=== PATIENT | female | born 1980 | race Caucasian/White ===

== ENCOUNTER 2018-12-18 13:59 | Emergency (ER) | payer OTHER ==
[2018-12-18 15:56] LABS: Absolute Lymphocytes (CBC) 1.6 K/uL (0.7-4.9); Basophils % 0.6 % (0-1.3); Hematocrit 24.8 % (36.0-45.0); Lymphocytes % 20.6 % (15.3-44.8); MPV 8.7 fL (7.6-11.3); Monocytes % 7.1 % (3.3-12.3); RBC Red Blood Cell Count 3.03 M/uL (3.86-4.86)
[2018-12-18 15:57] LABS: Urine Blood NEGATIVE (NEG); Urine Glucose NEGATIVE (NEG); Urine Protein NEGATIVE (NEG)
[2018-12-18] MEDS ORDERED: NA CHLORIDE 0.9% 1,000 ML ONE (16:24)
[2018-12-18 18:05] LABS: ALT/SGPT 17 U/L (12-78); AST/SGOT 18 U/L (15-37); Albumin 2.6 g/dL (3.4-5.0); Alkaline Phosphatase 92 U/L (45-117); BUN Blood Urea Nitrogen 7 mg/dL (7-18); Bicarbonate 22 mmol/L (21-32); Bilirubin Direct < 0.1 mg/dL (0-0.2); Bilirubin Total 0.1 mg/dL (0.2-1.0); Glucose Level 72 mg/dL (74-106); Lipase 222 U/L (73-393); Potassium 3.9 mmol/L (3.5-5.1); Protein, Total 6.7 g/dL (6.4-8.2); Sodium Level 140 mmol/L (136-145)
[2018-12-18 18:26] LABS: HCG, Quantitative 10461 mIU/mL (1-3)
[2018-12-18] MEDS ORDERED: cloNIDine HCl 0.1 MG TAB ONE (18:43)
--- NOTE | 2018-12-18 19:32 | EDPHYS ---
Physician Documentation [facility] Name: Mayra Peterson Age: 38 yrs Sex: Female : 1980 Arrival Date: 12/18/2018 Time: 14:05 Bed 5 Private MD: ED Physician Doanl Blackwell HPI: 12/18 15:20 This 38 yrs old Female presents to ER via Ambulatory with complaints of so Swelling, Pain under ribs-22 wks preg. 15:20 The patient presents with abdominal pain abdominal distention in the upper abdomen, in so the lower abdomen. Onset: The symptoms/episode began/occurred 3 day(s) ago. Onset: The symptoms/episode began/occurred 3 day(s) ago. Modifying factors: The symptoms are alleviated by nothing, the symptoms are aggravated by nothing. Associated signs and symptoms: The patient has no apparent associated signs or symptoms. Severity of symptoms: At their worst the symptoms were moderate, in the emergency department the symptoms are unchanged. The estimated gestational age is 22 weeks. 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 - Social history:: Smoking status: Patient uses tobacco products, smokes one-half pack cigarettes per day. - Ebola Screening: : No symptoms or risks identified at this time. ROS: 15:20 Constitutional: Negative for fever, chills, and weight loss, Eyes: Negative for injury, so pain, redness, and discharge, ENT: Negative for injury, pain, and discharge, Neck: Negative for injury, pain, and swelling, Cardiovascular: Negative for chest pain, palpitations, and edema, Respiratory: Negative for shortness of breath, cough, wheezing, and pleuritic chest pain, Back: Negative for injury and pain, : Negative for injury, bleeding, discharge, and swelling, MS/Extremity: Negative for injury and deformity, Skin: Negative for injury, rash, and discoloration, Neuro: Negative for headache, weakness, numbness, tingling, and seizure, Psych: Negative for depression, anxiety, suicide ideation, homicidal ideation, and hallucinations, Allergy/Immunology: Negative for hives, rash, and allergies, Endocrine: Negative for neck swelling, polydipsia, polyuria, polyphagia, and marked weight changes, Hematologic/Lymphatic: Negative for swollen nodes, abnormal bleeding, and unusual bruising. 15:20 Abdomen/GI: Positive for abdominal pain, of the right upper quadrant, left upper quadrant, right lower quadrant and left lower quadrant. 15:20 MS/extremity: Positive for swelling, of the right leg and left leg. Exam: 15:20 Constitutional: This is a well developed, well nourished patient who is awake, alert, so and in no acute distress. Head/Face: Normocephalic, atraumatic. Eyes: Pupils equal round and reactive to light, extra-ocular motions intact. Lids and lashes normal. Conjunctiva and sclera are non-icteric and not injected. Cornea within normal limits. Periorbital areas with no swelling, redness, or edema. ENT: Nares patent. No nasal discharge, no septal abnormalities noted. Tympanic membranes are normal and external auditory canals are clear. Oropharynx with no redness, swelling, or masses, exudates, or evidence of obstruction, uvula midline. Mucous membranes moist. Neck: Trachea midline, no thyromegaly or masses palpated, and no cervical lymphadenopathy. Supple, full range of motion without nuchal rigidity, or vertebral point tenderness. No Meningismus. Chest/axilla: Normal chest wall appearance and motion. Nontender with no deformity. No lesions are appreciated. Cardiovascular: Regular rate and rhythm with a normal S1 and S2. No gallops, murmurs, or rubs. Normal PMI, no JVD. No pulse deficits. Respiratory: Lungs have equal breath sounds bilaterally, clear to auscultation and percussion. No rales, rhonchi or wheezes noted. No increased work of breathing, no retractions or nasal flaring. Back: No spinal tenderness. No costovertebral tenderness. Full range of motion. Female : Normal external genitalia. Skin: Warm, dry with normal turgor. Normal color with no rashes, no lesions, and no evidence of cellulitis. Neuro: Awake and alert, GCS 15, oriented to person, place, time, and situation. Cranial nerves II-XII grossly intact. Motor strength 5/5 in all extremities. Sensory grossly intact. Cerebellar exam normal. Normal gait. Psych: Awake, alert, with orientation to person, place and time. Behavior, mood, and affect are within normal limits. 15:20 Abdomen/GI: Inspection: distension, that is moderate, gravid appearance, is noted, Bowel sounds: normal, Palpation: abdomen is soft and non-tender, Liver: no appreciated palpable abnormalities, Hernia: not appreciated. Vital Signs: 14:16 BP 132 / 67; Pulse 90; Resp 18 S; Temp 97.7(TE); Pulse Ox 100% on R/A; Weight 79.38 kg aa5 (R); Height 5 ft. 0 in. (152.40 cm) (R); Pain 6/10; 16:00 BP 128 / 68; Pulse 88; Resp 16; Pulse Ox 100% on R/A; Pain 5/10; hb 17:30 BP 130 / 70; Pulse 86; Resp 15; Pulse Ox 100% on R/A; Pain 4/10; hb 19:15 BP 118 / 88; Pulse 72; Resp 17; Pulse Ox 97% on R/A; rv 14:16 Body Mass Index 34.18 (79.38 kg, 152.40 cm) aa5 MDM: 14:31 Patient medically screened. [facility] 15:24 Data reviewed: vital signs, nurses notes, lab test result(s), radiologic studies. [facility] 12/18 15:19 Order name: Basic Metabolic Panel; Complete Time: 18:52 [facility] 12/18 15:19 Order name: CBC with Diff; Complete Time: 16:05 [facility] 12/18 15:19 Order name: Creatinine for Radiology; Complete Time: 16:05 [facility] 12/18 15:19 Order name: Hepatic Function; Complete Time: 18:52 [facility] 12/18 15:19 Order name: Lipase; Complete Time: 18:52 [facility] 12/18 15:19 Order name: Quantitative Hcg; Complete Time: 18:52 [facility] 12/18 15:19 Order name: IV Saline Lock; Complete Time: 16:12 [facility] 12/18 15:19 Order name: Abo/rh Typing; Complete Time: 16:05 so 12/18 15:19 Order name: TSH; Complete Time: 18:52 so 12/18 15:19 Order name: AMMONIA; Complete Time: 16:05 so 12/18 15:50 Order name: Urine Dipstick--Ancillary (enter results); Complete Time: 16:05 ag 12/18 18:28 Order name: T4 Free; Complete Time: 18:52 EDMD 12/18 15:19 Order name: Labs collected and sent; Complete Time: 16:12 so 12/18 15:19 Order name: NPO; Complete Time: 15:26 so 12/18 15:19 Order name: Urine Dipstick-Ancillary (obtain specimen); Complete Time: 16:12 [facility] Administered Medications: 15:44 Drug: NS 0.9% 1000 ml Route: IV; Rate: 125 ml/hr; Site: right wrist; hb 19:10 Follow up: Response: No adverse reaction; IV Intake: 375ml hb Disposition: 12/18/18 19:32 Patient left the facility after being seen by provider. Preliminary diagnosis are related conditions, unspecified, second trimester, Anemia, unspecified. - Patient left due to wait time. - Condition is Undetermined. - Problem is new. - Symptoms are unchanged. Signatures: Dispatcher [employer] Donal Ortez MD MD cha Calderon, Audri, RN RN aa5 Erica Juarez RN RN Ricardo Lassiter RN RN rv Corrections: (The following items were deleted from the chart) 16:11 15:19 Urine Test ordered. [facility] hb 19:32 19:32 12/18/2018 19:32 Patient left the facility after being seen by provider. so Preliminary diagnosis is related conditions, unspecified, second trimester. Reason stated they are leaving due to wait time. Condition is Undetermined. Problem is new. Symptoms are unchanged. [facility] 19:37 19:32 12/18/2018 19:32 Patient left the facility after being seen by provider. rv Preliminary diagnosis is related conditions, unspecified, second trimester; Anemia, unspecified. Reason stated they are leaving due to wait time. Condition is Undetermined. Problem is new. Symptoms are unchanged. [facility]
--- NOTE | 2018-12-18 19:32 | ER ---
Nurse's Notes [facility] Name: Mayra Peterson Age: 38 yrs Sex: Female : 1980 Arrival Date: 12/18/2018 Time: 14:05 Bed 5 Private MD: Diagnosis: related conditions, unspecified, second trimester;Anemia, unspecified Presentation: 12/18 14:11 Presenting complaint: Patient states: "I have this pain under my ribs and I can't aa5 breathe and my legs are swollen". Pt reports being 22 weeks . Transition of care: patient was not received from another setting of care. Onset of symptoms was December 15, 2018. Risk Assessment: Do you want to hurt yourself or someone else? Patient reports no desire to harm self or others. Initial Sepsis Screen: Does the patient meet any 2 criteria? No. Patient's initial sepsis screen is negative. Does the patient have a suspected source of infection? No. Patient's initial sepsis screen is negative. Care prior to arrival: None. 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 - Social history:: Smoking status: Patient uses tobacco products, smokes one-half pack cigarettes per day. - Ebola Screening: : No symptoms or risks identified at this time. Screenin:30 Abuse screen: Denies threats or abuse. Denies injuries from another. Nutritional hb screening: No deficits noted. Tuberculosis screening: No symptoms or risk factors identified. Fall Risk None identified. Assessment: 15:35 General: Appears in no apparent distress. Behavior is calm, cooperative. Pain: Pain hb currently is 6 out of 10 on a pain scale. Neuro: Level of Consciousness is awake, alert, obeys commands, Oriented to person, place, time, situation. Cardiovascular: Capillary refill < 3 seconds Patient's skin is warm and dry. Respiratory: Airway is patent Respiratory effort is even, unlabored, Respiratory pattern is regular, symmetrical, Breath sounds are clear bilaterally. GI: Reports RUQ pain. : No signs and/or symptoms were reported regarding the genitourinary system. EENT: No signs and/or symptoms were reported regarding the EENT system. Derm: Skin is intact, is healthy with good turgor. Musculoskeletal: No signs and/or symptoms reported regarding the musculoskeletal system. 16:30 Reassessment: Patient appears in no apparent distress at this time. Patient and/or family updated on plan of care and expected duration. Pain level reassessed. Patient is alert, oriented x 3, equal unlabored respirations, skin warm/dry/pink. 17:30 Reassessment: Patient appears in no apparent distress at this time. No changes from hb previously documented assessment. Patient and/or family updated on plan of care and expected duration. Pain level reassessed. Patient is alert, oriented x 3, equal unlabored respirations, skin warm/dry/pink. 18:14 Reassessment: Patient appears in no apparent distress at this time. No changes from hb previously documented assessment. Patient and/or family updated on plan of care and expected duration. Pain level reassessed. Patient is alert, oriented x 3, equal unlabored respirations, skin warm/dry/pink. 19:19 General: Appears uncomfortable, Behavior is calm, cooperative, appropriate for age. ea Pain: Complains of pain in right upper quadrant and left upper quadrant Pain currently is 10 out of 10 on a pain scale. Neuro: Level of Consciousness is awake, alert, obeys commands, Oriented to person, place, time, situation. Cardiovascular: Patient's skin is warm and dry. Respiratory: Airway is patent Respiratory effort is even, unlabored, Respiratory pattern is regular, symmetrical. GI: Reports nausea. Derm: Skin is intact, Skin is pink, warm \\T\\ dry. Musculoskeletal: Circulation, motion, and sensation intact. 19:35 Reassessment: patient took the IV out by herself. rv Vital Signs: 14:16 BP 132 / 67; Pulse 90; Resp 18 S; Temp 97.7(TE); Pulse Ox 100% on R/A; Weight 79.38 kg aa5 (R); Height 5 ft. 0 in. (152.40 cm) (R); Pain 6/10; 16:00 BP 128 / 68; Pulse 88; Resp 16; Pulse Ox 100% on R/A; Pain 5/10; hb 17:30 BP 130 / 70; Pulse 86; Resp 15; Pulse Ox 100% on R/A; Pain 4/10; hb 19:15 BP 118 / 88; Pulse 72; Resp 17; Pulse Ox 97% on R/A; rv 14:16 Body Mass Index 34.18 (79.38 kg, 152.40 cm) aa5 ED Course: 14:05 Patient arrived in ED. as 14:11 Arm band placed on. aa5 14:12 Triage completed. aa5 14:31 Donal Blackwell MD is Attending Physician. so 15:26 Erica Juarez, RN is Primary Nurse. hb 15:30 Inserted saline lock: 22 gauge in right wrist, using aseptic technique. Blood collected.hb 16:15 Patient has correct armband on for positive identification. Placed in gown. Bed in low hb position. Call light in reach. Side rails up X 1. 19:36 No provider procedures requiring assistance completed. patient took her IV out. rv Administered Medications: 15:44 Drug: NS 0.9% 1000 ml Route: IV; Rate: 125 ml/hr; Site: right wrist; hb 19:10 Follow up: Response: No adverse reaction; IV Intake: 375ml hb Intake: 19:10 IV: 375ml; Total: 375ml. hb Outcome: 19:37 Eloped from patient exam room, after seeing physician Time discovered patient gone: rv December 18, 2018 at 19:30 19:37 Condition: stable 19:37 Patient left the ED. rv Signatures: Donal Blackwell MD MD cha Martinez, Amelia as Calderon, Audri, RN RN aa5 Erica Juarez, RN RN Marcela Chavez, Ricardo Jules RN, ea, RN RN rv Corrections: (The following items were deleted from the chart) 14:16 14:11 Presenting complaint: Patient states: "I have this pain under my ribs and I can't aa5 breathe and my legs are swollen" aa5
== END 2018-12-18 19:37 | disposition left against medical advice (07) ==
LOC: ER 13:59
DX: O99.012 Anemia complicating pregnancy, second trimester (principal); D64.9 Anemia, unspecified; O99.282 Endocrine, nutritional and metabolic diseases complicating pregnancy, second trimester; E07.9 Disorder of thyroid, unspecified; O99.332 Smoking (tobacco) complicating pregnancy, second trimester; F17.210 Nicotine dependence, cigarettes, uncomplicated; Z3A.22 22 weeks gestation of pregnancy
CPT/HCPCS: 36415; 80048; 80076; 81003; 82140; 83690; 84439; 84443; 84702; 85025; 86900; 86901; 99283; J7030

== ENCOUNTER 2019-08-29 09:07 | Emergency (ER) | payer OTHER, SELFPAY ==
[2019-08-29 12:40] LABS: Absolute Lymphocytes (CBC) 1.7 K/uL (0.7-4.9); Basophils % 0.6 % (0-1.3); MPV 8.9 fL (7.6-11.3); RBC Red Blood Cell Count 4.18 M/uL (3.86-4.86)
--- NOTE | 2019-08-29 12:47 | RAD REPORT ---
EXAM DESCRIPTION: RAD - Shoulder Left 2 View - 08/29/2019 12:22 pm CLINICAL HISTORY: PAINfall COMPARISON: No comparisons TECHNIQUE: Internal and external rotation views of the left shoulder were obtained. FINDINGS: There is no fracture or dislocation. AC joint is normal in appearance. No acute or suspici ous findings. IMPRESSION: Negative two-view left shoulder examination for acute findings.
--- NOTE | 2019-08-29 12:48 | RAD REPORT ---
EXAM DESCRIPTION: RAD - Chest Single View - 08/29/2019 12:22 pm CLINICAL HISTORY: COUGH, edema TECHNIQUE: AP portable chest image was obtained 08/29/2019 12:22 pm . FINDINGS: Lungs are clear. Heart and vasculature are normal. No measurable pleural effusion and no p neumothorax. No acute bony abnormality seen. No acute aortic findings suspected. IMPRESSION: No acute cardiopulmonary process.
[2019-08-29] MEDS ORDERED: MORPHINE 2 MG/ML SYR ONE (12:55)
[2019-08-29] MEDS ORDERED: NA CHLORIDE 0.9% 1,000 ML ONE (12:55)
[2019-08-29] MEDS ORDERED: ONDANSETRON 4 MG/2 ML VIAL ONE (12:55)
[2019-08-29 13:09] LABS: ALT/SGPT 36 U/L (12-78); AST/SGOT 36 U/L (15-37); Albumin 3.5 g/dL (3.4-5.0); Alkaline Phosphatase 80 U/L (45-117); BUN Blood Urea Nitrogen 15 mg/dL (7-18); Bicarbonate 25 mmol/L (21-32); Bilirubin Direct 0.1 mg/dL (0-0.2); Bilirubin Total 0.4 mg/dL (0.2-1.0); Glucose Level 79 mg/dL (74-106); Lipase 131 U/L (73-393); Magnesium 2.2 mg/dL (1.8-2.4); NT PRO-BNP 204 pg/mL (<125); Potassium 3.6 mmol/L (3.5-5.1); Protein, Total 7.4 g/dL (6.4-8.2); Sodium Level 142 mmol/L (136-145); Troponin (Emerg Dept Use Only) < 0.02 ng/mL (0.0-0.045)
--- NOTE | 2019-08-29 13:22 | RAD REPORT ---
EXAM DESCRIPTION: US - Extrem Venous W Compress Jose - 08/29/2019 12:46 pm CLINICAL HISTORY: PAINbilateral leg pain and swelling COMPARISON: None. TECHNIQUE: Real-time sonographic evaluation of the bilateral lower extremity common femoral, superfi cial femoral, popliteal and posterior tibial veins was performed. FINDINGS: Normal compressibility, flow augmentation, phasic flow and spontaneous flow are identified in the left and right lower extremity common femoral, superficial femoral, popliteal and posterior t ibial veins. No intraluminal filling defects seen. IMPRESSION: No DVT in either lower extremity.
--- NOTE | 2019-08-29 13:25 | RAD REPORT ---
EXAM DESCRIPTION: CT - Stone Protocol - 08/29/2019 1:15 pm CLINICAL HISTORY: Abd pain;Flank pain, fall history COMPARISON: No comparisons TECHNIQUE: Axial 3 mm thick images were obtained without oral or IV contrast. The [id number] span s the entirety of the system including uppermost abdomen and lung bases. All CT scans are performed using dose optimization technique as appropriate and may include automated exposure control or mA/KV adjustment according to patient size. FINDINGS: No hydronephrosis is present and no obstructing ureteral calculi. No suspicious renal mass es. Isodense masses and pyelonephritis are not excluded on a stone protocol CT scan. No urinary bladd er suspicious finding. No significant adrenal finding. Liver shows a pronounced fatty infiltration pattern. There is minimal spared parenchyma near the gall bladder fossa. Spleen and pancreas show no acute findings. Accessory splenic nodules are present. No gallbladder or biliary tree abnormality identified. No suspicious bowel findings. Uterus and ovaries show no suspicious findings. No mass or bulky lymphadenopathy. Minimal periumbilical fat only hernia present. No free air, free fl uid or inflammatory stranding. No acute bone finding. Disc and bony degenerative change at L5-S1 present, advanced for patient age. There is bilateral bony foraminal encroachment. IMPRESSION: No acute abdominal finding. No posttraumatic injury identifiable. Isodense masses and pyelonephritis are not excluded on stone protocol technique. Diffuse fatty infiltration of the liver. Advanced for age degenerative disease at the L5-S1 disc level.
--- NOTE | 2019-08-29 13:59 | ER ---
Nurse's Notes [facility] Name: Mayra Peterson Age: 38 yrs Sex: Female : 1980 Arrival Date: 08/29/2019 Time: 09:11 Bed 23 Private MD: Diagnosis: Fall due to bumping against object;Pain in left shoulder;Hypothyroidism, unspecified;Dysuria Presentation: 08/28 09:20 Chief complaint: Patient states: bilateral pedal edema that began 4 days ago. ss Coronavirus screen: The patient has NOT traveled to a country currently being monitored by the [facility] within the last 14 days. Proceed with normal triage procedures. Ebola Screen: Patient denies exposure to infectious person. Patient denies travel to an Ebola-affected area in the 21 days before illness onset. Initial Sepsis Screen: Does the patient meet any 2 criteria? No. Patient's initial sepsis screen is negative. Does the patient have a suspected source of infection? No. Patient's initial sepsis screen is negative. Risk Assessment: Do you want to hurt yourself or someone else? Patient reports no desire to harm self or others. 09:20 Method Of Arrival: Ambulatory ss 09:20 Acuity: AR 3 ss Historical: - Allergies: 09:25 No Known Allergies; ss - Immunization history:: Adult Immunizations up to date. - Social history:: Smoking status: Patient reports the use of cigarette tobacco products, smokes one-half pack cigarettes per day. - Family history:: not pertinent. Screenin:30 Abuse screen: Denies threats or abuse. Denies injuries from another. Nutritional ss screening: No deficits noted. Tuberculosis screening: Never had TB. Fall Risk None identified. Assessment: 11:20 General: Appears in no apparent distress. unkempt, Behavior is Reports feeling ill for ss > 3 days, Denies fever. Pain: Complains of pain in left leg and right leg and posterior aspect of left shoulder and anterior aspect of left shoulder Pain currently is 9 out of 10 on a pain scale. Quality of pain is described as aching, tender. Neuro: Level of Consciousness is awake, alert, obeys commands, Oriented to person, place, time, situation. Cardiovascular: Capillary refill < 3 seconds is brisk in bilateral fingers. Respiratory: Breath sounds are clear bilaterally. Denies cough. GI: Patient currently denies diarrhea, vomiting. : Reports unable to urinate "for a while". pt reports that she does not drink enough water regularly. EENT: Nares are clear Oral mucosa is moist. Derm: Skin is pink, warm \\T\\ dry. 12:30 Reassessment: Patient appears in no apparent distress at this time. Patient and/or ss family updated on plan of care and expected duration. Pain level reassessed. Patient is alert, oriented x 3, equal unlabored respirations, skin warm/dry/pink. 13:30 Reassessment: No changes from previously documented assessment. pain has decreased ss after Morphine administration Patient states symptoms have improved. Vital Signs: 09:20 BP 127 / 97; Pulse 92; Resp 16; Temp 98.3(TE); Pulse Ox 97% on R/A; Weight 81.19 kg; ss Height 5 ft. 0 in. (152.40 cm); Pain 9/10; 09:20 Body Mass Index 34.96 (81.19 kg, 152.40 cm) ss ED Course: 09:11 Patient arrived in ED. mr 09:25 Triage completed. ss 09:25 Arm band placed on right wrist. ss 11:07 Donal Blackwell MD is Attending Physician. [facility] 12:12 Radha Glass, SARITA is Primary Nurse. ss 12:22 XRAY Chest (1 view) In Process Unspecified. EDMS 12:23 Shoulder Left (2 View) XRAY In Process Unspecified. EDMS 12:30 Inserted saline lock: 22 gauge in right hand, using aseptic technique. Blood collected. sv Flushed right hand with 5 ml normal saline. 12:44 Ultrasound completed. Patient tolerated well. Notified ED Physician . sg3 12:46 US Extremity Venous W Compression Jose In Process Unspecified. EDMS 13:19 CT Stone Protocol In Process Unspecified. EDMS 13:30 Patient has correct armband on for positive identification. Bed in low position. Call ss light in reach. 14:30 No provider procedures requiring assistance completed. IV discontinued, intact, ss bleeding controlled, No redness/swelling at site. Pressure dressing applied. Administered Medications: 13:20 Drug: NS 0.9% 1000 ml Route: IV; Rate: 1 bolus; Site: right hand; ss 13:26 Drug: Zofran (Ondansetron) 4 mg Route: IVP; Site: right hand; ss 14:00 Follow up: Response: No adverse reaction; Nausea is decreased ss 13:29 Drug: morphine 2 mg Route: IVP; Site: right hand; ss 14:01 Follow up: Response: No adverse reaction; Pain is decreased ss 14:07 Drug: Synthroid 150 mcg Route: PO; 14:30 Follow up: Response: No adverse reaction Outcome: 13:58 Discharge ordered by MD. rizzo 14:30 Discharged to home ambulatory. 14:30 Condition: good 14:30 Discharge instructions given to patient, Instructed on discharge instructions, follow up and referral plans. medication usage, Demonstrated understanding of instructions, follow-up care, medications. 14:39 Patient left the ED. ls4 Signatures: Dispatcher [employer] EDCharlee Xiong, Donal Ny RN, MD MD cha Rivera, Radha Tang RN RN ss Baxter, Heather, RN RN N[facility] Susan Sinclair RN RN ls4
--- NOTE | 2019-08-29 13:59 | EDPHYS ---
Physician Documentation [facility] Name: Mayra Peterson Age: 38 yrs Sex: Female : 1980 Arrival Date: 08/29/2019 Time: 09:11 Bed 23 Private MD: ED Physician Donal Blackwell HPI: 08/28 11:46 This 38 yrs old Female presents to ER via Ambulatory with complaints of Feet so Swelling, Fall Injury. 11:46 Details of fall: The patient fell from an upright position, while walking. Onset: The so symptoms/episode began/occurred 3 day(s) ago. Associated injuries: The patient sustained injury to the low back, anterior aspect of left shoulder and posterior aspect of left shoulder, decreased range of motion. Severity of symptoms: At their worst the symptoms were mild, in the emergency department the symptoms are unchanged. The patient has not experienced similar symptoms in the past. Historical: - Allergies: 09:25 No Known Allergies; ss - Immunization history:: Adult Immunizations up to date. - Social history:: Smoking status: Patient reports the use of cigarette tobacco products, smokes one-half pack cigarettes per day. - Family history:: not pertinent. ROS: 11:46 Constitutional: Negative for fever, chills, and weight loss, Eyes: Negative for injury, so pain, redness, and discharge, ENT: Negative for injury, pain, and discharge, Neck: Negative for injury, pain, and swelling, Cardiovascular: Negative for chest pain, palpitations, and edema, Respiratory: Negative for shortness of breath, cough, wheezing, and pleuritic chest pain, : Negative for injury, bleeding, discharge, and swelling, Skin: Negative for injury, rash, and discoloration, Neuro: Negative for headache, weakness, numbness, tingling, and seizure, Psych: Negative for depression, anxiety, suicide ideation, homicidal ideation, and hallucinations, Allergy/Immunology: Negative for hives, rash, and allergies, Endocrine: Negative for neck swelling, polydipsia, polyuria, polyphagia, and marked weight changes, Hematologic/Lymphatic: Negative for swollen nodes, abnormal bleeding, and unusual bruising. 11:46 Abdomen/GI: Positive for abdominal pain, nausea, of the suprapubic area. 11:46 Back: Positive for pain at rest, pain with movement. 11:46 : Positive for 11:46 MS/extremity: Positive for decreased range of motion, pain, of the anterior aspect of left shoulder and posterior aspect of left shoulder. Exam: 11:46 Constitutional: This is a well developed, well nourished patient who is awake, alert, so and in no acute distress. Head/Face: Normocephalic, atraumatic. Eyes: Pupils equal round and reactive to light, extra-ocular motions intact. Lids and lashes normal. Conjunctiva and sclera are non-icteric and not injected. Cornea within normal limits. Periorbital areas with no swelling, redness, or edema. ENT: Nares patent. No nasal discharge, no septal abnormalities noted. Tympanic membranes are normal and external auditory canals are clear. Oropharynx with no redness, swelling, or masses, exudates, or evidence of obstruction, uvula midline. Mucous membranes moist. Neck: Trachea midline, no thyromegaly or masses palpated, and no cervical lymphadenopathy. Supple, full range of motion without nuchal rigidity, or vertebral point tenderness. No Meningismus. Chest/axilla: Normal chest wall appearance and motion. Nontender with no deformity. No lesions are appreciated. Cardiovascular: Regular rate and rhythm with a normal S1 and S2. No gallops, murmurs, or rubs. Normal PMI, no JVD. No pulse deficits. Respiratory: Lungs have equal breath sounds bilaterally, clear to auscultation and percussion. No rales, rhonchi or wheezes noted. No increased work of breathing, no retractions or nasal flaring. Skin: Warm, dry with normal turgor. Normal color with no rashes, no lesions, and no evidence of cellulitis. Neuro: Awake and alert, GCS 15, oriented to person, place, time, and situation. Cranial nerves II-XII grossly intact. Motor strength 5/5 in all extremities. Sensory grossly intact. Cerebellar exam normal. Normal gait. 11:46 Abdomen/GI: Inspection: abdomen appears normal, Bowel sounds: normal, Palpation: mild abdominal tenderness, in the suprapubic area, Liver: no appreciated palpable abnormalities, Hernia: not appreciated. Vital Signs: 09:20 BP 127 / 97; Pulse 92; Resp 16; Temp 98.3(TE); Pulse Ox 97% on R/A; Weight 81.19 kg; ss Height 5 ft. 0 in. (152.40 cm); Pain 9/10; 09:20 Body Mass Index 34.96 (81.19 kg, 152.40 cm) MDM: 11:07 Patient medically screened. [facility] 11:48 Data reviewed: vital signs, nurses notes, lab test result(s), EKG, radiologic studies, [facility] CT scan, MRI, plain films. 08/28 11:45 Order name: Basic Metabolic Panel; Complete Time: 13:26 [facility] 08/28 11:45 Order name: CBC with Diff [facility] 08/28 11:45 Order name: LFT's; Complete Time: 13:26 [facility] 08/28 11:45 Order name: Magnesium; Complete Time: 13: [facility] 08/28 11:45 Order name: NT PRO-BNP; Complete Time: 13: [facility] 08/28 11:45 Order name: PT-INR; Complete Time: 13: [facility] 08/28 11:45 Order name: Troponin (emerg Dept Use Only); Complete Time: 13: [facility] 08/28 11:45 Order name: TSH; Complete Time: 13:26 [facility] 08/28 11:45 Order name: Lipase; Complete Time: 13: [facility] 08/28 13:15 Order name: T4 Free; Complete Time: 13:26 EDMS 08/28 14:26 Order name: Urine Microscopic Only 08/28 14:28 Order name: Urine Dipstick--Ancillary (enter results) eb 08/28 14:28 Order name: Urine --Ancillary (enter results) 08/28 11:45 Order name: XRAY Chest (1 view); Complete Time: 13:26 [facility] 08/28 11:45 Order name: EKG; Complete Time: 11:45 [facility] 08/28 11:45 Order name: Cardiac monitoring; Complete Time: 13:30 [facility] 08/28 11:45 Order name: EKG - Nurse/Tech; Complete Time: 13:30 [facility] 08/28 11:45 Order name: IV Saline Lock; Complete Time: 13:30 [facility] 08/28 11:45 Order name: Labs collected and sent; Complete Time: 13:31 [facility] 08/28 11:45 Order name: O2 Per Protocol; Complete Time: 13: [facility] 08/28 11:45 Order name: O2 Sat Monitoring; Complete Time: 13: [facility] 08/28 11:45 Order name: US Extremity Venous W Compression Jose; Complete Time: 13:26 [facility] 08/28 11:45 Order name: CT Stone Protocol; Complete Time: 13:30 [facility] 08/28 11:45 Order name: Shoulder Left (2 View) XRAY; Complete Time: 13:26 [facility] 08/28 12:45 Order name: Urine Dipstick-Ancillary (obtain specimen); Complete Time: 14:27 [facility] 08/28 12:45 Order name: Urine Test (obtain specimen); Complete Time: 14:27 [facility] Administered Medications: 13:20 Drug: NS 0.9% 1000 ml Route: IV; Rate: 1 bolus; Site: right hand; ss 13:26 Drug: Zofran (Ondansetron) 4 mg Route: IVP; Site: right hand; ss 14:00 Follow up: Response: No adverse reaction; Nausea is decreased ss 13:29 Drug: morphine 2 mg Route: IVP; Site: right hand; ss 14:01 Follow up: Response: No adverse reaction; Pain is decreased ss 14:07 Drug: Synthroid 150 mcg Route: PO; hb 14:30 Follow up: Response: No adverse reaction ss Disposition: 08/29/19 13:58 Discharged to Home. Impression: Fall due to bumping against object, Pain in left shoulder, Hypothyroidism, unspecified, Dysuria. - Condition is Stable. - Discharge Instructions: Dysuria, Hypothyroidism, Musculoskeletal Pain, Shoulder Pain, Shoulder Range of Motion Exercises, Shoulder Pain, [id number], Fall Prevention in the Home, [id number]. - Prescriptions for Synthroid 175 mcg Oral tablet - take 1 tablet by ORAL route once daily; 30 tablet. - Medication Reconciliation Form, Thank You Letter, Antibiotic Education, Prescription Opioid Use form. - Follow up: Private Physician; When: 2 - 3 days; Reason: Recheck today's complaints, Continuance of care, Re-evaluation by your physician. - Problem is new. - Symptoms have improved. Signatures: Dispatcher [employer] EDDonal Kruse MD MD cha Smirch, Shelby, RN RN ss Erica Juarez RN RN Susan Sinclair RN RN ls4 Corrections: (The following items were deleted from the chart) 13:58 13:58 08/29/2019 13:58 Discharged to Home. Impression: Fall due to bumping against so object; Pain in left shoulder; Hypothyroidism, unspecified. Condition is Stable. Discharge Instructions: Hypothyroidism, Musculoskeletal Pain, Shoulder Pain, Shoulder Range of Motion Exercises, Shoulder Pain, [id number], Fall Prevention in the Home, [id number]. Prescriptions for Synthroid 175 mcg Oral tablet - take 1 tablet by ORAL route once daily; 30 tablet. and Forms are Medication Reconciliation Form, Thank You Letter, Antibiotic Education, Prescription Opioid Use. Follow up: Private Physician; When: 2 - 3 days; Reason: Recheck today's complaints, Continuance of care, Re-evaluation by your physician. Problem is new. Symptoms have improved. [facility] 14:39 13:58 08/29/2019 13:58 Discharged to Home. Impression: Fall due to bumping against ls4 object; Pain in left shoulder; Hypothyroidism, unspecified; Dysuria. Condition is Stable. Discharge Instructions: Hypothyroidism, Musculoskeletal Pain, Shoulder Pain, Shoulder Range of Motion Exercises, Shoulder Pain, [id number], Fall Prevention in the Home, [id number]. Prescriptions for Synthroid 175 mcg Oral tablet - take 1 tablet by ORAL route once daily; 30 tablet. and Forms are Medication Reconciliation Form, Thank You Letter, Antibiotic Education, Prescription Opioid Use. Follow up: Private Physician; When: 2 - 3 days; Reason: Recheck today's complaints, Continuance of care, Re-evaluation by your physician. Problem is new. Symptoms have improved. so
[2019-08-29] MEDS ORDERED: LEVOTHYROXINE SOD 0.075 MG TAB PO ONE (14:00)
[2019-08-29 14:52] VITALS: BP 127/97; TEMP 98.3; O2SAT 97
[2019-08-29 15:11] LABS: Urine Blood NEGATIVE (NEG); Urine Glucose NEGATIVE (NEG); Urine Protein TRACE (NEG); Urine pH 5.5 (5.0-7.0)
[2019-08-29 15:33] LABS: Urine Bacteria 20-50 /HPF (<20)
[2019-08-29 15:34] LABS: Urine Culture Reflex Order NOT NEEDED; Urine Mucus 2+ /HPF (NONE SEEN)
--- NOTE | 2019-08-31 06:58 | EKG ---
Test Date: 2019-08-29 Test Time: 12:46:31 Nursing Secretary: MONY MEASUREMENT RESULTS: Intervals: Rate: 70 SD: 162 QRSD: 92 QT: 474 QTc: 511 [place]: P: 58 SD: 162 QRS: 58 T: 29 INTERPRETIVE STATEMENTS: Normal sinus rhythm Nonspecific T wave abnormality Prolonged QT Abnormal ECG No previous ECG available for comparison Electronically Signed On 08-31-19 06:55:12 CDT by Boyd Mendoza
== END 2019-08-29 14:39 | disposition home or self-care (01) ==
LOC: ER 09:07
DX: E03.9 Hypothyroidism, unspecified (principal); R30.0 Dysuria; W18.00XA Striking against unspecified object with subsequent fall, initial encounter; Y93.01 Activity, walking, marching and hiking; Y92.9 Unspecified place or not applicable; F17.210 Nicotine dependence, cigarettes, uncomplicated
CPT/HCPCS: 36415; 71045; 74176; 76377; 80048; 80076; 81003; 81015; 81025; 83690; 83735; 83880; 84439; 84443; 84484; 85025; 85610; 93005; 93970; 96374; 96375; 99284; J2270; J2405; J7030

== ENCOUNTER 2021-11-27 09:48 | Emergency (ER) | payer OTHER, SELFPAY ==
--- OUTSIDE RECORDS SUMMARY | 2021-11-27 09:58 | XMS REPORT | Continuity of Care Document ---
:1980 Author Organization [facility] t Address [address] [place] [address] Care Team Providers Name Role Phone [place], E Primary Care Physician KOFRANCHESCAEV_T Attending Clinician Unavailable Ainsley Chavez Attending Clinician [phone] Nurse, [facility] Attending Clinician Unavailable Greg RN Attending Clinician Unavailable Only, Db Test Attending Clinician Unavailable Shay VIDAL Attending Clinician Doctor Unassigned, Name Attending Clinician Unavailable Marisa Tabares Attending Clinician Laura VIDAL S Attending Clinician AKINSIPE, C Attending Clinician Unavailable Marguerite PARHAM Attending Clinician Unavailable Hawa Montelongo DO Attending Clinician Hawa MONTELONGO Attending Clinician Unavailable Marguerite Collazo Attending Clinician Yaakov VIDAL Attending Clinician Reginald SILVA, N Attending Clinician 2, [facility] Room Attending Clinician Unavailable Zion Hayden MD Attending Clinician Faculty, [facility] Attending Clinician Unavailable Eugene VIDAL Attending Clinician KATHY_[place]ina Admitting Clinician Unavailable Hawa MONTELONGO Admitting Clinician Unavailable Yaakov VIDAL Admitting Clinician Eugene VIDAL Admitting Clinician Payers Payer Name Policy Type Policy Number Effective Date Expiration Date Jong [place] - [id number] 2020 [place] (MEDICAID 00:00:00 HMO) Problems Condition Condition Condition Status Onset Resolution Last Treating Co mments Source Name Details Category Date Date Treatment Clinician Date Other Other Disease Active 2018-06 Univers general general 0-24 it[place] of counseling [place] and advice and advice 00 Me dical for Branch contracept contracept hollie hollie management management History of History of Disease Active 2019 U nivers tubal tubal 0-24 ity of ligation ligation 00:00: [address] 31 weeks 31 weeks Disease Active 2019- Unive rs gestation gestation 9-12 ity of of of 00:00: [place] 00 [facility] Disease Active 2019- Univers labor labor 9-05 ity of 00:00: [address] Vaginal Vaginal Disease Active 2019- Univers bleeding bleeding 9-05 ity of 00:00: [address] Obesity Obesity Disease Active 2019- Univers (BMI (BMI 9-04 ity of 30-39.9) 30-39.9) 00:00: [place] 00 [facility] Disease Active 2019-0 Univers labor in labor in 9-04 ity of third third 00:00: [place] trimester trimester 00 [facility] Obesity Obesity Disease Active 2019- Univers affecting affecting 8-13 it[place] of 00:[place] in third in third 00 Medica l trimester trimester Bran ch Nausea and Nausea and Disease Active 2019-0 U nivers vomiting vomiting 8-13 ity of of of 00:00: [place] , , 00 Me dical antepartum antepartum Br anch Depression Depression Disease Active 2019-0 U nivers affecting affecting 6-27 it[place] of [place] second in second 00 [facility] trimester, trimester, Br anch antepartum antepartum History of History of Disease Active 2019-0 U nivers depression depression 6-27 it y of 00:00: [address] Multiple Multiple Disease Active 2019- Overview: Un mandy marker marker 5-15 Quad ity of screen screen 00:00: screen [place] positive positive 00 10/28/18 + Med ical for Down for Down DS 1:10, Bran ch syndrome syndrome patient not definite on LMP. Need US to confirm dates and possibly repeat screening Anemia of Anemia of Disease Active Uni vers mother in mother in 5-15 ity of , , [place] antepartum antepartum 00 Me dical Branch Hypothyroi Hypothyroi Disease Active Overview : Univers d in d in 5-15 TSH 27 ity of , , 00:00: 10/28/[place] antepartum antepartum 00 Me dical Branch Acute Acute Disease Active Univers urinary urinary 5-15 it[place] of retention retention 00:[place] Hypothyroi Hypothyroi Disease Active Overview : Univers dism dism 5-15 Formattin ity of 00:00: g of this [place] 00 note Medical might be Branch different from the original. TSH 27 10/28/18 AMA AMA Disease Active Univers (advanced (advanced 5-14 ity of maternal maternal 00:00: [place] age) age) 00 Medical multigravi multigravi Br anch da 35+, da 35+, second second trimester trimester BMI BMI Disease Active Univers 33.0-33.9, 33.0-33.9, 5-14 it y of adult adult 00:00: 00 Medical Branch High-risk High-risk Disease Active Uni vers , , 5-14 it y of second second 00:00: [place] trimester trimester 00 [facility] Branch History of History of Disease Active Overview : Univers herpes herpes 5-14 Formattin ity of genitalis genitalis 00:00: [place] of this [place] 00 note Medical might be Branch different from the original. HSV I&II serologie s positive [place] Disease Active Univers multiparit multiparit 5-14 it y of y y 00:00: [place] 00 Medical Branch Tobacco Tobacco Disease Active Univers smoking smoking 5-14 ity of affecting affecting 00:00[place] Med[place] raquel in second in second Bran ch trimester trimester Methadone Methadone Disease Active Uni vers dependence dependence 5-14 it y of 00:00: [place] 00 Medical Branch Tobacco Tobacco Disease Active Univers use use 5-14 ity of 00:00: [place] 00 Medical Branch No known No known Disease Unive rs active active ity of problems problems [facility] Allergies, Adverse Reactions, Alerts Allergy Allergy Status Severity Reaction(s) Onset Inactive Treating Comm ents Source Name Type Date Date Clinician NO KNOWN Drug Active Univers ALLERGIE Class ity of S [facility] Social History Social Habit Start Date Stop Date Quantity Comments Source ASSERTION 2018-07-27 University of 00:00:00 [facility] History of tobacco 1994-10-28 Cigarette Smoker University of use 00:00:00 [facility] Exposure to Not sure [facility] SARS-CoV-2 (event) [facility] Alcohol intake 2020-06-21 2020-06-21 Current University of 00:00:00 00:00:00 non-drinker of [facility] alcohol [place] (finding) Cigarettes smoked 2018-10-28 2018-10-28 Univers ity of current (pack per 00:00:00 00:00:00 [place] ) - Reported Branch Tobacco use and 2018-10-28 2018-10-28 Never used Universit y of exposure 00:00:00 00:00:00 [facility] Sex [birth year] At [birth year] Universit y of 00:00:00 00:00:00 [facility] Smoking Status Start Date Stop Date Source [facility] Current every day smoker 2018-10-28 00:00:00 Uni versity of [facility] Medications Ordered Filled Start Stop Current Ordering Indication Dosage Frequency Signature Comments Components Source Medication Medication Date Date Medication? Clinician (SIG) Name Name ondansetron 2020- No 4mg 4 mg, Slow Univers (ZOFRAN 08-20-06 IV Push, ity of (PF)) 03:15: 02:19 ONCE, 1 [place] injection 4 00 :00 dose, Fri Med ical mg 08/19/20 at [place] 2114, SIL dicyclomine No 20mg 20 mg, Uni vers (BENTYL) 08-20 03-06 Oral, ity of capsule 20 03:15: 02:18 ONCE, 1 Jorge L as mg 00 :00 dose, Fri Medical 08/19/20 at [place] 2114, Routine ondansetron 2020- No 4mg 4 mg, Slow Univers (ZOFRAN 3-06 03-05 IV Push, ity of (PF)) 01:00: 23:56 ONCE, 1 [place] injection 4 00 :00 dose, Fri Med ical mg 08/19/20 at Branch 1900, SIL morpHINE 2020- No 4mg 4 mg, Slow Un mandy injection 4 08-20 03-05 IV Push, ity of mg 01:00: 23:56 ONCE, 1 [place] 00 :00 dose, Fri Medical 08/19/20 at Branch 1900, STAT NaCl 0.9% 2020- No 1000mL at 999 Uni vers (NS) bolus 08-20 03-06 mL/hr, ity of infusion 00:00: 01:10 1,000 mL, Jorge L as 1,000 mL 00 :00 IV Medical Infusion, Branch ONCE, 1 dose, 08/19/20 at 1800, STAT iohexol No 120mL 120 mL, Unive rs (OMNIPAQUE 05 03-05 Intravenou it y of 350 23:45: 23:30 s, ONCE, 1 [place] BULK-150 00 :00 dose, Fri Medica l mL) 08/19/20 at Branch injection 1745, 120 mL Routine dicyclomine 2020-0 Yes [id number] 20mg Take 1 Univers 20 mg 3-05 tablet by ity of tablet 00:00: mouth 4 00 (four) Medical times Branch daily. ondansetron 2020-0 Yes [id number] 4mg Take 1 Univers (ZOFRAN 3-05 tablet by ity of ODT) 4 mg 00:00: mouth [place] disintegrat 00 every 8 Medic al ing tablet (eight) Branch hours as needed for Nausea and Vomiting (N/V). dicyclomine 2020-0 Yes [id number] 20mg Take 1 Univers 20 mg 3-05 tablet by ity of tablet 00:00: mouth 4 00 (four) Medical times Branch daily. ondansetron 2020-0 Yes [id number] 4mg Take 1 Univers (ZOFRAN 3-05 tablet by ity of ODT) 4 mg 00:00: mouth [place] disintegrat 00 every 8 Medic al ing tablet (eight) Branch hours as needed for Nausea and Vomiting (N/V). dicyclomine 2020-0 Yes [id number] 20mg Take 1 Univers 20 mg 3-05 tablet by ity of tablet 00:00: mouth 4 [place] 00 (four) Medical times Branch daily. ondansetron 2021-0 Yes [id number] 4mg Take 1 Univers (ZOFRAN 3-05 tablet by ity of ODT) 4 mg 00:00: mouth [place] disintegrat 00 every 8 Medic al ing tablet (eight) Branch hours as needed for Nausea and Vomiting (N/V). dicyclomine 2021-0 Yes [id number] 20mg Take 1 Univers 20 mg 3-05 tablet by ity of tablet 00:00: mouth 4 [place] 00 (four) Medical times Branch daily. ondansetron 2021-0 Yes [id number] 4mg Take 1 Univers (ZOFRAN 3-05 tablet by ity of ODT) 4 mg 00:00: mouth [place] disintegrat 00 every 8 Medic al ing tablet (eight) Branch hours as needed for Nausea and Vomiting (N/V). dicyclomine 2021-0 Yes [id number] 20mg Take 1 Univers 20 mg 3-05 tablet by ity of tablet 00:00: mouth 4 [place] 00 (four) Medical times Branch daily. ondansetron 2021-0 Yes [id number] 4mg Take 1 Univers (ZOFRAN 3-05 tablet by ity of ODT) 4 mg 00:00: mouth [place] disintegrat 00 every 8 Medic al ing tablet (eight) Branch hours as needed for Nausea and Vomiting (N/V). dicyclomine 2021-0 Yes [id number] 20mg Take 1 Univers 20 mg 3-05 tablet by ity of tablet 00:00: mouth 4 [place] (four) Medical times Branch daily. ondansetron 2021-0 Yes [id number] 4mg Take 1 Univers (ZOFRAN 3-05 tablet by ity of ODT) 4 mg 00:00: mouth [place] disintegrat 00 every 8 Medic al ing tablet (eight) Branch hours as needed for Nausea and Vomiting (N/V). iohexol 2019- 2020- No 100mL 100 mL, Unive rs (OMNIPAQUE -05-25 Intravenou it y of 350 15:30: 15:09 s, ONCE, 1 [place] BULK-100 00 :00 dose, Wed Medica l mL) 05/25/20 at Branch injection 0930, 100 mL Routine ondansetron 2019- Yes [id number] 4mg Take 1 Univers (ZOFRAN 2-09 tablet by ity of ODT) 4 mg 00:00: mouth [place] disintegrat 00 every 8 Medic al ing tablet (eight) Branch hours as needed for Nausea and Vomiting (N/V). ondansetron 2019- Yes [id number] 4mg Take 1 Univers (ZOFRAN 2-09 tablet by ity of ODT) 4 mg 00:00: mouth [place] disintegrat 00 every 8 Medic al ing tablet (eight) Branch hours as needed for Nausea and Vomiting (N/V). ondansetron 2019- Yes [id number] 4mg Take 1 Univers (ZOFRAN 2-09 tablet by ity of ODT) 4 mg 00:00: mouth [place] disintegrat 00 every 8 Medic al ing tablet (eight) Branch hours as needed for Nausea and Vomiting (N/V). ondansetron 2019- Yes [id number] 4mg Take 1 Univers (ZOFRAN 2-09 tablet by ity of ODT) 4 mg 00:00: mouth [place] disintegrat 00 every 8 Medic al ing tablet (eight) Branch hours as needed for Nausea and Vomiting (N/V). ondansetron 2019- Yes [id number] 4mg Take 1 Univers (ZOFRAN 2-09 tablet by ity of ODT) 4 mg 00:00: mouth [place] disintegrat 00 every 8 Medic al ing tablet (eight) Branch hours as needed for Nausea and Vomiting (N/V). ondansetron 2019- Yes [id number] 4mg Take 1 Univers (ZOFRAN 2-09 tablet by ity of ODT) 4 mg 00:00: mouth [place] disintegrat 00 every 8 Medic al ing tablet (eight) Branch hours as needed for Nausea and Vomiting (N/V). ondansetron 2019- Yes [id number] 4mg Take 1 Univers (ZOFRAN 2-09 tablet by ity of ODT) 4 mg 00:00: mouth [place] disintegrat 00 every 8 Medic al ing tablet (eight) Branch hours as needed for Nausea and Vomiting (N/V). FENTanyl PF 2019- 2020- No 50ug 50 mcg, Un mandy (SUBLIMAZE 0-24 10-24 Slow IV ity o f (PF)) 20:15: 20:15 Push, [place] injection 00 :00 ONCE, 1 Medical 50 mcg dose, Sat Branch 04/09/20 at 1515, Routine iohexol 2019-06 2020- No 120mL 120 mL, Unive rs (OMNIPAQUE 0-24 -24 Intravenou it y of 350 20:00: 19:44 s, ONCE, 1 [place] BULK-100 00 :00 dose, Sat Medica l mL) 04/09/20 Branch injection at 1500, 120 mL Routine acetaminoph 2019-06 Yes [id number] 1{tbl} Take 1 Un mandy en-codeine 0-24 tablet by ity of (TYLENOL-CO 00:00: mouth [place] DEINE #3) 00 every 4 Medical 300-30 mg (four) Branch tablet hours as needed for Pain (scale 1-3). Indication s: acute pain acetaminoph 2019- Yes [id number] 1{tbl} Take 1 Un mandy en-codeine 0-24 tablet by ity of (TYLENOL-CO 00:00: mouth [place] DEINE #3) 00 every 4 Medical 300-30 mg (four) Branch tablet hours as needed for Pain (scale 1-3). Indication s: acute pain acetaminoph 2019- Yes [id number] 1{tbl} Take 1 Un mandy en-codeine 0-24 tablet by ity of (TYLENOL-CO 00:00: mouth [place] DEINE #3) 00 every 4 Medical 300-30 mg (four) Branch tablet hours as needed for Pain (scale 1-3). Indication s: acute pain acetaminoph 2019- Yes [id number] 1{tbl} Take 1 Un mandy en-codeine 0-24 tablet by ity of (TYLENOL-CO 00:00: mouth [place] DEINE #3) 00 every 4 Medical 300-30 mg (four) Branch tablet hours as needed for Pain (scale 1-3). Indication s: acute pain acetaminoph 2019- Yes [id number] 1{tbl} Take 1 Un mandy en-codeine 0-24 tablet by ity of (TYLENOL-CO 00:00: mouth [place] DEINE #3) 00 every 4 Medical 300-30 mg (four) Branch tablet hours as needed for Pain (scale 1-3). Indication s: acute pain acetaminoph 2019-06 Yes [id number] 1{tbl} Take 1 Un mandy en-codeine 0-24 tablet by ity of (TYLENOL-CO 00:00: mouth [place] DEINE #3) 00 every 4 Medical 300-30 mg (four) Branch tablet hours as needed for Pain (scale 1-3). Indication s: acute pain acetaminoph 2019-06 Yes [id number] 1{tbl} Take 1 Un mandy en-codeine 0-24 tablet by ity of (TYLENOL-CO 00:00: mouth [place] DEINE #3) 00 every 4 Medical 300-30 mg (four) Branch tablet hours as needed for Pain (scale 1-3). Indication s: acute pain metroNIDAZO 2019-06 2020- No [id number] 500mg Take 1 Univers LE 500 mg 0-16 10-24 tablet by ity of tablet 00:00: 04:59 mouth 2 [place] 00 :00 (two) Medical times Branch daily for 7 days. Levothyroxi 2018-06 Yes Take by Un mandy ne 150 mcg 0-24 mouth. ity of capsule 19:43: [address] Levothyroxi 2018-06 Yes Take by Un mandy ne 150 mcg 0-24 mouth. ity of capsule 19:43: [address] Levothyroxi 2018-06 Yes Take by Un mandy ne 150 mcg 0-24 mouth. ity of capsule 19:43: [address] Levothyroxi 2018-06 Yes Take by Un mandy ne 150 mcg 0-24 mouth. ity of capsule 19:43: [address] Levothyroxi 2018-06 Yes Take by Un mandy ne 150 mcg 0-24 mouth. ity of capsule 19:43: [address] Levothyroxi 2018-06 Yes Take by Un mandy ne 150 mcg 0-24 mouth. ity of capsule 19:43: [address] Levothyroxi 2018-06 Yes Take by Un mandy ne 150 mcg 0-24 mouth. ity of capsule 19:43: [address] Levothyroxi 2018-06 Yes Take by Un mandy ne 150 mcg 0-24 mouth. ity of capsule 19:43: [address] Levothyroxi 2018-06 Yes Take by Un mandy ne 150 mcg 0-24 mouth. ity of capsule 19:43: [address] furosemide 2018-06 Yes 20mg Take 20 mg U nivers 20 mg 0-24 by mouth ity of tablet 19:41: daily. [address] furosemide 2018-06 Yes 20mg Take 20 mg U nivers 20 mg 0-24 by mouth ity of tablet 19:41: daily. [address] furosemide 2018-06 Yes 20mg Take 20 mg U nivers 20 mg 0-24 by mouth ity of tablet 19:41: daily. [address] furosemide 2018-06 Yes 20mg Take 20 mg U nivers 20 mg 0-24 by mouth ity of tablet 19:41: daily. [address] furosemide 2018-06 Yes 20mg Take 20 mg U nivers 20 mg 0-24 by mouth ity of tablet 19:41: daily. [address] furosemide 2018-06 Yes 20mg Take 20 mg U nivers 20 mg 0-24 by mouth ity of tablet 19:41: daily. [address] furosemide 2018-06 Yes 20mg Take 20 mg U nivers 20 mg 0-24 by mouth ity of tablet 19:41: daily. [address] furosemide 2018-06 Yes 20mg Take 20 mg U nivers 20 mg 0-24 by mouth ity of tablet 19:41: daily. [address] furosemide 2018-06 Yes 20mg Take 20 mg U nivers 20 mg 0-24 by mouth ity of tablet 19:41: daily. [address] Levothyroxi 2018-06 Yes Take by Un mandy ne 150 mcg 0-24 mouth. ity of capsule 14:43: [address] Levothyroxi 2018-06 Yes Take by Un mandy ne 150 mcg 0-24 mouth. ity of capsule 14:43: [address] Levothyroxi 2018-06 Yes Take by Un mandy ne 150 mcg 0-24 mouth. ity of capsule 14:43: [address] Levothyroxi 2018-06 Yes Take by Un mandy ne 150 mcg 0-24 mouth. ity of capsule 14:43: [address] Levothyroxi 2018-06 Yes Take by Un mandy ne 150 mcg 0-24 mouth. ity of capsule 14:43: [address] furosemide 2018-06 Yes 20mg Take 20 mg U nivers 20 mg 0-24 by mouth ity of tablet 14:41: daily. [address] furosemide 2018-06 Yes 20mg Take 20 mg U nivers 20 mg 0-24 by mouth ity of tablet 14:41: daily. [address] furosemide 2018-06 Yes 20mg Take 20 mg U nivers 20 mg 0-24 by mouth ity of tablet 14:41: daily. [address] furosemide 2018-06 Yes 20mg Take 20 mg U nivers 20 mg 0-24 by mouth ity of tablet 14:41: daily. [address] furosemide 2018-06 Yes 20mg Take 20 mg U nivers 20 mg 0-24 by mouth ity of tablet 14:41: daily. [address] proMETHazin 2018-06 Yes [id number] 25mg Take 1 Univers e 25 mg 0-24 tablet by ity of tablet 00:00: mouth [place] 00 every 6 Medical (six) Branch hours as needed for Nausea and Vomiting (N/V). proMETHazin 2018-06 Yes [id number] 25mg Take 1 Univers e 25 mg 0-24 tablet by ity of tablet 00:00: mouth [place] 00 every 6 Medical (six) Branch hours as needed for Nausea and Vomiting (N/V). proMETHazin 2018-06 Yes [id number] 25mg Take 1 Univers e 25 mg 0-24 tablet by ity of tablet 00:00: mouth [place] 00 every 6 Medical (six) Branch hours as needed for Nausea and Vomiting (N/V). proMETHazin 2018-06 Yes [id number] 25mg Take 1 Univers e 25 mg 0-24 tablet by ity of tablet 00:00: mouth [place] 00 every 6 Medical (six) Branch hours as needed for Nausea and Vomiting (N/V). proMETHazin 2018-06 Yes [id number] 25mg Take 1 Univers e 25 mg 0-24 tablet by ity of tablet 00:00: mouth [place] 00 every 6 Medical (six) Branch hours as needed for Nausea and Vomiting (N/V). proMETHazin 2018-06 Yes [id number] 25mg Take 1 Univers e 25 mg 0-24 tablet by ity of tablet 00:00: mouth [place] 00 every 6 Medical (six) Branch hours as needed for Nausea and Vomiting (N/V). proMETHazin 2018-06 Yes [id number] 25mg Take 1 Univers e 25 mg 0-24 tablet by ity of tablet 00:00: mouth [place] 00 every 6 Medical (six) Branch hours as needed for Nausea and Vomiting (N/V). proMETHazin 2018-06 Yes [id number] 25mg Take 1 Univers e 25 mg 0-24 tablet by ity of tablet 00:00: mouth [place] 00 every 6 Medical (six) Branch hours as needed for Nausea and Vomiting (N/V). proMETHazin 2018-06 Yes [id number] 25mg Take 1 Univers e 25 mg 0-24 tablet by ity of tablet 00:00: mouth [place] 00 every 6 Medical (six) Branch hours as needed for Nausea and Vomiting (N/V). proMETHazin 2018-06 Yes [id number] 25mg Take 1 Univers e 25 mg 0-24 tablet by ity of tablet 00:00: mouth [place] 00 every 6 Medical (six) Branch hours as needed for Nausea and Vomiting (N/V). proMETHazin 2018-06 Yes [id number] 25mg Take 1 Univers e 25 mg 0-24 tablet by ity of tablet 00:00: mouth [place] 00 every 6 Medical (six) Branch hours as needed for Nausea and Vomiting (N/V). proMETHazin 2018-06 Yes [id number] 25mg Take 1 Univers e 25 mg 0-24 tablet by ity of tablet 00:00: mouth [place] 00 every 6 Medical (six) Branch hours as needed for Nausea and Vomiting (N/V). proMETHazin 2018-06 Yes [id number] 25mg Take 1 Univers e 25 mg 0-24 tablet by ity of tablet 00:00: mouth [place] 00 every 6 Medical (six) Branch hours as needed for Nausea and Vomiting (N/V). proMETHazin 2018-06 Yes [id number] 25mg Take 1 Univers e 25 mg 0-24 tablet by ity of tablet 00:00: mouth [place] 00 every 6 Medical (six) Branch hours as needed for Nausea and Vomiting (N/V). methadone Yes 120mg 120 mg, Univ ers 10 mg/5 mL 9-11 Oral, ity of solution 12:00: Q24H, [place] 120 mg 00 First dose Medical on Sat Branch 02/25/19 at 0700, Until Discontinu ed, Routine 2018- Yes [id number] 1{tbl} Take 1 U nivers vitamin 9-11 tablet by ity of w/FA tablet 00:00: mouth [place] 00 daily. Medical Branch docusate Yes [id number] 240mg Take 1 Un mandy calcium 240 9-11 capsule by it y of mg capsule 00:00: mouth [place] 00 daily as Medical needed for Branch Constipati on. ferrous Yes [id number] 325mg Take 1 Uni vers sulfate 325 9-11 tablet by ity of mg (65 mg 00:00: mouth 2 [place] iron) 00 (two) Medical tablet times Branch daily. ibuprofen Yes [id number] 600mg Take 1 U nivers 600 mg 9-11 tablet by ity of tablet 00:00: mouth [place] 00 every 6 Medical (six) Branch hours as needed for Pain (scale 1-3) or Pain (scale 4-6) (Pain). Take with food or milk. Yes [id number] 1{tbl} Take 1 U nivers vitamin 9-11 tablet by ity of w/FA tablet 00:00: mouth [place] 00 daily. Medical Branch docusate Yes [id number] 240mg Take 1 Un mandy calcium 240 9-11 capsule by it y of mg capsule 00:00: mouth once [place] 00 daily as Medical needed for Branch Constipati on. ferrous Yes [id number] 325mg Take 1 Uni vers sulfate 325 9-11 tablet by ity of mg (65 mg 00:00: mouth 2 [place] iron) 00 (two) Medical tablet times Branch daily. ibuprofen Yes [id number] 600mg Take 1 U nivers 600 mg 9-11 tablet by ity of tablet 00:00: mouth [place] 00 every 6 Medical (six) Branch hours as needed for Pain (scale 1-3) or Pain (scale 4-6) (Pain). Take with food or milk. Yes [id number] 1{tbl} Take 1 Univers vitamin 9-11 tablet by ity of w/FA tablet 00:00: mouth [place] 00 daily. Medical Branch docusate Yes [id number] 240mg Take 1 U nivers calcium 240 9-11 capsule by it y of mg capsule 00:00: mouth once [place] 00 daily as Medical needed for Branch Constipati on. ferrous Yes [id number] 325mg Take 1 Un mandy sulfate 325 9-11 tablet by ity of mg (65 mg 00:00: mouth 2 [place] iron) 00 (two) Medical tablet times Branch daily. ibuprofen Yes [id number] 600mg Take 1 Univers 600 mg 9-11 tablet by ity of tablet 00:00: mouth [place] 00 every 6 Medical (six) Branch hours as needed for Pain (scale 1-3) or Pain (scale 4-6) (Pain). Take with food or milk. Yes [id number] 1{tbl} Take 1 Univers vitamin 9-11 tablet by ity of w/FA tablet 00:00: mouth [place] 00 daily. Medical Branch docusate Yes [id number] 240mg Take 1 U nivers calcium 240 9-11 capsule by it y of mg capsule 00:00: mouth once [place] 00 daily as Medical needed for Branch Constipati on. ferrous Yes [id number] 325mg Take 1 Un mandy sulfate 325 9-11 tablet by ity of mg (65 mg 00:00: mouth 2 [place] iron) 00 (two) Medical tablet times Branch daily. ibuprofen Yes [id number] 600mg Take 1 Univers 600 mg 9-11 tablet by ity of tablet 00:00: mouth [place] 00 every 6 Medical (six) Branch hours as needed for Pain (scale 1-3) or Pain (scale 4-6) (Pain). Take with food or milk. Yes [id number] 1{tbl} Take 1 Univers vitamin 9-11 tablet by ity of w/FA tablet 00:00: mouth [place] 00 daily. Medical Branch docusate Yes [id number] 240mg Take 1 U nivers calcium 240 9-11 capsule by it y of mg capsule 00:00: mouth once [place] 00 daily as Medical needed for Branch Constipati on. ferrous Yes [id number] 325mg Take 1 Un mandy sulfate 325 9-11 tablet by ity of mg (65 mg 00:00: mouth 2 [place] iron) 00 (two) Medical tablet times Branch daily. ibuprofen Yes [id number] 600mg Take 1 Univers 600 mg 9-11 tablet by ity of tablet 00:00: mouth [place] 00 every 6 Medical (six) Branch hours as needed for Pain (scale 1-3) or Pain (scale 4-6) (Pain). Take with food or milk. 2019-0 Yes [id number] 1{tbl} Take 1 Univers vitamin 9-11 tablet by ity of w/FA tablet 00:00: mouth [place] 00 daily. Medical Branch docusate 0 Yes [id number] 240mg Take 1 U nivers calcium 240 9-11 capsule by it y of mg capsule 00:00: mouth once [place] 00 daily as Medical needed for Branch Constipati on. ferrous 2019-0 Yes [id number] 325mg Take 1 Un mandy sulfate 325 9-11 tablet by ity of mg (65 mg 00:00: mouth 2 [place] iron) 00 (two) Medical tablet times Branch daily. ibuprofen 2019-0 Yes [id number] 600mg Take 1 Univers 600 mg 9-11 tablet by ity of tablet 00:00: mouth [place] 00 every 6 Medical (six) Branch hours as needed for Pain (scale 1-3) or Pain (scale 4-6) (Pain). Take with food or milk. Yes [id number] 1{tbl} Take 1 [facility] vitamin 9-11 tablet by ity of w/FA tablet 00:00: mouth [place] 00 daily. Medical Branch docusate Yes [id number] 240mg Take 1 U nivers calcium 240 9-11 capsule by it y of mg capsule 00:00: mouth once [place] 00 daily as Medical needed for Branch Constipati on. ferrous 0 Yes [id number] 325mg Take 1 [facility] mand[facility] sulfate 325 9-11 tablet by ity of mg (65 mg 00:00: mouth 2 [place] iron) 00 (two) Medical tablet times Branch daily. ibuprofen 20190 Yes [id number] 600mg Take 1 [facility] 600 mg 9-11 tablet by ity of tablet 00:00: mouth [place] 00 every 6 Medical (six) Branch hours as needed for Pain (scale 1-3) or Pain (scale 4-6) (Pain). Take with food or milk. 2018-0 Yes [id number] 1{tbl} Take 1 [facility] vitamin 9-11 tablet by ity of w/FA tablet 00:00: mouth [place] 00 daily. Medical Branch docusate 0 Yes [id number] 240mg Take 1 U nivers calcium 240 9-11 capsule by it y of mg capsule 00:00: mouth once [place] 00 daily as Medical needed for Branch Constipati on. ferrous 2019-0 Yes [id number] 325mg Take 1 [facility] sulfate 325 9-11 tablet by ity of mg (65 mg 00:00: mouth 2 [place] iron) 00 (two) Medical tablet times Branch daily. ibuprofen 2019-0 Yes [id number] 600mg Take 1 [facility] 600 mg 9-11 tablet by ity of tablet 00:00: mouth [place] 00 every 6 Medical (six) Branch hours as needed for Pain (scale 1-3) or Pain (scale 4-6) (Pain). Take with food or milk. 2019-0 Yes [id number] 1{tbl} Take 1 [facility] vitamin 9-11 tablet by ity of w/FA tablet 00:00: mouth [place] 00 daily. Medical Branch docusate 0 Yes [id number] 240mg Take 1 U nivers calcium 240 9-11 capsule by it y of mg capsule 00:00: mouth once [place] 00 daily as Medical needed for Branch Constipati on. ferrous Yes [id number] 325mg Take 1 [facility] sulfate 325 9-11 tablet by ity of mg (65 mg 00:00: mouth 2 [place] iron) 00 (two) Medical tablet times Branch daily. ibuprofen Yes [id number] 600mg Take 1 [facility] 600 mg 9-11 tablet by ity of tablet 00:00: mouth [place] 00 every 6 Medical (six) Branch hours as needed for Pain (scale 1-3) or Pain (scale 4-6) (Pain). Take with food or milk. 0 Yes [id number] 1{tbl} Take 1 [facility] vitamin 9-11 tablet by ity of w/FA tablet 00:00: mouth [place] 00 daily. Medical Branch docusate 0 Yes [id number] 240mg Take 1 [facility] n[facility] calcium 240 9-11 capsule by it y of mg capsule 00:00: mouth once [place] 00 daily as Medical needed for Branch Constipati on. ferrous 2019-0 Yes [id number] 325mg Take 1 [facility] sulfate 325 9-11 tablet by ity of mg (65 mg 00:00: mouth 2 [place] iron) 00 (two) Medical tablet times Branch daily. ibuprofen 2019-0 Yes [id number] 600mg Take 1 [facility] 600 mg 9-11 tablet by ity of tablet 00:00: mouth [place] 00 every 6 Medical (six) Branch hours as needed for Pain (scale 1-3) or Pain (scale 4-6) (Pain). Take with food or milk. 20190 Yes [id number] 1{tbl} Take 1 [facility] vitamin 9-11 tablet by ity of w/FA tablet 00:00: mouth [place] 00 daily. Medical Branch docusate Yes [id number] 240mg Take 1 [facility] nivers calcium 240 9-11 capsule by it y of mg capsule 00:00: mouth once [place] 00 daily as Medical needed for Branch Constipati on. ferrous Yes [id number] 325mg Take 1 [facility] sulfate 325 9-11 tablet by ity of mg (65 mg 00:00: mouth 2 [place] iron) 00 (two) Medical tablet times Branch daily. ibuprofen Yes [id number] 600mg Take 1 [facility] 600 mg 9-11 tablet by ity of tablet 00:00: mouth [place] 00 every 6 Medical (six) Branch hours as needed for Pain (scale 1-3) or Pain (scale 4-6) (Pain). Take with food or milk. Yes [id number] 1{tbl} Take 1 [facility] vitamin 9-11 tablet by ity of w/FA tablet 00:00: mouth [place] 00 daily. Medical Branch docusate Yes [id number] 240mg Take 1 U nivers calcium 240 9-11 capsule by it y of mg capsule 00:00: mouth once [place] 00 daily as Medical needed for Branch Constipati on. ferrous 2018-0 Yes [id number] 325mg Take 1 [facility] sulfate 325 9-11 tablet by ity of mg (65 mg 00:00: mouth 2 [place] iron) 00 (two) Medical tablet times Branch daily. ibuprofen Yes [id number] 600mg Take 1 [facility] 600 mg 9-11 tablet by ity of tablet 00:00: mouth [place] 00 every 6 Medical (six) Branch hours as needed for Pain (scale 1-3) or Pain (scale 4-6) (Pain). Take with food or milk. Yes [id number] 1{tbl} Take 1 [facility] vitamin 9-11 tablet by ity of w/FA tablet 00:00: mouth [place] 00 daily. Medical Branch docusate Yes [id number] 240mg Take 1 [facility] n[facility] calcium 240 9-11 capsule by it y of mg capsule 00:00: mouth once [place] 00 daily as Medical needed for Branch Constipati on. ferrous 2019-0 Yes [id number] 325mg Take 1 [facility] sulfate 325 9-11 tablet by ity of mg (65 mg 00:00: mouth 2 [place] iron) 00 (two) Medical tablet times Branch daily. ibuprofen 2019-0 Yes [id number] 600mg Take 1 [facility] 600 mg 9-11 tablet by ity of tablet 00:00: mouth [place] 00 every 6 Medical (six) Branch hours as needed for Pain (scale 1-3) or Pain (scale 4-6) (Pain). Take with food or milk. 2018-0 Yes [id number] 1{tbl} Take 1 [facility] vitamin 9-11 tablet by ity of w/FA tablet 00:00: mouth [place] 00 daily. Medical Branch docusate 0 Yes [id number] 240mg Take 1 U nivers calcium 240 9-11 capsule by it y of mg capsule 00:00: mouth once [place] 00 daily as Medical needed for Branch Constipati on. ferrous 2019-0 Yes [id number] 325mg Take 1 [facility] sulfate 325 9-11 tablet by ity of mg (65 mg 00:00: mouth 2 [place] iron) 00 (two) Medical tablet times Branch daily. ibuprofen 0 Yes [id number] 600mg Take 1 [facility] 600 mg 9-11 tablet by ity of tablet 00:00: mouth [place] 00 every 6 Medical (six) Branch hours as needed for Pain (scale 1-3) or Pain (scale 4-6) (Pain). Take with food or milk. 2018-0 Yes [id number] 1{tbl} Take 1 [facility] vitamin 9-11 tablet by ity of w/FA tablet 00:00: mouth [place] 00 daily. Medical Branch docusate 0 Yes [id number] 240mg Take 1 [facility] nivers calcium 240 9-11 capsule by it y of mg capsule 00:00: mouth once [place] 00 daily as Medical needed for Branch Constipati on. ferrous 2019-0 Yes [id number] 325mg Take 1 [facility] sulfate 325 9-11 tablet by ity of mg (65 mg 00:00: mouth 2 [place] iron) 00 (two) Medical tablet times Branch daily. ibuprofen 2019-0 Yes [id number] 600mg Take 1 [facility] 600 mg 9-11 tablet by ity of tablet 00:00: mouth [place] 00 every 6 Medical (six) Branch hours as needed for Pain (scale 1-3) or Pain (scale 4-6) (Pain). Take with food or milk. Yes [id number] 1{tbl} Take 1 [facility] vitamin 9-11 tablet by ity of w/FA tablet 00:00: mouth [place] 00 daily. Medical Branch docusate Yes [id number] 240mg Take 1 [facility] n[facility] calcium 240 9-11 capsule by it y of mg capsule 00:00: mouth once [place] 00 daily as Medical needed for Branch Constipati on. ferrous Yes [id number] 325mg Take 1 [facility] sulfate 325 9-11 tablet by ity of mg (65 mg 00:00: mouth 2 [place] iron) 00 (two) Medical tablet times Branch daily. ibuprofen Yes [id number] 600mg Take 1 [facility] 600 mg 9-11 tablet by ity of tablet 00:00: mouth [place] 00 every 6 Medical (six) Branch hours as needed for Pain (scale 1-3) or Pain (scale 4-6) (Pain). Take with food or milk. levothyroxi 2019- No [id number] 150ug Take 1 [facility] ne 150 mcg 9-11 10-12 tablet by ity of tablet 00:00: 04:59 mouth [place] 00 :00 every Medical morning Branch for 30 days. SERTraline 2019- No [id number] 50mg Take 1 [facility] 50 mg 9-11 10-12 tablet by ity of tablet 00:00: 04:59 mouth [place] 00 :00 daily for Medical 30 days. Branch levothyroxi 2019- No [id number] 150ug Take 1 [facility] ne 150 mcg 9-11 10-12 tablet by ity of tablet 00:00: 04:59 mouth [place] 00 :00 every Medical morning Branch for 30 days. SERTraline 2019- No [id number] 50mg Take 1 [facility] 50 mg 9-11 10-12 tablet by ity of tablet 00:00: 04:59 mouth [place] 00 :00 daily for Medical 30 days. Branch ibuprofen Yes 600mg 600 mg, Univ ers (IBU) 9-10 Oral, Q8H, ity of tablet 600 19:00: First dose [place] mg 00 on [facility] 02/24/19 at Branch 1400, Until Discontinu ed, Routine acetaminoph 2019-0 Yes 650mg 650 mg, Un mandy en 9-10 Oral, Q6H, ity of (TYLENOL) 17:00: First dose [place] tablet 650 00 on [facility] mg 02/24/19 at Branch 1200, Until Discontinu ed, Routine magnesium 2019-0 Yes 30mL 30 mL, Univer s hydroxide 9-10 Oral, ity of (MILK OF 14:00: DAILY, [place] MAGNESIA) 00 First dose Medi raquel 400 mg/5 mL on [facility] suspension 02/24/19 at 30 mL 0900, Until Discontinu ed, Routine simethicone 2019-0 Yes 160mg 160 mg, Un mandy (GAS 9-10 Oral, ity of RELIEF) 14:00: PC+HS, [place] chewable 00 First dose Medic al tablet 160 on [facility] mg 02/24/19 at 0900, Until Discontinu ed, Routine docusate 2019-0 Yes 240mg 240 mg, Unive rs calcium 9-10 Oral, ity of (SURFAK) 14:00: DAILY, [place] capsule 240 00 First dose Me dical mg on [facility] 02/24/19 at 0900, Until Discontinu ed, Routine ketorolac 2019- No 30mg 30 mg, Unive rs (TORADOL) 02-24 Slow IV ity of injection 02:58: 03:39 Push, PRN, [place] 30 mg 18 :00 1 dose, Medical Starting Branch Sat02/23/19 at 2158, Until Sat02/23/19 at 2239, Routine, Pain (scale 7-10)
F aculty member approving Restricted medication : ЮЛИЯ EDWARDS nalbuphine 2019-0 Yes 5mg 5 mg, Univer s (NUBAIN) 02-24 Intravenou ity o f injection 5 02:57: s, PRN, 1 [place] mg 39 dose, Medical Starting Branch Sat02/23/19 at 2157, Until Discontinu ed, Routine, Itching naloxone 2018- 2019- No .4mg 0.4 mg, Unive rs (NARCAN) 02-24 Slow IV ity of injection 02:57: 23:14 Push, PRN [place] 0.4 mg 39 :19 - SEE Medical INSTRUCTIO Branch NS, Starting Sat02/23/19 at 2157, Until Sat02/25/19 at 1814, Routine, Analgesia Recovery HYDROcodone 2019-0 Yes 1{tbl} 1 tablet, Univers -acetaminop 9-10 Oral, ity of hen (NORCO 02:10: Q6HPRN, [place] 5) 5-325 mg 37 Starting Medi raquel tablet 1 Sat02/23/19 Branc h tablet at 2110, Until Discontinu ed, Routine, Pain (scale 7-10) rho(D) 2019-0 Yes 300ug 300 mcg, Univer s immune 02-24 Intramuscu ity of globulin 00:00: lar, ONCE, Jorge L as (RHOGAM) 24 For 1 Medical syringe 300 dose, Branch mcg Conditiona l, Routine diphenhydrA 2019-0 Yes 25mg 25 mg, Univ ers MINE 02-24 Oral, ity of (BENADRYL) 00:00: Q6HPRN, [place] tablet 25 20 Starting Medica l mg [facility] 02/23/19 Branch at 1900, Until Discontinu ed, Routine, Sleep, Itching ondansetron 2019-0 Yes 4mg 4 mg, Slow Univers (ZOFRAN 910 IV Push, ity of (PF)) 00:00: Q8HPRN, [place] injection 4 20 Starting Medi raquel mg Sat02/23/19 Branch at 1900, Until Discontinu ed, Routine, Nausea and Vomiting (N/V) benzocaine- 2019-0 Yes Topical, Un mandy menthol 02-24 PRN, ity of (DERMOPLAST 00:00: Starting [place] ) 20-0.5 % 20 Sat02/23/19 Med ical topical at 1900, Branch spray Until Discontinu ed, Routine, Perineum discomfort ibuprofen 2019-0 2019- No 600mg 600 mg, Uni vers (IBU) 02-2410 Oral, ity of tablet 600 00:00: 16:10 Q6HPRN, [place] L [place] mg 20 :16 Starting Medical [facility] 02/23/19 Branch at 1900, Until Sat02/24/19 at 1110, Routine, Pain (scale 4-6) LR 1000 mL 2019-0 2019- No at 999 Univ ers + oxytocin 02-23 mL/hr, IV ity of 20 units IV 22:00: 22:30 Infusion, [place] Solution 00 :00 ONCE, 1 Medical dose, Mon Branch 02/23/19 at 1700, Routine LR 1000 mL 2019- No 2mU/min 2 Uni vers + oxytocin 02-23 marcelo-unit it y of 20 units IV 18:29: 00:00 s/min (6 [place] Solution 47 :25 mL/hr), at Medic al 6 mL/hr, Branch IV Infusion, TITRATE, Starting 02/23/19 at 1329, Until Sat02/23/19 at 1900, SIL, Oxytocin Induction / Augmentati on of Labor. lactated 2018- No 500mL at 999 Unive rs ringers IV 02-23 mL/hr, 500 it y of infusion 17:45: 17:44 mL, IV [place] 500 mL 00 :00 Infusion, Medical ONCE, 1 Branch dose, 02/23/19 at 1245, Routine sodium 2019- No 30mL 30 mL, [facility] citrate-cit 02-23 Oral, ity of jaime acid 16:31: 17:21 PRE-PROCED [place] (BICITRA) 32 :00 URE ONCE, Medic al 500-334 1 dose, Branch mg/5 mL Starting solution 30 Sat02/23/19 mL at 1131, Until Sat02/23/19 at 1221, Routine, Surgery/Pr ocedure acetaminoph 2018- No 650mg 650 mg, U nivers en 02-23 Oral, ity of (TYLENOL) 13:49: 00:00 Q6HPRN, [place] tablet 650 53 :25 Starting Medic al mg 02/23/19 Branch at 0849, Until Sat02/23/19 at 1900, Routine, Pain (scale 1-3), Pain (scale 4-6) terbutaline 2019- No .25mg 0.25 mg, Univers (BRETHINE) 02-23 Subcutaneo it y of injection 06:15: 05:08 us, ONCE, [place] 0.25 mg 00 :00 1 dose, Medical 02/23/19 Branch at 0115, Routine acetaminoph 2018- No 650mg 650 mg, U nivers en 02-23 Oral, ity of (TYLENOL) 05:15: 04:09 ONCE, 1 [place] tablet 650 00 :00 dose, Mon Medi raquel mg 02/23/19 at Branch 0015, Routine terbutaline 2019- No .25mg 0.25 mg, Univers (BRETHINE) 02-22 Subcutaneo it y of injection 23:15: 22:26 us, ONCE, [place] 0.25 mg 00 :00 1 dose, Medical 02/22/19 Branch at 1815, Routine acetaminoph 2018- No 650mg 650 mg, U nivers en 02-22 Oral, ity of (TYLENOL) 22:15: 21:19 ONCE, 1 [place] tablet 650 00 :00 dose, Sun Medi raquel mg 02/22/19 at Branch 1715, Routine SERTraline Yes 50mg 50 mg, Unive rs (ZOLOFT) 02-22 Oral, ity of tablet 50 14:00: DAILY, [place] mg 00 First dose Medical on [place] Branch 02/22/19 at 0900, Until Discontinu ed, Routine azithromyci 2018- No 1000mg 1,000 mg, Univers n 02-22 Oral, ity of (ZITHROMAX) 00:45: 03:44 ONCE, 1 [place] tablet 00 :00 dose, Sat Medical 1,000 mg 02/21/19 at Branch 1945, Routine
Reason for Anti-Infec tive: Empiric Non-Surgic al Prophylaxi s
Durat ion of therapy: 72 hours acetaminoph 2019- No 650mg 650 mg, U nivers en 02-21 Oral, ity of (TYLENOL) 20:56: 23:26 ONCE, 1 [place] tablet 650 00 :00 dose, Sat Medi raquel mg 02/21/19 at Branch 1600, Routine famotidine Yes 20mg 20 mg, Unive rs (PEPCID AC) 02-21 Oral, BID, it y of tablet 20 17:45: First dose [place] mg 00 on Sat Medical 02/21/19 at Branch 1245, Until Discontinu ed, Routine ferrous 2018- Yes 325mg 325 mg, Univer s sulfate 02-21 Oral, TID ity of tablet 325 13:00: MEALS, [place] mg 00 First dose Medical on Sat Branch 02/21/19 at 0800, Until Discontinu ed, Routine diphenhydrA 2019- No 25mg 25 mg, Uni vers MINE 02-21 Oral, ONCE ity of (BENADRYL) 10:15: 10:17 NOW, 1 [place] tablet 25 00 :00 dose, Sat Medic al mg 02/21/19 at Branch 0515, Routine proMETHazin Yes 25mg 25 mg, Univ ers e 02-20 Oral, ity of (PHENERGAN) 14:22: Q6HPRN, [place] L as tablet 25 00 Starting Medica l mg 02/20/19 Branch at 0922, Until Discontinu ed, Routine, Nausea and Vomiting (N/V) foLIC acid Yes 1mg 1 mg, Univer s (FOLATE) 02-20 Oral, ity of tablet 1 mg 14:00: DAILY, [place] 00 First dose Medical on Sat Branch 02/20/19 at 0900, Until Discontinu ed, Routine docusate 2018- No 240mg 240 mg, Univ ers calcium 02-20 Oral, ity of (SURFAK) 14:00: 00:00 DAILY, [place] capsule 240 00 :25 First dose Me dical mg on Sat Branch 02/20/19 at 0900, Until Discontinu ed, Routine iron 2018- No 25mg 25 mg, IV [facility] dextran 02-20 Piggyback, ity o f (INFED) 25 13:30: 14:36 ONCE, 1 Jorge L as mg in NaCl 00 :00 dose, Fri Medi raquel 0.9% (NS) 02/20/19 at Branc h 100 mL IV 0830, 100 piggyback mL iron 2018- No 1000mg 1,000 mg, Unive rs dextran 02-20 IV ity of (INFED) 13:30: 17:03 Infusion, [place] 1,000 mg in 00 :00 ONCE, 1 Medic al NaCl 0.9% dose, Fri Branc h (NS) 500 mL 02/20/19 at IV infusion 0830, 500 mL nicotine Yes 1{patch 1 Patch, Un mandy (NICODERM) 02-20 } Topical, ity o f 7 mg/24 hr 12:00: Administer [place] patch 1 00 over 24 Medical Patch Hours, Branch Q24H, First dose on Sat02/20/19 at 0700, Until Discontinu ed, Routine proMETHazin 2019- No 25mg 25 mg, Uni vers e 02-20 Oral, ity of (PHENERGAN) 01:30: 01:35 ONCE, 1 [place] tablet 25 00 :00 dose, [place] Medic al mg 02/19/19 at Branch 2030, Routine bisacodyl 2019- No 10mg 10 mg, Unive rs (DULCOLAX) 02-19 Rectal, ity o f suppository 21:02: 00:00 QHSPRN, [place] 10 mg 01 :[address] [facility] 02/19/19 Branch at 1602, Until Sat02/23/19 at 1900, Routine, Constipati on albuterol Yes 2.5mg 2.5 mg, Univ ers (PROVENTIL) 02-19 Inhalation it y of 2.5 mg /3 21:00: , Q6HPRN, [place] L [place] mL (0.083 02 Starting Medica l %) [facility] 02/19/19 Branch nebulizer at 1600, solution Until 2.5 mg Discontinu ed, Routine, Shortness of Breath, Wheezing nicotine 2019- No 1{patch 1 Patch, U nivers (NICODERM) 02-19 } Topical, ity of 14 mg/24 hr 19:15: 01:04 Administer [place] patch 1 00 :42 over 24 Medical Patch Hours, Branch Q24H, First dose on Sat02/19/19 at 1415, Until Discontinu ed, Routine albuterol 2019- No 2{puff} 2 Puff, U nivers (VENTOLIN) 02-19 Inhalation it y of inhaler 2 18:07: 21:00 , Q6HPRN, [place] Puff 22 :[address] [facility] 02/19/19 Branch at 1307, Until [place] 02/19/19 at 1600, Routine, Wheezing, Shortness of Breath nicotine 2019- No 1{patch 1 Patch, U nivers (NICODERM) 02-19 } Topical, ity of 14 mg/24 hr 15:15: 14:57 Administer [place] patch 1 00 :35 over 24 Medical Patch Hours, Branch Q24H, First dose on [place] 02/19/19 at 1015, Until Discontinu ed, Routine glucose 2019- No 50g 50 g, Univers tolerance 02-19 Oral, ity of test 100 14:00: 16:35 ONCE, 1 [place] g/300 mL 00 :00 dose, [place] Medica l (LIMEONDEX 02/19/19 at Bran ch 100) liquid 0900, 50 g Routine albuterol 2018- No 2.5mg 2.5 mg, Uni vers (PROVENTIL) 02-19 Inhalation i ty of 2.5 mg /3 12:18: 18:07 , Q6HPRN, [place] mL (0.083 50 :53 Starting Medica l %) [facility] 02/19/19 Branch nebulizer at 0718, solution Until [facility] 2.5 mg 02/19/19 at 1307, Routine, Shortness of Breath, Wheezing levothyroxi Yes 150ug 150 mcg, U nivers ne 02-19 Oral, ity of (SYNTHROID) 11:00: QAM-0600, [place] tablet 150 00 First dose Med ical mcg on [place] Branch 02/19/19 at 0600, Until Discontinu ed, Routine alum-mag 2019- No 30mL 30 [facility] 02-19 Oral, ity of imeth 07:08: [facility] [place] (MAALOX 43 :25 Starting Medical PLUS / [facility] 02/19/19 Branch MAG-AL at 0208, PLUS) Until Mon 200-200-20 02/23/19 at mg/5 mL 1900, suspension Routine, 30 mL Indigestio n docusate 2019- No 240mg 240 mg, Univ ers calcium 02-19 Oral, ity of (SURFAK) 07:08: 12:27 QHSPRN, [place] capsule 240 42 :43 Starting Medi raquel mg [place] 02/19/19 Branch at 0208, Until 02/20/19 at 0727, Routine, Constipati on SERTraline 2019- No 25mg 25 mg, Univ ers (ZOLOFT) 02-18 Oral, ity of tablet 25 20:30: 14:13 DAILY, [place] mg 00 :22 First dose Medical on Sat Branch 02/18/19 at 1530, Until Discontinu ed, Routine clonazePAM Yes 2mg 2 mg, Univer s (KLONOPIN) 02-18 Oral, ity of tablet 2 mg 20:15: BIDPRN, Jorge L as 20 Starting Medical Sat02/18/19 Branch at 1515, Until Discontinu ed, Routine, PTSD nicotine 2019- No 1{patch 1 Patch, U nivers (NICODERM) 02-18 } Topical, ity of 7 mg/24 hr 19:15: 14:14 Administer [place] patch 1 00 :14 over 24 Medical Patch Hours, Branch Q24H, First dose on Sat02/18/19 at 1415, Until Discontinu ed, Routine acyclovir 2018- No 400mg 400 mg, Uni vers (ZOVIRAX) 02-18 Oral, TID, ity of tablet 400 19:00: 00:00 First dose [place] mg 00 :25 on Sat Medical 02/18/19 at Branch 1400, Until Discontinu ed, SIL methadone 2019- No 120mg 120 mg, Uni vers 10 mg/5 mL 02-18 Oral, ity of solution 18:15: 11:33 Q24H, [place] 120 mg 00 :20 First dose Medical on Sat [place] 02/18/19 at 1315, Until Discontinu ed, Routine guaiFENesin Yes 100mg 100 mg, Un mandy 100 mg/5 mL 02-18 Oral, ity of solution 17:20: Q4HPRN, [place] 100 mg 56 Starting Medical [facility] 02/18/19 Branch at 1220, Until Discontinu ed, Routine, Cough magnesium 2019- No 2g/h 2 g/hr (25 U nivers sulfate in 02-18 mL/hr), at it y of LR 40 17:15: 05:14 25 mL/hr, [place] gram/500 mL 00 :00 IV Medical IV Solution Infusion, Bra nch CONTINUOUS , Starting Sat02/18/19 at 1215, Until [place] 02/19/19 at 0014, Routine betamethaso 2019- No 12mg 12 mg, Uni vers ne acet,sod 02-1805 Intramuscu i ty of phos 17:15: 17:24 lar, Q24H, [place] (CELESTONE 00 :00 2 doses, Medic al SOLUSPAN) 6 First dose Br anch mg/mL on Sat injection 02/18/19 at 12 mg 1215, Last dose on [place] 02/19/19 at 1215, Routine D5W-LR IV 2018- No 1000mL at 125 Uni vers infusion 02-18 mL/hr, IV ity o f 1,000 mL 17:15: 07:09 Infusion, Jorge L as 00 :51 CONTINUOUS Medical , Starting Branch Sat02/18/19 at 1215, Until [place] 02/19/19 at 0209, Routine lactated 2019- No 500mL at 999 Unive rs ringers IV 02-18 mL/hr, 500 it y of infusion 16:54: 07:09 mL, IV [place] 500 mL 45 :51 Infusion, Medical PRN - SEE Branch INSTRUCTIO NS, Starting Sat02/18/19 at 1154, Until [place] 02/19/19 at 0209, Routine proMETHazin Yes [id number] 25mg Take 1 Univers e 25 mg 8-13 tablet by ity of tablet 00:00: mouth [place] 00 every 4 Medical (four) Branch hours as needed for Nausea and Vomiting (N/V). proMETHazin 2018- Yes [id number] 25mg Take 1 Univers e 25 mg 8-13 tablet by ity of tablet 00:00: mouth [place] 00 every 4 Medical (four) Branch hours as needed for Nausea and Vomiting (N/V). proMETHazin 2019-0 Yes [id number] 25mg Take 1 Univers e 25 mg 8-13 tablet by ity of tablet 00:00: mouth [place] 00 every 4 Medical (four) Branch hours as needed for Nausea and Vomiting (N/V). proMETHazin 2019- Yes [id number] 25mg Take 1 Univers e 25 mg 8-13 tablet by ity of tablet 00:00: mouth [place] 00 every 4 Medical (four) Branch hours as needed for Nausea and Vomiting (N/V). proMETHazin Yes [id number] 25mg Take 1 Univers e 25 mg 8-13 tablet by ity of tablet 00:00: mouth [place] 00 every 4 Medical (four) Branch hours as needed for Nausea and Vomiting (N/V). proMETHazin Yes [id number] 25mg Take 1 Univers e 25 mg 8-13 tablet by ity of tablet 00:00: mouth [place] 00 every 4 Medical (four) Branch hours as needed for Nausea and Vomiting (N/V). proMETHazin Yes [id number] 25mg Take 1 Univers e 25 mg 8-13 tablet by ity of tablet 00:00: mouth [place] 00 every 4 Medical (four) Branch hours as needed for Nausea and Vomiting (N/V). proMETHazin Yes [id number] 25mg Take 1 Univers e 25 mg 8-13 tablet by ity of tablet 00:00: mouth [place] 00 every 4 Medical (four) Branch hours as needed for Nausea and Vomiting (N/V). proMETHazin Yes [id number] 25mg Take 1 Univers e 25 mg 8-13 tablet by ity of tablet 00:00: mouth [place] 00 every 4 Medical (four) Branch hours as needed for Nausea and Vomiting (N/V). proMETHazin Yes [id number] 25mg Take 1 Univers e 25 mg 8-13 tablet by ity of tablet 00:00: mouth [place] 00 every 4 Medical (four) Branch hours as needed for Nausea and Vomiting (N/V). tramadol 2018- No Take by Univ ers HCl (ULTRAM 01-25 mouth. ity o f ORAL) 04:15: 00:00 [place] 52 :00 Medical Branch methadone 2019- No Take by Uni vers HCl 01-25 mouth. ity of (METHADONE 04:15: 00:00 [place] ORAL) 52 :00 Medical Branch levothyroxi 2018- Yes 150ug 150 mcg, U nivers ne 8- Oral, ity of (SYNTHROID) 16:15: QAM-0600, [place] tablet 150 00 First dose Med ical mcg on Sat Branch 01/24/19 at 1115, Until Discontinu ed, Routine 2019-0 Yes 1{tbl} 1 tablet, Un mandy vitamin 8-10 Oral, ity of w/FA 14:00: DAILY, [place] (PRENATABS 00 First dose Med ical RX) tablet on [place] Branch 1 tablet 01/24/19 at 0900, Until Discontinu ed, Routine methadone 2018- Yes 110mg 110 mg, Univ ers (DOLOPHINE 8-10 Oral, QAM, ity of HCL) tablet 14:00: First dose [place] 110 mg 00 on [place] [facility] 01/24/19 at Branch 0900, Until Discontinu ed, Routine clonazePAM 2018- Yes 2mg 2 mg, Univer s (KLONOPIN) 8-10 Oral, BID, ity of tablet 2 mg 13:00: First dose [place] 00 on [facility] 01/24/19 at Branch 0800, Until Discontinu ed, Routine SERTraline 2018- Yes 25mg 25 mg, Unive rs (ZOLOFT) 8-10 Oral, ity of tablet 25 11:45: DAILY, [place] mg 00 First dose Medical on [place] Branch 01/24/19 at 0645, Until Discontinu ed, Routine lactated 2019- No 1000mL at 999 Univ ers ringers IV 01-24 08-10 mL/hr, ity of infusion 11:45: 14:14 1,000 mL, Jorge L as 1,000 mL 00 :00 Intravenou Medic al s, ONCE, 1 Branch dose, [place] 01/24/19 at 0645, Routine acetaminoph 2018- 2019- No 650mg 650 mg, U nivers en 8- 08-10 Oral, ity of (TYLENOL) 09:47: 10:34 ONCE, 1 [place] tablet 650 00 :00 dose, [place] raquel mg 01/24/19 at Branch 0500, Routine clonazePAM 2018-0 Yes Univers 2 mg tablet 7-24 ity of 00:00: [address] clonazePAM 2018- Yes Univers 2 mg tablet 7-24 ity of 00:00: [address] clonazePAM 2019-0 Yes Univers 2 mg tablet 7-24 ity of 00:00: [address] clonazePAM 2019-0 Yes Univers 2 mg tablet 7-24 ity of 00:00: [address] clonazePAM 2019-0 Yes Univers 2 mg tablet 7-24 ity of 00:00: [address] Branch clonazePAM 2019-0 Yes Univers 2 mg tablet 7-24 ity of 00:00: [address] clonazePAM 2019-0 Yes Univers 2 mg tablet 7-24 ity of 00:00: [address] clonazePAM 2019-0 Yes Univers 2 mg tablet 7-24 ity of 00:00: [address] clonazePAM 2019-0 Yes Univers 2 mg tablet 7-24 ity of 00:00: [address] clonazePAM 2019-0 Yes Univers 2 mg tablet 7-24 ity of 00:00: [address] SERTraline 2019-0 Yes Univers 25 mg 7-17 ity of tablet 00:00: [address] SERTraline 2019-0 Yes Univers 25 mg 7-17 ity of tablet 00:00: [address] SERTraline 2019-0 Yes Univers 25 mg 7-17 ity of tablet 00:00: [address] SERTraline 2019-0 Yes Univers 25 mg 7-17 ity of tablet 00:00: [address] SERTraline 2019-0 Yes Univers 25 mg 7-17 ity of tablet 00:00: [address] SERTraline 2019-0 Yes Univers 25 mg 7-17 ity of tablet 00:00: [address] SERTraline 2019-0 Yes Univers 25 mg 7-17 ity of tablet 00:00: [address] SERTraline 2019-0 Yes Univers 25 mg 7-17 ity of tablet 00:00: [address] SERTraline 2019-0 Yes Univers 25 mg 7-17 ity of tablet 00:00: [address] SERTraline 2019-0 Yes Univers 25 mg 7-17 ity of tablet 00:00: [address] levothyroxi 2019-0 Yes Univer s ne 150 mcg 6-28 ity of tablet 00:00: [address] levothyroxi 2019-0 Yes Univer s ne 150 mcg 6-28 ity of tablet 00:00: [address] levothyroxi 2019-0 Yes Univer s ne 150 mcg 6-28 ity of tablet 00:00: [address] levothyroxi 2019-0 Yes Univer s ne 150 mcg 6-28 ity of tablet 00:00: [place] 00 [facility] levothyroxi 2019-0 Yes Univer s ne 150 mcg 6-28 ity of tablet 00:00: [place] 00 [facility] levothyroxi 2019-0 Yes Univer s ne 150 mcg 6-28 ity of tablet 00:00: [place] 00 [facility] levothyroxi 2019-0 Yes Univer s ne 150 mcg 6-28 ity of tablet 00:00: [place] 00 [facility] levothyroxi 2019-0 Yes Univer s ne 150 mcg 6-28 ity of tablet 00:00: [place] 00 [facility] levothyroxi 2019-0 Yes Univer s ne 150 mcg 6-28 ity of tablet 00:00: [place] 00 [facility] levothyroxi 2019-0 Yes Univer s ne 150 mcg 6-28 ity of tablet 00:00: [place] 00 [facility] levothyroxi 2019-0 Yes [id number] 150ug Take 1 Univers ne 150 mcg 6-28 tablet by ity of tablet 00:00: mouth [place] 00 every Medical morning. Branch levothyroxi 2019-0 Yes [id number] 150ug Take 1 Univers ne 150 mcg 6-28 tablet by ity of tablet 00:00: mouth [place] 00 every Medical morning. Branch levothyroxi 2019-0 Yes [id number] 150ug Take 1 Univers ne 150 mcg 6-28 tablet by ity of tablet 00:00: mouth [place] 00 every Medical morning. Branch levothyroxi 2019-0 Yes [id number] 150ug Take 1 Univers ne 150 mcg 6-28 tablet by ity of tablet 00:00: mouth [place] 00 every Medical morning. Branch levothyroxi 2019-0 2019- No [id number] 150ug Take 1 Univers ne 150 mcg 6-28 08-10 tablet by ity of tablet 00:00: 00:00 mouth [place] 00 :00 every Medical morning. Branch methadone 2019-0 Yes Take by Univ ers HCl 6-03 mouth. ity of (METHADONE 13:45: [place] ORAL) [facility] Branch methadone 2019-0 Yes Take by Univ ers HCl 6-03 mouth. ity of (METHADONE 13:45: [place] ORAL) 07 [facility] methadone 2018-0 Yes Take by Univ ers HCl 6-03 mouth. ity of (METHADONE 13:45: [place] ORAL) [facility] methadone 2018- Yes Take by Univ ers HCl 6-03 mouth. ity of (METHADONE 13:45: [place] ORAL) 07 Medical Branch traMADOL 50 2019-0 Yes Univer s mg tablet 5-25 ity of 00:00: [place] 00 [facility] traMADOL 50 2019-0 Yes Univer s mg tablet 5-25 ity of 00:00: [place] 00 [facility] traMADOL 50 2019-0 Yes Univer s mg tablet 5-25 ity of 00:00: [place] 00 [facility] traMADOL 50 2019-0 Yes Univer s mg tablet 5-25 ity of 00:00: [place] 00 [facility] traMADOL 50 2019-0 2019- No Unive rs mg tablet 5-25 08-10 ity of 00:00: 00:00 [place] 00 :00 Medical Branch tramadol 2019-0 Yes Take by Unive rs HCl (ULTRAM 5-14 mouth. ity of ORAL) 19:34: [address] tramadol 2018-0 Yes Take by Unive rs HCl (ULTRAM 5-14 mouth. ity of ORAL) 19:34: [address] tramadol 2018-0 Yes Take by Unive rs HCl (ULTRAM 5-14 mouth. ity of ORAL) 19:34: [address] tramadol 2018-0 Yes Take by Unive rs HCl (ULTRAM 5-14 mouth. ity of ORAL) 19:34: [address] PNV 67-iron 2018- Yes [id number] 1{capsu Take 1 Univers ps-folate 5-14 le} capsule by ity of no.1-dha 00:00: mouth [place] (VITAFOL 00 daily. Medical ULTRA) 29 Branch mg iron- 1 mg-200 mg Cap PNV 67-iron 2018- Yes [id number] 1{capsu Take 1 Univers ps-folate 5-14 le} capsule by ity of no.1-dha 00:00: mouth [place] (VITAFOL 00 daily. Medical ULTRA) 29 Branch mg iron- 1 mg-200 mg Cap PNV 67-iron 2018- Yes [id number] 1{capsu Take 1 Univers ps-folate 5-14 le} capsule by ity of no.1-dha 00:00: mouth [place] (VITAFOL 00 daily. Medical ULTRA) 29 Branch mg iron- 1 mg-200 mg Cap PNV 67-iron 2018- Yes [id number] 1{capsu Take 1 Univers ps-folate 5-14 le} capsule by ity of no.1-dha 00:00: mouth [place] (VITAFOL 00 daily. Medical ULTRA) 29 Branch mg iron- 1 mg-200 mg Cap PNV 67-iron 2019- No [id number] 1{capsu Take 1 Univers ps-folate 514 08-10 le} capsule by ity of no.1-dha 00:00: 00:00 mouth [place] (VITAFOL 00 :00 daily. Medical ULTRA) 29 Branch mg iron- 1 mg-200 mg Cap clonazePAM Yes Univers 2 mg tablet 10-23 ity of 00:00: [place] 00 [facility] clonazePAM Yes Univers 2 mg tablet 10-23 ity of 00:00: [place] 00 [facility] clonazePAM Yes Univers 2 mg tablet 10-23 ity of 00:00: [place] 00 [facility] clonazePAM Yes Univers 2 mg tablet 10-23 ity of 00:00: [place] 00 [facility] clonazePAM 2019- No Univer s 2 mg tablet 10-23 ity of 00:00: 00:00 [place] 00 :00 [facility] Immunizations Ordered Filled Immunization Date Status Comments [facility] e Immunization Name Name TDAP (ADACEL) 2019-01-27 Completed University of VACCINE 00:00:00 [facility] TDAP (ADACEL) 2019-01-27 Completed University of VACCINE 00:00:00 [facility] TDAP (ADACEL) 2019-01-27 Completed University of VACCINE 00:00:00 [facility] TDAP (ADACEL) 2019-01-27 Completed University of VACCINE 00:00:00 [facility] TDAP (ADACEL) 2019-01-27 Completed University of VACCINE 00:00:00 [facility] TDAP (ADACEL) 2019-01-27 Completed University of VACCINE 00:00:00 [facility] TDAP (ADACEL) 2019-01-27 Completed University of VACCINE 00:00:00 [facility] TDAP (ADACEL) 2019-01-27 Completed University of VACCINE 00:00:00 [facility] TDAP (ADACEL) 2019-01-27 Completed University of VACCINE 00:00:00 [facility] TDAP (ADACEL) 2019-01-27 Completed University of VACCINE 00:00:00 [facility] TDAP (ADACEL) 2019-01-27 Completed University of VACCINE 00:00:00 [facility] TDAP (ADACEL) 2019-01-27 Completed University of VACCINE 00:00:00 [facility] TDAP (ADACEL) 2019-01-27 Completed University of VACCINE 00:00:00 [facility] TDAP (ADACEL) 2019-01-27 Completed University of VACCINE 00:00:00 [facility] TDAP (ADACEL) 2019-01-27 Completed University of VACCINE 00:00:00 [facility] TDAP (ADACEL) 2019-01-27 Completed University of VACCINE 00:00:00 [facility] TDAP (ADACEL) 2019-01-27 Completed University of VACCINE 00:00:00 [facility] TDAP (ADACEL) 2019-01-27 Completed University of VACCINE 00:00:00 [facility] TDAP (ADACEL) 2019-01-27 Completed University of VACCINE 00:00:00 [facility] TDAP (ADACEL) 2019-01-27 Completed University of VACCINE 00:00:00 [facility] TDAP (ADACEL) 2019-01-27 Completed University of VACCINE 00:00:00 [facility] TDAP (ADACEL) 2019-01-27 Completed University of VACCINE 00:00:00 [facility] TDAP (ADACEL) 2019-01-27 Completed University of VACCINE 00:00:00 [facility] TDAP (ADACEL) 2019-01-27 Completed University of VACCINE 00:00:00 [facility] TDAP (ADACEL) 2019-01-27 Completed University of VACCINE 00:00:00 [facility] TDAP (ADACEL) 2019-01-27 Completed University of VACCINE 00:00:00 [facility] Vital Signs Vital Name Observation Time Observation Value Comments Source Systolic blood 2020-08-20 02:00:00 133 mm[Hg] Univer sity of pressure [facility] Diastolic blood 2020-08-20 02:00:00 98 mm[Hg] Unive rsity of pressure [facility] Heart rate 2020-08-20 02:00:00 80 /min Universi ty of [facility] Respiratory rate 2020-08-20 02:00:00 17 /min Univ ersity of [facility] Oxygen saturation in 2020-08-20 02:00:00 96 /min [facility] Arterial blood by [facility] Pulse oximetry Branch Body weight 2020-08-19 22:02:00 90.719 kg Universi ty of [place] [facility] BMI 2020-08-19 22:02:00 39.06 kg/m2 Universi ty of [place] [facility] Body temperature 2020-08-19 21:57:00 37 Oksana Univ ersity of [place] [facility] Systolic blood 2020-05-25 13:45:00 146 mm[Hg] Univer sity of pressure [place] [facility] Diastolic blood 2020-05-25 13:45:00 96 mm[Hg] Unive rsity of pressure [place] [facility] Heart rate 2020-05-25 13:45:00 89 /min Universi ty of [place] [facility] Body temperature 2020-05-25 13:45:00 36.39 Oksana Univ ersity of [place] [facility] Respiratory rate 2020-05-25 13:45:00 18 /min Univ ersity of [place] [facility] Body weight 2020-05-25 13:45:00 81.647 kg Universi ty of [place] [facility] BMI 2020-05-25 13:45:00 35.15 kg/m2 Universi ty of [place] [facility] Oxygen saturation in 2020-05-25 13:45:00 97 /min University of Arterial blood by [facility] Pulse oximetry Branch Systolic blood 2020-04-09 21:48:00 119 mm[Hg] Univer sity of pressure [place] [facility] Diastolic blood 2020-04-09 21:48:00 94 mm[Hg] Unive rsity of pressure [place] [facility] Heart rate 2020-04-09 21:48:00 77 /min Universi ty of [place] [facility] Respiratory rate 2020-04-09 21:48:00 16 /min Univ ersity of [place] [facility] Oxygen saturation in 2020-04-09 21:48:00 96 /min University of Arterial blood by [facility] Pulse oximetry Branch Body temperature 2020-04-09 19:02:10 36.28 Oksana Univ ersity of [place] [facility] Body weight 2020-04-09 19:02:10 81.647 kg Universi ty of [place] [facility] Systolic blood 2020-03-30 14:27:00 127 mm[Hg] Univer sity of pressure [place] [facility] Diastolic blood 2020-03-30 14:27:00 83 mm[Hg] Unive rsity of pressure [place] [facility] Heart rate 2020-03-30 14:27:00 77 /min Universi ty of [place] [facility] Body temperature 2020-03-30 14:27:00 37.28 Oksana Univ ersity of [facility] Respiratory rate 2020-03-30 14:27:00 16 /min Univ ersity of [facility] Body height 2020-03-30 14:27:00 152.4 cm Universi ty of [place] [facility] [place] Body weight 2020-03-30 14:27:00 85.186 kg Universi ty of [facility] BMI 2020-03-30 14:27:00 36.68 kg/m2 Universi ty of [facility] Systolic blood 2019-02-25 13:00:00 138 mm[Hg] Univer sity of pressure [facility] Diastolic blood 2019-02-25 13:00:00 73 mm[Hg] Unive rsity of pressure [facility] Heart rate 2019-02-25 13:00:00 70 /min Universi ty of [facility] Body temperature 2019-02-25 13:00:00 36.72 Oksana Univ ersity of [facility] Respiratory rate 2019-02-25 13:00:00 20 /min [facility] Oxygen saturation in 2019-02-25 13:00:00 98 /min [facility] Arterial blood by [facility] Pulse oximetry Branch Body height 2019-02-18 15:51:00 152.4 cm Universi ty of [facility] Body weight 2019-02-18 15:51:00 92.534 kg Universi ty of [place] [facility] [place] BMI 2019-02-18 15:51:00 39.84 kg/m2 Universi ty of [facility] Systolic blood 2019-01-27 20:21:00 122 mm[Hg] Univer sity of pressure [facility] Branch Diastolic blood 2019-01-27 20:21:00 68 mm[Hg] Unive rsity of pressure [facility] Heart rate 2019-01-27 20:21:00 62 /min Universi ty of [facility] Body temperature 2019-01-27 20:21:00 36.94 Oksana Univ ersity of [facility] Respiratory rate 2019-01-27 20:21:00 16 /min Univ ersity of [facility] Body height 2019-01-27 20:21:00 152.4 cm Universi ty of [facility] Body weight 2019-01-27 20:21:00 89.812 kg Universi ty of [place] [facility] BMI 2019-01-27 20:21:00 38.67 kg/m2 [facility] Oxygen saturation in 2019-01-25 02:00:00 100 /min [facility] Arterial blood by [facility] Pulse oximetry Branch Systolic blood 2019-01-25 02:00:00 122 mm[Hg] [facility] Diastolic blood 2019-01-25 02:00:00 81 mm[Hg] [facility] Heart rate 2019-01-25 02:00:00 92 /min [facility] Body temperature 2019-01-25 02:00:00 36.56 Oksana [facility] 2019-01-25 02:00:00 18 /min [facility] Body height 2019-01-24 09:34:00 152.4 cm [facility] Body weight 2019-01-24 09:34:00 81.647 kg [facility] BMI 2019-01-24 09:34:00 35.15 kg/m2 [facility] Procedures Procedure Date / Time Performing Clinician Source Performed CT ABDOMEN PELVIS W 2020-08-19 23:43:26 Diana Husain [facility] LIPASE 2020-08-19 22:59:00 Diana Husain [facility] TROPONIN I 2020-08-19 22:59:00 Diana Husain [facility] COMP. METABOLIC PANEL 2020-08-19 22:59:00 Diana Husain [facility] ([id number]) [facility] CBC WITH DIFF 2020-08-19 22:59:00 Diana Husain [facility] URINALYSIS 2020-08-19 22:59:00 Diana Husain [facility] POCT TEST 2020-08-19 22:59:00 Diana Husain [facility] CT ABDOMEN PELVIS W 2020-05-25 15:16:42 Veronica Sanchez [facility] LIPASE 2020-05-25 14:21:00 Veronica Sanchez [facility] TEST, SERUM 2020-05-25 14:21:00 Veronica Sanchez [facility] HEPATIC FUNCTION PANEL 2020-05-25 14:21:00 Veronica Sanchez [facility] ([id number]) (ALB,T.PRO,BILI Medical Branch T,BU/BC,ALT,AST,ALK PHOS) BASIC METABOLIC PANEL 2020-05-25 14:21:00 Veronica Sanchez [facility] (NA, K, CL, CO2, GLUCOSE, Medica l Branch BUN, CREATININE, CA) CBC WITH DIFF 2020-05-25 14:21:00 Veronica Sanchez [facility] URINALYSIS 2020-05-25 14:21:00 Veronica Sanchez [facility] CT ABDOMEN PELVIS W 2020-04-09 19:47:06 Lay Montelongo [facility] XR CHEST 1 VW 2020-04-09 19:40:35 Lay Montelongo [facility] CT CERVICAL SPINE WO 2020-04-09 19:40:15 Lay Montelongo [facility] CT HEAD WO CONTRAST 2020-04-09 19:40:15 Lay Montelongo [facility] BASIC METABOLIC PANEL 2020-04-09 19:11:00 Lay Montelongo [facility] (NA, K, CL, CO2, GLUCOSE, Medica l Branch BUN, CREATININE, CA) CBC WITH DIFF 2020-04-09 19:11:00 Lay Montelongo [facility] CONSENT/REFUSAL FOR 2020-03-30 14:07:13 [facility]AT[facility] Name [facility] STERILIZATION CONSENT 2019-03-04 05:01:00 Doctor Unassigned, No [facility] FORM Name [facility] CBC WITH DIFFERENTIAL 2019-02-25 10:58:00 Carrol [facility] PREPARE PACKED RBC 2019-02-24 17:02:09 Charlee Reeves [facility] CBC WITH DIFFERENTIAL 2019-02-24 10:42:00 Isael Mcfarland [facility] TUBAL LIGATION 2019-02-24 02:07:00 Cameron Alatorre, [facility] VENOUS CORD GAS 2019-02-23 20:44:00 Isael Mcfarland [facility] CBC WITH DIFFERENTIAL 2019-02-23 16:47:00 Chiquis Nuno [facility] PROTHROMBIN TIME / INR 2019-02-23 16:47:00 Ludy De La Cruz [facility] D-DIMER 2019-02-23 16:47:00 Dorothy [facility] ACTIVATED PARTIAL 2019-02-23 16:47:[address] La Cruz [facility] FIBRINOGEN 2019-02-23 16:47:00 Dorothy [facility] URINALYSIS 2019-02-23 07:09:00 Shyann [facility] PROTEIN CREAT RATIO URINE 2019-02-23 07:09:00 Shyann Aguilar [facility] PROFILE / HEMOGRAM 2019-02-23 06:37:00 [facility] PROT[facility] / INR 2019-02-23 06:37:00 Shyann Aguilar Apri l [facility] ACTIVATED PARTIAL 2019-02-23 06:37:00 Shyann Aguilar [facility] FIBRINOGEN 2019-02-23 06:37:00 Shyann Aguilar [facility] SGOT (ASPARTATE AMINO 2019-02-23 05:06:00 Shyann Aguialr Ale [facility] TRANSFER) Medical Branch CREATININE 2019-02-23 05:06:00 Shyann Aguilar [facility] ALANINE AMINO 2019-02-23 05:06:00 Shyann Aguilar Ale Unive [facility] TRANSFERASE(SGPT Medical Branch LACTATE DEHYDROGENASE 2019-02-23 05:06:00 Shyann Aguilar [facility] URIC ACID 2019-02-23 05:06:00 Shyann Aguilar [facility] CBC WITH DIFFERENTIAL 2019-02-23 05:06:00 Shyann Aguilar [facility] TYPE AND SCREEN 2019-02-22 02:09:00 Charlee Reeves [facility] RHO (D) IMMUNE GLOBULIN 2019-02-22 02:09:00 Isael Mcfarland [facility] NON-STRESS TEST 2019-02-21 22:58:23 Nikunj Payan [facility] SECOND AND THIRD 2019-02-20 21:03:[address] [facility] TRIMESTER ULTRASOUND Medical [facility] NON-STRESS TEST 2019-02-20 13:07:39 Shyann Aguilar [facility] RADIOLOGY DOCUMENTATION 2019-02-20 05:01:00 Doctor Unassigned, N o [facility] GLUCOSE 1 HOUR POST 2019-02-19 17:47:00 [facility] FERRITIN SERUM 2019-02-19 17:46:00 Shyann [facility]ilar [facility] IRON 2019-02-19 17:46:00 Shyann Aguilar [facility] TRANSFERRIN 2019-02-19 17:46:00 Shyann Aguilar [facility] TOTAL IRON BINDING 2019-02-19 17:46:00 [facility] 2019-02-19 16:40:11 Shyann Aguilar [facility] HEPATITIS B SURFACE 2019-02-18 17:35:00 [facility] ANTIGEN [facility] HIV 1/2 AG-AB WITH REFLEX 2019-02-18 17:35:00 Lori Armstrong [facility] GALV ONLY - SYPHILIS 2019-02-18 17:35:00 Lori Armstrong [facility] IGG/IGM Medical [place] TYPE AND SCREEN 2019-02-18 17:33:00 [facility]CLC ONLY - URINE 2019-02-18 17:25:00 Lori Armstrong [facility] DRUG (IMMUNOASSAY) - Medical [facility] [address] COMPREHENSIVE DRUG SCREEN CBC WITH DIFFERENTIAL 2019-02-18 17:25:00 Lori Armstrong [facility] URINALYSIS 2019-02-18 17:25:00 Lori Armstrong [facility] URINE CULTURE 2019-02-18 17:25:00 Lori Armstrong [facility] GC & CHLAMYDIA AMPLIFIED 2019-02-18 17:25:00 Lori Armstrong [facility] ASSAY [facility] GROUP B STREPTOCOCCUS BY 2019-02-18 17:25:00 Lori Armstrong [facility] PCR [facility] URINE DRUG (LCMSMS) - 2019-02-18 17:25:00 [facility]TIC OPIATES PANEL [facility] URINE DRUG (LCMSMS) - 2019-02-18 17:25:00 Lori Armstrong [facility] BENZODIAZEPINES PANEL Medical Br anch EXTERNAL PROVIDER RECORDS 2019-01-29 05:01:00 Doctor Unassigned, No [facility] TDAP (ADACEL) 2019-01-27 20:30:38 Maggie Montelongo [facility] IMMUNIZATION [facility] POCT URINALYSIS W/O 2019-01-27 20:21:00 Maggie Montelongo [facility] SPECIFIC GRAVITY [facility] STERILIZATION CONSENT 2019-01-27 05:01:00 Doctor Unassigned, No [facility] THYROID STIMULATING 2019-01-25 02:42:00 Hema Ivey [facility] HORMONE [facility] PROFILE / HEMOGRAM 2019-01-25 02:42:00 Hema Ivey [facility] CBC WITH DIFFERENTIAL 2019-01-24 11:38:00 [facility] AND [facility]EN 2019-01-24 11:34:00 Sergio Rey [facility] Encounters Start End Encounter Admission Attending Care Care Encounter Source Date/Time Date/Time Type Type Clinicians Facility Department ID 2021-04-16 Emergency [facility] [id number] Univers 03:41:23 ity [facility] 2021-04-15 Emergency [facility] [id number] Univers 10:05:45 ity [facility] 2021-09-07 2021-09-07 Outpatient KOVACEV_T [facility] [id number] [place] 02:14:00 02:14:00 [id number] [facility] 2021-06-12 2021-06-12 Outpatient KOVACEV_T [facility] [id number] [place] 09:40:00 09:40:00 [id number] [facility] 2021-06-01 2021-06-01 Outpatient KOVACEV_T [facility] [id number] [place] 02:56:00 02:56:00 [id number] [facility] 2021-05-30 2021-05-30 Outpatient Farhanfranchescaev, [facility] [id number] 00:00:00 00:00:00 Alexandra [id number] Schmitz [id number] 2021-05-18 2021-05-18 Outpatient KOVACEV_T [facility] [id number] [place] 09:12:00 09:12:00 [id number] [facility] 2021-05-18 2021-05-18 Outpatient Kathy, [facility] [id number] 00:00:00 00:00:00 Alexandra [id number] Schmitz [id number] 2021-05-15 2021-05-15 Outpatient KOVACEV_T [facility] [id number] [place] 10:23:00 10:23:00 [id number] [facility] 2021-03-24 2021-03-24 Outpatient KOVACEV_T [facility] [id number] [place] 05:34:00 05:34:00 [id number] [facility] 2021-03-24 2021-03-24 Outpatient KOVACEV_T [facility] [id number] [place] 05:34:00 05:34:00 [id number] [facility] 2021-03-23 2021-03-23 Letter Nurse, Obi [facility] [id number] Univers 00:00:00 00:00:00 (Out) Db [facility] [id number] ity of Care [place] [id number] Jorge L as John?Blea [id number] [address] Medical Office [facility] 2021-03-22 2021-03-22 Telephone ABDIRAHMAN Garza [id number] Univers 00:00:00 00:00:00 Aneatrice BART [id number] ity of HOSPITAL [id number] Jorge L as [id number] [facility] 019 [place] 2021-03-21 2021-03-21 Outpatient [facility] [id number] Univers 15:00:00 15:00:00 [id number] ity of [facility] 2021-03-21 2021-03-21 Outpatient R [facility] [id number] Univers 15:00:00 15:00:00 ity of [facility] 2021-03-21 2021-03-21 Laboratory Only, Obi Db Test [facility] [id number] [id number] Univers 14:37:09 14:52:09 Only Song, [facility] 350.1.13.10 ity of [place] 4.2.7.2.686 Jorge L as John?Blea [phone] [address] Medical Office [facility] 2021-03-21 2021-03-21 Letter Doctor ABDIRAHMAN 1.2.840.114 [id number] Univers 00:00:00 00:00:00 (Out) Unassigned, BART 350.1.13.10 ity of [place] [facility] 4.2.7.2.686 Jorge L as [phone] [address] 2021-03-21 2021-03-21 Letter Doctor ABDIRAHMAN 1.2.840.114 [id number] Univers 00:00:00 00:00:00 (Out) Unassigned, BART 350.1.13.10 ity of [place] [facility] 4.2.7.2.686 Jorge L as [phone] [place] [address] [address] 2021-03-09 2021-03-09 Outpatient KOVACEV_T [facility] [id number] [place] 12:42:00 12:42:00 0923 [facility] 2021-03-09 2021-03-09 Outpatient Kovacev, [facility] [id number] 12- 00:00:00 00:00:00 Alexandra [id number] Schmitz [id number] 2021-03-09 2021-03-09 Outpatient Kovacev, [facility] [id number] [id number] 00:00:00 00:00:00 Alexandra [id number] [place]mitz [id number] 2021-03-06 2021-03-06 Outpatient KOVACEV_T [facility] [place] 03:31:00 03:31:00 0920 [facility] 2021-02-21 2021-02-21 Outpatient KOVACEV_T [facility] [id number] [place] 05:58:00 05:58:00 0907 [facility] 2021-02-16 2021-02-16 Outpatient KOVACEV_T [facility] [place] 09:19:00 09:19:00 0902 [facility] 2021-02-16 2021-02-16 Outpatient Kathy, [facility] [id number] 00:00:00 00:00:00 Alexandra [id number] [place] [id number] 2021-01-14 2021-01-14 Outpatient KOVACEV_T [facility] [id number] [place] 06:56:00 06:56:00 0803 [facility] 2021-01-03 2021-01-03 Outpatient [place], [facility] [id number] [id number] 00:00:00 00:00:00 Alexandra [id number] [place] [id number] 2020-12-28 2020-12-28 Outpatient KOVACEV_T [facility] [id number] [place] 06:12:00 06:12:00 0714 [facility] 2020-12-20 2020-12-20 Outpatient KOVACEV_T [facility] [id number] [place] 10:47:00 10:47:00 0706 [facility] 2020-12-20 2020-12-20 Outpatient Kathy [facility] [id number]-[id number] 00:00:00 00:00:00 Alexandra [id number] [place] [id number] 2020-12-08 2020-12-08 Outpatient KOVACEV_T [facility] [id number] [place] 11:03:00 11:03:00 0624 [facility] 2020-12-08 2020-12-08 Outpatient Kathy [facility] [id number] 00:00:00 00:00:00 Alexandra [id number] [place] [id number] 2020-11-18 2020-11-18 Outpatient FRANCIEEV_T [facility] [id number] [place] 05:05:00 05:05:00 0604 [facility] 2020-08-19 2020-08-19 Emergency Lisha, K [facility] 1.2.840.114 [id number] Univers 15:52:00 20:28:00 Marisa Lees 350.1.13.10 i ty of [place] 4.2.7.2.686 [facility] [id number] [facility] [address] 2020-05-25 2020-05-25 Emergency Laura, TRAUMA 1.2.840.114 [id number] Univers 07:46:00 10:56:00 Veronica S [place] 350.1.13.10 it y 4.2.7.2.686 [facility] [phone] [facility] [address] 2020-04-19 2020-04-19 Outpatient R BE, [facility] [id number] 2P-20 Univers 10:00:00 10:00:00 KELSEY ity o zion [facility] 2020-04-19 2020-04-19 Outpatient R AKINLE, [facility] [id number] Univers 10:00:00 10:00:00 KELSEY alcalay o zion [facility] 2020-04-15 2020-04-15 Outpatient R BE, [facility] [id number] 2P-20 Univers 13:45:00 13:45:00 KELSEY fredricky o zion [facility] 2020-04-14 2020-04-14 Outpatient R DIONE [facility] [id number] -[id number] Univers 07:45:00 07:45:00 DEIDRAANGELICAEMPriscilla [id number] ity o zion [facility] 2020-04-14 2020-04-14 Outpatient R DIONE [facility] [id number] Univers 07:45:00 07:45:00 HERMILO scott o [facility] 2020-04-09 2020-04-09 Emergency [facility] 1.2.840.114 [id number] Univers 13:58:00 16:50:00 Lay Lees 350.1.13.10 ity [facility] [address] [facility] [place] [phone] [address] 2020-04-09 2020-04-09 Emergency X [facility] ERT [id number] Univers 13:58:00 16:50:00 LAY [facility] 2020-04-09 2020-04-09 Emergency [facility] E[facility] [id number] Univers 13:58:00 13:58:00 LAY [facility] 2020-04-01 2020-04-01 Telephone [facility] 1.2.019.168 [id number] Univers 00:00:00 00:00:00 Hermilo Everett SYSTEMS OPERATOR 350.1.13.10 ity [place] [address].2.7.2.686 Jorge L as MATERNAL [id number] Med ical & CHILD [address] [place] [address] 2020-03-30 2020-03-30 [facility] 1.2.840.114 [id number] Univers 09:09:43 09:44:16 Visit Hermilo Everett SYSTEMS OPERATOR 350.1.13.10 ity [facility] 4.2.7.2.686 Jorge L as MATERNAL [phone] Med ical & CHILD [facility] 2020-03-30 2020-03-30 Outpatient R DIONE [facility] [id number] -[id number] Univers 09:15:00 09:15:00 HERMILO [id number] ity o f [facility] 2020-03-30 2020-03-30 Outpatient [facility] [id number] Univers 09:15:00 09:15:00 HERMILO ity o f [facility] 2020-03-30 2020-03-30 Orders Doctor ABDIRAHMAN 1.2.840.114 [id number] Univers 00:00:00 00:00:00 Only Unassigned, BART 350.1.13.10 ity of [place] [facility] 4.2.7.2.686 Jorge L as [id number] [facility] [address] [place] 2019-03-04 2019-03-04 Orders Doctor ABDIRAHMAN 1.2.840.114 [id number] Univers 00:00:00 00:00:00 Only Unassigned, BART 350.1.13.10 ity of [place] [facility] 4.2.7.2.686 Jorge L as [id number] [facility] [address] [place] 2019-02-18 2019-02-25 Hospital ABDIRAHMAN Nuno 1.2.840.114 [id number] Univers 10:17:00 13:11:00 Encounter Chiquis ARRIAGA 350.1.13.10 ity of HOSPITAL 4.2.7.2.686 Jorge L as [id number] [facility] [address] [place] 2019-02-24 2019-02-24 Telephone [facility] 1.2.840.114 [id number] Univers 00:00:00 00:00:00 Maggie Saeed SYSTEMS OPERATOR 350.1.13.10 it y of [facility] 4.2.7.2.686 Jorge L as MATERNAL [id number] [facility] ical & CHILD 107 [facility] 2019-02-20 2019-02-20 Scientific Informatics Analyst 2, [facility] U[facility] Room UNIVERSIT 1 .2.840.114 [id number] Univers 13:54:50 16:16:25 Visit Catracho, Bradley [facility] 350.1.13.10 ity of [facility] 4.2.7.2.[place] [id number] [facility] [address] [place] 2019-02-17 2019-02-17 Telephone Faculty, [facility] 1.2.840.114 [id number] Univers 00:00:00 00:00:00 [facility] SYSTEMS OPERATOR 350.1.13.10 ity of [facility] 4.2.7.2.686 Jorge L as MATERNAL [id number] [facility] ical & CHILD [address] [place] [address] 2019-02-15 2019-02-15 [facility] 1.2.636.425 [id number] Univers 00:00:00 00:00:00 Maggie Saeed SYSTEMS OPERATOR 350.1.13.10 it y of [facility] 4.2.7.2.686 Jorge L as MATERNAL [phone] [facility] & [address] 2019-02-05 2019-02-05 Telephone Faculty, [facility] 1.2.840.114 [id number] Univers 00:00:00 00:00:00 [facility] SYSTEMS OPERATOR 350.1.13.10 ity of [facility] 4.2.7.2.686 Jorge L as MATERNAL [id number] [facility] & CHILD [address] [place] [address] 2019-01-29 2019-01-29 Orders Doctor ABDIRAHMAN 1.2.840.114 [id number] Univers 00:00:00 00:00:00 Only Unassigned, BART 350.1.13.10 ity of [place] [facility] 4.2.7.2.686 Jorge L as [id number] [facility] [address] [place] 2019-01-27 2019-01-27 Gio [facility] 1.2.376.495 [id number] Univers 14:59:47 16:01:58 Maggie Saeed SYSTEMS OPERATOR 350.1.13.10 i ty of Visit [facility] 4.2.7.2.686 Jorge L as MATERNAL [id number] [facility] & CHILD [address] [place] [address] 2019-01-27 2019-01-27 Orders Doctor ABDIRAHMAN 1.2.840.114 [id number] Univers 00:00:00 00:00:00 Only Unassigned, BART 350.1.13.10 ity of [place] [facility] 4.2.7.2.686 Jorge L as [id number] [facility] [address] 2019-01-23 2019-01-24 Hospital ABDIRAHMAN nKight 1.2.638.209 [id number] Univers 23:55:59 23:15:00 Encounter Aracely ARRIAGA 350.1.13.10 ity of [facility] 4.2.7.2.686 Jorge L as [phone] [facility] [address] 2019-01-16 2019-01-16 Telephone [facility] 1.2.840.114 [id number] Univers 00:00:00 00:00:00 Ang Rmchp SYSTEMS OPERATOR 350.1.13.10 ity of [facility] 4.2.7.2.686 Jorge L as MATERNAL [phone] [facility] ical & CHILD [address] [place] [address] 2019-01-12 2019-01-12 Telephone [facility] 1.2.360.915 [id number] Univers 00:00:00 00:00:00 Deidrahunda R SYSTEMS OPERATOR 350.1.13.10 ity of [facility] 4.2.7.2.686 Jorge L as MATERNAL [phone] [facility] & CHILD [address] [place] [address] Results Test Test Test Results Result Source Description Time Comments Comments CT ABDOMEN 2020-08 1. No acute intra-abdominal University PELVIS W -06 or intrapelvic abnormality of [place] CONTRAST 02:18:2 per2. Hepatosplenomegaly and Medical 5 diffuse hepatic steatosis.3. Branch Suspected punctate gallstone versus adenomyomatosis at the gallbladderneck. 4. 1 cm fat-containing umbilical hernia. Preliminary Report Dictated by Resident: Corby Pulliam MD., have reviewed this study and agree with theabove report.EXAM: CT ABDOMEN AND PELVIS WITH CONTRAST HISTORY: 39-year-old female with hernia and abdominal pain COMPARISON: CT abdomen 05/25/2020. DOSE: Total exam DLP 850 mGy-cm TECHNIQUE AND FINDINGS: Contiguous axial imaging was performed from thelung bases to the proximal femurs after the administration of intravenousOmnipaque contrast in the portal venous phase. Coronal and sagittalreconstructions were obtained. FINDINGS: LOWER THORAX: The lung bases clear. LIVER: Diffusely hypoattenuating liver parenchyma. Normal contour.Enlarged liver measures 22.7 cm in craniocaudal dimension. Fatty sparingsurroundingthe gallbladder. GALLBLADDER AND BILIARY TREE: No biliary ductal dilatation. Physiologicallydistended gallbladder containing questionable punctate calculus at thegallbladder neck (2:52) versus punctate adenomyomatosis. No pericholecysticfree fluid or inflammatory change. SPLEEN: Enlarged spleen measuring 13.8 cm in AP diameter. Few smallperihilar splenules. PANCREAS: No ductal dilation or masses. ADRENAL GLANDS: No adrenal nodules. KIDNEYS: No hydronephrosis, stones, or masses. PERITONEUM AND RETROPERITONEUM: No free air or fluid. Small fat-containingumbilical hernia. LYMPH NODES: No lymphadenopathy. GI TRACT: No dilation or abnormal wall thickening. Appendix is normal. PELVIS/BLADDER: Urinary bladder is partially distended. No wallthickening..Partially retroflexed uterus. A hypodense structure with a surroundinghyperattenuating rim in the right adnexal region measures up to 1.6 cmconsistent with a corpus luteum. VESSELS: Patent abdominal vasculature. BONES AND SOFT TISSUES: No suspicious lytic or sclerotic bony lesions.Unchanged minimal superior endplate depression of L1.Multileveldegenerative changes in the spine, mostnotably at the L5-S1 level. [facility], Radiant Results Inft User - 08/19/2020 8:19 PM CSTEXAM: CT ABDOMEN AND PELVIS WITH CONTRASTHISTORY: 39-year-old female with hernia and abdominal painCOMPARISON: CT abdomen 05/25/2020.DOSE: Total exam DLP 850 mGy-cmTECHNIQUE AND FINDINGS: Contiguous axial imaging was performed from thelung bases to the proximal femurs after the administration of intravenousOmnipaque contrast in the portal venous phase. Coronal and sagittalreconstructions were obtained.FINDINGS:LOWER THORAX: The lung bases clear.LIVER: Diffusely hypoattenuating liver parenchyma. Normal contour.Enlarged liver measures 22.7 cm in craniocaudal dimension. Fatty sparingsurroundingthe gallbladder.GALLBLADDER AND BILIARY TREE: No biliary ductal dilatation. Physiologicallydistended gallbladder containing questionable punctate calculus at thegallbladder neck (2:52) versus punctate adenomyomatosis. No pericholecysticfree fluid or inflammatory change.SPLEEN: Enlarged spleen measuring 13.8 cm in AP diameter. Few smallperihilar splenules.PANCREAS: No ductal dilation or masses.ADRENAL GLANDS: No adrenal nodules.KIDNEYS: No hydronephrosis, stones, or masses.PERITONEUM AND RETROPERITONEUM: No free air or fluid. Small fat-containingumbilical hernia. LYMPH NODES: No lymphadenopathy.GI TRACT: No dilation or abnormal wall thickening. Appendix is normal.PELVIS/BLADDER: Urinary bladder is partially distended. No wallthickening..Partially retroflexed uterus. A hypodense structure with a surroundinghyperattenuating rim in the right adnexal region measures up to 1.6 cmconsistent with a corpus luteum.VESSELS: Patent abdominal vasculature.BONES AND SOFT TISSUES: No suspicious lytic or sclerotic bony lesions.Unchanged minimal superior endplate depression of L1.Multileveldegenerative changes in the spine, mostnotably at the L5-S1 level.IMPRESSION1. No acute intra-abdominal or intrapelvic abnormality per2. Hepatosplenomegaly and diffuse hepatic steatosis.3. Suspected punctate gallstone versus adenomyomatosis at the gallbladderneck. 4. 1 cm fat-containing umbilical hernia.Preliminary Report Dictated by Resident: Ke Elder, Corby Dela Cruz MD., have reviewed this study and agree with theabove report. TROPONIN I 2020-08-19 23:29:00 Test Item Value Reference Range Interpretation Comme nts TROPONIN I (test code = 0.002 ng/mL See_Comment [Au tomated message] The [id number]) system which nerated this result tra nsmitted reference range : <=0.034. The reference r duglas was not used to int erpret this result as normal/abnormal . BRODY (test code = BRODY) Equal or Less than 0.034 ng/ml---Normal ?Note: Cardiac troponin begins to rise 3-4 hours after the onset of ischemia. Repeat in 4-6 hours if the sample was drawn within 3-4 hours of the onset of the symptom and found normal. Between 0.035 and 0.120 ng/mL--- Borderline. Questionable myocardial injury or necrosis ? ?Note: Serial measurement may be necessary to confirm or exclude the diagnosis of myocardial injury or necrosis; Clinical correlation (symptoms, EKGs, imaging studies, and others) required; Repeat in 4-6 hours if clinically indicated. ? Equal or Higher than 0.121 ng/mL---Abnormal. Myocardial Injury or Necrosis Likely ? Biotin has been reported to cause a negative bias, interpret results relative to patient's use of biotin. ? Lab Interpretation (test Normal code = 44289-3) [facility]. METABOLIC PANEL (19307)2020-08-19 23:16:00 Test Item Value Reference Range Interpretation Comments NA (test code = 139 mmol/L 135-145 5258884063) K (test code = 3.9 mmol/L 3.5-5 3461506021) CL (test code = 100 mmol/L 98-108 9143800582) CO2 TOTAL (test code = 30 mmol/L 23-31 6100520384) AGAP (test code = 2-16 5257613006) BUN (test code = 13 mg/dL 7-23 3800172279) GLUCOSE (test code = 118 mg/dL 70-110 H 7068273376) CREATININE (test code = 0.72 mg/dL 0.5-1.04 3480340360) TOTAL BILI (test code = 0.5 mg/dL 0.1-1.2 0107934094) CALCIUM (test code = 9.2 mg/dL 8.6-10.6 6720033709) T PROTEIN (test code = 8.0 g/dL 6.3-8.2 6861845069) ALBUMIN (test code = 4.8 g/dL 3.5-5 6820772463) ALK PHOS (test code = 84 U/L 34-122 2205662060) ALTv (test code = 152 U/L 5-35 H 1742-6) AST(SGOT) (test code = 122 U/L 13-40 H 3646934754) eGFR Calculation mL/min/1.73m2 (Non-) (test code = 2241926862) eGFR Calculation mL/min/1.73m2 () (test code = 9784847461) BRODY (test code = BRODY) Association of Glomerular Filtration Rate (GFR) and Staging of Kidney Disease* + --+ --+ ------+| GFR (mL/min/1.73 m2) ?| With Kidney Damage ?| ?Without Kidney Damage+ --------+ --------+ +| ?>90 ?| ?Stage one ?| ? Normal ?+ ---+ ---+ -------+| ?60-89 ?| ?Stage two ?| ? Decreased GFR ? + --+ --+ ------+| ?30-59 ?| ?Stage three ?| ? Stage three ? + --+ --+ ------+| ?15-29 ?| ?Stage four ? | ? Stage four ?+ ---+ ---+ -------+| ?<15 (or dialysis) ? ?| ?Stage five ? | ? Stage five ?+ ---+ ---+ -------+ *Each stage assumes the associated GFR level has been in effect for at least three months. ?Stages 1 to 5, with or without kidney disease, indicate chronic kidney disease. Notes: Determination of stages one and two (with eGFR >59mL/min/1.73 m2) requires estimation of kidney damage for at least three months as defined by structural or functional abnormalities of the kidney, manifested by either:Pathological abnormalities or Markers of kidney damage (including abnormalities in the composition of the blood or urine or abnormalities in imaging tests). Lab Interpretation Abnormal (test code = 49954-0) [facility]:16[facility]00 Test Item Value Reference Range Interpretation Comments LIPASE (test code = 5128438600) 145 U/L 0-220 Lab Interpretation (test code = Normal 40331-5) [facility] 23:15:00 Test Item Value Reference Range Interpretation Comments APPEARANCE (test code = Cloudy Clear A 7628652256) COLOR (test code = Yellow Yellow 2674300198) PH (test code = 4.8-8.0 9605386875) SP GRAVITY (test code = 1.003-1.030 8847940268) GLU U QUAL (test code = Normal Normal 3905992196) BLOOD (test code = Negative Negative 5014463171) KETONES (test code = Negative Negative 4001841598) PROTEIN (test code = Negative Negative 2887-8) UROBILIN (test code = Normal Normal 3739066633) BILIRUBIN (test code = Negative Negative 6443831927) NITRITE (test code = Negative Negative 2810214451) LEUK MO (test code = 25/uL Negative A 0977670810) RBC/HPF (test code = See_Comment [Autom ated message] 2475123008) The system [employer] generated this result transmitted ref erence range: 0 - 3 HP F. The reference range was not used to int erpret this result as normal/abnormal . WBC/HPF (test code = See_Comment [Autom ated message] 8998818021) The system [employer] generated this result transmitted ref erence range: 0 - 5 HP F. The reference range was not used to int erpret this result as normal/abnormal . BACTERIA (test code = Few Negative A 4813103733) SQ EPITH (test code = HPF 7737662800) Lab Interpretation (test Abnormal code = 19307-3) [facility] WITH [id number] 23:08:00 Test Item Value Reference Range Interpretation Comments WBC (test code = See_Comment [Automated 6690-2) message] The sy stem which generated this result transmitted reference range : 4.30 - 11.10 10*3/?L. The reference range was not used to interpret this result as normal/abnormal . RBC (test code = See_Comment L [Automated 789-8) message] The sy stem which generated this result transmitted reference range : 3.93 - 5.25 10*6/?L. The reference range was not used to interpret this result as normal/abnormal . HGB (test code = 11.3 g/dL 11.6-15 L 718-7) HCT (test code = 33.2 % 35.7-45.2 L 4544-3) MCV (test code = 91.0 fL 80.6-95.5 787-2) MCH (test code = 31.0 pg 25.9-32.8 785-6) MCHC (test code = 34.0 g/dL 31.6-35.1 786-4) RDW-SD (test code = 46.6 fL 39-49.9 62076-1) RDW-CV (test code = 13.8 % 12-15.5 788-0) PLT (test code = See_Comment [Automated 777-3) message] The sy stem which generated this result transmitted reference range : 166 - 358 10*3/ ?L. The reference r duglas was not used to interpret this result as normal/abnormal . MPV (test code = 11.6 fL 9.5-12.9 24561-8) NRBC/100 WBC (test See_Comment [Automat ed code = 1730187950) message] The system which generated this result transmitted reference range : 0.0 - 10.0 /100 WBCs. The refer ence range was not u sed to interpret th is result as normal/abnormal . NRBC x10^3 (test code <0.01 See_Comment [Auto mated = 3881424175) message] The s ystem which generated this result transmitted reference range : 10*3/?L. The reference range was not used to interpret this result as normal/abnormal . GRAN MAT (NEUT) % 56.3 % (test code = 770-8) IMM GRAN % (test code 0.80 % = 4552751598) LYMPH % (test code = 34.4 % 736-9) MONO % (test code = 5.8 % 5905-5) EOS % (test code = 2.2 % 713-8) BASO % (test code = 0.5 % 706-2) GRAN MAT x10^3(ANC) 3.61 10*3/uL 1.88-7.09 (test code = 2841057771) IMM GRAN x10^3 (test 0.05 10*3/uL 0-0.06 code = 5797286728) LYMPH x10^3 (test code 2.20 10*3/uL 1.32-3.29 = 731-0) MONO x10^3 (test code 0.37 10*3/uL 0.33-0.92 = 742-7) EOS x10^3 (test code = 0.14 10*3/uL 0.03-0.39 711-2) BASO x10^3 (test code 0.03 10*3/uL 0.01-0.07 = 704-7) Lab Interpretation Abnormal (test code = 73589-6) [facility] [id number] 22:59:00 Test Item Value Reference Range Interpretation Comments POCT PREG (test code = 1605) negative On board controls acceptable with present C Line (test code = 3574) POCT PREG LOT # (test code = 3575) [id number] POCT PREG TEST DATE (test code = 3576) Lab Interpretation (test code = Normal 15552-1) [facility] P[facility] W [id number] 16:52:05 1. ?No acute intra-abdominal or intrapelvic process.2. 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 Recommend correlation withpoint tenderness.3. ?Hepatosplenomegaly and severe diffuse hepatic steatosis.4. ?Suspected punctate gallstone at the gallbladder neck. Nopericholecystic free fluid or inflammatory change.5. ?Small fat-containing umbilical hernia. Preliminary Report Dictated by Resident: Lucas Gonzales ?MD Hayley., have reviewed this study and agree with theabove report.EXAM: CT ABDOMEN/PELVIS WITH CONTRAST HISTORY: ?Abd pain, acute, generalized ? COMPARISON: None TECHNIQUE AND FINDINGS: Contiguous axial imaging from the level of the lungbases through the proximal thighs was performed after the administra tion of100 cc of intravenous Omnipaque contrast. Coronal and sagittalreconstructions were obtained. Auto mA and/or iterative reconstruction wereused to reduce radiation dose. FINDINGS: LOWER THORAX: Mild dependent bibasilar atelectasis. LIVER: Diffusely hypoattenuating liver parenchyma. ?Normal contour.Enlarged liver measures 23 cm in craniocaudal dimension. Fatty sparing ofthe gallbladder. GALLBLADDER AND BILIARY TREE: No biliary ductal dilatation. Physiologicallydistended gallbladder containing questionable punctate calculus at thegallbladder neck (3:40). No pericholecystic free fluid or inflammatorychange. SPLEEN: Enlarged spleen measuring 14.2 cm in AP diameter. Few smallperihilar splenules. PANCREAS: No ductal dilation or masses. ADRENAL GLANDS: No adrenal nodules. KIDNEYS: No hydronephrosis, stones, or masses. PERITONEUM AND RETROPERITONEUM: No free air or fluid. Small fat-containingumbilical hernia is noted. LYMPH NODES: No lymphadenopathy. GI TRACT: No dilation or abnormal wall thickening. Appendix is not clearlyvisualized. However, there is no right lower quadrant inflammatory changeor stranding. PELVIS/BLADDER: Urinary bladder is normal for the degree of distention.Partially retroflexed uterus (in neutral position). Heterogeneousendometrial region is not well-defined on CT. VESSELS: Patent abdominal vasculature. BONES AND SOFT TISSUES: No suspicious lytic or sclerotic bony lesions. Ageindeterminate compressive deformity of L1 with approximately 10-20%anterior height loss. Multilevel degenerative changes in the spine, mostnotably at the L5-S1 level. [facility], Radiant Results Inft User - 05/25/2020 10:53 AM CSTEXAM: CT ABDOMEN/PELVIS WITH CONTRASTHISTORY: Abd pain, acute, generalized COMPARISON: NoneTECHNIQUE AND FINDINGS: Contiguous axial imaging from the level of the lungbases through the proximal thighs was performed after the administration of100 cc of intravenous Omnipaque contrast. Coronal and sagittalreconstructions were obtained. Auto mA and/or iterative reconstruction w ereused to reduce radiation dose.FINDINGS:LOWER THORAX: Mild dependent bibasilar atelectasis.LIVER: Diffusely hypoattenuating liver parenchyma. Normal contour.Enlarged liver measures 23 cm in craniocaudal dimension. Fatty sparing ofthe gallbladder.GALLBLADDER AND BILIARY TREE: No biliary ductal dilatation. Physiologicallydistended gallbladder containing questionable punctate calculus at thegallbladder neck (3:40). No pericholecystic free fluid or inflammatorychange.SPLEEN: Enlarged spleen szmouhdfs68.2 cm in AP diameter. Few smallperihilar splenules.PANCREAS: No ductal dilation or masses.ADRENAL GLANDS: No adrenal nodules.KIDNEYS: No hydronephrosis, stones, or masses.PERITONEUM AND RETROPERITONEUM: No free air or fluid. Small fat-containingumbilical hernia is noted. LYMPH NODES: No lymphadenopathy.GI TRACT: No dilation or abnormal wall thickening. Appendix is not clearlyvisualized. However, there is no right lower quadrant inflammatory changeor stranding.PELVIS/BLADDER: Urinary bladder is norm al for the degree of distention.Partially retroflexed uterus (in neutral position). Heterogeneousendometrial region is not well-defined on CT.VESSELS: Patent abdominal vasculature.BONES AND SOFT TISSUES: No suspicious lytic or sclerotic bony lesions. Ageindeterminate compressive deformity of L1 with ap proximately 10-20%anterior height loss. Multilevel degenerative changes in the spine, mostnotably atthe L5-S1 level.IMPRESSION1. No acute intra-abdominal or intrapelvic process.2. Age indeterminate compressive deformity of L1 with approximately 10-20%anterior height loss, probably degenerative. Recommend correlation withpoint tenderness.3. Hepatosplenomegaly and severe diffuse hepatic steatosis.4. Suspected punctate gallstone at the gallbladder neck. Nopericholecystic free fluid or inflammatorychange.5. Small fat-containing umbilical hernia.Preliminary Report Dictated by Resident: Lucas Maldonado MD., have reviewed this study and agree with theabove report.[facility]ennial[facility]inalysis2020-12-09 15:12:00 Test Item Value Reference Range Interpretation Comments APPEARANCE (test code = Clear Clear 9374832866) COLOR (test code = Yellow Yellow 2214512360) PH (test code = 4.8-8.0 0688840941) SP GRAVITY (test code = 1.003-1.030 5397657861) GLU U QUAL (test code = Normal Normal 2438467239) BLOOD (test code = Negative Negative 2441614164) KETONES (test code = Negative Negative 7463814884) PROTEIN (test code = Negative Negative 2887-8) UROBILIN (test code = Normal Normal 8916090896) BILIRUBIN (test code = Negative Negative 4547247211) NITRITE (test code = Negative Negative 8518735113) LEUK MO (test code = 25/uL Negative A 4727414693) RBC/HPF (test code = See_Comment [Autom ated message] 0292911797) The system [employer] generated this result transmitted ref erence range: 0 - 3 HP F. The reference range was not used to int erpret this result as normal/abnormal . WBC/HPF (test code = See_Comment [Autom ated message] 5279335114) The system [employer] generated this result transmitted ref erence range: 0 - 5 HP F. The reference range was not used to int erpret this result as normal/abnormal . BACTERIA (test code = Negative Negative 0285786247) SQ EPITH (test code = See_Comment [Auto mated message] 9918777720) The system [employer] generated this result transmitted ref erence range: <=2 HPF. The reference range was not used to int erpret this result as normal/abnormal . Lab Interpretation (test Abnormal code = 29055-3) [facility]ennialPregnancy Test, [id number] 14:53:00 Test Item Value Reference Range Interpretation Comments PREG SERUM (test code Negative = 6304191182) BRODY (test code = BRODY) Less than 10 IU/L. ?If low titer or ectopic is suspected, resubmit specimen in 48-72 hours. [facility] Metabolic Panel (NA, K, CL, CO2, GLUCOSE, BUN, CREATININE, CA)2020-05-25 14:45:00 Test Item Value Reference Range Interpretation Comments NA (test code = 138 mmol/L 135-145 3485611585) K (test code = 4.6 mmol/L 3.5-5 1240778029) CL (test code = 100 mmol/L 98-108 0812740449) CO2 TOTAL (test code = 28 mmol/L 23-31 5400559700) AGAP (test code = 2-16 4720763025) BUN (test code = 18 mg/dL 7-23 3488781786) GLUCOSE (test code = 100 mg/dL 70-110 4685842287) CREATININE (test code 0.92 mg/dL 0.5-1.04 = 9899953736) CALCIUM (test code = 10.0 mg/dL 8.6-10.6 1044037515) eGFR Calculation mL/min/1.73m2 (Non-) (test code = 1401524308) eGFR Calculation mL/min/1.73m2 () (test code = 6920297831) BRODY (test code = BRODY) Association of Glomerular Filtration Rate (GFR) and Staging of Kidney Disease* + -+ + ---+| GFR (mL/min/1.73 m2) ?| With Kidney Damage ?| ?Without Kidney Damage+ -------+ ------+ ---------+| ?>90 ?| ?Stage one ?| ? Normal ?+ --+ -+ ----+| ?60-89 ?| ?Stage two ?| ? Decreased GFR ? + -+ + ---+| ?30-59 ?| ?Stage three ?| ? Stage three ? + -+ + ---+| ?15-29 ?| ?Stage four ? | ? Stage four ?+ --+ -+ ----+| ?<15 (or dialysis) ? ?| ?Stage five ? | ? Stage five ?+ --+ -+ ----+ *Each stage assumes the associated GFR level has been in effect for at least three months. ?Stages 1 to 5, with or without kidney disease, indicate chronic kidney disease. Notes: Determination of stages one and two (with eGFR >59mL/min/1.73 m2) requires estimation of kidney damage for at least three months as defined by structural or functional abnormalities of the kidney, manifested by either:Pathological abnormalities or Markers of kidney damage (including abnormalities in the composition of the blood or urine or abnormalities in imaging tests). [facility]ennial[facility] Function Panel (ALB, T.PRO, BILI T, BU/BC, ALT, AST, ALK PHOS)2020-05-25 14:45:00 Test Item Value Reference Range Interpretation Comments TOTAL BILI (test code = 1525727211) 0.4 mg/dL 0.1-1.1 BILI UNCON (test code = 8448286977) 0.2 mg/dL 0.1-1.1 BILI CONJ (test code = 4986273178) 0.0 mg/dL 0-0.3 T PROTEIN (test code = 3484038513) 8.1 g/dL 6.3-8.2 ALBUMIN (test code = 2082747769) 4.8 g/dL 3.5-5 ALK PHOS (test code = 7959954800) 86 U/L 34-122 ALTv (test code = 1742-6) 248 U/L 5-35 H AST(SGOT) (test code = 6343494858) 219 U/L 13-40 H Lab Interpretation (test code = Abnormal 07545-7) [facility] CentennialLipase [id number] 14:45:00 Test Item Value Reference Range Interpretation Comments LIPASE (test code = 5797450666) 204 U/L 0-220 Lab Interpretation (test code = Normal 76353-1) [facility]ennialCBC with [id number] 14:38:00 Test Item Value Reference Range Interpretation Comments WBC (test code = See_Comment [Automated 6690-2) message] The sy stem which generated this result transmitted reference range : 4.30 - 11.10 10*3/?L. The reference range was not used to interpret this result as normal/abnormal . RBC (test code = See_Comment [Automated 789-8) message] The sy stem which generated this result transmitted reference range : 3.93 - 5.25 10*6/?L. The reference range was not used to interpret this result as normal/abnormal . HGB (test code = 13.1 g/dL 11.6-15 718-7) HCT (test code = 40.1 % 35.7-45.2 4544-3) MCV (test code = 92.0 fL 80.6-95.5 787-2) MCH (test code = 30.0 pg 25.9-32.8 785-6) MCHC (test code = 32.7 g/dL 31.6-35.1 786-4) RDW-SD (test code = 46.5 fL 39-49.9 21517-9) RDW-CV (test code = 13.8 % 12-15.5 788-0) PLT (test code = See_Comment [Automated 777-3) message] The sy stem which generated this result transmitted reference range : 166 - 358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 (DVT) when there is low or moderate pretest probability of PE or DVT. D-Dimer values are expressed in initial fibrinogen equivalent units (FEU). Lab Interpretation Abnormal (test code = 04419-8) [facility] CentennialUrinalysis2019-09-09 07:38:00 Test Item Value Reference Range Interpretation Comments APPEARANCE (test code = Clear Clear 1792773118) COLOR (test code = Straw Yellow A 3893015784) PH (test code = 4.8-8.0 5893310098) SP GRAVITY (test code = 1.003-1.030 1568685729) GLU U QUAL (test code = Normal Normal 0138265236) BLOOD (test code = 1+ Negative A 1253604275) KETONES (test code = Negative Negative 7482927732) PROTEIN (test code = Negative Negative 2887-8) UROBILIN (test code = Normal Normal 1275338382) BILIRUBIN (test code = Negative Negative 4598351883) NITRITE (test code = Negative Negative 9343155886) LEUK MO (test code = Negative Negative 1835005089) RBC/HPF (test code = <1 See_Comment [Autom ated message] 0279713114) The system [employer] generated this result transmitted ref erence range: 0 - 3 HP F. The reference range was not used to int erpret this result as normal/abnormal . WBC/HPF (test code = <1 See_Comment [Autom ated message] 2920352057) The system [employer] generated this result transmitted ref erence range: 0 - 5 HP F. The reference range was not used to int erpret this result as normal/abnormal . BACTERIA (test code = Negative Negative 7319680795) MUCOUS (test code = Slight Negative LPF A 1778057038) SQ EPITH (test code = <1 See_Comment [Auto mated message] 3950716946) The system [employer] generated this result transmitted ref erence range: <=2 HPF. The reference range was not used to int erpret this result as normal/abnormal . Lab Interpretation (test Abnormal code = 68285-3) [facility] CentennialProtein CREAT Ratio Urine [id number] 07:35:00 Test Item Value Reference Range Interpretation Comments T. PROT U (test code = 2888-6) 17 mg/dL CREAT U (test code = 7446716753) 16.6 mg/dL Protein/Creatinine Ratio Urine 0.0-2.0 (test code = 1533938998) [facility] CentennialPROTHROMBIN TIME / [id number] 07:04:00 Test Item Value Reference Range Interpretation Comments PROTIME PATIENT (test See_Comment [Auto mated message] code = 5964-2) The system [employer] generated this result transmitted ref erence range: 10.1 - 1 2.6 Seconds. The re ference range was not u sed to interpret this result as normal/abnor mal. INR (test code = 6301-6) Nor mal INR <1.1; Warfarin Therap eutic range 2.0 to 3. 0 or 2.5 to 3.5, dep ending upon the indica tions. Lab Interpretation (test Normal code = 04888-2) [facility] CentennialaPTT2019-09-09 07:04:00 Test Item Value Reference Range Interpretation Comments APTT Patient (test code See_Comment L [Au tomated message] = 3173-2) The system [employer] generated this result transmitted ref erence range: 26 - 36 Seconds. The reference range was not used to int erpret this result as normal/abnormal . Lab Interpretation (test Abnormal code = 80356-8) [facility] CentennialFIBRINOGEN2019-09-09 07:04:00 Test Item Value Reference Range Interpretation Comments Fibrinogen (test code = 0024681818) 740 mg/dL 167-453 H Lab Interpretation (test code = Abnormal 31698-6) [facility] CentennialPROFILE / [id number] 06:56:00 Test Item Value Reference Range Interpretation Comments WBC (test code = 6690-2) See_Comment H [A utomated message] The system [employer] generated this result transmit alexandra reference range : 4.30 - 11.10 10*3/?L. The reference range was not used to interpret this result as normal/abnormal . RBC (test code = 789-8) See_Comment L [Au tomated message] The system [employer] generated this result transmit alexandra reference range : 3.93 - 5.25 10* 6/?L. The reference r duglas was not used to interpret this result as normal/abnormal . HGB (test code = 718-7) 6.0 g/dL 11.6-15 L HCT (test code = 4544-3) 20.8 % 35.7-45.2 L MCH (test code = 785-6) 23.3 pg 25.9-32.8 L MCV (test code = 787-2) 80.6 fL 80.6-95.5 MCHC (test code = 786-4) 28.8 g/dL 31.6-35.1 L PLT (test code = 777-3) See_Comment [Au tomated message] The system [facility] generated this result transmit alexandra reference range : 166 - 358 10*3/?L. The reference range was not used to interpret this result as normal/abnormal . MPV (test code = 9.7 fL 9.5-12.9 94434-2) RDW-CV (test code = 17.4 % 12-15.5 H 788-0) RDW-SD (test code = 49.7 fL 39-49.9 16168-9) NRBC x10^3 (test code = See_Comment [Au tomated message] 3301226366) The system [facility] generated this result transmit alexandra reference range : 10*3/?L. The reference range was not used to interpret this result as normal/abnormal . NRBC/100 WBC (test code See_Comment [Au tomated message] = 0788160526) The system [facility] generated this result transmit alexandra reference range : 0.0 - 10.0 /100 WBC s. The reference r duglas was not used to interpret this result as normal/abnormal . IPF % (test code = 1.3-7.7 7766246099) Lab Interpretation (test Abnormal code = 38615-2) [facility] WITH [id number] 06:11:00 Test Item Value Reference Range Interpretation Comments WBC (test code = See_Comment H [Automated 7790-2) message] The system which generated this result transmit alexandra reference range : 4.30 - 11.10 10*3/?L. The reference range was not used to interpret this result as normal/abnormal . RBC (test code = See_Comment L [Automated 409-8) message] The system which generated this result transmit alexandra reference range : 3.93 - 5.25 10*6/?L. The reference range was not used to interpret this result as normal/abnormal . HGB (test code = 5.8 g/dL 11.6-15 L 718-7) HCT (test code = 20.3 % 35.7-45.2 L 4544-3) MCV (test code = 79.9 fL 80.6-95.5 L 787-2) MCH (test code = 22.8 pg 25.9-32.8 L 785-6) MCHC (test code = 28.6 g/dL 31.6-35.1 L 786-4) RDW-SD (test code = 49.1 fL 39-49.9 21816-5) RDW-CV (test code = 17.4 % 12-15.5 H 788-0) PLT (test code = See_Comment [Automated 777-3) message] The system which generated this result transmit alexandra reference range : 166 - 358 10*3/ ?L. The reference range was not u sed to interpret th is result as normal/abnormal . MPV (test code = 9.7 fL 9.5-12.9 00222-0) NRBC/100 WBC (test See_Comment [Automat ed code = 8821709654) message] The system which generated this result transmit alexandra reference range : 0.0 - 10.0 /100 WBCs. The reference range was not used to interpret this result as normal/abnormal . NRBC x10^3 (test code See_Comment [Auto mated = 0350627540) message] The system which generated this result transmit alexandra reference range : 10*3/?L. The reference range was not used to interpret this result as normal/abnormal . GRAN MAT (NEUT) % 79.9 % (test code = 770-8) IMM GRAN % (test code 4.60 % = 7643835108) LYMPH % (test code = 8.6 % 736-9) MONO % (test code = 6.3 % 5905-5) EOS % (test code = 0.4 % 713-8) BASO % (test code = 0.2 % 706-2) GRAN MAT x10^3(ANC) 10.95 10*3/uL 1.88-7.09 H (test code = 1102329334) IMM GRAN x10^3 (test 0.63 10*3/uL 0-0.06 H code = 0884095953) LYMPH x10^3 (test code 1.18 10*3/uL 1.32-3.29 L = 731-0) MONO x10^3 (test code 0.86 10*3/uL 0.33-0.92 = 742-7) EOS x10^3 (test code = 0.06 10*3/uL 0.03-0.39 711-2) BASO x10^3 (test code 0.03 10*3/uL 0.01-0.07 = 704-7) BANDS (test code = Increased A 1493539923) GIANT PLATELETS (test Present See_Comment A [Auto mated code = 5908-9) message] The system which generated this result transmit alexandra reference range : (none). The reference range was not used to interpret this result as normal/abnormal . Lab Interpretation Abnormal (test code = 74089-1) [facility] CentennialUric Acid [id number] 05:54:00 Test Item Value Reference Range Interpretation Comments URIC ACID (test code = 9791085729) 5.5 mg/dL 2.9-6 Lab Interpretation (test code = Normal 91782-9) [facility] CentennialSer [id number] 05:54:00 Test Item Value Reference Range Interpretation Comments CREATININE (test code = 0.45 mg/dL 0.5-1.04 L 6753388664) eGFR Calculation mL/min/1.73m2 (Non-) (test code = 9672094196) eGFR Calculation mL/min/1.73m2 () (test code = 9578201556) BRODY (test code = BRODY) Association of Glomerular Filtration Rate (GFR) and Staging of Kidney Disease*+ + + +| GFR (mL/min/1.73 m2)?| With Kidney Damage?|?Without Kidney Damage+ --------+ --------+ +|?>90?|?S carloze one?|? Normal?+ ---------+ ---------+ +|?60-89? |?Stage two?|? Decreased GFR? + --+ --+ ------+|?30-59?|?Stage three?|? Stage three? + --+ --+ ------+|?15-29?|?Stage four? |? Stage four?+ -------+ -------+ +|?<15 (or dialysis)?|?Stage five? |? Stage five?+ -------+ -------+ +*Each stage assumes the associated GFR level has been in effect for at least three months.?Stages 1 to 5, with or without kidney disease, indicate chronic kidney disease.Notes: Determination of stages one and two (with eGFR >59mL/min/1.73 m2) requires estimation of kidney damage for at least three months as defined by structural or functional abnormalities of the kidney, manifested by either:Pathological abnormalities or Markers of kidney damage (including abnormalities in the composition of the blood or urine or abnormalities in imaging tests). Lab Interpretation Abnormal (test code = 22343-5) [facility] CentennialSGOT (Asparate Amino Transfer)2019-02-23 05:54:00 Test Item Value Reference Range Interpretation Comments AST(SGOT) (test code = 7983639500) 16 U/L 13-40 Lab Interpretation (test code = Normal 51409-4) [facility] CentennialLactate [id number] 05:54:00 Test Item Value Reference Range Interpretation Comments LDH (test code = 1733734935) 488 U/L 300-600 Lab Interpretation (test code = Normal 44274-1) [facility] CentennialAlanine Amino Transferase (SGPT)2019-02-23 05:53:00 Test Item Value Reference Range Interpretation Comments ALT(SGPT) (test code = 3497678846) 7 U/L 9-51 L Lab Interpretation (test code = Abnormal 62383-8) [facility] CentennialFETAL NON-STRESS [id number] 19:36:31Daily NST: Mayra Curran is a 38 year old female 31w5d admitted for vaginal bleeding most likely from chronic abruption. Moderate variability, baseline 120s, Accels present, no decelsToco: irritabilityPatient denies contractions/pelvic pressure/abdominal pain Interpretation: FLAVIO Aguilar MD02/20/20198:09 [facility] NON-STRESS [id number] 04:18:35GA: 31w6d?Baseline: 130 bpmVariability: ModerateAccels: +Decels: NoneToco: Quiescent Interpretation:Reactive NST Nikunj Payan MD?[facility] BranchType and Screen - ONCE [id number] 03:18:03 Test Item Value Reference Range Interpretation Comments ABO & RH (test code A POSITIVE Performe d at [facility] = 20) Laboratory [facility] [address] [facility] [address]Rmiz Free: [phone] A No. [id number] IAT (test code = Negative Performed a t [facility] 1185) Laboratory [facility] [address]Ytnb Free: [phone] A No. [id number] [facility]ennialURINE DRUG (LCMSMS) - BENZODIAZEPINES PANEL 2019-02-21 13:33:00 Test Item Value Reference Range Interpretation Comments FMAFZ-QJ-VJNII-INTERPR Negative Negative ETATION (test code = 2814932480) 7-HHDPG-UM-LCMS (test 1784 ng/mL <50 H code = 0273218853) 7-IECGV-NN-CREATININE 4188 ng/mg NORMALIZED (test code = 1751936236) 6-DRQJL-LE-INTERPRETAT Positive Negative A ION (test code = 2051387755) LORAZEPAM-INTERPRETATI Negative Negative ON (test code = 0583660980) NORDIAZEP-INTERPRETATI Negative Negative ON (test code = 9790874713) TEMAZEPAM-INTERPRETATI Negative Negative ON (test code = 1367929097) OXAZEPAM-INTERPRETATIO Negative Negative N (test code = 5063516003) CREAT U (test code = 42.6 mg/dL 9542931846) PH (test code = 4.8-8.0 3898941797) BRODY (test code = BRODY) Test developed and characteristics determined by [facility] Laboratory Services. Lab Interpretation Abnormal (test code = 15403-0) [facility] CentennialTRANSFERRIN2019-09-06 15:41:00 Test Item Value Reference Range Interpretation Comments TRANSFERRN (test code = 4751445718) 430 mg/dL 168-336 H Lab Interpretation (test code = Abnormal 75246-3) [facility] CentennialGROUP B STREPTOCOCCUS BY [id number] 15:05:00 Test Item Value Reference Range Interpretation Comments Group B Streptococcus by PCR (test Negative Negative code = 25913-6) Lab Interpretation (test code = Normal 91150-1) [facility] CentennialFETAL NON-STRESS [id number] 14:29:08Daily NST: Mayra Curran is a 38 year old female 31w4d admitted for vaginal bleeding. Moderate variability, baseline: 130s, + accels, no decels [place]: irritability Interpretation: FLVAIO Aguilar MD02/19/201911:41 AM [facility] CentennialURINE [id number] 20:44:00 Test Item Value Reference Range Interpretation Comments URINE CULTURE (test 10,000 - 100,000 CFU/mL code = 630-4) mixed aerobic organisms - suggests endogenous microbial contamination [facility] CentennialFERRITIN [id number] 19:10:00 Test Item Value Reference Range Interpretation Comments FERRITIN (test code = 5.9 ng/mL 6-137 L 4433601940) BRODY (test code = BRODY) Biotin has been reported to cause a negative bias, interpret results relative to patient's use of biotin. Lab Interpretation (test Abnormal code = 75757-8) [facility]ennialTOMETROHEALTH [facility] IRON BIND[facility] [id number] 18:43:00 Test Item Value Reference Range Interpretation Comments TIBC (test code = 4819474369) 516 ug/dL 250-410 H % FE SAT (test code = 8176327565) 8 % 20-50 L Lab Interpretation (test code = Abnormal 00689-1) [facility] CentennialIRON2019-09-05 18:33:00 Test Item Value Reference Range Interpretation Comments IRON (test code = 8477416149) 42 ug/dL 50-160 L Lab Interpretation (test code = Abnormal 16049-3) [facility] CentennialGLUCOSE 1 HOUR POST [id number] 18:09:00 Test Item Value Reference Range Interpretation Comments GLUC 1 HR (test code = 9170636120) 117 mg/dL 120-170 L Lab Interpretation (test code = Abnormal 04464-2) [facility] CentennialGC & CHLAMYDIA AMPLIFIED [id number] 17:08:00 Test Item Value Reference Range Interpretation Comments Lab Interpretation (test code = Normal 33477-5) [facility] CentennialGALV ONLY - SYPHILIS [id number] 14:35:00 Test Item Value Reference Range Interpretation Comments Syphilis IgG/IgM (test Non-reactive Non-reactive code = 35674-5) BRODY (test code = BRODY) Non-reactive - No serologic evidence of T. pallidum infection. Cannot exclude incubating or early syphilis. Submit a second specimen in 2-4 weeks if syphilis is clinically suspected.Equivocal - Further testing to follow.Reactive - Further testing to follow. Lab Interpretation (test Normal code = 07091-2) [facility] CentennialHIV 1/2 AG-AB WITH [id number] 19:23:00 Test Item Value Reference Range Interpretation Comments HIV Negative Negative Semi-quantitative (test code = 65678-6) BRODY (test code = Non-reactive for HIV-1 BRODY) antigen and HIV-1/HIV-2 antibodies.?No laboratory evidence of HIV infection.?Repeat in 2-4 weeks if acute HIV infection is suspected. [facility]00 Test Item Value Reference Range Interpretation Comments APPEARANCE (test code = Clear Clear 2604697242) COLOR (test code = Yellow Yellow 0593119069) PH (test code = 4.8-8.0 1348956354) SP GRAVITY (test code = 1.003-1.030 6572691369) GLU U QUAL (test code = Normal Normal 4113413820) BLOOD (test code = 2+ Negative A 3524557083) KETONES (test code = Negative Negative 4211160521) PROTEIN (test code = Negative Negative 2887-8) UROBILIN (test code = Normal Normal 4787863228) BILIRUBIN (test code = Negative Negative 4013131411) NITRITE (test code = Negative Negative 2329022050) LEUK MO (test code = 500/uL Negative A 0215282893) RBC/HPF (test code = See_Comment [Autom ated message] 2301176088) The system [employer] generated this result transmitted ref erence range: 0 - 3 HP F. The reference range was not used to int erpret this result as normal/abnormal . WBC/HPF (test code = See_Comment H [Autom ated message] 7415516286) The system [employer] generated this result transmitted ref erence range: 0 - 5 HP F. The reference range was not used to int erpret this result as normal/abnormal . BACTERIA (test code = Few Negative A 5176483915) SQ EPITH (test code = See_Comment [Auto mated message] 5852930672) The system [employer] generated this result transmitted ref erence range: <=2 HPF. The reference range was not used to int erpret this result as normal/abnormal . Lab Interpretation (test Abnormal code = 59044-8) [facility] B Surface [id number] 19:13:00 Test Item Value Reference Range Interpretation Comments HBsAg Semi-Quantitative (test code = 5195-3) [facility] 2 [id number] 19:01:00 Test Item Value Reference Range Interpretation Comments AMPHET (test code = Negative Negative 0156789874) NADYA U (test code = Negative Negative 8338118917) BENZO U (test code = Presumptive Positive Negative A 4620863125) Cocaine Metabolite (test Negative Negative code = 8513702563) METHADONE (test code = Presumptive Positive Negative A 7740459318) OPIATES (test code = Negative Negative 4121281726) PCP (test code = Negative Negative 5993723503) THC (test code = Negative Negative 0834112876) BRODY (test code = BRODY) Urine Drug Cutoff RangesCocaine:? 150 ng/mLBenzodiazepines: ? 200 ng/mLMethadone:? 300 ng/mLAmphetamine:? 1,000 ng/mLOpiates:? 300 ng/mLCannabinoids:?50 ng/mLPhencyclidine:?? 25 ng/mLBarbiturates:?20 0 ng/mLThe results are to be used only for medical (i.e., treatment) purposes. Unconfirmed screening results must not be used for non-medical purposes (e.g., employment testing, legal testing). Lab Interpretation (test Abnormal code = 11893-4) [facility]ennialCBC WITH [id number] 18:42:00 Test Item Value Reference Range Interpretation Comments WBC (test code = See_Comment H [Automated 9724-2) message] The system which generated this result transmit alexandra reference range : 4.30 - 11.10 10*3/?L. The reference range was not used to interpret this result as normal/abnormal . RBC (test code = See_Comment L [Automated 789-8) message] The system which generated this result transmit alexandra reference range : 3.93 - 5.25 10*6/?L. The reference range was not used to interpret this result as normal/abnormal . HGB (test code = 7.0 g/dL 11.6-15 L 718-7) HCT (test code = 23.5 % 35.7-45.2 L 4544-3) MCV (test code = 78.1 fL 80.6-95.5 L 787-2) MCH (test code = 23.3 pg 25.9-32.8 L 785-6) MCHC (test code = 29.8 g/dL 31.6-35.1 L 786-4) RDW-SD (test code = 48.0 fL 39-49.9 11440-8) RDW-CV (test code = 16.8 % 12-15.5 H 788-0) PLT (test code = See_Comment [Automated 777-3) message] The system which generated this result transmit alexandra reference range : 166 - 358 10*3/ ?L. The reference range was not u sed to interpret th is result as normal/abnormal . MPV (test code = 10.1 fL 9.5-12.9 45339-6) NRBC/100 WBC (test See_Comment [Automat ed code = 4854172991) message] The system which generated this result transmit alexandra reference range : 0.0 - 10.0 /100 WBCs. The reference range was not used to interpret this result as normal/abnormal . NRBC x10^3 (test code See_Comment [Auto mated = 5368319915) message] The system which generated this result transmit alexandra reference range : 10*3/?L. The reference range was not used to interpret this result as normal/abnormal . GRAN MAT (NEUT) % 76.1 % (test code = 770-8) IMM GRAN % (test code 2.50 % = 6862338702) LYMPH % (test code = 12.9 % 736-9) MONO % (test code = 6.4 % 5905-5) EOS % (test code = 1.8 % 713-8) BASO % (test code = 0.3 % 706-2) GRAN MAT x10^3(ANC) 11.24 10*3/uL 1.88-7.09 H (test code = 9232121450) IMM GRAN x10^3 (test 0.37 10*3/uL 0-0.06 H code = 5101292534) LYMPH x10^3 (test code 1.90 10*3/uL 1.32-3.29 = 731-0) MONO x10^3 (test code 0.95 10*3/uL 0.33-0.92 H = 742-7) EOS x10^3 (test code = 0.26 10*3/uL 0.03-0.39 711-2) BASO x10^3 (test code 0.05 10*3/uL 0.01-0.07 = 704-7) POLYCHROMASIA (test 2+ See_Comment [Automa alexandra code = 48093-1) message] The system which generated this result transmit alexandra reference range : 2+. The referen ce range was not u sed to interpret th is result as normal/abnormal . TEARDROP CELLS (test 2+ See_Comment A [Autom ated code = 7791-7) message] The system which generated this result transmit alexandra reference range : (none). The reference range was not used to interpret this result as normal/abnormal . HYPERSEG NEUTS (test Present See_Comment A [Autom ated code = 765-8) message] The system which generated this result transmit alexandra reference range : (none). The reference range was not used to interpret this result as normal/abnormal . Lab Interpretation Abnormal (test code = 72575-8) [facility]Type and Screen - ONCE [id number] 18:17:53 Test Item Value Reference Range Interpretation Comments ABO & RH (test code A POSITIVE Performe d at [facility] = 20) [facility] [address]Dgjw Free: [phone] A No. [id number] IAT (test code = Negative Performed a t [facility] 1185) [facility] [address]Xkbi Free: [phone] A No. [id number] [facility] URINALYSIS W/O SPECIFIC [id number] 20:22:00 Test Item Value Reference Range Interpretation Comments POCT PH U (test code = 3254) . 5-8 POCT U LEUK EST (test code = 3263) . Negative - Negative POCT U NIT (test code = 3262) . Negative - Negative POCT U PROT (test code = 3259) neg Negative - Negative POCT U GLU (test code = 3256) neg Negative - Negative POCT U KETONE (test code = 3258) . Negative - Negative POCT U BLD (test code = 3257) .. Negative - Negative [facility] URINALYSIS W/O SPECIFIC [id number] 20:22:00 Test Item Value Reference Range Interpretation Comments POCT PH U (test code = 3254) . 5-8 POCT U LEUK EST (test code = 3263) . Negative - Negative POCT U NIT (test code = 3262) . Negative - Negative POCT U PROT (test code = 3259) neg Negative - Negative POCT U GLU (test code = 3256) neg Negative - Negative POCT U KETONE (test code = 3258) . Negative - Negative POCT U BLD (test code = 3257) .. Negative - Negative [facility]ennialTHYROID STIMULATING [id number] 03:42:00 Test Item Value Reference Range Interpretation Comments TSH (test code = See_Comment Biotin has been 7165010375) reported to cau se a negative bias, interpret resul ts relative to pat ient's use of biotin. [Automated mess age] The system [employer] generated this result transmitted ref erence range: 0.45 - 4 .70 mIU/L. The refe rence range was not u sed to interpret this result as normal/abnor mal. Lab Interpretation (test Normal code = 62645-1) [facility]ennialPROFILE / [id number] 03:01:00 Test Item Value Reference Range Interpretation Comments WBC (test code = 6690-2) See_Comment [A utomated message] The system [employer] generated this result transmit alexandra reference range : 4.30 - 11.10 10*3/?L. The reference range was not used to interpret this result as normal/abnormal . RBC (test code = 789-8) See_Comment L [Au tomated message] The system [employer] generated this result transmit alexandra reference range : 3.93 - 5.25 10* 6/?L. The reference r duglas was not used to interpret this result as normal/abnormal . HGB (test code = 718-7) 7.3 g/dL 11.6-15 L HCT (test code = 4544-3) 23.7 % 35.7-45.2 L MCH (test code = 785-6) 25.7 pg 25.9-32.8 L MCV (test code = 787-2) 83.5 fL 80.6-95.5 MCHC (test code = 786-4) 30.8 g/dL 31.6-35.1 L PLT (test code = 777-3) See_Comment [Au tomated message] The system [employer] generated this result transmit alexandra reference range : 166 - 358 10*3/?L. The reference range was not used to interpret this result as normal/abnormal . MPV (test code = 10.0 fL 9.5-12.9 71630-2) RDW-CV (test code = 15.9 % 12-15.5 H 788-0) RDW-SD (test code = 48.1 fL 39-49.9 96459-3) NRBC x10^3 (test code = See_Comment [Au tomated message] 1487960979) The system [employer] generated this result transmit alexandra reference range : 10*3/?L. The reference range was not used to interpret this result as normal/abnormal . NRBC/100 WBC (test code See_Comment [Au tomated message] = 7392662941) The [facility] generated this result transmit alexandra reference range : 0.0 - 10.0 /100 WBC s. The reference r duglas was not used to interpret this result as normal/abnormal . IPF % (test code = 1.3-7.7 5183167690) Lab Interpretation (test Abnormal code = 75378-2) [facility] WITH [id number] 12:52:00 Test Item Value Reference Range Interpretation Comments WBC (test code = See_Comment H [Automated 6690-2) message] The sy stem which generated this result transmitted reference range : 4.30 - 11.10 10*3/?L. The reference range was not used to interpret this result as normal/abnormal . RBC (test code = See_Comment L [Automated 789-8) message] The sy stem which generated this result transmitted reference range : 3.93 - 5.25 10*6/?L. The reference range was not used to interpret this result as normal/abnormal . HGB (test code = 7.7 g/dL 11.6-15 L 718-7) HCT (test code = 25.4 % 35.7-45.2 L 4544-3) MCV (test code = 81.9 fL 80.6-95.5 787-2) MCH (test code = 24.8 pg 25.9-32.8 L 785-6) MCHC (test code = 30.3 g/dL 31.6-35.1 L 786-4) RDW-SD (test code = 46.4 fL 39-49.9 99289-5) RDW-CV (test code = 15.6 % 12-15.5 H 788-0) PLT (test code = See_Comment [Automated 777-3) message] The sy stem which generated this result transmitted reference range : 166 - 358 10*3/ ?L. The reference r duglas was not used to interpret this result as normal/abnormal . MPV (test code = 10.2 fL 9.5-12.9 87931-2) NRBC/100 WBC (test See_Comment [Automat ed code = 0277231815) message] The system which generated this result transmitted reference range : 0.0 - 10.0 /100 WBCs. The refer ence range was not u sed to interpret th is result as normal/abnormal . NRBC x10^3 (test code See_Comment [Auto mated = 2990625132) message] The s ystem which generated this result transmitted reference range : 10*3/?L. The reference range was not used to interpret this result as normal/abnormal . GRAN MAT (NEUT) % 72.5 % (test code = 770-8) IMM GRAN % (test code 4.80 % = 3114124863) LYMPH % (test code = 13.4 % 736-9) MONO % (test code = 7.9 % 5905-5) EOS % (test code = 1.1 % 713-8) BASO % (test code = 0.3 % 706-2) GRAN MAT x10^3(ANC) 9.68 10*3/uL 1.88-7.09 H (test code = 1885188726) IMM GRAN x10^3 (test 0.64 10*3/uL 0-0.06 H code = 7503426230) LYMPH x10^3 (test code 1.78 10*3/uL 1.32-3.29 = 731-0) MONO x10^3 (test code 1.05 10*3/uL 0.33-0.92 H = 742-7) EOS x10^3 (test code = 0.14 10*3/uL 0.03-0.39 711-2) BASO x10^3 (test code 0.04 10*3/uL 0.01-0.07 = 704-7) POLYCHROMASIA (test 2+ See_Comment [Automa alexandra code = 28476-1) message] The system which generated this result transmitted reference range : 2+. The referen ce range was not u sed to interpret th is result as normal/abnormal . HYPERSEG NEUTS (test Present See_Comment A [Autom ated code = 765-8) message] The s ystem which generated this result transmitted reference range : (none). The reference range was not used to interpret this result as normal/abnormal . Lab Interpretation Abnormal (test code = 79694-9) [facility] Screen - ONCE [id number] 12:22:13 Test Item Value Reference Range Interpretation Comments ABO & RH (test code A POSITIVE Performe d at [facility] = 20) [facility] [address] [facility] [place] [address]Ashe Free: [phone] A No. [id number] IAT (test code = Negative Performed a t [facility] 1185) [facility] [address] [facility] [address]Blvt Free: [phone] A No. [id number] [facility]"
[2021-11-27 11:53] LABS: Absolute Lymphocytes (CBC) 2.2 K/uL (0.7-4.9); Hematocrit 33.1 % (36.0-45.0); Lymphocytes % 34.1 % (15.3-44.8); MPV 8.5 fL (7.6-11.3); RBC Red Blood Cell Count 4.08 M/uL (3.86-4.86)
[2021-11-27 11:57] LABS: Protime INR 1.03
[2021-11-27 12:15] LABS: ALT/SGPT 125 U/L (12-78); AST/SGOT 87 U/L (15-37); Albumin 4.2 g/dL (3.4-5.0); Alkaline Phosphatase 140 U/L (45-117); BUN Blood Urea Nitrogen 14 mg/dL (7-18); Bicarbonate 25 mmol/L (21-32); Bilirubin Total 0.2 mg/dL (0.2-1.0); Glomerular Filtration Rate 79 ml/min (=/>90); Glucose Level 96 mg/dL (74-106); Potassium 4.3 mmol/L (3.5-5.1); Protein, Total 8.2 g/dL (6.4-8.2); Sodium Level 137 mmol/L (136-145)
[2021-11-27 12:18] LABS: Bilirubin Direct < 0.1 mg/dL (0-0.2)
[2021-11-27] MEDS ORDERED: NICOTINE 21 MG/PAT TD ONE (13:28)
--- NOTE | 2021-11-27 13:41 | ER ---
Nurse's Notes [facility] Name: Mayra Peterson Age: 41 yrs Sex: Female : 1980 Arrival Date: 11/27/2021 Time: 09:50 Bed 16 Private MD: Diagnosis: Auditory hallucinations;Hallucinations, unspecified;Visual hallucinations;Homicidal ideations Presentation: 11/27 10:57 Ebola Screen: Patient denies travel to an Ebola-affected area in the 21 days before ll1 illness onset. 10:57 Acuity: AR 2 ll1 10:57 Method Of Arrival: Wheelchair ll1 11:09 Chief complaint: Patient states: Not sleeping, hearing voices, wants to hurt S.O. for 3 ll1 days. Lewis CARBALLO Takes Doxepin, Zoloft, and 1 other depression med she cant remember the name of. Friend found her a the gas station this morning out of gas and needing help, so she brought her in. Coronavirus screen: Vaccine status: Patient reports being unvaccinated. Client denies travel out of the [place] in the last 14 days. At this time, the client does not indicate any symptoms associated with coronavirus-19. Initial Sepsis Screen: Does the patient meet any 2 criteria? No. Patient's initial sepsis screen is negative. Does the patient have a suspected source of infection? No. Patient's initial sepsis screen is negative. Risk Assessment: Do you want to hurt yourself or someone else? Patient reports desire/thoughts of hurting themselves or someone else. Provider notified. Onset of symptoms was November 23, 2021. Triage Assessment: 11:00 General: Appears distressed, uncomfortable, Behavior is cooperative, appropriate for ll1 age, anxious, crying. 11:00 Pain: Denies pain. Neuro: Reports Not sleeping well, hearing voices, HI. 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 - Social history:: Smoking status: Patient reports the use of cigarette tobacco products, smokes one-half pack cigarettes per day. - Family history:: not pertinent. - Hospitalizations: : No recent hospitalization is reported. Screenin:05 Abuse screen: Denies threats or abuse. Nutritional screening: No deficits noted. ll1 Tuberculosis screening: No symptoms or risk factors identified. Fall Risk IV access (20 points). Total Bergeron Fall Scale indicates No Risk (0-24 pts). Assessment: 11:10 Reassessment: No changes from previously documented assessment. Patient and/or family ll1 updated on plan of care and expected duration. Pain level reassessed. see suicidal paperwork for further details. . 12:00 Reassessment: No changes from previously documented assessment. Patient and/or family ll1 updated on plan of care and expected duration. Pain level reassessed. Patient is alert, oriented x 3, equal unlabored respirations, skin warm/dry/pink. 13:00 Reassessment: No changes from previously documented assessment. Patient and/or family ll1 updated on plan of care and expected duration. Pain level reassessed. Patient is alert, oriented x 3, equal unlabored respirations, skin warm/dry/pink. 14:00 Reassessment: No changes from previously documented assessment. Patient and/or family ll1 updated on plan of care and expected duration. Pain level reassessed. Patient is alert, oriented x 3, equal unlabored respirations, skin warm/dry/pink. 15:00 Reassessment: No changes from previously documented assessment. Patient and/or family ll1 updated on plan of care and expected duration. Pain level reassessed. Patient is alert, oriented x 3, equal unlabored respirations, skin warm/dry/pink. 15:29 Reassessment: Home meds from [facility] in [place]. Amlodipine 2.5 mg, furosemide 20 MG ll1 daily, Gabapentin 300 mg BID, clonazepam 2 MG BID, spironolactone 12.5 mg daily, fluoxetine 20 mg, Doxepin 50 mg, levothyroxine 125 mcg, citalopram 10 mg, and amitriptyline 50 MG HS. Gets Methadone 110 mg daily from methadone clinic. 16:00 Reassessment: No changes from previously documented assessment. Patient and/or family ll1 updated on plan of care and expected duration. Pain level reassessed. Patient is alert, oriented x 3, equal unlabored respirations, skin warm/dry/pink. 17:00 Reassessment: No changes from previously documented assessment. Patient and/or family ll1 updated on plan of care and expected duration. Pain level reassessed. Patient is alert, oriented x 3, equal unlabored respirations, skin warm/dry/pink. 18:00 Reassessment: No changes from previously documented assessment. Patient and/or family ll1 updated on plan of care and expected duration. Pain level reassessed. Patient is alert, oriented x 3, equal unlabored respirations, skin warm/dry/pink. 19:00 Reassessment: No changes from previously documented assessment. Patient and/or family ll1 updated on plan of care and expected duration. Pain level reassessed. Patient is alert, oriented x 3, equal unlabored respirations, skin warm/dry/pink. 20:00 Reassessment: No changes from previously documented assessment. Patient and/or family vc1 updated on plan of care and expected duration. Pain level reassessed. Patient is alert, oriented x 3, equal unlabored respirations, skin warm/dry/pink. 21:00 Reassessment: Pt on her knees on the floor [facility]. When this nurse approached the patient she said she was hallucinating and to please help her. Pt was helped back in bed and administered medication. 23:00 Reassessment: Patient sleeping at this time. vc1 11/28 00:00 Reassessment: No changes from previously documented assessment. vc1 01:00 Reassessment: No changes from previously documented assessment. vc1 02:00 Reassessment: No changes from previously documented assessment. vc1 03:00 Reassessment: No changes from previously documented assessment. vc1 04:00 Reassessment: No changes from previously documented assessment. vc1 04:12 Reassessment: Nurse to Nurse done with nurse at [facility]. vc1 05:00 Reassessment: No changes from previously documented assessment. vc1 06:29 Reassessment: Pt sitting up in bed. Family is bringing her a Dr. Gaytan and jessicaet. vc1 07:55 General: Appears in no apparent distress. Behavior is cooperative, anxious. General: ww patient requesting her methadone and klonapine. Spoke with Li Mcgregor LVN from methadone clinic and verified her dose of Methadone 110mg and should have enough medication till 12/03/2021. Safety check and sitter at bedside. Neuro: Cook Agitation-Sedation Scale (RASS): +1 Restless Level of Consciousness is awake, alert, obeys commands, Oriented to person, place, time, situation, Moves all extremities. Speech is normal. Cardiovascular: Patient's skin is warm and dry. Respiratory: Airway is patent Respiratory effort is even, unlabored, Respiratory pattern is regular, symmetrical. Derm: Skin is healthy with good turgor. 08:24 Reassessment: Patient appears in no apparent distress at this time. No changes from ww previously documented assessment. Patient and/or family updated on plan of care and expected duration. Pain level reassessed. Patient is alert, oriented x 3, equal unlabored respirations, skin warm/dry/pink. process safety engineering technologist at bedside. 09:28 Reassessment: Patient appears in no apparent distress at this time. No changes from ww previously documented assessment. Patient and/or family updated on plan of care and expected duration. Pain level reassessed. Patient is alert, oriented x 3, equal unlabored respirations, skin warm/dry/pink. process safety engineering technologist at bedside, patient requesting methadone. ER MD notified. 10:30 Reassessment: Patient appears in no apparent distress at this time. No changes from ww previously documented assessment. Patient and/or family updated on plan of care and expected duration. Pain level reassessed. Patient is alert, oriented x 3, equal unlabored respirations, skin warm/dry/pink. process safety engineering technologist at bedside. 11:08 Reassessment: Patient appears in no apparent distress at this time. No changes from ww previously documented assessment. Patient and/or family updated on plan of care and expected duration. Pain level reassessed. Patient is alert, oriented x 3, equal unlabored respirations, skin warm/dry/pink. patient requesting nicotine patch. Dr. Chadn gave verbal order. Removed old patch and placed new. vp director of finance at bedside. 12:30 Reassessment: Patient appears in no apparent distress at this time. No changes from ww previously documented assessment. Patient and/or family updated on plan of care and expected duration. Pain level reassessed. Patient is alert, oriented x 3, equal unlabored respirations, skin warm/dry/pink. eating lunch, process safety engineering technologist at bedside. Patients physician spoke with patient Dr. Chand regarding patients status. 13:40 Reassessment: Patient appears in no apparent distress at this time. No changes from previously documented assessment. Patient and/or family updated on plan of care and expected duration. Pain level reassessed. Patient is alert, oriented x 3, equal unlabored respirations, skin warm/dry/pink. 14:38 Reassessment: Patient appears in no apparent distress at this time. No changes from previously documented assessment. Patient and/or family updated on plan of care and expected duration. Pain level reassessed. Patient is alert, oriented x 3, equal unlabored respirations, skin warm/dry/pink. [facility] ecological risk assessor at bedside with patient. 16:00 Reassessment: Patient appears in no apparent distress at this time. No changes from previously documented assessment. Patient and/or family updated on plan of care and expected duration. Pain level reassessed. Patient is alert, oriented x 3, equal unlabored respirations, skin warm/dry/pink. process safety engineering technologist present. 17:30 Reassessment: Patient appears in no apparent distress at this time. Patient and/or ww family updated on plan of care and expected duration. Pain level reassessed. patient assisted to restroom, room cleaned and a silver nakul bag found with 4 methadone 40mg pills, 3 white oval pills, 2 small white [place] pills under patients pillow and sheets. Dr. Chand and charge nurse notified. Pills placed in security bag and sent with security. 18:23 Reassessment: Patient appears in no apparent distress at this time. Patient and/or ww family updated on plan of care and expected duration. Pain level reassessed. patient sleeping, process safety engineering technologist present. 19:56 Reassessment:. General: Appears in no apparent distress. comfortable, Behavior is calm. lg3 Neuro: No deficits noted. Cook Agitation-Sedation Scale (RASS): -1 Drowsy. Cardiovascular: No deficits noted. Capillary refill < 3 seconds Clubbing of nail beds is absent JVD is absent Patient's skin is warm and dry. Respiratory: No deficits noted. Airway is patent Trachea midline Respiratory effort is even, unlabored, Respiratory pattern is regular, symmetrical. GI: No deficits noted. Abdomen is round non-distended. : No deficits noted. No signs and/or symptoms were reported regarding the genitourinary system. EENT: No deficits noted. No signs and/or symptoms were reported regarding the EENT system. Derm: No deficits noted. No signs and/or symptoms reported regarding the dermatologic system. Skin is intact, is healthy with good turgor, Skin is dry, Skin temperature is warm. Musculoskeletal: No deficits noted. Circulation, motion, and sensation intact. Range of motion: intact in all extremities. 22:15 Reassessment: Patient appears in no apparent distress at this time. No changes from lg3 previously documented assessment. Patient and/or family updated on plan of care and expected duration. Pain level reassessed. Patient is alert, oriented x 3, equal unlabored respirations, skin warm/dry/pink. 22:15 General: pt quietly resting at this time . lg3 11/29 00:09 Reassessment: Patient appears in no apparent distress at this time. No changes from lg3 previously documented assessment. Patient and/or family updated on plan of care and expected duration. Pain level reassessed. Patient is alert, oriented x 3, equal unlabored respirations, skin warm/dry/pink. Neuro: Cook Agitation-Sedation Scale (RASS): +1 Restless. 03:51 Reassessment: Patient appears in no apparent distress at this time. No changes from lg3 previously documented assessment. Patient and/or family updated on plan of care and expected duration. Pain level reassessed. Patient is alert, oriented x 3, equal unlabored respirations, skin warm/dry/pink. 03:52 General: pt leaving via EMS to [facility]. Pt belongings released to EMS staff for transfer. lg3 Psych: 11/27 15:06 [place] Suicide Severity Screening: In the past month, have you wished you were ll1 or wished you could go to sleep and not wake up? Patient responds "No." "In the past month, have you actually had any thoughts of killing yourself?" Patient responds "no." "In your lifetime, have you ever done anything, started to do anything, or prepared to do anything to end your life?" Patient responds "no.". Subjective: Patient's mood is irritable, Delusions are Hallucinations are auditory, Having thoughts of homicide. Homicidal thoughts directed towards S.O. Objective: Speech is normal. Interventions: Patient placed in hospital gown. Urine collected and sent for urine drug test. Safety Checks: Personal items have been removed. Door is open. No visitors are present at this time. Pt denies substance abuse. 19:00 Commitment: Patient will be a voluntary commitment. vc1 Vital Signs: 11:09 BP 183 / 114; Pulse 95; Resp 17; Temp 98.1; Pulse Ox 95% on R/A; Weight 102.06 kg; ll1 Height 5 ft. 0 in. (152.40 cm); Pain 0/10; 14:00 BP 131 / 91; Pulse 86; Resp 17; Pulse Ox 96% ; ll1 22:00 BP 133 / 71; Pulse 72; Resp 17; Temp 98.5; Pulse Ox 100% on R/A; Pain 0/10; vc1 11/28 07:05 BP 149 / 82; Pulse 87; Resp 16; Temp 97.6; Pulse Ox 100% on R/A; ww 22:19 BP 156 / 86; Pulse 88; Resp 18; Temp 97.8(O); Pulse Ox 97% on R/A; lg3 11/29 01:21 BP 123 / 84; Pulse 89; Resp 16; Temp 98.5(O); Pulse Ox 97% on R/A; lg3 11/27 11:09 Body Mass Index 43.94 (102.06 kg, 152.40 cm) ll1 ED Course: 11/27 09:50 Patient arrived in ED. rg4 10:56 Arm band placed on Patient placed in an exam room, on a stretcher. ll1 10:57 Triage completed. ll1 11:00 Patient has correct armband on for positive identification. Placed in gown. Bed in low ll1 position. Call light in reach. Side rails up X2. Cardiac monitoring not applicable on this patient. 11:01 Sergio Chand MD is Attending Physician. rn 11:09 Lyndsay Jc RN is Primary Nurse. ll1 11:43 Initial lab(s) drawn, by me, sent to lab. Inserted saline lock: 22 gauge in right mb4 antecubital area, using aseptic technique. Blood collected. 15:01 faxed chart to [facility] . bd 15:42 pt denied at [facility] due to no beds at this time. bd 15:48 faxed chart to [facility]. bd 18:25 [facility]. bd 18:53 pt denied at [facility] "does not fit their population". bd 19:45 Attending Physician role handed off by Sergio Chand MD so 19:45 Donal Blackwell MD is Attending Physician. so 21:37 Nicolle called for Nurse to Nurse and spoke to Francie. wm 22:07 [facility] stated they couldn't accept due not being able to continue Pt on wm Methadone. 11/28 04:08 Francie had a nurse to nurse consult with someone from [facility] and they wm stated they would get back to us when or if they get a room available. 07:42 Primary Nurse role handed off by Lyndsay Jc, SARITA bd 07:55 Jeannie Griggs, RN is Primary Nurse. ww 07:57 Patient has correct armband on for positive identification. Bed in low position. Call ww light in reach. Side rails up X2. process safety engineering technologist at bedside. Patient is placed in psych hold. 10:42 spoke with Claire at [facility], "chart is still under review". bd 10:50 faxed chart to [facility]. bd 14:01 contacted [facility] to have a screener evaluate pt. bd 14:03 faxed exclusionary to [facility] as requested by hospital. bd 15:04 faxed chart to [facility]. bd 11/29 02:19 Pt accepted for transfer by Dr. Rhea Low. wm 03:51 No provider procedures requiring assistance completed. IV discontinued, intact, lg3 bleeding controlled, No redness/swelling at site. Pressure dressing applied. Administered Medications: 11/27 13:30 Drug: Nicotine Patch 21 mg/24 hr 1 patches Route: Transdermal; Site: affected area; ll1 18:20 Follow up: Response: No adverse reaction ap3 21:04 CANCELLED (Duplicate Order): cloNIDine 0.2 mg PO once so 21:07 Drug: methaDONE 30 mg Route: PO; vc1 22:00 Follow up: Response: No adverse reaction; Marked relief of symptoms vc1 21:07 Drug: KLONopin (clonazePAM) 2 mg Route: PO; vc1 22:00 Follow up: Response: No adverse reaction; Marked relief of symptoms vc1 06/14 08:09 Drug: Valium (diazepam) 5 mg Route: PO; ww 19:56 Follow up: Response: No adverse reaction lg3 11:25 Drug: Nicoderm CQ Patch 21 mg/24 hr 1 patches {Note: right deltoid.} Route: ww Transdermal; Site: affected area; 19:56 Follow up: Response: No adverse reaction lg3 12:44 Drug: Gabapentin 300 mg Route: PO; ww 19:56 Follow up: Response: No adverse reaction lg3 12:44 Drug: KLONopin (clonazePAM) 2 mg Route: PO; ww 19:56 Follow up: Response: No adverse reaction lg3 14:29 Drug: NS 0.9% 1000 ml Route: IV; Rate: 1000 ml; Site: right antecubital; ww 19:55 Follow up: IV Status: Completed infusion; IV Intake: 1000ml lg3 15:08 Drug: methaDONE 100 mg Route: PO; ww 19:55 Follow up: Response: No adverse reaction lg3 11/29 00:08 Drug: Gabapentin 300 mg Route: PO; lg3 00:08 Follow up: Response: No adverse reaction lg3 00:08 Drug: KLONopin (clonazePAM) 2 mg Route: PO; lg3 00:08 Follow up: Response: No adverse reaction lg3 Medication: 11/27 11:00 VIS not applicable for this client. ll1 Intake: 11/28 19:55 IV: 1000ml; Total: 1000ml. lg3 Outcome: 11/27 13:40 ER care complete, transfer ordered by MD. ward 11/29 03:51 Transferred by ground EMS Transfer form completed. lg3 Condition: stable Instructed on the need for transfer, Demonstrated understanding of instructions. 03:53 Patient left the ED. lg3 Signatures: Emani Justice Corey, MD MD cha Nieto, Roman, MD MD rn Garcia, Rubi rg4 Virgen Rios RN RN ap3 Grace Juarez mb4 Shweta Shahid RN RN lg3 Lyndsay Jc RN RN ll1 Joan Thapa Whitney, RN RN ww Francie Lagunas RN RN vc1 Corrections: (The following items were deleted from the chart) 11/27 15:01 11:00 General: Appears ll1 ll1 15:38 15:29 Reassessment: Home meds from [facility] in [place]. Amlodipine 2.5 mg, furosemide ll1 20 MG daily, Gabapentin 300 mg BID, clonazepam 2 MG BID, spironolactone 12.5 mg daily, fluoxetine 20 mg, Doxepin 50 mg, levothyroxine 125 mcg, citalopram 10 mg, and amitriptyline 50 MG HS. ll1 11/28 18:28 17:30 Reassessment: Patient appears in no apparent distress at this time. Patient ww and/or family updated on plan of care and expected duration. Pain level reassessed. patient assisted to restroom, room cleaned and a silver naklu bag found with 4 methadone 40mg pills, 3 white oval pills, 2 small white [place] pills under patients pillow and sheets. Dr. Chand and charge nurse notified. ww
--- NOTE | 2021-11-27 13:41 | EDPHYS ---
Physician Documentation [facility] Name: Mayra Peterson Age: 41 yrs Sex: Female : 1980 Arrival Date: 11/27/2021 Time: 09:50 Bed 16 Private MD: ED Physician Donal Blackwell HPI: 11/27 12:44 This 41 yrs old Female presents to ER via Wheelchair with complaints of Psych Problem. rn 12:44 The patient presents to the emergency department with homicidal ideation, the patient rn has harmed or wants to harm significant other, hallucinations. 12:46 Onset: The symptoms/episode began/occurred 1 week(s) ago. Associated signs and rn symptoms: Pertinent positives; anxiety, hallucinations, homicidal ideation, Pertinent negatives: substance abuse, suicide ideation. Severity of symptoms: At their worst the symptoms were moderate in the emergency department the symptoms are unchanged. The patient has not experienced similar symptoms in the past. The patient has not recently seen a physician. Pt reports visual and auditory hallucinations for this week, no hx of hallucinations, are telling her to kill her significant other. No drug use or ETOH per patient. NO head injury. . 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 - Social history:: Smoking status: Patient reports the use of cigarette tobacco products, smokes one-half pack cigarettes per day. - Family history:: not pertinent. - Hospitalizations: : No recent hospitalization is reported. ROS: 12:46 Constitutional: Negative for fever, chills, and weight loss, Eyes: Negative for injury, rn pain, redness, and discharge, Cardiovascular: Negative for chest pain, palpitations, and edema, Respiratory: Negative for shortness of breath, cough, wheezing, and pleuritic chest pain, Abdomen/GI: Negative for abdominal pain, nausea, vomiting, diarrhea, and constipation, Back: Negative for injury and pain, MS/Extremity: Negative for injury and deformity, Skin: Negative for injury, rash, and discoloration, Neuro: Negative for headache, weakness, numbness, tingling, and seizure, Psych: Negative for suicide ideation Exam: 12:46 Constitutional: This is a well developed, well nourished patient who is awake, alert, rn eating, and tearful at the same time Head/Face: Normocephalic, atraumatic. Eyes: Periorbital areas with no swelling, redness, or edema. Cardiovascular: Regular rate and rhythm. No pulse deficits. Respiratory: No increased work of breathing, no retractions or nasal flaring. Abdomen/GI: Soft, non-tender Skin: Warm, dry MS/ Extremity: Pulses equal, no cyanosis. Neuro: Awake and alert, GCS 15 Vital Signs: 11:09 BP 183 / 114; Pulse 95; Resp 17; Temp 98.1; Pulse Ox 95% on R/A; Weight 102.06 kg; ll1 Height 5 ft. 0 in. (152.40 cm); Pain 0/10; 14:00 BP 131 / 91; Pulse 86; Resp 17; Pulse Ox 96% ; ll1 22:00 BP 133 / 71; Pulse 72; Resp 17; Temp 98.5; Pulse Ox 100% on R/A; Pain 0/10; vc1 11/28 07:05 BP 149 / 82; Pulse 87; Resp 16; Temp 97.6; Pulse Ox 100% on R/A; ww 22:19 BP 156 / 86; Pulse 88; Resp 18; Temp 97.8(O); Pulse Ox 97% on R/A; lg3 11/29 01:21 BP 123 / 84; Pulse 89; Resp 16; Temp 98.5(O); Pulse Ox 97% on R/A; lg3 11/27 11:09 Body Mass Index 43.94 (102.06 kg, 152.40 cm) ll1 MDM: 11/27 11:01 Patient medically screened. rn 13:39 Differential diagnosis: acute psychotic break, hallucinations, homicidal ideations. rn Data reviewed: vital signs, nurses notes, lab test result(s), and as a result, I will admit patient. Counseling: I had a detailed discussion with the patient and/or guardian regarding: the historical points, exam findings, and any diagnostic results supporting the discharge/admit diagnosis, lab results, the need to transfer to another facility, for higher level of care, [facility] does not immediately have the required specialist. 11/28 09:03 ED course: [place] [facility] [place] 11/27 11:18 Order name: Acetaminophen; Complete Time: 18:10 rn 11/27 11:18 Order name: Basic Metabolic Panel; Complete Time: 18:10 rn 11/27 11:18 Order name: CBC with Diff; Complete Time: 18:10 rn 11/27 11:18 Order name: ETOH Level; Complete Time: 18:10 rn 11/27 11:18 Order name: Hepatic Function; Complete Time: 18:10 rn 11/27 11:18 Order name: PT-INR; Complete Time: 18:10 11/27 11:18 Order name: Ptt, Activated; Complete Time: 18:10 11/27 11:18 Order name: Salicylate; Complete Time: 18:10 rn 11/27 11:18 Order name: Urine Drug Screen; Complete Time: 18: rn 11/27 11:19 Order name: SARS-COV-2 RT PCR (Document "Date of Onset" if Symptomatic); Complete Time: rn 18:11/27 13:46 Order name: Urine Dipstick-Ancillary; Complete Time: 18:10 EDDC 11/27 13:47 Order name: Urine --Ancillary (enter results); Complete Time: 18:10 11/28 13:52 Order name: LFT's rn 11/27 11:18 Order name: EKG; Complete Time: 11:19 rn 11/27 12:17 Order name: Diet Finger Food; Complete Time: 12:17 rn 14 07:22 Order name: Diet Finger Food; Complete Time: 07:23 bd 11/28 10:52 Order name: Diet Finger Food; Complete Time: 10:53 bd 11/28 17:26 Order name: Diet Regular; Complete Time: 17:27 ph 11/27 11:18 Order name: EKG - Nurse/Tech; Complete Time: 12:17 rn 11/27 11:18 Order name: IV Saline Lock; Complete Time: 11:35 rn 11/27 11:18 Order name: Labs collected and sent; Complete Time: 11:35 rn 11/27 11:18 Order name: Suicide Precautions; Complete Time: 11:23 rn 11/27 11:18 Order name: Suicide Screening ([place]); Complete Time: 11:23 rn 11/27 11:18 Order name: Urine Dipstick-Ancillary (obtain specimen); Complete Time: 13:46 rn 11/27 11:18 Order name: Urine Test (obtain specimen); Complete Time: 13:46 rn Administered Medications: 11/27 13:30 Drug: Nicotine Patch 21 mg/24 hr 1 patches Route: Transdermal; Site: affected area; ll1 18:20 Follow up: Response: No adverse reaction ap3 21:04 CANCELLED (Duplicate Order): cloNIDine 0.2 mg PO once so 21:07 Drug: methaDONE 30 mg Route: PO; vc1 22:00 Follow up: Response: No adverse reaction; Marked relief of symptoms vc1 21:07 Drug: KLONopin (clonazePAM) 2 mg Route: PO; vc1 22:00 Follow up: Response: No adverse reaction; Marked relief of symptoms vc1 11/28 08:09 Drug: Valium (diazepam) 5 mg Route: PO; ww 19:56 Follow up: Response: No adverse reaction lg3 11:25 Drug: Nicoderm CQ Patch 21 mg/24 hr 1 patches {Note: right deltoid.} Route: ww Transdermal; Site: affected area; 19:56 Follow up: Response: No adverse reaction lg3 12:44 Drug: Gabapentin 300 mg Route: PO; ww 19:56 Follow up: Response: No adverse reaction lg3 12:44 Drug: KLONopin (clonazePAM) 2 mg Route: PO; ww 19:56 Follow up: Response: No adverse reaction lg3 14:29 Drug: NS 0.9% 1000 ml Route: IV; Rate: 1000 ml; Site: right antecubital; ww 19:55 Follow up: IV Status: Completed infusion; IV Intake: 1000ml lg3 15:08 Drug: methaDONE 100 mg Route: PO; ww 19:55 Follow up: Response: No adverse reaction lg3 11/29 00:08 Drug: Gabapentin 300 mg Route: PO; lg3 00:08 Follow up: Response: No adverse reaction lg3 00:08 Drug: KLONopin (clonazePAM) 2 mg Route: PO; lg3 00:08 Follow up: Response: No adverse reaction lg3 Disposition Summary: 11/27/21 13:40 Transfer Ordered Transfer Location: Psych Facility rn Reason: Higher level of care rn Condition: Stable rn Problem: new rn Symptoms: are unchanged rn Accepting Physician: (11/29/21 03:53) lg3 Diagnosis - Auditory hallucinations rn - Hallucinations, unspecified rn - Visual hallucinations rn - Homicidal ideations rn Forms: - Medication Reconciliation Form rn - SBAR form rn Signatures: Dispatcher [employer] EDDonal Kruse MD MD cha Nieto, Roman, MD MD rn Smirch, Shelby RN RN Shweta Carl RN RN lg3 Lyndsay Jc RN RN ll1 Jeannie Griggs, RN RN ww Francie Lagunas RN RN vc1 Virgen Rios RN ap3 Corrections: (The following items were deleted from the chart) 11/27 21:04 21:02 cloNIDine 0.2 mg PO once ordered. so rizzo 11/29 03:53 11/27 13:40 rn lg3
[2021-11-27 13:46] LABS: Urine Blood Negative (Negative); Urine Glucose Negative (Negative); Urine Protein Negative (Negative)
[2021-11-27 14:01] LABS: Barbiturates NEGATIVE (NEGATIVE); Benzodiazepines POSITIVE (NEGATIVE); Cocaine NEGATIVE (NEGATIVE); METHAMPHETAM NEGATIVE (NEGATIVE); Methadone POSITIVE (NEGATIVE); Opiates NEGATIVE (NEGATIVE); Phencyclidine NEGATIVE (NEGATIVE); THC Cannibis NEGATIVE (NEGATIVE)
[2021-11-27] MEDS ORDERED: METHADONE HCL 10 MG TAB PO ONE (21:11)
[2021-11-27] MEDS ORDERED: clonazePAM 1 MG TAB ONE (21:12)
[2021-11-28] MEDS ORDERED: DIAZEPAM 5 MG TABLET ONE (08:13)
--- NOTE | 2021-11-28 11:08 | EKG ---
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
[2021-11-28] MEDS ORDERED: NICOTINE 21 MG/PAT TD ONE (11:12)
[2021-11-28] MEDS ORDERED: clonazePAM 1 MG TAB ONE (12:47)
[2021-11-28] MEDS ORDERED: GABAPENTIN 300 MG CAP ONE (12:47)
[2021-11-28] MEDS ORDERED: NA CHLORIDE 0.9% 1,000 ML ONE (14:19)
[2021-11-28] MEDS ORDERED: METHADONE HCL 10 MG TAB PO ONE (15:10)
[2021-11-28 22:49] LABS: ALT/SGPT 116 U/L (12-78); AST/SGOT 77 U/L (15-37); Albumin 3.7 g/dL (3.4-5.0); Alkaline Phosphatase 127 U/L (45-117); Bilirubin Total 0.2 mg/dL (0.2-1.0); Protein, Total 7.5 g/dL (6.4-8.2)
[2021-11-28 22:52] LABS: Bilirubin Direct < 0.1 mg/dL (0-0.2)
[2021-11-29] MEDS ORDERED: GABAPENTIN 300 MG CAP ONE (00:07)
[2021-11-29] MEDS ORDERED: clonazePAM 1 MG TAB ONE (00:11)
[2021-11-29 04:07] VITALS: O2SAT 97
[2021-11-29 04:08] VITALS: BP 123/84; TEMP 98.5
== END 2021-11-29 03:53 ==
LOC: ER 09:48
DX: R45.850 Homicidal ideations (principal); R44.0 Auditory hallucinations; R44.3 Hallucinations, unspecified; R44.1 Visual hallucinations; F43.10 Post-traumatic stress disorder, unspecified; F32.A Depression, unspecified; F11.20 Opioid dependence, uncomplicated; Z20.822 Contact with and (suspected) exposure to COVID-19
CPT/HCPCS: 93005; 85025; 80048; 36415; 80320; 80329 ×2; 81025; 85610; 80076; 85730; 81003; 80307; U0003; 96360; 96361; 99285

== ENCOUNTER 2021-12-25 11:36 | Emergency (ER) | payer OTHER ==
[2021-12-25 12:33] LABS: Absolute Lymphocytes (CBC) 1.4 K/uL (0.7-4.9); Hematocrit 34.2 % (36.0-45.0); Lymphocytes % 27.4 % (15.3-44.8); MCV 81.5 fL (80-100); MPV 8.7 fL (7.6-11.3); RBC Red Blood Cell Count 4.19 M/uL (3.86-4.86)
[2021-12-25 12:47] LABS: Albumin 3.9 g/dL (3.4-5.0); Bilirubin Total 0.2 mg/dL (0.2-1.0); Potassium 3.8 mmol/L (3.5-5.1); Protein, Total 7.8 g/dL (6.4-8.2)
[2021-12-25] MEDS ORDERED: HYDROCODONE/APAP 10/325 TAB ONE (13:33)
--- NOTE | 2021-12-25 13:37 | RAD REPORT ---
EXAM DESCRIPTION: CT - Chest Abdomen Pelvis W Cont - 12/25/2021 1:17 pm CLINICAL HISTORY: blunt trauma, fall from 6 ft bunk bed, ribs and pack/pelvic pain COMPARISON: No comparisons TECHNIQUE: Following dynamic enhancement using 100 milliliters nonionic IV contrast, axial imaging o f the chest, abdomen and pelvis was performed. Biphasic technique was utilized through the abdomen. No oral contrast administered. All CT scans are performed using dose optimization technique as appropriate and may include automated exposure control or mA/KV adjustment according to patient size. FINDINGS: No pulmonary contusion or acute lung parenchymal process seen. No pleural effusion, pleura l thickening or pneumothorax. No significant aortic or pulmonary arterial tree finding. Mediastinal a nd hilar regions show no mass or abnormal lymphadenopathy. No chest wall mass or axillary lymphadenop athy. No rib fractures identified. The liver, spleen and pancreas show no acute findings. Liver shows diffuse fatty infiltration. Gallbl adder and biliary tree are unremarkable. Gallstones can be occult on CT imaging. Symmetric renal fun ction is seen with no mass or hydronephrosis. No adrenal abnormalities. No bladder abnormality. Uteru s and ovaries within normal limits. No dilated bowel loops or focal bowel wall thickening. No acute GI findings seen. No free air, free f luid or focal stranding. Bony pelvis is intact. No fracture or dislocation of either proximal femur. Minimal facet degenerativ e change present in the lumbar spine. [place] lumbar vertebral bodies show no fracture or acute findi ng. There is slight cortical irregularity of the superior aspect of the sternum near the manubrium -s ternum junction. An acute fracture line is not confirmed. This could be from old trauma. Provided his tory does not indicate sternum pain. No significant vascular findings. IMPRESSION: No fracture of the pelvis, ribs or vertebral bodies noted.No proximal femur fracture see n. There is cortical irregularity of the sternum near the sternum - manubrium junction. An acute fractur e line seen. This is possibly an old injury. Correlation can be made with any focal sternum tendernes s. No pneumothorax or acute traumatic injury in the chest. No acute abdominal or pelvic soft tissue inju ry. The patient has diffuse fatty infiltration of the liver.
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
[2021-12-25 14:24] VITALS: TEMP 97.5
[2021-12-25 14:28] VITALS: O2SAT 100
[2021-12-25 14:29] VITALS: BP 116/89
== END 2021-12-25 14:04 | disposition home or self-care (01) ==
LOC: ER 11:36
DX: S30.0XXA Contusion of lower back and pelvis, initial encounter (principal); F32.A Depression, unspecified; E07.9 Disorder of thyroid, unspecified; F17.210 Nicotine dependence, cigarettes, uncomplicated
CPT/HCPCS: 85025; 36415; 80053; 71260; 74177; 99284; Q9967

== ENCOUNTER 2022-07-05 09:01 | Emergency (ER) | payer OTHER ==
--- OUTSIDE RECORDS SUMMARY | 2022-07-05 09:10 | XMS REPORT | Continuity of Care Document ---
:1980 Author Organization [facility] t Address [address] [place] [address] Care Team Providers Name Role Phone KAREEN MONROY Primary Care Physician Unavailable OLINDA GILMAN Attending Clinician Unavailable TENA MONTEZ Attending Clinician Unavailable Amanda Bay Attending Clinician Tena Montez DO Attending Clinician [phone] [place] Attending Clinician Unavailable Alexandra Chavez Attending Clinician [phone] Nurse, [facility] Attending Clinician Unavailable Yeny Garza RN Attending Clinician Unavailable Only, [facility] Attending Clinician Unavailable Virgen Day MD Attending Clinician Doctor Unassigned, [place] Attending Clinician Unavailable Diana Tabares Attending Clinician Veronica Sanchez MD Attending Clinician KELSEY LR Attending Clinician Unavailable HERMILO PARHAM Attending Clinician Unavailable Lay Montelongo DO Attending Clinician LAY MONTELONGO Attending Clinician Unavailable Hermilo Collazo Attending Clinician Chiquis Nuno MD Attending Clinician Maggie Wu Attending Clinician 2, [facility] Room Attending Clinician Unavailable Catracho VIDAL, Bradley Donovan Attending Clinician Faculty, [facility] Attending Clinician Unavailable Eugene VIDAL, Aracely Attending Clinician AMANDA CAMILO Admitting Clinician Unavailable KATHY_Carolina Admitting Clinician Unavailable LAY MONTELONGO Admitting Clinician Unavailable Yaakov VIDAL, Chiquis Admitting Clinician Eugene VIDAL, Aracely Admitting Clinician Payers Payer Name Policy Type Policy Number Effective Date Expiration Date Jong owens [facility] [id number] 2021 00:00:00 [facility] [id number] 2020 [place] (MEDICAID 00:00:00 HMO) Problems Condition Condition Condition Status Onset Resolution Last Treating Co mments Source Name Details Category Date Date Treatment Clinician Date Attention Attention Problem Active [facility] deficit Deficit 9-07 Communi hyperactiv Hyperactiv 00:00: ty ity ity 00 [facility]osp[facility] disorder Disorder l Clinics Hypothyroi Hypothyroi Problem Active S [facility] dism dism 7-20 Communi 00:00: ty 00 [facility]osp[facility] l Clinics Anxiety Anxiety Problem Active [place] disorder Disorder 7-20 Commun i 00:00: ty 00 [facility]ospita l Clinics Essential Essential Problem Active [facility] hypertensi Hypertensi 7-20 Co mmuni on on 00:00: ty 00 Hospita l Clinics Umbilical Umbilical Problem Active [facility] hernia Hernia 7-20 Communi 00:00: ty 00 Hospita l Clinics Other Other Disease Active 2018-06 Univers general general 0-24 ity of counseling [place] and advice and advice 00 [place] dical for for Branch contracept contracept hollie hollie management management History of History of Disease Active 2018-06 U nivers tubal tubal 0-24 ity of ligation ligation 00:00: [address] Branch 31 weeks 31 weeks Disease Active Unive rs gestation gestation 9-12 ity of of of 00:00: [place] 00 [facility] Disease Active 2019 Univers labor labor 9-05 ity of 00:00: [place] 00 Medical Branch Vaginal Vaginal Disease Active Univers bleeding bleeding 9-05 ity of 00:00: [place] 00 Medical Branch Obesity Obesity Disease Active 2019 Univers (BMI (BMI 9-04 ity of 30-39.9) 30-39.9) 00:00: [place] 00 Medical Branch Disease Active 2019 Univers labor in labor in 9-04 ity of third third 00:00: [place] trimester trimester 00 [facility] Obesity Obesity Disease Active Univers affecting affecting 8-13 it[place] of 00:[place] in third in third 00 Medica l trimester trimester Bran ch Nausea and Nausea and Disease Active U nivers vomiting vomiting 8-13 ity of of of 00:00: [place] , , 00 Me dical antepartum antepartum Br anch Depression Depression Disease Active U nivers affecting affecting 6-27 it[place] of 00:[place] in second in second [facility] trimester, trimester, Br anch antepartum antepartum History of History of Disease Active U nivers depression depression 6-27 it y of 00:00: [place] 00 [facility] Multiple Multiple Disease Active Overview: Un mandy marker marker 5-15 Quad [...] , [place] ante[place] antepartum 00 [facility] Hypothyroi Hypothyroi Disease Active Overview : Univers d in d in 5-15 TSH 27 ity of , , 00:00: 10/28/18 [place] antepartum antepartum 00 [facility] Acute Acute Disease Active Univers urinary urinary 5-15 it[place] of retention retention 00:00[place] [facility] Hypothyroi Hypothyroi Disease Active Overview : Univers dism dism 5-15 Formattin ity of 00:00: g of this [place] 00 note Medical might be Branch different from the original. TSH 27 10/28/18 AMA AMA Disease Active Univers (advanced (advanced 5-14 ity of maternal maternal 00:00: [place] age) age) 00 Medical multigravi multigravi Br anch da 35+, da 35+, second second trimester trimester BMI BMI Disease Active 2018- Univers 33.0-33.9, 33.0-33.9, 5-14 it y of adult adult 00:00: [address] High-risk High-risk Disease Active Uni vers , , 5-14 it y of second second 00:00: [place] trimester trimester 00 Medi raquel Branch History of History of Disease Active Overview : Univers herpes herpes 5-14 Formattin ity of genitalis genitalis 00:00: [place] of this [place] 00 note Medical might be Branch different from the original. HSV I&II serologie s positive [place] Disease Active Univers multiparit multiparit 5-14 it y of y y 00:00: [address] Tobacco Tobacco Disease Active Univers smoking smoking 5-14 ity of affecting affecting 00:[place] raquel [place] second in second Bran ch trimester trimester Methadone Methadone Disease Active Uni vers dependence dependence 5-14 it y of 00:00: [address] Tobacco Tobacco Disease Active Univers use use 5-14 ity of 00:00: [address] No known No known Disease Unive rs active active ity of problems problems [facility] Allergies, Adverse Reactions, Alerts Allergy Allergy Status Severity Reaction(s) Onset Inactive Treating Comm ents Source Name Type Date Date Clinician NO KNOWN Drug Active Univers ALLERGIE Class ity of S [facility] Social History Social Habit Start Date Stop Date Quantity Comments Source ASSERTION 2018-07-27 University of 00:00:00 [facility] History of tobacco 1994-10-28 Cigarette Smoker University of use 00:00:00 [facility] Exposure to 2021-11-21 2021-12-01 Not sure University SARS-CoV-2 (event) 00:00:00 15:43:00 [facility] Alcohol intake 2020-06-21 2020-06-21 Current University of 00:00:00 00:00:00 non-drinker of [facility] alcohol Branch (finding) Cigarettes smoked 2018-10-28 2018-10-28 Univers ity of current (pack per 00:00:00 00:00:00 [place] ) - Reported Branch Tobacco use and 2018-10-28 2018-10-28 Never used Universit y of exposure 00:00:00 00:00:00 [facility] Sex [birth year] At [birth year] Universit y of 00:00:00 00:00:00 [facility] Smoking Status Start Date Stop Date Source Unknown if ever smoked [facility] y [facility] Current every day smoker 2018-10-28 00:00:00 Uni versity of [facility] Medications Ordered Filled Start Stop Current Ordering Indication Dosage Frequency Signature Comments Components Source Medication Medication Date Date Medication? Clinician (SIG) Name Name iopamidol 2021- No [id number] 100mL 100 mL, Univers (ISOVUE 12-03 Intravenou ity o f 370-500 mL) 04:58: 04:50 s, ONCE, 1 [place] injection 00 :00 dose, On Medica l 100 mL Sun Branch 12/03/21 at 0000, Routine NaCl 0.9% No 1000mL at 999 Uni vers (NS) bolus 12-01 mL/hr, ity of infusion 22:45: 04:36 1,000 mL, Jorge L as 1,000 mL 00 :00 IV Medical Infusion, Branch ONCE, 1 dose, On Sat12/01/21 at 1745, SIL famotidine 2021- No 20mg 20 mg, Univ ers (PEPCID 12-01 Slow IV ity of (PF)) 22:45: 01:54 Push, [place] injection 00 :00 ONCE, 1 Medical 20 mg dose, On Branch 12/01/21 at 1745, SIL ondansetron 2020- No 4mg 4 mg, Slow Univers (ZOFRAN 08-20 IV Push, ity of (PF)) 03:15: 02:19 ONCE, 1 [place] injection 4 00 :00 dose, Fri Med ical mg 08/19/20 at Branch 2115, SIL dicyclomine 2020- No 20mg 20 mg, Uni vers (BENTYL) 3 03-06 Oral, ity of capsule 20 03:15: 02:18 ONCE, 1 Jorge L as mg 00 :00 dose, Fri Medical 08/19/20 at Branch 2115, Routine ondansetron 2020- No 4mg 4 mg, Slow Univers (ZOFRAN 08-20 03-05 IV Push, ity of (PF)) 01:00: [...] 1000mL at 999 Uni vers (NS) bolus 08-20-06 mL/hr, ity of infusion 00:00: 01:10 1,000 mL, Jorge L as 1,000 mL 00 :00 IV Medical Infusion, Branch ONCE, 1 dose, 08/19/20 at 1800, STAT iohexol 2020- No 120mL 120 mL, Unive rs (OMNIPAQUE 3-05 03-05 Intravenou it y of 350 23:45: 23:30 s, ONCE, 1 [place] BULK-150 00 :00 dose, Fri Medica l mL) 08/19/20 at Branch injection 1745, 120 mL Routine dicyclomine Yes [id number] 20mg Take 1 Univers 20 mg 3-05 tablet by ity of tablet 00:00: mouth 4 [place] 00 (four) Medical times Branch daily. ondansetron Yes [id number] 4mg Take 1 Univers (ZOFRAN 3-05 tablet by ity of ODT) 4 mg 00:00: mouth [place] disintegrat 00 every 8 Medic al ing tablet (eight) Branch hours as needed for Nausea and Vomiting (N/V). dicyclomine Yes [id number] 20mg Take 1 Univers 20 mg 3-05 tablet by ity of tablet 00:00: mouth 4 [place] 00 (four) Medical times Branch daily. ondansetron 2021-0 Yes [id number] 4mg Take 1 Univers (ZOFRAN 3-05 tablet by ity of ODT) 4 mg 00:00: mouth [place] disintegrat 00 every 8 Medic al ing tablet (eight) Branch hours as needed for Nausea and Vomiting (N/V). dicyclomine 2021-0 Yes [id number] 20mg Take 1 Univers 20 mg 3-05 tablet by ity of tablet 00:00: mouth 4 [place] 00 (four) Medical times Branch daily. ondansetron 2021-0 Yes [id number] 4mg Take 1 Univers (ZOFRAN 3-05 tablet by ity of ODT) 4 mg 00:00: mouth [place] disintegrat 00 every 8 Medic al ing tablet (eight) Branch hours as needed for Nausea and Vomiting (N/V). dicyclomine 2021-0 Yes [id number] 20mg Take 1 Univers 20 mg 3-05 tablet by ity of tablet 00:00: mouth 4 [place] 00 (four) Medical times Branch daily. ondansetron 2021-0 Yes [id number] 4mg Take 1 Univers (ZOFRAN 3-05 tablet by ity of ODT) 4 mg 00:00: mouth [place] disintegrat 00 every 8 Medic al ing tablet (eight) Branch hours as needed for Nausea and Vomiting (N/V). dicyclomine 2021-0 Yes [id number] 20mg Take 1 Univers 20 mg 3-05 tablet by ity of tablet 00:00: mouth 4 [place] 00 (four) Medical times Branch daily. ondansetron 2021-0 Yes [id number] 4mg Take 1 Univers (ZOFRAN 3-05 tablet by ity of ODT) 4 mg 00:00: mouth [place] disintegrat 00 every 8 Medic al ing tablet (eight) Branch hours as needed for Nausea and Vomiting (N/V). dicyclomine 2021-0 Yes [id number] 20mg Take 1 Univers 20 mg 3-05 tablet by ity of tablet 00:00: mouth 4 [place] 00 (four) Medical times Branch daily. ondansetron 2021-0 Yes [id number] 4mg Take 1 Univers (ZOFRAN 3-05 tablet by ity of ODT) 4 mg 00:00: mouth [place] disintegrat 00 every 8 Medic al ing tablet (eight) Branch hours as needed for Nausea and Vomiting (N/V). dicyclomine Yes [id number] 20mg Take 1 Univers 20 mg 3-05 tablet by ity of tablet 00:00: mouth 4 [place] 00 (four) Medical times Branch daily. ondansetron Yes [id number] 4mg Take 1 Univers (ZOFRAN 3-05 tablet by ity of ODT) 4 mg 00:00: mouth [place] disintegrat 00 every 8 Medic al ing tablet (eight) Branch hours as needed for Nausea and Vomiting (N/V). iohexol 2019-06 2020- No 100mL 100 mL, Unive rs (OMNIPAQUE 2-09 12- Intravenou it y of 350 15:30: 15:09 s, ONCE, 1 [place] BULK-100 00 :00 dose, Wed Medica l mL) 05/25/20 at Branch injection 0930, 100 mL Routine ondansetron 2019-06 Yes [id number] 4mg Take 1 Univers (ZOFRAN 2-09 tablet by ity of ODT) 4 mg 00:00: mouth [place] disintegrat 00 every 8 Medic al ing tablet (eight) Branch hours as needed for Nausea and Vomiting (N/V). ondansetron 2019-06 Yes [id number] 4mg Take 1 Univers (ZOFRAN 2-09 tablet by ity of ODT) 4 mg 00:00: mouth [place] disintegrat 00 every 8 Medic al ing tablet (eight) Branch hours as needed for Nausea and Vomiting (N/V). ondansetron 2019-06 Yes [id number] 4mg Take 1 Univers (ZOFRAN 2-09 tablet by ity of ODT) 4 mg 00:00: mouth [place] disintegrat 00 every 8 Medic al ing tablet (eight) Branch hours as needed for Nausea and Vomiting (N/V). ondansetron 2019-06 Yes [id number] 4mg Take 1 Univers (ZOFRAN 2-09 tablet by ity of ODT) 4 mg 00:00: mouth [place] disintegrat 00 every 8 Medic al ing tablet (eight) Branch hours as needed for Nausea and Vomiting (N/V). ondansetron 2019-06 Yes [id number] 4mg Take 1 Univers (ZOFRAN 2-09 tablet by ity of ODT) 4 mg 00:00: mouth [place] disintegrat 00 every 8 Medic al ing tablet (eight) Branch hours as needed for Nausea and Vomiting (N/V). ondansetron 2019- Yes [id number] 4mg Take 1 Univers (ZOFRAN 2-09 tablet by ity of ODT) 4 mg 00:00: mouth [place] disintegrat 00 every 8 Medic al ing tablet (eight) Branch hours as needed for Nausea and Vomiting (N/V). ondansetron 2019-06 Yes [id number] 4mg Take 1 Univers (ZOFRAN 2-09 tablet by ity of ODT) 4 mg 00:00: mouth [place] disintegrat 00 every 8 Medic al ing tablet (eight) Branch hours as needed for Nausea and Vomiting (N/V). ondansetron 2019-06 Yes [id number] 4mg Take 1 Univers (ZOFRAN 2-09 tablet by ity of ODT) 4 mg 00:00: mouth [place] disintegrat 00 every 8 Medic al ing tablet (eight) Branch hours as needed for Nausea and Vomiting (N/V). FENTanyl PF 2019-06- No 50ug 50 mcg, Un mandy (SUBLIMAZE 0-24 10-24 Slow IV ity o f (PF)) 20:15: 20:15 Push, [place] injection 00 :00 ONCE, 1 Medical 50 mcg dose, Sat Branch 04/09/20 at 1515, Routine iohexol 2019-06 2020- No 120mL 120 mL, Unive rs (OMNIPAQUE 0-24 10-24 Intravenou it y of 350 20:00: 19:44 [...] (scale 1-3). Indication s: acute pain acetaminoph 2020- Yes [id number] 1{tbl} Take 1 Un mandy [...] (scale 1-3). Indication s: acute pain metroNIDAZO 2019- 2020- No [id number] 500mg Take 1 Univers LE 500 mg 0-16 10-24 tablet by ity of tablet 00:00: 04:59 mouth 2 [place] 00 :00 (two) [facility] daily for 7 days. Levothyroxi 2018-06 Yes Take by Un mandy ne 150 mcg 0-24 mouth. ity of capsule 19:43: [address] Levothyroxi 2018-06 Yes Take by Uni vers ne 150 mcg 0-24 mouth. ity of capsule 19:43: [address] Levothyroxi 2018-06 Yes Take by Uni vers ne 150 mcg 0-24 mouth. ity of capsule 19:43: [address] Levothyroxi 2018-06 Yes Take by Uni vers ne 150 mcg 0-24 mouth. ity of capsule 19:43: [address] Levothyroxi 2018-06 Yes Take by Uni vers ne 150 mcg 0-24 mouth. ity of capsule 19:43: [address] Levothyroxi 2018-06 Yes Take by Uni vers ne 150 mcg 0-24 mouth. ity of capsule 19:43: [address] Levothyroxi 2018-06 Yes Take by Uni vers ne 150 mcg 0-24 mouth. ity of capsule 19:43: [address] Levothyroxi 2018-06 Yes Take by Uni vers ne 150 mcg 0-24 mouth. ity of capsule 19:43: [address] Levothyroxi 2018-06 Yes Take by Uni vers ne 150 mcg 0-24 mouth. ity of capsule 19:43: [address] furosemide 2018-06 Yes 20mg Take 20 mg U nivers 20 mg 0-24 by mouth ity of tablet 19:41: daily. [address] furosemide 2018-06 Yes 20mg Take 20 mg U nivers 20 mg 0-24 by mouth ity of tablet 19:41: daily. [address] furosemide 2018-06 Yes 20mg Take 20 mg U nivers 20 mg 0-24 by mouth ity of tablet 19:41: daily. [address] furosemide 2018-06 Yes 20mg Take 20 mg U nivers 20 mg 0-24 by mouth ity of tablet 19:41: daily. [address] furosemide 2018-06 Yes 20mg Take 20 mg U nivers 20 mg 0-24 by mouth ity of tablet 19:41: daily. [address] furosemide 2018-06 Yes 20mg Take 20 mg U nivers 20 mg 0-24 by mouth ity of tablet 19:41: daily. [address] furosemide 2018-06 Yes 20mg Take 20 mg U nivers 20 mg 0-24 by mouth ity of tablet 19:41: daily. [address] furosemide 2018-06 Yes 20mg Take 20 mg U nivers 20 mg 0-24 by mouth ity of tablet 19:41: daily. [address] furosemide 2018-06 Yes 20mg Take 20 mg U nivers 20 mg 0-24 by mouth ity of tablet 19:41: daily. [address] Levothyroxi 2018-06 Yes Take by Uni vers ne 150 mcg 0-24 mouth. ity of capsule 14:43: [address] Levothyroxi 2018-06 Yes Take by Uni vers ne 150 mcg 0-24 mouth. ity of capsule 14:43: [address] Levothyroxi 2018-06 Yes Take by Uni vers ne 150 mcg 0-24 mouth. ity of capsule 14:43: [address] Levothyroxi 2018-06 Yes Take by Uni vers ne 150 mcg 0-24 mouth. ity of capsule 14:43: [address] Levothyroxi 2018-06 Yes Take by Uni vers ne 150 mcg 0-24 mouth. ity of capsule 14:43: [address] Levothyroxi 2018-06 Yes Take by Uni vers ne 150 mcg 0-24 mouth. ity of capsule 14:43: [address] furosemide 2018-06 Yes 20mg Take 20 mg U nivers 20 mg 0-24 by mouth ity of tablet 14:41: daily. [address] furosemide 2018-06 Yes 20mg Take 20 mg U nivers 20 mg 0-24 by mouth ity of tablet 14:41: daily. [address] furosemide 2018-06 Yes 20mg Take 20 mg U nivers 20 mg 0-24 by mouth ity of tablet 14:41: daily. [address] furosemide 2018-06 Yes 20mg Take 20 mg U nivers 20 mg 0-24 by mouth ity of tablet 14:41: daily. [address] furosemide 2018-06 Yes 20mg Take 20 mg U nivers 20 mg 0-24 by mouth ity of tablet 14:41: daily. [address] furosemide 2019-1 Yes 20mg Take 20 mg U nivers 20 mg 0-24 by mouth ity of tablet 14:41: daily. [place] 50 Medical Branch proMETHazin 2018-06 Yes [id number] 25mg Take 1 Univers e 25 mg 0-24 tablet by ity of tablet 00:00: mouth [place] 00 every 6 Medical (six) Branch hours as needed for Nausea and Vomiting (N/V). proMETHazin 2018-06 Yes [id number] 25mg Take 1 Univers e 25 mg 0-24 tablet by ity of tablet 00:00: mouth [place] 00 every 6 Medical (six) Branch hours as needed for Nausea and Vomiting (N/V). proMETHazin 2018-06 Yes [id number] 25mg Take 1 Univers e 25 mg 0-24 tablet by ity of tablet 00:00: mouth [place] 00 every 6 Medical (six) Branch hours as needed for Nausea and Vomiting (N/V). proMETHazin 2018-06 Yes [id number] 25mg Take 1 Univers e 25 mg 0-24 tablet by ity of tablet 00:00: mouth [place] 00 every 6 Medical (six) Branch hours as needed for Nausea and Vomiting (N/V). proMETHazin 2018-06 Yes [id number] 25mg Take 1 Univers e 25 mg 0-24 tablet by ity of tablet 00:00: mouth [place] 00 every 6 Medical (six) Branch hours as needed for Nausea and Vomiting (N/V). proMETHazin 2018-06 Yes [id number] 25mg Take 1 Univers e 25 mg 0-24 tablet by ity of tablet 00:00: mouth [place] 00 every 6 Medical (six) Branch hours as needed for Nausea and Vomiting (N/V). proMETHazin 2018-06 Yes [id number] 25mg Take 1 Univers e 25 mg 0-24 tablet by ity of tablet 00:00: mouth [place] 00 every 6 Medical (six) Branch hours as needed for Nausea and Vomiting (N/V). proMETHazin 2018-06 Yes [id number] 25mg Take 1 Univers e 25 mg 0-24 tablet by ity of tablet 00:00: mouth [place] 00 every 6 Medical (six) Branch hours as needed for Nausea and Vomiting (N/V). proMETHazin 2018-06 Yes [id number] 25mg Take 1 Univers e 25 mg 0-24 tablet by ity of tablet 00:00: mouth [place] 00 every 6 Medical (six) Branch hours as needed for Nausea and Vomiting (N/V). proMETHazin 2018-06 Yes [id number] 25mg Take 1 Univers e 25 mg 0-24 tablet by ity of tablet 00:00: mouth [place] 00 every 6 Medical (six) Branch hours as needed for Nausea and Vomiting (N/V). proMETHazin 2018-06 Yes [id number] 25mg Take 1 Univers e 25 mg 0-24 tablet by ity of tablet 00:00: mouth [place] 00 every 6 Medical (six) Branch hours as needed for Nausea and Vomiting (N/V). proMETHazin 2018-06 Yes [id number] 25mg Take 1 Univers e 25 mg 0-24 tablet by ity of tablet 00:00: mouth [place] 00 every 6 Medical (six) Branch hours as needed for Nausea and Vomiting (N/V). proMETHazin 2018-06 Yes [id number] 25mg Take 1 Univers e 25 mg 0-24 tablet by ity of tablet 00:00: mouth [place] 00 every 6 Medical (six) Branch hours as needed for Nausea and Vomiting (N/V). proMETHazin 2018-06 Yes [id number] 25mg Take 1 Univers e 25 mg 0-24 tablet by ity of tablet 00:00: mouth [place] 00 every 6 Medical (six) Branch hours as needed for Nausea and Vomiting (N/V). proMETHazin 2018-06 Yes [id number] 25mg Take 1 Univers e 25 mg 0-24 tablet by ity of tablet 00:00: mouth [place] 00 every 6 Medical (six) Branch hours as needed for Nausea and Vomiting (N/V). methadone 2018- Yes 120mg 120 mg, Univ ers 10 mg/5 mL 9-11 Oral, ity of solution 12:00: Q24H, [place] 120 mg 00 First dose Medical on Sat Branch 02/25/19 at 0700, Until Discontinu ed, Routine 2018- Yes [id number] 1{tbl} Take 1 U nivers vitamin 9-11 tablet by ity of w/FA tablet 00:00: mouth [place] 00 daily. Medical Branch docusate Yes [id number] 240mg Take 1 Un mandy calcium 240 9-11 capsule by it y of mg capsule 00:00: mouth once [place] 00 daily as Medical needed for Branch Constipati on. ferrous 2018-0 Yes [id number] 325mg Take 1 Uni vers sulfate 325 9-11 tablet by ity of mg (65 mg 00:00: mouth 2 [place] iron) 00 (two) Medical tablet times Branch daily. ibuprofen 2018-0 Yes [id number] 600mg Take 1 U nivers 600 mg 9-11 tablet by ity of tablet 00:00: mouth [place] 00 every 6 Medical (six) Branch hours as needed for Pain (scale 1-3) or Pain (scale 4-6) (Pain). Take with food or milk. 2018-0 Yes [id number] 1{tbl} Take 1 U nivers vitamin 9-11 tablet by ity of w/FA tablet 00:00: mouth [place] 00 daily. Medical Branch docusate Yes [id number] 240mg Take 1 Un mandy calcium 240 9-11 capsule by it y of mg capsule 00:00: mouth once [place] 00 daily as Medical needed for Branch Constipati on. ferrous Yes [id number] 325mg Take 1 Uni vers sulfate 325 9-11 tablet by ity of mg (65 mg 00:00: mouth 2 [place] iron) 00 (two) Medical tablet times Branch daily. ibuprofen Yes [id number] 600mg Take 1 U nivers 600 mg 9-11 tablet by ity of tablet 00:00: mouth [place] 00 every 6 Medical (six) Branch hours as needed for Pain (scale 1-3) or Pain (scale 4-6) (Pain). Take with food or milk. 2018-0 Yes [id number] 1{tbl} Take 1 Univers vitamin 9-11 tablet by ity of w/FA tablet 00:00: mouth [place] 00 daily. Medical Branch docusate 0 Yes [id number] 240mg Take 1 U nivers calcium 240 9-11 capsule by it y of mg capsule 00:00: mouth once [place] 00 daily as Medical needed for Branch Constipati on. ferrous 2018-0 Yes [id number] 325mg Take 1 Un mandy sulfate 325 9-11 tablet by ity of mg (65 mg 00:00: mouth 2 [place] iron) 00 (two) Medical tablet times Branch daily. ibuprofen 2019-0 Yes [id number] 600mg Take 1 Univers 600 mg 9-11 tablet by ity of tablet 00:00: mouth [place] 00 every 6 Medical (six) Branch hours as needed for Pain (scale 1-3) or Pain (scale 4-6) (Pain). Take with food or milk. Yes [id number] 1{tbl} Take 1 Univers vitamin 9-11 tablet by ity of w/FA tablet 00:00: mouth [place] 00 daily. Medical Branch docusate Yes [id number] 240mg Take 1 U nivers calcium 240 9-11 capsule by it y of mg capsule 00:00: mouth once [place] 00 daily as Medical needed for Branch Constipati on. ferrous Yes [id number] 325mg Take 1 Un mandy sulfate 325 9-11 tablet by ity of mg (65 mg 00:00: mouth 2 [place] iron) 00 (two) Medical tablet times Branch daily. ibuprofen Yes [id number] 600mg Take 1 Univers 600 mg 9-11 tablet by ity of tablet 00:00: mouth [place] 00 every 6 Medical (six) Branch hours as needed for Pain (scale 1-3) or Pain (scale 4-6) (Pain). Take with food or milk. Yes [id number] 1{tbl} Take 1 Univers vitamin 9-11 tablet by ity of w/FA tablet 00:00: mouth [place] 00 daily. Medical Branch docusate Yes [id number] 240mg Take 1 U nivers calcium 240 9-11 capsule by it y of mg capsule 00:00: mouth once [place] 00 daily as Medical needed for Branch Constipati on. ferrous Yes [id number] 325mg Take 1 Un mandy sulfate 325 9-11 tablet by ity of mg (65 mg 00:00: mouth 2 [place] iron) 00 (two) Medical tablet times Branch daily. ibuprofen Yes [id number] 600mg Take 1 Univers 600 mg 9-11 tablet by ity of tablet 00:00: mouth [place] 00 every 6 Medical (six) Branch hours as needed for Pain (scale 1-3) or Pain (scale 4-6) (Pain). Take with food or milk. Yes [id number] 1{tbl} Take 1 Univers vitamin 9-11 tablet by ity of w/FA tablet 00:00: mouth [place] 00 daily. Medical Branch docusate Yes [id number] 240mg Take 1 U nivers calcium 240 9-11 capsule by it y of mg capsule 00:00: mouth once [place] 00 daily as Medical needed for Branch Constipati on. ferrous 2019-0 Yes [id number] 325mg Take 1 [facility] sulfate 325 9-11 tablet by ity of mg (65 mg 00:00: mouth 2 [place] iron) 00 (two) Medical tablet times Branch daily. ibuprofen 2018- Yes [id number] 600mg Take 1 [facility] 600 mg 9-11 tablet by ity of tablet 00:00: mouth [place] 00 every 6 Medical (six) Branch hours as needed for Pain (scale 1-3) or Pain (scale 4-6) (Pain). Take with food or milk. Yes [id number] 1{tbl} Take 1 [facility] vitamin 9-11 tablet by ity of w/FA tablet 00:00: mouth [place] 00 daily. Medical Branch docusate Yes [id number] 240mg Take 1 [facility] calcium 240 9-11 capsule by it y of mg capsule 00:00: mouth once [place] 00 daily as Medical needed for Branch Constipati on. ferrous Yes [id number] 325mg Take 1 [facility] sulfate 325 9-11 tablet by ity of mg (65 mg 00:00: mouth 2 [place] iron) 00 (two) Medical tablet times Branch daily. ibuprofen 0 Yes [id number] 600mg Take 1 [facility] 600 mg 9-11 tablet by ity of tablet 00:00: mouth [place] 00 every 6 Medical (six) Branch hours as needed for Pain (scale 1-3) or Pain (scale 4-6) (Pain). Take with food or milk. 0 Yes [id number] 1{tbl} Take 1 [facility] vitamin 9-11 tablet by ity of w/FA tablet 00:00: mouth [place] 00 daily. Medical Branch docusate Yes [id number] 240mg Take 1 [facility] n[facility] calcium 240 9-11 capsule by it y of mg capsule 00:00: mouth once [place] 00 daily as Medical needed for Branch Constipati on. ferrous 0 Yes [id number] 325mg Take 1 [facility] sulfate 325 9-11 tablet by ity of mg (65 mg 00:00: mouth 2 [place] iron) 00 (two) Medical tablet times Branch daily. ibuprofen 2018-0 Yes [id number] 600mg Take 1 [facility] 600 mg 9-11 tablet by ity of tablet 00:00: mouth [place] 00 every 6 Medical (six) Branch hours as needed for Pain (scale 1-3) or Pain (scale 4-6) (Pain). Take with food or milk. 2018-0 Yes [id number] 1{tbl} Take 1 [facility] vitamin 9-11 tablet by ity of w/FA tablet 00:00: mouth [place] 00 daily. Medical Branch docusate Yes [id number] 240mg Take 1 [facility] calcium 240 9-11 capsule by it y of mg capsule 00:00: mouth once [place] 00 daily as Medical needed for Branch Constipati on. ferrous Yes [id number] 325mg Take 1 [facility] sulfate 325 9-11 tablet by ity of mg (65 mg 00:00: mouth 2 [place] iron) 00 (two) Medical tablet times Branch daily. ibuprofen Yes [id number] 600mg Take 1 [facility] 600 mg 9-11 tablet by ity of tablet 00:00: mouth [place] 00 every 6 Medical (six) Branch hours as needed for Pain (scale 1-3) or Pain (scale 4-6) (Pain). Take with food or milk. Yes [id number] 1{tbl} Take 1 [facility] vitamin 9-11 tablet by ity of w/FA tablet 00:00: mouth [place] 00 daily. Medical Branch docusate 0 Yes [id number] 240mg Take 1 [facility] calcium 240 9-11 capsule by it y of mg capsule 00:00: mouth once [place] 00 daily as Medical needed for Branch Constipati on. ferrous 0 Yes [id number] 325mg Take 1 [facility] sulfate 325 9-11 tablet by ity of mg (65 mg 00:00: mouth 2 [place] iron) 00 (two) Medical tablet times Branch daily. ibuprofen Yes [id number] 600mg Take 1 [facility] 600 mg 9-11 tablet by ity of tablet 00:00: mouth [place] 00 every 6 Medical (six) Branch hours as needed for Pain (scale 1-3) or Pain (scale 4-6) (Pain). Take with food or milk. Yes [id number] 1{tbl} Take 1 [facility] vitamin 9-11 tablet by ity of w/FA tablet 00:00: mouth [place] 00 daily. Medical Branch docusate 2019 Yes [id number] 240mg Take 1 [facility] calcium 240 9-11 capsule by it y of mg capsule 00:00: mouth once [place] 00 daily as Medical needed for Branch Constipati on. ferrous 2019- Yes [id number] 325mg Take 1 [facility] sulfate 325 9-11 tablet by ity of mg (65 mg 00:00: mouth 2 [place] iron) 00 (two) Medical tablet times Branch daily. ibuprofen Yes [id number] 600mg Take 1 [facility] 600 mg 9-11 tablet by ity of tablet 00:00: mouth [place] 00 every 6 Medical (six) Branch hours as needed for Pain (scale 1-3) or Pain (scale 4-6) (Pain). Take with food or milk. Yes [id number] 1{tbl} Take 1 [facility] vitamin 9-11 tablet by ity of w/FA tablet 00:00: mouth [place] 00 daily. Medical Branch docusate Yes [id number] 240mg Take 1 [facility] calcium 240 9-11 capsule by it y of mg capsule 00:00: mouth once [place] 00 daily as Medical needed for Branch Constipati on. ferrous 2018- Yes [id number] 325mg Take 1 [facility] sulfate 325 9-11 tablet by ity of mg (65 mg 00:00: mouth 2 [place] iron) 00 (two) Medical tablet times Branch daily. ibuprofen Yes [id number] 600mg Take 1 [facility] 600 mg 9-11 tablet by ity of tablet 00:00: mouth [place] 00 every 6 Medical (six) Branch hours as needed for Pain (scale 1-3) or Pain (scale 4-6) (Pain). Take with food or milk. 0 Yes [id number] 1{tbl} Take 1 [facility] vitamin 9-11 tablet by ity of w/FA tablet 00:00: mouth [place] 00 daily. Medical Branch docusate Yes [id number] 240mg Take 1 [facility] nivers calcium 240 9-11 capsule by it y of mg capsule 00:00: mouth once [place] 00 daily as Medical needed for Branch Constipati on. ferrous 2018-0 Yes [id number] 325mg Take 1 [facility] sulfate 325 9-11 tablet by ity of mg (65 mg 00:00: mouth 2 [place] iron) 00 (two) Medical tablet times Branch daily. ibuprofen 2019-0 Yes [id number] 600mg Take 1 [facility] 600 mg 9-11 tablet by ity of tablet 00:00: mouth [place] 00 every 6 Medical (six) Branch hours as needed for Pain (scale 1-3) or Pain (scale 4-6) (Pain). Take with food or milk. 2019-0 Yes [id number] 1{tbl} Take 1 [facility] vitamin 9-11 tablet by ity of w/FA tablet 00:00: mouth [place] 00 daily. Medical Branch docusate 0 Yes [id number] 240mg Take 1 [facility] n[facility] calcium 240 9-11 capsule by it y of mg capsule 00:00: mouth once [place] 00 daily as Medical needed for Branch Constipati on. ferrous 0 Yes [id number] 325mg Take 1 [facility] sulfate 325 9-11 tablet by ity of mg (65 mg 00:00: mouth 2 [place] iron) 00 (two) Medical tablet times Branch daily. ibuprofen 0 Yes [id number] 600mg Take 1 [facility] 600 mg 9-11 tablet by ity of tablet 00:00: mouth [place] 00 every 6 Medical (six) Branch hours as needed for Pain (scale 1-3) or Pain (scale 4-6) (Pain). Take with food or milk. 2018-0 Yes [id number] 1{tbl} Take 1 [facility] vitamin 9-11 tablet by ity of w/FA tablet 00:00: mouth [place] 00 daily. Medical Branch docusate 0 Yes [id number] 240mg Take 1 U n[facility] calcium 240 9-11 capsule by it y of mg capsule 00:00: mouth once [place] 00 daily as Medical needed for Branch Constipati on. ferrous 2019-0 Yes [id number] 325mg Take 1 [facility] sulfate 325 9-11 tablet by ity of mg (65 mg 00:00: mouth 2 [place] iron) 00 (two) Medical tablet times Branch daily. ibuprofen 2019-0 Yes [id number] 600mg Take 1 [facility] 600 mg 9-11 tablet by ity of tablet 00:00: mouth [place] 00 every 6 Medical (six) Branch hours as needed for Pain (scale 1-3) or Pain (scale 4-6) (Pain). Take with food or milk. 2018-0 Yes [id number] 1{tbl} Take 1 [facility] vitamin 9-11 tablet by ity of w/FA tablet 00:00: mouth [place] 00 daily. Medical Branch docusate Yes [id number] 240mg Take 1 [facility] n[facility] calcium 240 9-11 capsule by it y of mg capsule 00:00: mouth once [place] 00 daily as Medical needed for Branch Constipati on. ferrous Yes [id number] 325mg Take 1 [facility] sulfate 325 9-11 tablet by ity of mg (65 mg 00:00: mouth 2 [place] iron) 00 (two) Medical tablet times Branch daily. ibuprofen Yes [id number] 600mg Take 1 [facility] 600 mg 9-11 tablet by ity of tablet 00:00: mouth [place] 00 every 6 Medical (six) Branch hours as needed for Pain (scale 1-3) or Pain (scale 4-6) (Pain). Take with food or milk. Yes [id number] 1{tbl} Take 1 [facility] vitamin 9-11 tablet by ity of w/FA tablet 00:00: mouth [place] 00 daily. Medical Branch docusate Yes [id number] 240mg Take 1 U nivers calcium 240 9-11 capsule by it y of mg capsule 00:00: mouth once [place] 00 daily as Medical needed for Branch Constipati on. ferrous Yes [id number] 325mg Take 1 [facility] sulfate 325 9-11 tablet by ity of mg (65 mg 00:00: mouth 2 [place] iron) 00 (two) Medical tablet times Branch daily. ibuprofen Yes [id number] 600mg Take 1 [facility] 600 mg 9-11 tablet by ity of tablet 00:00: mouth [place] 00 every 6 Medical (six) Branch hours as needed for Pain (scale 1-3) or Pain (scale 4-6) (Pain). Take with food or milk. levothyroxi 2018- 2019- No [id number] 150ug Take 1 [facility] ne 150 mcg 9-11 10-12 tablet by ity of tablet 00:00: 04:59 mouth [place] 00 :00 every Medical morning Branch for 30 days. SERTraline 2019- No [id number] 50mg Take 1 [facility] 50 mg 9-11 10-12 tablet by ity of tablet 00:00: 04:59 mouth [place] 00 :00 daily for Medical 30 days. Branch levothyroxi 2018- No [id number] 150ug Take 1 [facility] ne 150 mcg 9-11 10-12 tablet by ity of tablet 00:00: 04:59 mouth [place] 00 :00 every Medical morning Branch for 30 days. SERTraline 2019- No [id number] 50mg Take 1 [facility] 50 mg 9-11 10-12 tablet by ity of tablet 00:00: 04:59 mouth [place] 00 :00 daily for Medical 30 days. Branch ibuprofen 2018- Yes 600mg 600 mg, Univ ers (IBU) 9-10 Oral, Q8H, ity of tablet 600 19:00: First dose [place] mg 00 on [facility] 02/24/19 at [place] 1400, Until Discontinu ed, Routine acetaminoph 2018- Yes 650mg 650 mg, Un [facility] en 9-10 Oral, Q6H, ity of (TYLENOL) 17:00: First dose [place] tablet 650 00 on [facility] mg 02/24/19 at [place] 1200, Until Discontinu ed, Routine magnesium 2018- Yes 30mL 30 mL, Univer s hydroxide 9-10 Oral, ity of (MILK OF 14:00: DAILY, [place] MAGNESIA) 00 First dose Medi raquel 400 mg/5 mL on [facility] suspension 02/24/19 at 30 mL 0900, Until Discontinu ed, Routine simethicone Yes 160mg 160 mg, Un mandy (GAS 9-10 Oral, ity of RELIEF) 14:00: PC+HS, [place] chewable 00 First dose Medic al tablet 160 on [facility] mg 02/24/19 at 0900, Until Discontinu ed, Routine docusate 2018-0 Yes 240mg 240 mg, Unive rs calcium 9-10 Oral, ity of (SURFAK) 14:00: DAILY, [place] capsule 240 00 First dose Me dical mg on [facility] Branch 02/24/19 at 0900, Until Discontinu ed, Routine ketorolac 2018- 2019- No 30mg 30 mg, Unive rs (TORADOL) 9-10 09-10 Slow IV ity of injection 02:58: 03:39 Push, PRN, [place] 30 mg 18 :00 1 dose, Medical Starting Branch 02/23/19 at 2158, Until [place] [facility] 02/23/19 at 2239, Routine, Pain (scale 7-10)
F aculty member approving Restricted medication : ЮЛИЯ EDWARDS nalbuphine 2019-0 Yes 5mg 5 mg, Univer s (NUBAIN) 02-24 Intravenou ity o f injection 5 02:57: s, PRN, 1 [place] mg 39 dose, Medical Starting Branch Sat02/23/19 at 2157, Until Discontinu ed, Routine, Itching naloxone 2019-0 2019- No .4mg 0.4 mg, Unive rs (NARCAN) 02-24 Slow IV ity of injection 02:57: 23:14 Push, PRN [place] 0.4 mg 39 :19 - SEE Medical INSTRUCTIO Branch NS, Starting Sat02/23/19 at 2157, Until Sat02/25/19 at 1814, Routine, Analgesia Recovery HYDROcodone 2018-0 Yes 1{tbl} 1 tablet, Univers -acetaminop 9-10 Oral, ity of hen (NORCO 02:10: Q6HPRN, [place] 5) 5-325 mg 37 Starting Medi raquel tablet 1 Sat02/23/19 Branc h tablet at 2110, Until Discontinu ed, Routine, Pain (scale 7-10) rho(D) 2019-0 Yes 300ug 300 mcg, Univer s immune 9-10 Intramuscu ity of globulin 00:00: lar, ONCE, Jorge L as (RHOGAM) 24 For 1 Medical syringe 300 dose, Branch mcg Conditiona l, Routine diphenhydrA 2019-0 Yes 25mg 25 mg, Univ ers MINE 10 Oral, ity of (BENADRYL) 00:00: Q6HPRN, [place] tablet 25 20 Starting Medica l mg Sat02/23/19 Branch at 1900, Until Discontinu ed, Routine, Sleep, Itching ondansetron 2019-0 Yes 4mg 4 mg, Slow Univers (ZOFRAN 9-10 IV Push, ity of (PF)) 00:00: Q8HPRN, [place] injection 4 20 Starting Medi raquel mg Sat02/23/19 Branch at 1900, Until Discontinu ed, Routine, Nausea and Vomiting (N/V) benzocaine- 2019-0 Yes Topical, Un mand[facility] menthol 9-10 PRN, ity of (DERMOPLAST 00:00: Starting [place] ) 20-0.5 % 20 Sat02/23/19 Med ical topical at 1900, Branch spray Until Discontinu ed, Routine, Perineum discomfort ibuprofen 2019- No 600mg 600 mg, Uni vers (IBU) 02-24 Oral, ity of tablet 600 00:00: 16:10 Q6HPRN, [place] L as mg 20 :16 Starting Medical 02/23/19 Branch at 1900, Until 02/24/19 at 1110, Routine, Pain (scale 4-6) LR 1000 mL 2019- No at 999 Univ ers + oxytocin 02-23 mL/hr, IV ity of 20 units IV 22:00: 22:30 Infusion, [place] Solution 00 :00 ONCE, 1 Medical dose, Mon [place] 02/23/19 at 1700, Routine LR 1000 mL 2019- No 2mU/min 2 Uni vers + oxytocin 02-23 marcelo-unit it y of 20 units IV 18:29: 00:00 s/min (6 [place] Solution 47 :25 mL/hr), at Medic al 6 mL/hr, Branch IV Infusion, TITRATE, Starting Sat02/23/19 at 1329, Until Sat02/23/19 at 1900, SIL, Oxytocin Induction / Augmentati on of Labor. lactated 2019- No 500mL at 999 Unive rs ringers IV 02-23 mL/hr, 500 it y of infusion 17:45: 17:44 mL, IV [place] 500 mL 00 :00 Infusion, Medical ONCE, 1 Branch dose, Sat02/23/19 at 1245, Routine sodium 2019- No 30mL 30 mL, Univers citrate-cit 02-23 Oral, ity of jaime acid 16:31: 17:21 PRE-PROCED [place] (BICITRA) 32 :00 URE ONCE, Medic al 500-334 1 dose, Branch mg/5 mL Starting solution 30 Sat02/23/19 mL at 1131, Until Sat02/23/19 at 1221, Routine, Surgery/Pr ocedure acetaminoph 2019- No 650mg 650 mg, U nivers en 9-09 09-10 Oral, ity of (TYLENOL) 13:49: 00:00 Q6HPRN, [place] tablet 650 53 :25 Starting Medic al mg 02/23/19 Branch at 0849, Until 02/23/19 at 1900, Routine, Pain (scale 1-3), Pain (scale 4-6) terbutaline 2019- No .25mg 0.25 mg, Univers (BRETHINE) 02-23 Subcutaneo it y of injection 06:15: 05:08 us, ONCE, [place] 0.25 mg 00 :00 1 dose, Medical 02/23/19 Branch at 0115, Routine acetaminoph 2019- No 650mg 650 mg, U nivers en 02-23 Oral, ity of (TYLENOL) 05:15: 04:09 ONCE, 1 [place] tablet 650 00 :00 dose, Mon Medi raquel mg 02/23/19 at Branch 0015, Routine terbutaline 2018- No .25mg 0.25 mg, Univers (BRETHINE) 02-22 Subcutaneo it y of injection 23:15: 22:26 us, ONCE, [place] 0.25 mg 00 :00 1 dose, Medical [place] 02/22/19 Branch at 1815, Routine acetaminoph 2019- No 650mg 650 mg, U nivers en 02-22 Oral, ity of (TYLENOL) 22:15: 21:19 ONCE, 1 [place] tablet 650 00 :00 dose, Sun Medi raquel mg 02/22/19 at Branch 1715, Routine SERTraline Yes 50mg 50 mg, Unive rs (ZOLOFT) 02-22 Oral, ity of tablet 50 14:00: DAILY, [place] mg 00 First dose Medical on Sun Branch 02/22/19 at 0900, Until Discontinu ed, Routine azithromyci 2019- No 1000mg 1,000 mg, Univers n 02-22 [...] First dose [place] mg 00 on [facility] Medical 02/21/19 at Branch 1245, Until Discontinu ed, Routine ferrous Yes 325mg 325 mg, Univer s sulfate 02-21 Oral, TID ity of tablet 325 13:00: MEALS, [place] mg 00 First dose Medical on [facility] Branch 02/21/19 at 0800, Until Discontinu ed, Routine diphenhydrA 2018- No 25mg 25 mg, Uni vers MINE [...] at 0900, Until Discontinu ed, Routine docusate 2019- No 240mg 240 mg, Univ ers calcium 02-20 Oral, ity of (SURFAK) 14:00: 00:00 DAILY, [place] capsule 240 00 :25 First dose Me dical mg on Sat Branch 02/20/19 at 0900, Until Discontinu ed, Routine iron 2019- No 25mg 25 mg, IV Univers dextran 02-20 Piggyback, ity o f (INFED) 25 13:30: 14:36 ONCE, 1 Jorge L as mg in NaCl 00 :00 dose, Sat Medi raquel 0.9% (NS) 02/20/19 at Branc h 100 mL IV 0830, 100 piggyback mL iron 2019- No 1000mg 1,000 mg, Unive rs dextran [...] at 0700, Until Discontinu ed, Routine proMETHazin 2018- No 25mg 25 mg, Uni vers e 02-20 Oral, ity of (PHENERGAN) 01:30: 01:35 ONCE, 1 [place] tablet 25 00 :00 dose, [facility] Medic al mg 02/19/19 at Branch 2030, Routine bisacodyl 2018- No 10mg 10 [facility] 02-19 Rectal, ity o f suppository 21:02: 00:00 QHSPRN, [place] 10 mg 01 :25 Starting Medical [facility] 02/19/19 Branch at 1602, Until 02/23/19 at 1900, Routine, Constipati on albuterol Yes 2.5mg 2.5 mg, Univ ers (PROVENTIL) 02-19 Inhalation it y of 2.5 mg /3 21:00: , Q6HPRN, Jorge L as mL (0.083 02 Starting Medica l %) [facility] 02/19/19 Branch nebulizer at 1600, solution Until 2.5 mg Discontinu ed, Routine, Shortness of Breath, Wheezing nicotine 2019- No 1{patch 1 Patch, U nivers (NICODERM) 02-19 } Topical, ity of 14 mg/24 hr 19:15: 01:04 Administer [place] patch 1 00 :42 over 24 Medical Patch Hours, Branch Q24H, First dose on [facility] 02/19/19 at 1415, Until Discontinu ed, Routine albuterol 2019- No 2{puff} 2 Puff, U nivers (VENTOLIN) 02-19 Inhalation it y of inhaler 2 18:07: 21:00 , Q6HPRN, [place] Puff 22 :33 Starting Medical [place] 02/19/19 Branch at 1307, Until [place] 02/19/19 at 1600, Routine, Wheezing, Shortness of Breath nicotine 2019- No 1{patch 1 Patch, U nivers (NICODERM) 02-19 } Topical, ity of 14 mg/24 hr 15:15: 14:57 Administer [place] patch 1 00 :35 over 24 Medical Patch Hours, Branch Q24H, First dose on [facility] 02/19/19 at 1015, Until Discontinu ed, Routine glucose 2019- No 50g 50 g, Univers tolerance 02-19 Oral, ity of test 100 14:00: 16:35 ONCE, 1 [place] g/300 mL 00 :00 dose, [facility] Medica l (LIMEONDEX 02/19/19 at Bran ch 100) liquid 0900, 50 g Routine albuterol 2018- No 2.5mg 2.5 mg, Uni vers (PROVENTIL) 02-19 Inhalation i ty of 2.5 mg /3 12:18: 18:07 , Q6HPRN, [place] mL (0.083 50 :53 Starting Medica l %) [facility] 02/19/19 Branch nebulizer at 0718, solution Until [place] 2.5 mg 02/19/19 at 1307, Routine, Shortness of Breath, Wheezing levothyroxi Yes 150ug 150 mcg, U nivers ne 02-19 Oral, ity of (SYNTHROID) 11:00: QAM-0600, [place] tablet 150 00 First dose Med ical mcg on [place] Branch 02/19/19 at 0600, Until Discontinu ed, Routine alum-mag 2019- No 30mL 30 mL, Univer s hydroxide-s 02-19 Oral, ity of imeth 07:08: 00:00 Q6RN, [place] (MAALOX 43 :25 Starting Medical PLUS / [facility] 02/19/19 Branch MAG-AL at 0208, PLUS) Until Mon 200-200-20 02/23/19 at mg/5 mL 1900, suspension Routine, 30 mL Indigestio n docusate 2019- No 240mg 240 mg, Univ ers calcium 02-19 Oral, ity of (SURFAK) 07:08: 12:27 QHSPRN, [place] capsule 240 42 :43 Starting Medi raquel [...] nicotine 2019- No 1{patch 1 Patch, U kyree (NICODERM) 02-18 } Topical, ity of 7 mg/24 hr 19:15: 14:14 Administer [place] patch 1 00 :14 over 24 Medical Patch Hours, Branch Q24H, First dose on Sat02/18/19 at 1415, Until Discontinu ed, Routine acyclovir 2019- No 400mg 400 mg, Uni vers (ZOVIRAX) 02-18 Oral, TID, ity of tablet 400 19:00: 00:00 First dose [place] mg 00 :25 on Sat Medical 02/18/19 at Branch 1400, Until Discontinu ed, SIL methadone 2019- No 120mg 120 mg, Uni vers 10 mg/5 mL 02-18 Oral, ity of solution 18:15: 11:33 Q24H, [place] 120 mg 00 :20 First dose Medical on Wed Branch 02/18/19 at 1315, Until Discontinu ed, Routine guaiFENesin Yes 100mg 100 mg, Un mandy 100 mg/5 mL 02-18 Oral, ity of solution 17:20: Q4HPRN, [place] 100 mg 56 Starting Medical 02/18/19 Branch at 1220, Until Discontinu ed, Routine, Cough magnesium 2018- No 2g/h 2 g/hr (25 U nivers sulfate in 02-18 09-05 mL/hr), at it y of LR 40 17:15: 05:14 25 mL/hr, [place] gram/500 mL 00 :00 IV Medical IV Solution Infusion, Bra nch CONTINUOUS , Starting 02/18/19 at 1215, Until [place] 02/19/19 at 0014, Routine betamethaso 2018- No 12mg 12 mg, Uni vers ne acet,sod 02-18 0905 Intramuscu i ty of phos 17:15: 17:24 lar, Q24H, [place] (CELESTONE 00 :00 2 doses, Medic al SOLUSPAN) 6 First dose Br anch mg/mL on Wed injection 02/18/19 at 12 mg 1215, Last dose on [place] 02/19/19 at 1215, Routine D5W-LR IV 2019- No 1000mL at 125 Uni vers infusion 02-18 09-05 mL/hr, IV ity o f 1,000 mL 17:15: 07:09 Infusion, Jorge L as 00 :51 CONTINUOUS Medical , Starting Branch 02/18/19 at 1215, Until [place] 02/19/19 at 0209, Routine lactated 2019- No 500mL at 999 Unive rs ringers IV 02-18 09-05 mL/hr, 500 it y of infusion 16:54: 07:09 mL, IV [place] 500 mL 45 :51 Infusion, Medical PRN - SEE Branch INSTRUCTIO NS, Starting 02/18/19 at 1154, Until [place] 02/19/19 at 0209, Routine proMETHazin Yes [id number] 25mg Take 1 Univers e 25 mg 8-13 tablet by ity of tablet 00:00: mouth [place] 00 every 4 Medical (four) Branch hours as needed for Nausea and Vomiting (N/V). proMETHazin 2019-0 Yes [id number] 25mg Take 1 Univers e 25 mg 8-13 tablet by ity of tablet 00:00: mouth [place] 00 every 4 Medical (four) Branch hours as needed for Nausea and Vomiting (N/V). proMETHazin 2019-0 Yes [id number] 25mg Take 1 Univers e 25 mg 8-13 tablet by ity of tablet 00:00: mouth [place] 00 every 4 Medical (four) Branch hours as needed for Nausea and Vomiting (N/V). proMETHazin 2019-0 Yes [id number] 25mg Take 1 Univers e 25 mg 8-13 tablet by ity of tablet 00:00: mouth [place] 00 every 4 Medical (four) Branch hours as needed for Nausea and Vomiting (N/V). proMETHazin 2018-0 Yes [id number] 25mg Take 1 Univers e 25 mg 8-13 tablet by ity of tablet 00:00: mouth [place] 00 every 4 Medical (four) Branch hours as needed for Nausea and Vomiting (N/V). proMETHazin 2018-0 Yes [id number] 25mg Take 1 Univers e 25 mg 8-13 tablet by ity of tablet 00:00: mouth [place] 00 every 4 Medical (four) Branch hours as needed for Nausea and Vomiting (N/V). proMETHazin 2018-0 Yes [id number] 25mg Take 1 Univers e 25 mg 8-13 tablet by ity of tablet 00:00: mouth [place] 00 every 4 Medical (four) Branch hours as needed for Nausea and Vomiting (N/V). proMETHazin 2018-0 Yes [id number] 25mg Take 1 Univers e 25 mg 8-13 tablet by ity of tablet 00:00: mouth [place] 00 every 4 Medical (four) Branch hours as needed for Nausea and Vomiting (N/V). proMETHazin 2019-0 Yes [id number] 25mg Take 1 Univers e 25 mg 8-13 tablet by ity of tablet 00:00: mouth [place] 00 every 4 Medical (four) Branch hours as needed for Nausea and Vomiting (N/V). proMETHazin 2019-0 Yes [id number] 25mg Take 1 Univers e 25 mg 8-13 tablet by ity of tablet 00:00: mouth [place] 00 every 4 Medical (four) Branch hours as needed for Nausea and Vomiting (N/V). tramadol 2019-0 2019- No Take by Unive rs HCl (ULTRAM 01-25- mouth. ity o f ORAL) 04:15: 00:00 [place] 52 :00 Medical Branch methadone 2019- No Take by Univ ers HCl 01-25- mouth. ity of (METHADONE 04:15: 00:00 [place] ORAL) 52 :00 Medical Branch levothyroxi 2018-0 Yes 150ug 150 mcg, U nivers ne 8-10 Oral, ity of (SYNTHROID) 16:15: QAM-0600, [place] tablet 150 00 First dose Med ical mcg on [facility] Branch 01/24/19 at 1115, Until Discontinu ed, Routine 2018-0 Yes 1{tbl} 1 tablet, Un mandy vitamin 8-10 Oral, ity of w/FA 14:00: DAILY, [place] (PRENATABS 00 First dose Med ical RX) tablet on [facility] Branch 1 tablet 01/24/19 at 0900, Until Discontinu ed, Routine methadone Yes 110mg 110 mg, Univ ers (DOLOPHINE 8-10 Oral, QAM, ity of HCL) tablet 14:00: First dose [place] 110 mg 00 on [facility] Medical 01/24/19 at Branch 0900, Until Discontinu ed, Routine clonazePAM 2018- Yes 2mg 2 mg, Univer s (KLONOPIN) 8-10 Oral, BID, ity of tablet 2 mg 13:00: First dose [place] 00 on [facility] Medical 01/24/19 at Branch 0800, Until Discontinu ed, Routine SERTraline 2018- Yes 25mg 25 mg, Unive rs (ZOLOFT) 8-10 Oral, ity of tablet 25 11:45: DAILY, [place] mg 00 First dose Medical on [facility] Branch 01/24/19 at 0645, Until Discontinu ed, Routine lactated 2019- No 1000mL at 999 Univ ers ringers IV 01-24 08-10 mL/hr, ity of infusion 11:45: 14:14 1,000 mL, Jorge L as 1,000 mL 00 :00 Intravenou Medic al s, ONCE, 1 Branch dose, [facility] 01/24/19 at 0645, Routine acetaminoph 2019- No 650mg 650 mg, U nivers en 8- 08-10 Oral, ity of (TYLENOL) 09:47: 10:34 ONCE, 1 [place] tablet 650 00 :00 dose, Sat Medi raquel mg 01/24/19 at Branch 0500, Routine clonazePAM Yes Univers 2 mg tablet 7-24 ity of 00:00: [address] clonazePAM Yes Univers 2 mg tablet 7-24 ity of 00:00: [address] clonazePAM Yes Univers 2 mg tablet 7-24 ity of 00:00: [address] clonazePAM Yes Univers 2 mg tablet 7-24 ity of 00:00: [address] clonazePAM Yes Univers 2 mg tablet 7-24 ity of 00:00: [address] clonazePAM Yes Univers 2 mg tablet 7-24 ity of 00:00: [address] clonazePAM Yes Univers 2 mg tablet 7-24 ity of 00:00: [address] clonazePAM Yes Univers 2 mg tablet 7-24 ity of 00:00: [address] clonazePAM Yes Univers 2 mg tablet 7-24 ity of 00:00: [address] clonazePAM Yes Univers 2 mg tablet 7-24 ity of 00:00: [address] SERTraline Yes Univers 25 mg 7-17 ity of tablet 00:00: [address] SERTraline Yes Univers 25 mg 7-17 ity of tablet 00:00: [address] SERTraline Yes Univers 25 mg 7-17 ity of tablet 00:00: [address] SERTraline Yes Univers 25 mg 7-17 ity of tablet 00:00: [address] SERTraline Yes Univers 25 mg 7-17 ity of tablet 00:00: [address] SERTraline Yes [facility] 25 mg 7-17 ity of tablet 00:00: [address] SERTraline Yes [facility] 25 mg 7-17 ity of tablet 00:00: [address] SERTraline 0 Yes [facility] 25 mg 7-17 ity of tablet 00:00: [address] SERTraline Yes [facility] 25 mg 7-17 ity of tablet 00:00: [place] [facility] SERTraline 2019-0 Yes [facility] 25 mg 7-17 ity of tablet 00:00: [place] 00 [facility] levothyroxi 2019-0 Yes Un[facility] s ne 150 mcg 6-28 ity of tablet 00:00: [place] 00 [facility] levothyroxi 2019-0 Yes [facility] s ne 150 mcg 6-28 ity of tablet 00:00: [place] 00 [facility] levothyroxi 2019-0 Yes Un[facility] s ne 150 mcg 6-28 ity of tablet 00:00: [place] 00 [facility] levothyroxi 2019-0 Yes Un[facility] s ne 150 mcg 6-28 ity of tablet 00:00: [place] 00 [facility] levothyroxi 2019-0 Yes Un[facility] s ne 150 mcg 6-28 ity of tablet 00:00: [place] 00 [facility] levothyroxi 2019-0 Yes Un[facility] s ne 150 mcg 6-28 ity of tablet 00:00: [place] 00 [facility] levothyroxi 2019-0 Yes Univer s ne 150 mcg 6-28 ity of tablet 00:00: [place] 00 [facility] levothyroxi 2019-0 Yes Univer s ne 150 mcg 6-28 ity of tablet 00:00: [place] 00 [facility] levothyroxi 2019-0 Yes Univer s ne 150 mcg 6-28 ity of tablet 00:00: [place] 00 [facility] levothyroxi 2019-0 Yes Univer s ne 150 mcg 6-28 ity of tablet 00:00: [place] 00 [facility] levothyroxi 2019-0 Yes [id number] 150ug Take 1 [facility] ne 150 mcg 6-28 tablet by ity of tablet 00:00: mouth [place] 00 every Medical morning. Branch levothyroxi 2019-0 Yes [id number] 150ug Take 1 [facility] ne 150 mcg 6-28 tablet by ity of tablet 00:00: mouth [place] 00 every Medical morning. Branch levothyroxi 2019-0 Yes [id number] 150ug Take 1 [facility] ne 150 mcg 6-28 tablet by ity of tablet 00:00: mouth [place] 00 every Medical morning. Branch levothyroxi 2019-0 Yes [id number] 150ug Take 1 [facility] ne 150 mcg 6-28 tablet by ity of tablet 00:00: mouth [place] 00 every Medical morning. Branch levothyroxi 2019-0 2019- No [id number] 150ug Take 1 [facility] ne 150 mcg 6-28 08-10 tablet by ity of tablet 00:00: 00:00 mouth [place] 00 :00 every Medical morning. Branch methadone 2019-0 Yes Take by Unive rs HCl 6-03 mouth. ity of (METHADONE 13:45: [place] ORAL) 07 [facility] methadone 2019-0 Yes Take by Unive rs HCl 6-03 mouth. ity of (METHADONE 13:45: [place] ORAL) 07 [facility] methadone 2019-0 Yes Take by Unive rs HCl 6-03 mouth. ity of (METHADONE 13:45: [place] ORAL) 07 [facility] methadone 2019-0 Yes Take by Unive rs HCl 6-03 mouth. ity of (METHADONE 13:45: [place] ORAL) 07 [facility] Branch traMADOL 50 2019-0 Yes Univer s mg tablet 5-25 ity of 00:00: [place] 00 [facility] traMADOL 50 2019-0 Yes Univer s mg tablet 5-25 ity of 00:00: [place] 00 [facility] traMADOL 50 2019-0 Yes Univer s mg tablet 5-25 ity of 00:00: [place] 00 [facility] traMADOL 50 2019-0 Yes Univer s mg tablet 5-25 ity of 00:00: [place] 00 [facility] traMADOL 50 2019-0 2019- No Unive rs mg tablet 5-25 08-10 ity of 00:00: 00:00 [place] 00 :00 [facility] tramadol 2019-0 Yes Take by Univer s HCl (ULTRAM 5-14 mouth. ity of ORAL) 19:34: [address] Branch tramadol 2019-0 Yes Take by Univer s HCl (ULTRAM 5-14 mouth. ity of ORAL) 19:34: [address] Branch tramadol 2019-0 Yes Take by Univer s HCl (ULTRAM 5-14 mouth. ity of ORAL) 19:34: [address] Branch tramadol 2019-0 Yes Take by Univer s HCl (ULTRAM 5-14 mouth. ity of ORAL) 19:34: [address] Branch PNV 67-iron 2018-0 Yes [id number] 1{capsu Take 1 [facility] ps-folate 5-14 le} capsule by ity of no.1-dha 00:00: mouth [place] (VITAFOL 00 daily. Medical ULTRA) 29 Branch mg iron- 1 mg-200 mg Cap PNV 67-iron 2018-0 Yes [id number] 1{capsu Take 1 [facility] ps-folate 5-14 le} capsule by ity of no.1-dha 00:00: mouth [place] (VITAFOL 00 daily. Medical ULTRA) 29 Branch mg iron- 1 mg-200 mg Cap PNV 67-iron 2018- Yes [id number] 1{capsu Take 1 [facility] ps-folate 5-14 le} capsule by ity of no.1-dha 00:00: mouth [place] (VITAFOL 00 daily. Medical ULTRA) 29 Branch mg iron- 1 mg-200 mg Cap PNV 67-iron 2018- Yes [id number] 1{capsu Take 1 [facility] ps-folate 5-14 le} capsule by ity of no.1-dha 00:00: mouth [place] (VITAFOL 00 daily. Medical ULTRA) 29 Branch mg iron- 1 mg-200 mg Cap PNV 67-iron 2019- No [id number] 1{capsu Take 1 [facility] ps-folate 5-14 08-10 le} capsule by ity of no.1-dha 00:00: 00:00 mouth [place] (VITAFOL 00 :00 daily. Medical ULTRA) 29 Branch mg iron- 1 mg-200 mg Cap clonazePAM Yes Univers 2 mg tablet 10-23 ity of 00:00: [place] 00 [facility] clonazePAM 0 Yes Univers 2 mg tablet 10-23 ity of 00:00: [place] 00 [facility] clonazePAM 0 Yes Univers 2 mg tablet 10-23 ity of 00:00: [place] 00 [facility] clonazePAM 0 Yes Univers 2 mg tablet 10-23 ity of 00:00: [place] 00 [facility] clonazePAM 0 2019- No Univer s 2 mg tablet 10-23-10 ity of 00:00: 00:00 [place] 00 :00 [facility] Euthyrox Euthyrox No 1 Q1D Euthyrox Swe alicja 150 mcg 150 mcg 150 mcg Commun i tablet Take tablet Take tablet ty 1 tablet 1 tablet Take 1 Hospi ta every day every day tablet l by oral by oral every day Clin ics route. route. by oral route. gabapentin gabapentin No gabapentin [place] 400 mg 400 mg 400 mg Communi capsule capsule capsule ty TAKE 1 TAKE 1 TAKE 1 Hospita CAPSULE BY CAPSULE BY CAPSULE BY l MOUTH TWICE MOUTH TWICE MOUTH Clinics A DAY A DAY TWICE A DAY hydrochloro hydrochloro No 1 Q1D hydrochlor [place] thiazide thiazide othiazide Co [facility]i 12.5 mg 12.5 mg 12.5 mg ty tablet Take tablet Take tablet Hospita 1 tablet 1 tablet Take 1 l every day every day tablet Cli nics by oral by oral every day route. route. by oral route. hydrocodone hydrocodone No 1 Q8H hydrocodon [place] 5 5 e 5 Communi mg-acetamin mg-acetamin mg-acetami ty ophen 325 ophen 325 nophen 325 Hospita mg tablet mg tablet mg tablet l Take 1 Take 1 Take 1 Clinics tablet tablet tablet every 8 every 8 every 8 hours by hours by hours by oral route. oral route. oral route. methadone methadone No methadone [place] (bulk) 110 (bulk) 110 (bulk) 110 [facility]i mg po q day mg po q day mg po q ty day Hospita l Clinics trazodone trazodone No 1 Q1D trazodone [place] 50 mg 50 mg 50 mg [facility] tablet Take tablet Take tablet ty 1 tablet 1 tablet Take 1 Hospi ta every day every day tablet l by oral by oral every day Clin ics route. route. by oral route. Adderall 10 Adderall 10 No 1 Q1D Adderall [place] mg tablet mg tablet 10 mg Comm uni Take 1 Take 1 tablet ty tablet tablet Take 1 Hospita every day every day tablet l by oral by oral every day Clin ics route. route. by oral route. amitriptyli amitriptyli No amitriptyl [place] ne 50 mg ne 50 mg ine 50 mg [facility] tablet TAKE tablet TAKE tablet ty 1 TABLET BY 1 TABLET BY TAKE 1 Hospita MOUTH MOUTH TABLET BY l EVERYDAY AT EVERYDAY AT MOUTH Clinics BEDTIME BEDTIME EVERYDAY AT BEDTIME clonazepam clonazepam No 2 BID clonazepam [place] 1 mg tablet 1 mg tablet 1 mg C [facility]i Take 2 Take 2 tablet ty tablets tablets Take 2 Hospita twice a day twice a day tablets l by oral by oral twice a Clinic s route. route. day by oral route. dextroamphe dextroamphe No dextroamph [place] tamine-amph tamine-amph etamine-am Communi etamine 20 etamine 20 phetamine ty mg tablet mg tablet 20 mg Hosp yarely TAKE 2 TAKE 2 tablet l TABLETS (40 TABLETS (40 TAKE 2 Clinics MG) BY MG) BY TABLETS MOUTH DAILY MOUTH DAILY (40 MG) BY MOUTH DAILY doxepin 50 doxepin 50 No doxepin 50 [place] mg capsule mg capsule mg capsule Communi TAKE 1 TAKE 1 TAKE 1 ty CAPSULE BY CAPSULE BY CAPSULE BY Hospita MOUTH AT MOUTH AT MOUTH AT l BEDTIME BEDTIME BEDTIME Clinic s Euthyrox Euthyrox No 1 Q1D Euthyrox [facility] 150 mcg 150 mcg 150 mcg Commun i tablet Take tablet Take tablet ty 1 tablet 1 tablet Take 1 Hospi ta every day every day tablet l by oral by oral every day Clin ics route. route. by oral route. gabapentin gabapentin No gabapentin [place] 400 mg 400 mg 400 mg [facility] capsule capsule capsule ty TAKE 1 TAKE 1 TAKE 1 Hospita CAPSULE BY CAPSULE BY CAPSULE BY l MOUTH TWICE MOUTH TWICE MOUTH Clinics A DAY A DAY TWICE A DAY hydrochloro hydrochloro No 1 Q1D hydrochlor [place] thiazide thiazide othiazide Co [facility] 12.5 mg 12.5 mg 12.5 mg ty tablet Take tablet Take tablet Hospita 1 tablet 1 tablet Take 1 l every day every day tablet Cli nics by oral by oral every day route. route. by oral route. hydrocodone hydrocodone No 1 Q8H hydrocodon [place] 5 5 e 5 Communi mg-acetamin mg-acetamin mg-acetami ty ophen 325 ophen 325 nophen 325 Hospita mg tablet mg tablet mg tablet l Take 1 Take 1 Take 1 Clinics tablet tablet tablet every 8 every 8 every 8 hours by hours by hours by oral route. oral route. oral route. methadone methadone No methadone [place] (bulk) 110 (bulk) 110 (bulk) 110 [facility] mg po q day mg po q day mg po q ty day Hospita l Clinics trazodone trazodone No 1 Q1D trazodone [place] 50 mg 50 mg 50 mg Communi tablet Take tablet Take tablet ty 1 tablet 1 tablet Take 1 Hospi ta every day every day tablet l by oral by oral every day Clin ics route. route. by oral route. acetaminoph acetaminoph No acetaminop [place] en 300 en 300 hen 300 Communi mg-codeine mg-codeine mg-codeine ty 30 mg 30 mg 30 mg Hospita tablet TAKE tablet TAKE tablet l 1 TABLET 1 TABLET TAKE 1 Clini cs EVERY 8 EVERY 8 TABLET HOURS BY HOURS BY EVERY 8 ORAL ROUTE. ORAL ROUTE. HOURS BY ORAL ROUTE. Adderall 10 Adderall 10 No 1 Q1D Adderall [place] mg tablet mg tablet 10 mg Comm uni Take 1 Take 1 tablet ty tablet tablet Take 1 Hospita every day every day tablet l by oral by oral every day Clin ics route. route. by oral route. amitriptyli amitriptyli No amitriptyl [place] ne 50 mg ne 50 mg ine 50 mg [facility] tablet TAKE tablet TAKE tablet ty 1 TABLET BY 1 TABLET BY TAKE 1 Hospita MOUTH MOUTH TABLET BY l EVERYDAY AT EVERYDAY AT MOUTH Clinics BEDTIME BEDTIME EVERYDAY AT BEDTIME clonazepam clonazepam No 2 BID clonazepam [place] 1 mg tablet 1 mg tablet 1 mg C om[facility]i Take 2 Take 2 tablet ty tablets tablets Take 2 Hospita twice a day twice a day tablets l by oral by oral twice a Clinic s route. route. day by oral route. dextroamphe dextroamphe No dextroamph [place] tamine-amph tamine-amph etamine-am Communi etamine 20 etamine 20 phetamine ty mg tablet mg tablet 20 mg Hosp yarely TAKE 2 TAKE 2 tablet l TABLETS (40 TABLETS (40 TAKE 2 Clinics MG) BY MG) BY TABLETS MOUTH DAILY MOUTH DAILY (40 MG) BY MOUTH DAILY doxepin 50 doxepin 50 No doxepin 50 [place] mg capsule mg capsule mg capsule Communi TAKE 1 TAKE 1 TAKE 1 ty CAPSULE BY CAPSULE BY CAPSULE BY Hospita MOUTH AT MOUTH AT MOUTH AT l BEDTIME BEDTIME BEDTIME Clinic s escitalopra escitalopra No escitalopr [place] m 10 mg m 10 mg am 10 mg Commu ni tablet TAKE tablet TAKE tablet ty 1 TABLET BY 1 TABLET BY TAKE 1 Hospita MOUTH EVERY MOUTH EVERY TABLET BY l DAY DAY MOUTH Clinics EVERY DAY Euthyrox Euthyrox No 1 Q1D Euthyrox Swe [facility] 150 mcg 150 mcg 150 mcg Commun i tablet Take tablet Take tablet ty 1 tablet 1 tablet Take 1 Hospi ta every day every day tablet l by oral by oral every day Clin ics route. route. by oral route. gabapentin gabapentin No gabapentin [place] 400 mg 400 mg 400 mg Communi capsule capsule capsule ty TAKE 1 TAKE 1 TAKE 1 Hospita CAPSULE BY CAPSULE BY CAPSULE BY l MOUTH TWICE MOUTH TWICE MOUTH Clinics A DAY A DAY TWICE A DAY hydrochloro hydrochloro No 1 Q1D hydrochlor [place] thiazide thiazide othiazide Co [facility] 12.5 mg 12.5 mg 12.5 mg ty tablet Take tablet Take tablet Hospita 1 tablet 1 tablet Take 1 l every day every day tablet Cli nics by oral by oral every day route. route. by oral route. hydrocodone hydrocodone No 1 Q8H hydrocodon [place] 5 5 e 5 Communi mg-acetamin mg-acetamin mg-acetami ty ophen 325 ophen 325 nophen 325 Hospita mg tablet mg tablet mg tablet l Take 1 Take 1 Take 1 Clinics tablet tablet tablet every 8 every 8 every 8 hours by hours by hours by oral route. oral route. oral route. methadone methadone No methadone [place] (bulk) 110 (bulk) 110 (bulk) 110 [facility] mg po q day mg po q day mg po q ty day [facility]ospita l Clinics trazodone trazodone No 1 Q1D trazodone [place] 50 mg 50 mg 50 mg [facility]i tablet Take tablet Take tablet ty 1 tablet 1 tablet Take 1 Hospi ta every day every day tablet l by oral by oral every day Clin ics route. route. by oral route. acetaminoph acetaminoph No acetaminop [place] en 300 en 300 hen 300 Communi mg-codeine mg-codeine mg-codeine ty 30 mg 30 mg 30 mg Hospita tablet TAKE tablet TAKE tablet l 1 TABLET 1 TABLET TAKE 1 Clini cs EVERY 8 EVERY 8 TABLET HOURS BY HOURS BY EVERY 8 ORAL ROUTE. ORAL ROUTE. HOURS BY ORAL ROUTE. Adderall 10 Adderall 10 No 1 Q1D Adderall [place] mg tablet mg tablet 10 mg Comm uni Take 1 Take 1 tablet ty tablet tablet Take 1 Hospita every day every day tablet l by oral by oral every day Clin ics route. route. by oral route. amitriptyli amitriptyli No amitriptyl [place] ne 50 mg ne 50 mg ine 50 mg [facility] tablet TAKE tablet TAKE tablet ty 1 TABLET BY 1 TABLET BY TAKE 1 Hospita MOUTH MOUTH TABLET BY l EVERYDAY AT EVERYDAY AT MOUTH Clinics BEDTIME BEDTIME EVERYDAY AT BEDTIME clonazepam clonazepam No 2 BID clonazepam [place] 1 mg tablet 1 mg tablet 1 mg C [facility]i Take 2 Take 2 tablet ty tablets tablets Take 2 Hospita twice a day twice a day tablets l by oral by oral twice a Clinic s route. route. day by oral route. dextroamphe dextroamphe No dextroamph [place] tamine-amph tamine-amph etamine-am Communi etamine 20 etamine 20 phetamine ty mg tablet mg tablet 20 mg Hosp yarely TAKE 2 TAKE 2 tablet l TABLETS (40 TABLETS (40 TAKE 2 Clinics MG) BY MG) BY TABLETS MOUTH DAILY MOUTH DAILY (40 MG) BY MOUTH DAILY doxepin 50 doxepin 50 No doxepin 50 [place] mg capsule mg capsule mg capsule Communi TAKE 1 TAKE 1 TAKE 1 ty CAPSULE BY CAPSULE BY CAPSULE BY Hospita MOUTH AT MOUTH AT MOUTH AT l BEDTIME BEDTIME BEDTIME Clinic s escitalopra escitalopra No escitalopr [place] m 10 mg m 10 mg am 10 mg Commu ni tablet TAKE tablet TAKE tablet ty 1 TABLET BY 1 TABLET BY TAKE 1 Hospita MOUTH EVERY MOUTH EVERY TABLET BY l DAY DAY MOUTH Clinics EVERY DAY Euthyrox Euthyrox No 1 Q1D Euthyrox Swe al[facility]ja 150 mcg 150 mcg 150 mcg Commun i tablet Take tablet Take tablet ty 1 tablet 1 tablet Take 1 Hospi ta every day every day tablet l by oral by oral every day Clin ics route. route. by oral route. gabapentin gabapentin No gabapentin [place] 400 mg 400 mg 400 mg Communi capsule capsule capsule ty TAKE 1 TAKE 1 TAKE 1 Hospita CAPSULE BY CAPSULE BY CAPSULE BY l MOUTH TWICE MOUTH TWICE MOUTH Clinics A DAY A DAY TWICE A DAY hydrochloro hydrochloro No 1 Q1D hydrochlor [place] thiazide thiazide othiazide Co [facility] 12.5 mg 12.5 mg 12.5 mg ty tablet Take tablet Take tablet Hospita 1 tablet 1 tablet Take 1 l every day every day tablet Cli nics by oral by oral every day route. route. by oral route. hydrocodone hydrocodone No 1 Q8H hydrocodon [place] 5 5 e 5 Communi mg-acetamin mg-acetamin mg-acetami ty ophen 325 ophen 325 nophen 325 Hospita mg tablet mg tablet mg tablet l Take 1 Take 1 Take 1 Clinics tablet tablet tablet every 8 every 8 every 8 hours by hours by hours by oral route. oral route. oral route. methadone methadone No methadone [place] (bulk) 110 (bulk) 110 (bulk) 110 [facility] mg po q day mg po q day mg po q ty day [facility]ospita l Clinics trazodone trazodone No 1 Q1D trazodone [place] 50 mg 50 mg 50 mg [facility] tablet Take tablet Take tablet ty 1 tablet 1 tablet Take 1 Hospi ta every day every day tablet l by oral by oral every day Clin ics route. route. by oral route. acetaminoph acetaminoph No acetaminop [place] en 300 en 300 hen 300 [facility]i mg-codeine mg-codeine mg-codeine ty 30 mg 30 mg 30 mg Hospita tablet Take tablet Take tablet l 1 tablet 1 tablet Take 1 Clini cs every 8 every 8 tablet hours by hours by every 8 oral route. oral route. hours by oral route. Adderall 10 Adderall 10 No 1 Q1D Adderall [place] mg tablet mg tablet 10 mg Comm uni Take 1 Take 1 tablet ty tablet tablet Take 1 Hospita every day every day tablet l by oral by oral every day Clin ics route. route. by oral route. amitriptyli amitriptyli No amitriptyl [place] ne 50 mg ne 50 mg ine 50 mg [facility] tablet TAKE tablet TAKE tablet ty 1 TABLET BY 1 TABLET BY TAKE 1 Hospita MOUTH MOUTH TABLET BY l EVERYDAY AT EVERYDAY AT MOUTH Clinics BEDTIME BEDTIME EVERYDAY AT BEDTIME clonazepam clonazepam No 2 BID clonazepam [place] 1 mg tablet 1 mg tablet 1 mg C [facility] Take 2 Take 2 tablet ty tablets tablets Take 2 Hospita twice a day twice a day tablets l by oral by oral twice a Clinic s route. route. day by oral route. dextroamphe dextroamphe No dextroamph [place] tamine-amph tamine-amph etamine-am [facility] etamine 20 etamine 20 phetamine ty mg tablet mg tablet 20 mg Hosp yarely TAKE 2 TAKE 2 tablet l TABLETS (40 TABLETS (40 TAKE 2 Clinics MG) BY MG) BY TABLETS MOUTH DAILY MOUTH DAILY (40 MG) BY MOUTH DAILY doxepin 50 doxepin 50 No doxepin 50 [place] mg capsule mg capsule mg capsule [facility]i TAKE 1 TAKE 1 TAKE 1 ty CAPSULE BY CAPSULE BY CAPSULE BY Hospita MOUTH AT MOUTH AT MOUTH AT l BEDTIME BEDTIME BEDTIME Clinic s escitalopra escitalopra No escitalopr [place] m 10 mg m 10 mg am 10 mg [facility] ni tablet TAKE tablet TAKE tablet ty 1 TABLET BY 1 TABLET BY TAKE 1 Hospita MOUTH EVERY MOUTH EVERY TABLET BY l DAY DAY MOUTH Clinics EVERY DAY Euthyrox Euthyrox No 1 Q1D Euthyrox Swe [facility]ja 150 mcg 150 mcg 150 mcg Commun i tablet Take tablet Take tablet ty 1 tablet 1 tablet Take 1 Hospi ta every day every day tablet l by oral by oral every day Clin ics route. route. by oral route. gabapentin gabapentin No gabapentin [place] 400 mg 400 mg 400 mg [facility] capsule capsule capsule ty TAKE 1 TAKE 1 TAKE 1 Hospita CAPSULE BY CAPSULE BY CAPSULE BY l MOUTH TWICE MOUTH TWICE MOUTH Clinics A DAY A DAY TWICE A DAY hydrochloro hydrochloro No 1 Q1D hydrochlor [place] thiazide thiazide othiazide Co [facility] 12.5 mg 12.5 mg 12.5 mg ty tablet Take tablet Take tablet Hospita 1 tablet 1 tablet Take 1 l every day every day tablet Cli nics by oral by oral every day route. route. by oral route. hydrocodone hydrocodone No hydrocodon [place] 5 5 e 5 Communi mg-acetamin mg-acetamin mg-acetami ty ophen 325 ophen 325 nophen 325 Hospita mg tablet mg tablet mg tablet l Take 1 Take 1 Take 1 Clinics tablet tablet tablet every 8 every 8 every 8 hours by hours by hours by oral route. oral route. oral route. methadone methadone No methadone [place] (bulk) 110 (bulk) 110 (bulk) 110 [facility] mg po q day mg po q day mg po q ty day [facility]ospita l Clinics trazodone trazodone No 1 Q1D trazodone [place] 50 mg 50 mg 50 mg [facility] tablet Take tablet Take tablet ty 1 tablet 1 tablet Take 1 Hospi ta every day every day tablet l by oral by oral every day Clin ics route. route. by oral route. Adderall 10 Adderall 10 No 1 Q1D Adderall [place] mg tablet mg tablet 10 mg Comm uni Take 1 Take 1 tablet ty tablet tablet Take 1 Hospita every day every day tablet l by oral by oral every day Clin ics route. route. by oral route. amitriptyli amitriptyli No 1 Q1D amitriptyl [place] ne 50 mg ne 50 mg ine 50 mg [facility] tablet Take tablet Take tablet ty 1 tablet 1 tablet Take 1 Hospi ta every day every day tablet l by oral by oral every day Clin ics route. route. by oral route. clonazepam clonazepam No 2 BID clonazepam [place] 1 mg tablet 1 mg tablet 1 mg C [facility] Take 2 Take 2 tablet ty tablets tablets Take 2 Hospita twice a day twice a day tablets l by oral by oral twice a Clinic s route. route. day by oral route. Euthyrox Euthyrox No 1 Q1D Euthyrox Swe [facility] 150 mcg 150 mcg 150 mcg Commun i tablet Take tablet Take tablet ty 1 tablet 1 tablet Take 1 Hospi ta every day every day tablet l by oral by oral every day Clin ics route. route. by oral route. hydrochloro hydrochloro No 1 Q1D hydrochlor [place] thiazide thiazide othiazide Co [facility] 12.5 mg 12.5 mg 12.5 mg ty tablet Take tablet Take tablet Hospita 1 tablet 1 tablet Take 1 l every day every day tablet Cli nics by oral by oral every day route. route. by oral route. methadone methadone No methadone [place] (bulk) 110 (bulk) 110 (bulk) 110 [facility] mg po q day mg po q day mg po q ty day [facility]osp[facility] l Clinics trazodone trazodone No 1 Q1D trazodone [place] 50 mg 50 mg 50 mg [facility] tablet Take tablet Take tablet ty 1 tablet 1 tablet Take 1 Hospi ta every day every day tablet l by oral by oral every day Clin ics route. route. by oral route. Adderall 10 Adderall 10 No 1 Q1D Adderall [place] mg tablet mg tablet 10 mg Comm uni Take 1 Take 1 tablet ty tablet tablet Take 1 [facility]ospita every day every day tablet l by oral by oral every day Clin ics route. route. by oral route. amitriptyli amitriptyli No 1 Q1D amitriptyl [place] ne 50 mg ne 50 mg ine 50 mg [facility] tablet Take tablet Take tablet ty 1 tablet 1 tablet Take 1 Hospi ta every day every day tablet l by oral by oral every day Clin ics route. route. by oral route. clonazepam clonazepam No 2 BID clonazepam [place] 1 mg tablet 1 mg tablet 1 mg [facility] Take 2 Take 2 tablet ty tablets tablets Take 2 Hospita twice a day twice a day tablets l by oral by oral twice a Clinic s route. route. day by oral route. Euthyrox Euthyrox No 1 Q1D Euthyrox Swe alicja 150 mcg 150 mcg 150 mcg Commun i tablet Take tablet Take tablet ty 1 tablet 1 tablet Take 1 Hospi ta every day every day tablet l by oral by oral every day Clin ics route. route. by oral route. hydrochloro hydrochloro No 1 Q1D hydrochlor [place] thiazide thiazide othiazide [facility] 12.5 mg 12.5 mg 12.5 mg ty tablet Take tablet Take tablet [facility]ospita 1 tablet 1 tablet Take 1 l every day every day tablet Cli nics by oral by oral every day route. route. by oral route. methadone methadone No methadone [place] (bulk) 110 (bulk) 110 (bulk) 110 [facility] mg po q day mg po q day mg po q ty day [facility]osp[facility] l Clinics trazodone trazodone No 1 Q1D trazodone [place] 50 mg 50 mg 50 mg [facility] tablet Take tablet Take tablet ty 1 tablet 1 tablet Take 1 Hospi ta every day every day tablet l by oral by oral every day Clin ics route. route. by oral route. Adderall 10 Adderall 10 No 1 Q1D Adderall [place] mg tablet mg tablet 10 mg Comm uni Take 1 Take 1 tablet ty tablet tablet Take 1 [facility]ospita every day every day tablet l by oral by oral every day Clin ics route. route. by oral route. amitriptyli amitriptyli No 1 Q1D amitriptyl [place] ne 50 mg ne 50 mg ine 50 mg [facility] tablet Take tablet Take tablet ty 1 tablet 1 tablet Take 1 Hospi ta every day every day tablet l by oral by oral every day Clin ics route. route. by oral route. clonazepam clonazepam No 2 BID clonazepam [place] 1 mg tablet 1 mg tablet 1 mg [facility] Take 2 Take 2 tablet ty tablets tablets Take 2 [facility]ospita twice a day twice a day tablets l by oral by oral twice a Clinic s route. route. day by oral route. Euthyrox Euthyrox No 1 Q1D Euthyrox Swe alicja 150 mcg 150 mcg 150 mcg Commun i tablet Take tablet Take tablet ty 1 tablet 1 tablet Take 1 Hospi ta every day every day tablet l by oral by oral every day Clin ics route. route. by oral route. hydrochloro hydrochloro No 1 Q1D hydrochlor [place] thiazide thiazide othiazide [facility] 12.5 mg 12.5 mg 12.5 mg ty tablet Take tablet Take tablet [facility]ospita 1 tablet 1 tablet Take 1 l every day every day tablet Cli nics by oral by oral every day route. route. by oral route. hydrocodone hydrocodone No 1 Q8H hydrocodon [place] 5 5 e 5 [facility] mg-acetamin mg-acetamin mg-acetami ty ophen 325 ophen 325 nophen 325 [facility]ospita mg tablet mg tablet mg tablet l Take 1 Take 1 Take 1 Clinics tablet tablet tablet every 8 every 8 every 8 hours by hours by hours by oral route. oral route. oral route. methadone methadone No methadone [place] (bulk) 110 (bulk) 110 (bulk) 110 [facility] mg po q day mg po q day mg po q ty day [facility] l [facility] trazodone trazodone No 1 Q1D trazodone [place] 50 mg 50 mg 50 mg [facility] tablet Take tablet Take tablet ty 1 tablet 1 tablet Take 1 Hospi ta every day every day tablet l by oral by oral every day Clin ics route. route. by oral route. Adderall 10 Adderall 10 No 1 Q1D Adderall [place] mg tablet mg tablet 10 mg Comm uni Take 1 Take 1 tablet ty tablet tablet Take 1 Hospita every day every day tablet l by oral by oral every day Clin ics route. route. by oral route. amitriptyli amitriptyli No amitriptyl [place] ne 50 mg ne 50 mg ine 50 mg Co m[facility]i tablet TAKE tablet TAKE tablet ty 1 TABLET BY 1 TABLET BY TAKE 1 Hospita MOUTH MOUTH TABLET BY l EVERYDAY AT EVERYDAY AT MOUTH Clinics BEDTIME BEDTIME EVERYDAY AT BEDTIME clonazepam clonazepam No 2 BID clonazepam [place] 1 mg tablet 1 mg tablet 1 mg C ommuni Take 2 Take 2 tablet ty tablets tablets Take 2 Hospita twice a day twice a day tablets l by oral by oral twice a Clinic s route. route. day by oral route. dextroamphe dextroamphe No dextroamph [place] tamine-amph tamine-amph etamine-am Communi etamine 20 etamine 20 phetamine ty mg tablet mg tablet 20 mg Hosp yarely TAKE 2 TAKE 2 tablet l TABLETS (40 TABLETS (40 TAKE 2 Clinics MG) BY MG) BY TABLETS MOUTH DAILY MOUTH DAILY (40 MG) BY MOUTH DAILY doxepin 50 doxepin 50 No doxepin 50 [place] mg capsule mg capsule mg capsule Communi TAKE 1 TAKE 1 TAKE 1 ty CAPSULE BY CAPSULE BY CAPSULE BY Hospita MOUTH AT MOUTH AT MOUTH AT l BEDTIME BEDTIME BEDTIME Clinic s Immunizations Ordered Filled Immunization Date Status Comments Sour e Immunization Name Name TDAP (ADACEL) 2019-01-27 Completed University [facility] VACCINE 00:00:00 [facility] TDAP (ADACEL) 2019-01-27 Completed [facility] VACCINE 00:00:00 [facility] TDAP (ADACEL) 2019-01-27 Completed University of VACCINE 00:00:00 [facility] TDAP (ADACEL) 2019-01-27 Completed [facility] of VACCINE 00:00:00 [facility] TDAP (ADACEL) 2019-01-27 Completed [facility] of VACCINE 00:00:00 [facility] TDAP (ADACEL) 2019-01-27 Completed [facility] of VACCINE 00:00:00 [facility] TDAP (ADACEL) 2019-01-27 Completed [facility] of VACCINE 00:00:00 [facility] TDAP (ADACEL) 2019-01-27 Completed [facility] of VACCINE 00:00:00 [facility] TDAP (ADACEL) 2019-01-27 Completed [facility] of VACCINE 00:00:00 [facility] TDAP (ADACEL) 2019-01-27 Completed [facility] of VACCINE 00:00:00 [facility] TDAP (ADACEL) 2019-01-27 Completed [facility] of VACCINE 00:00:00 [facility] TDAP (ADACEL) 2019-01-27 Completed University of VACCINE 00:00:00 [facility] TDAP (ADACEL) 2019-01-27 Completed University of VACCINE 00:00:00 [facility] TDAP (ADACEL) 2019-01-27 Completed [facility] of VACCINE 00:00:00 [facility] TDAP (ADACEL) 2019-01-27 Completed [facility] of VACCINE 00:00:00 [facility] TDAP (ADACEL) 2019-01-27 Completed [facility] of VACCINE 00:00:00 [facility] TDAP (ADACEL) 2019-01-27 Completed [facility] of VACCINE 00:00:00 [facility] TDAP (ADACEL) 2019-01-27 Completed [facility] VACCINE 00:00:00 [facility] TDAP (ADACEL) 2019-01-27 Completed [facility] of VACCINE 00:00:00 [facility] TDAP (ADACEL) 2019-01-27 Completed [facility] of VACCINE 00:00:00 [facility] TDAP (ADACEL) 2019-01-27 Completed [facility] of VACCINE 00:00:00 [facility] TDAP (ADACEL) 2019-01-27 Completed [facility] of VACCINE 00:00:00 [facility] TDAP (ADACEL) 2019-01-27 Completed [facility] of VACCINE 00:00:00 [facility] TDAP (ADACEL) 2019-01-27 Completed [facility] of VACCINE 00:00:00 [facility] TDAP (ADACEL) 2019-01-27 Completed [facility] of VACCINE 00:00:00 [facility] TDAP (ADACEL) 2019-01-27 Completed [facility] of VACCINE 00:00:00 [facility] TDAP (ADACEL) 2019-01-27 Completed University of VACCINE 00:00:00 [facility] Vital Signs Vital Name Observation Time Observation Value Comments Source Systolic blood 2021-12-02 07:46:00 130 mm[Hg] Univer sity of pressure [facility] Diastolic blood 2021-12-02 07:46:00 85 mm[Hg] Unive rsity of pressure [facility] Heart rate 2021-12-02 07:46:00 79 /min [facility] Respiratory rate 2021-12-02 07:46:00 20 /min [facility] Oxygen saturation in 2021-12-02 07:46:00 99 /min [facility] Arterial blood by [facility] Pulse oximetry Branch Body temperature 2021-12-01 20:53:00 36.67 Oksana [facility] Body weight 2021-12-01 20:53:00 102.059 kg [facility] BMI 2021-12-01 20:53:00 43.94 kg/m2 [facility] Height 2021-03-09 00:00:00 60 [in_i] [facility] BMI (Body Mass 2021-03-09 00:00:00 43 kg/m2 [facility] Body Weight 2021-03-09 00:00:00 3520 [oz_av] [facility] s BP Diastolic 2020-12-08 00:00:00 88 mm[Hg] [facility] s Height 2020-12-08 00:00:00 60 [in_i] [facility] s BMI (Body Mass 2020-12-08 00:00:00 39.5 kg/m2 [facility] s BP Systolic 2020-12-08 00:00:00 122 mm[Hg] [facility] s Body Weight 2020-12-08 00:00:00 3232 [oz_av] [facility] s Systolic blood 2020-08-20 02:00:00 133 mm[Hg] Univer sity of pressure [facility] Diastolic blood 2020-08-20 02:00:00 98 mm[Hg] [facility]ive [facility] Heart rate 2020-08-20 02:00:00 80 /min [facility] Respiratory rate 2020-08-20 02:00:00 17 /min [facility] Oxygen saturation in 2020-08-20 02:00:00 96 /min [facility] Arterial blood by [facility] Pulse oximetry Branch Body weight 2020-08-19 22:02:00 90.719 kg [facility] BMI 2020-08-19 22:02:00 39.06 kg/m2 [facility] Body temperature 2020-08-19 21:57:00 37 [facility]ana [facility] blood 2020-05-25 13:45:00 146 mm[Hg] Univer sity of pressure [facility] Diastolic blood 2020-05-25 13:45:00 96 mm[Hg] Unive rsity of pressure [facility] Heart rate 2020-05-25 13:45:00 89 /min [facility] Body temperature 2020-05-25 13:45:00 36.39 Oksana [facility] Respiratory rate 2020-05-25 13:45:00 18 /min Univ ersity of [facility] Body weight 2020-05-25 13:45:00 81.647 kg [facility] BMI 2020-05-25 13:45:00 35.15 kg/m2 [facility] Oxygen saturation in 2020-05-25 13:45:00 97 /min University of Arterial blood by [facility] Pulse oximetry Branch Systolic blood 2020-04-09 21:48:00 119 mm[Hg] Univer sity of pressure [facility] Diastolic blood 2020-04-09 21:48:00 94 mm[Hg] Unive rsity of pressure [facility] Heart rate 2020-04-09 21:48:00 77 /min [facility] Respiratory rate 2020-04-09 21:48:00 16 /min Univ ersity [facility] Oxygen saturation in 2020-04-09 21:48:00 96 /min University of Arterial blood by [facility] Pulse oximetry Branch Body temperature 2020-04-09 19:02:10 36.28 Oksana Univ [facility] Body weight 2020-04-09 19:02:10 81.647 kg [facility] Systolic blood 2020-03-30 14:27:00 127 mm[Hg] Univer sity of pressure [facility] Diastolic blood 2020-03-30 14:27:00 83 mm[Hg] Unive rsity of pressure [facility] Heart rate 2020-03-30 14:27:00 77 /min [facility] Body temperature 2020-03-30 14:27:00 37.28 Oksana [facility] Respiratory rate 2020-03-30 14:27:00 16 /min Univ ers[facility] Body height 2020-03-30 14:27:00 152.4 cm [facility] Body weight 2020-03-30 14:27:00 85.186 kg [facility] BMI 2020-03-30 14:27:00 36.68 kg/m2 [facility] Oxygen saturation in 2019-02-25 13:00:00 98 /min University of Arterial blood by [facility] Pulse oximetry Branch Systolic blood 2019-02-25 13:00:00 138 mm[Hg] Univer sity of pressure [facility] Diastolic blood 2019-02-25 13:00:00 73 mm[Hg] Unive rsity of pressure [facility] Heart rate 2019-02-25 13:00:00 70 /min [facility] Body temperature 2019-02-25 13:00:00 36.72 Oksana [facility] Respiratory rate 2019-02-25 13:00:00 20 /min Univ [facility] Body height 2019-02-18 15:51:00 152.4 cm [facility] Body weight 2019-02-18 15:51:00 92.534 kg [facility] BMI 2019-02-18 15:51:00 39.84 kg/m2 [facility] Systolic blood 2019-01-27 20:21:00 122 mm[Hg] Univer sity of [facility] Diastolic blood 2019-01-27 20:21:00 68 mm[Hg] Unive rsity of [facility] Heart rate 2019-01-27 20:21:00 62 /min [facility] Body temperature 2019-01-27 20:21:00 36.94 Oksana [facility] Respiratory rate 2019-01-27 20:21:00 16 /min Univ [facility] Body height 2019-01-27 20:21:00 152.4 cm [facility] Body weight 2019-01-27 20:21:00 89.812 kg [facility] BMI 2019-01-27 20:21:00 38.67 kg/m2 [facility] Oxygen saturation in 2019-01-25 02:00:00 100 /min University Arterial blood by [facility] Pulse oximetry Branch Systolic blood 2019-01-25 02:00:00 122 mm[Hg] Univer sity of [facility] Diastolic blood 2019-01-25 02:00:00 81 mm[Hg] Unive rsity of [facility] Heart rate 2019-01-25 02:00:00 92 /min [facility] Body temperature 2019-01-25 02:00:00 36.56 Oksana [facility] Respiratory rate 2019-01-25 02:00:00 18 /min Univ ers[facility] Body height 2019-01-24 09:34:00 152.4 cm [facility] Body weight 2019-01-24 09:34:00 81.647 kg [facility] BMI 2019-01-24 09:34:00 35.15 kg/m2 [facility] Procedures Procedure Date / Time Performing Clinician Source Performed CT ANGIOGRAM 2021-12-02 04:58:25 Amanda Camilo [facility] ABDOMEN/PELVIS [facility] URINALYSIS 2021-12-02 04:28:00 Amanda Camilo [facility] LIPASE 2021-12-02 01:51:00 Amanda Camilo [facility] TEST, SERUM 2021-12-02 01:51:00 Amanda Camilo [facility] COMP. METABOLIC PANEL 2021-12-02 01:51:00 Amanda Camilo [facility] ([id number]) [facility] CBC WITH DIFF 2021-12-02 01:50:00 Amanda Camilo [facility] CONSENT/REFUSAL FOR 2021-12-01 20:48:21 Doctor Unassigned, No Un [facility] DIAGNOSIS AND TREATMENT Name Medical Branch Laparoscopic Umbilical 2021-05-30 00:00:00 [facility] Hernia Repair (Surg) [facility], abdomen + pelvis, w/o 2021-04-25 00:00:00 [facility] US, abdomen 2020-12-08 00:00:00 [facility] US, gallbladder 2020-12-08 00:00:00 [facility] CT ABDOMEN PELVIS W 2020-08-19 23:43:26 Diana Husain [facility] CONTRAST [facility] LIPASE 2020-08-19 22:59:00 Diana Husain [facility] TROPONIN I 2020-08-19 22:59:00 Diana Husain [facility] COMP. METABOLIC PANEL 2020-08-19 22:59:00 Diana Husain [facility] ([id number]) Medical Branch CBC WITH DIFF 2020-08-19 22:59:00 Diana Husain [facility] URINALYSIS 2020-08-19 22:59:00 Diana Husain [place] [place] [facility] POCT TEST 2020-08-19 22:59:00 Diana Husain [facility] CT ABDOMEN PELVIS W 2020-05-25 15:16:42 [facility] LIPASE 2020-05-25 14:21:00 Veronica Sanchez [facility] TEST, SERUM 2020-05-25 14:21:00 Laura [facility] HEPATIC FUNCTION PANEL 2020-05-25 14:21:00 Veronica Sanchez [facility] ([id number]) (ALB,T.PRO,[facility] T,BU/BC,ALT,AST,ALK PHOS) BASIC METABOLIC PANEL 2020-05-25 14:21:00 Laura [facility] (NA, K, CL, CO2, GLUCOSE, Medica l Branch BUN, CREATININE, CA) CBC WITH DIFF 2020-05-25 14:21:00 Veronica Sanchez [facility] URINALYSIS 2020-05-25 14:21:00 Veronica Sanchez [facility] CT ABDOMEN PELVIS W 2020-04-09 19:47:06 Lay Montelongo [facility] XR CHEST 1 VW 2020-04-09 19:40:35 Lay Montelongo [facility] CT CERVICAL SPINE WO 2020-04-09 19:40:15 Lay Montelongo [facility] CT HEAD WO CONTRAST 2020-04-09 19:40:15 Lay Montelongo [facility] BASIC METABOLIC PANEL 2020-04-09 19:11:00 Lay Montelongo [facility] (NA, K, CL, CO2, GLUCOSE, Medica l Branch BUN, CREATININE, CA) CBC WITH DIFF 2020-04-09 19:11:00 Lay Montelongo [facility] CONSENT/REFUSAL FOR 2020-03-30 14:07:13 Doctor Unassigned, No Un [facility] DIAGNOSIS AND TREATMENT Name Medical Branch STERILIZATION CONSENT 2019-03-04 05:01:00 Doctor Unassigned, No [facility] CBC WITH DIFFERENTIAL 2019-02-25 10:58:[address] [facility] PREPARE PACKED RBC 2019-02-24 17:02:09 Charlee Reeves [facility] CBC WITH DIFFERENTIAL 2019-02-24 10:42:00 Isael Mcfarland [facility] TUBAL LIGATION 2019-02-24 02:07:00 Cameron Alatorre [facility] VENOUS CORD GAS 2019-02-23 20:44:00 Isael Mcfarland [facility] CBC WITH DIFFERENTIAL 2019-02-23 16:47:00 Chiquis Nuno [facility] PROTHROMBIN TIME / INR 2019-02-23 16:47:00 Ludy De La Cruz [facility] D-DIMER 2019-02-23 16:47:00 Jane De La Cruzmary [facility] ACTIVATED PARTIAL 2019-02-23 16:47:00 Ludy De La Cruz [facility] FIBRINOGEN 2019-02-23 16:47:00 Jane De La Cruzmary [facility] URINALYSIS 2019-02-23 07:09:00 Shyann Aguilar Ale [facility] PROTEIN CREAT RATIO URINE 2019-02-23 07:09:00 Shyann Aguilar [facility] PROFILE / HEMOGRAM 2019-02-23 06:37:00 [facility]OT[facility] / INR 2019-02-23 06:37:00 Shyann Aguilar Apri l [facility] ACTIVATED PARTIAL 2019-02-23 06:37:00 Shyann Aguilar September [facility] FIBRINOGEN 2019-02-23 06:37:00 Shyann Aguilar Ale [facility] SGOT (ASPARTATE AMINO 2019-02-23 05:06:00 Shyann Aguilar September [facility] TRANSFER) [facility] CREATININE 2019-02-23 05:06:00 Shyann Aguilar [facility] ALANINE AMINO 2019-02-23 05:06:00 Shyann Aguilar September [facility] TRANSFERASE(SGPT [facility] LACTATE DEHYDROGENASE 2019-02-23 05:06:00 Shyann Aguilar September [facility] URIC ACID 2019-02-23 05:06:00 Shyann Aguilar September [facility] CBC WITH DIFFERENTIAL 2019-02-23 05:06:00 Shyann Aguilar September [facility] TYPE AND SCREEN 2019-02-22 02:09:00 Charlee Reeves [facility] RHO (D) IMMUNE GLOBULIN 2019-02-22 02:09:00 Isael Mcfarland [facility] NON-STRESS TEST 2019-02-21 22:58:23 Nikunj Payan [facility] SECOND AND THIRD 2019-02-20 21:03:00 Hermilo Parham [facility] TRIMESTER ULTRASOUND [facility] NON-STRESS TEST 2019-02-20 13:07:39 Shyann Aguilar September [facility] RADIOLOGY DOCUMENTATION 2019-02-20 05:01:00 Doctor Unassigned, N o [facility] GLUCOSE 1 HOUR POST 2019-02-19 17:47:00 [facility] FERR[facility] SERUM 2019-02-19 17:46:00 Shyann Aguilar Ale [facility] IRON 2019-02-19 17:46:00 Shyann Aguilar September [facility] TRANSFERRIN 2019-02-19 17:46:00 Shyann Aguilar [facility] TOTAL IRON BINDING 2019-02-19 17:46:00 [facility]yann [facility] 2019-02-19 16:40:11 Shyann Aguilar Ale [facility] HEPATITIS B SURFACE 2019-02-18 17:35:00 [facility] ANTIGEN [facility] HIV 1/2 AG-AB WITH REFLEX 2019-02-18 17:35:00 Lori Armstrong [facility] GALV ONLY - SYPHILIS 2019-02-18 17:35:00 Lori Armstrong [facility] IGG/IGM Medical Branch TYPE AND SCREEN 2019-02-18 17:33:00 Lori Armstrong [facility] GALV/CLC ONLY - URINE 2019-02-18 17:25:00 Lori Armstrong [facility] DRUG (IMMUNOASSAY) - [facility] COMPREHENSIVE DRUG SCREEN CBC WITH DIFFERENTIAL 2019-02-18 17:25:00 Lori Armstrong [facility] URINALYSIS 2019-02-18 17:25:00 Lori Armstrong [facility] URINE CULTURE 2019-02-18 17:25:00 Lori Armstrong [facility] GC & CHLAMYDIA AMPLIFIED 2019-02-18 17:25:00 Lori Armstrong [facility] ASSAY [facility] GROUP B STREPTOCOCCUS BY 2019-02-18 17:25:00 Lori Armstrong [facility] PCR [facility] URINE DRUG (LCMSMS) - 2019-02-18 17:25:00 Lori Armstrong [facility] SYNTHETIC OPIATES PANEL [facility] URINE DRUG (LCTXMS) - 2019-02-18 17:25:00 Lori Armstrong [facility] BENZODIAZEPINES PANEL Medical Br anch EXTERNAL PROVIDER RECORDS 2019-01-29 05:01:00 Doctor Unassigned, No [facility] Name [facility] TDAP (ADACEL) 2019-01-27 20:30:38 Maggie Montelongo [facility] IMMUNIZATION [facility] POCT URINALYSIS W/O 2019-01-27 20:21:00 Maggie Montelongo [facility] SPECIFIC GRAVITY [facility] STERILIZATION CONSENT 2019-01-27 05:01:00 Doctor Unassigned, No [facility] Name [facility] THYROID STIMULATING 2019-01-25 02:42:00 Hema Ivey Univer sity [facility] PROFILE / HEMOGRAM 2019-01-25 02:42:00 Hema Ivey ity [facility] CBC WITH DIFFERENTIAL 2019-01-24 11:38:00 Sergio Rey Un iversity [facility] TYPE AND SCREEN 2019-01-24 11:34:00 Sergio Rey ty [facility] Plan of Care Planned Activity Planned Date Details Comments Source Diagnostic Test 2020-12-08 CBC [code = CBC] [place] [facility] Pending 00:00:00 Hospital Clinic s Diagnostic Test 2020-12-08 CMP, serum or [place] Comm unity Pending 00:00:00 plasma [code = Hospital Clin ics CMP, serum or plasma] Encounters Start End Encounter Admission Attending Care Care Encounter Source Date/Time Date/Time Type Type Clinicians Facility Department ID 2021-11-29 Outpatient KALINA [facility] [id number] [facility] 04:44:10 CAESA [id number] 2021-11-28 Outpatient [facility] [id number] [place] 12:12:41 [id number] [facility] 2021-04-16 Emergency [facility] [id number] Univers 03:41:23 ity of [facility] 2021-04-15 Emergency [facility] [id number] Univers 10:05:45 ity [facility] 2021-12-01 2021-12-02 Emergency X [facility] ERT [id number] Univers 15:55:00 02:53:00 fredrick MONROYy [facility] 2021-12-01 2021-12-02 Emergency Amanda Camilo R TRAUMA [id number] Univers 15:55:00 02:53:00 [facility] 350. [id number] [id number] [address] 2021-09-07 2021-09-07 Outpatient KOFRANCHESCAEV_T [facility] [id number] [place] 02:14:00 02:14:00 [id number] [facility] 2021-06-12 2021-06-12 Outpatient KOVACEV_T [facility] [place] 09:40:00 09:40:00 1227 [facility] 2021-06-01 2021-06-01 Outpatient KOVACEV_T [facility] [place] 02:56:00 02:56:00 1216 Commun i ty Hospita [facility] Clinics 2021-05-30 2021-05-30 Alexandra [facility] [place] [facility] [place] [id number] [place] 00:00:00 00:00:00 [facility], Hospital - ty MD: 305 NSarina [facility] [phone] SURGERY , Ph. 2021-05-30 2021-05-30 Outpatient Kathy, [facility] [id number] 00:00:00 00:00:00 Alexandra [id number] [place] [id number] 2021-05-18 2021-05-18 Outpatient KOVACEV_T [facility] [place] 09:12:00 09:12:00 [id number] 2021-05-18 2021-05-18 Alexandra [facility] [place] [id number] [place] 00:00:00 00:00:00 [facility] Hospital - ty MD: [address] [place] [facility] [place] [address] , Ph. 2021-05-18 2021-05-18 Outpatient Kathy, [facility] [id number] 00:00:00 00:00:00 Alexandra [id number] Sch[place]z [id number] 2021-05-15 2021-05-15 Outpatient KOVACEV_T [facility] [id number] [place] 10:23:00 10:23:00 [id number] Commun i ty [facility]osp[facility] Clinics 2021-03-24 2021-03-24 Outpatient KOVACEV_T [facility] [id number] [place] 05:34:00 05:34:00 1008 Commun i ty Hospita [facility] Clinics 2021-03-23 2021-03-23 Letter Nurse, Obi [facility] [id number] Univers 00:00:00 00:00:00 (Out) Db [facility] [id number] ity of Care [place] [id number] Jorge L as John?Blea [id number] [address] Medical Office [facility] 2021-03-22 2021-03-22 Telephone ABDIRAHMAN Garza [id number] Univers 00:00:00 00:00:00 Aneatrice BART [id number] ity of HOSPITAL [id number] Jorge L as [id number] [address] 2021-03-21 2021-03-21 Outpatient R [facility] [id number] Univers 15:00:00 15:00:00 ity of [facility] 2021-03-21 2021-03-21 Laboratory Only, Obi Turner Test [facility] [id number] Univers 14:37:09 14:52:09 Only Song, [facility] [id number] ity of [place] [id number] Jorge L as John?Blea [id number] [address] 2021-03-21 2021-03-21 Letter Doctor ABDIRAHMAN [id number] Univers 00:00:00 00:00:00 (Out) Unassigned, BART [id number] ity of [place] [facility] [id number] Jorge L as [id number] [address] 2021-03-21 2021-03-21 Letter Doctor GARY [id number] Univers 00:00:00 00:00:00 (Out) Unassigned, BART [id number] ity of [place] [facility] [id number] Jorge L as [id number] [address] 2021-03-092021-03-09 Outpatient KOVACEV_T [facility] [id number] [place] 12:42:00 12:42:00 0923 Commun i ty Hospita [facility] Clinics 2021-03-09 2021-03-09 Outpatient Kathy [facility] [id number] 00:00:00 00:00:00 Alexandra [id number] Schmitz [id number] 2021-03-09 2021-03-09 [facility] [id number] 00:00:00 00:00:00 Alexandra [id number] [place] [id number] 2021-03-09 2021-03-09 Alexandra [facility] [place] [facility] [place] 00:00:00 00:00:00 [facility] MD: [address] [facility] Christopher, Specialty l [address], [place] [address] , Ph. 2021-03-06 2021-03-06 Outpatient KOVACEV_T [facility] [id number] [place] 03:31:00 03:31:00 0920 Commun i ty Hospita l [facility] 2021-02-21 2021-02-21 Outpatient KOVACEV_T [facility] [id number] [place] 05:58:00 05:58:00 0907 [facility] 2021-02-16 2021-02-16 Outpatient KOVACEV_T [facility] [id number] [place] 09:19:00 09:19:00 0902 [facility] 2021-02-16 2021-02-16 [facility] [id number] 00:00:00 00:00:00 Alexandra [id number] Schmitz [id number] 2021-02-16 2021-02-16 Alexandra [facility] [place] 00:[place]00 00:00:00 [facility] MD: [address] [place] [facility] Christopher, Special[address], [place] [address] , Ph. 2021-01-14 2021-01-14 Outpatient KOVACEV_T [facility] [id number] [place] 06:56:00 06:56:00 [address] [facility] 2021-01-03 2021-01-03 Outpatient Kofranchescaev, [facility] [id number] 00:00:00 00:00:00 Alexandra [id number] Schmitz [id number] 2021-01-03 2021-01-03 Alexandra [facility] [place] 00:00:00 00:00:00 [facility] MD: [address] [facility] [address] [facility] , Ph. 2020-12-28 2020-12-28 Outpatient KOVACEV_T [facility] [place] 06:12:00 06:12:00 [address] 2020-12-20 2020-12-20 Outpatient KOVACEV_T [facility] [id number] [place] 10:47:00 10:47:00 [address] [facility] 2020-12-20 2020-12-20 Outpatient Kofranchescaev, [facility] [id number] 00:00:00 00:00:00 Alexandra [id number] Schmitz [id number] 2020-12-20 2020-12-20 [facility] [place] 00:00:00 00:00:00 [facility] - ty MD: [address] [place] [facility] Christopher, Specialty [address], [place] [address] , Ph. 2020-12-08 2020-12-08 Outpatient KOVACEV_T [facility] [id number] [place] 11:03:00 11:03:00 0624 [facility] 2020-12-08 2020-12-08 Outpatient Farhanfranchescashannen [facility] [id number] 00:00:00 00:00:00 Alexandra [id number] [place] [id number] 2020-12-08 2020-12-08 [facility] [place] [place] 00:00:00 00:00:00 [facility] MD: Erma NSarina EdwardsLouis[place] [facility] Christopher, Specialty [address], [place] [address] , Ph. 2020-11-18 2020-11-18 Outpatient KATHY_T [facility] [id number] [place] 05:05:00 05:05:00 0604 [facility] 2020-08-19 2020-08-19 Emergency Lisha, K [facility] 1.2.840.114 [id number] Univers 15:52:00 20:28:00 Marisa Padroni 350.1.13.10 i ty of [place] [phone] [facility] [address] 2020-05-25 2020-05-25 Emergency Laura, TRAUMA 1.2.840.114 [id number] Univers 07:46:00 10:56:00 Veronica S CENTER 350.1.13.10 [place] [phone] [facility] [address] 2020-04-19 2020-04-19 Outpatient R BE, [facility] [id number] Univers 10:00:00 10:00:00 KELSEY scott o f [facility] 2020-04-14 2020-04-14 Outpatient R DIONE, [facility] [id number] Univers 07:45:00 07:45:00 HERMILO scott o f [facility] 2020-04-09 2020-04-09 Emergency [facility] 1.2.840.114 [id number] Univers 13:58:00 16:50:00 Lay Lees 350.1.13.10 ity [facility] 4.2.7.2.686 [facility] [phone] [facility] [address] [place] 2020-04-09 2020-04-09 Emergency [facility] [id number] Univers 13:58:00 16:50:00 LAY ity [facility] 2020-04-09 2020-04-09 Emergency X [facility] ERT [id number] Univers 13:58:00 13:58:00 [facility] 2020-04-01 2020-04-01 [facility] 1.2.328.370 [id number] Univers 00:00:00 00:00:00 Hermilo Everett [employer] 350.1.13.10 ity [facility] 4.2.7.2.686 Jorge L as MATERNAL [phone] Med ical & CHILD [address] [place] [address] 2020-03-30 2020-03-30 Office [facility] 1.2.840.114 [id number] Univers 09:09:43 09:44:16 Visit Hermilo Everett [employer] 350.1.13.10 ity [facility] 4.2.7.2.686 Jorge L as MATERNAL [phone] [facility] & [address] 2020-03-30 2020-03-30 [facility] [id number] Univers 09:15:00 09:15:00 HERMILO scott o f [facility] 2020-03-30 2020-03-30 Orders Doctor GARY 1.2.840.114 [id number] Univers 00:00:00 00:00:00 Only UnassignedBART 350.1.13.[address] [facility] 4.2.7.2.686 Jorge L as [id number] [facility] [address] 2019-03-04 2019-03-04 Orders Doctor GARY 1.2.840.114 [id number] Univers 00:00:00 00:00:00 Only UnassignedLULÚY 350.1.13.10 ity of [facility] 4.2.7.2.686 Jorge L as [phone] [facility] [address] 2019-02-18 2019-02-25 Hospital ABDIRAHMAN Nuno 1.2.840.114 [id number] Univers 10:17:00 13:11:00 Encounter Chiquis ARRIAGA 350.1.13.10 ity of [facility] 4.2.7.2.686 Jorge L as [id number] [facility] [address] 2019-02-24 2019-02-24 Telephone [facility] 1.2.840.114 [id number] Univers 00:00:00 00:00:00 Maggie Saeed [employer] 350.1.13.10 it y of [facility] 4.2.7.2.686 Jorge L as MATERNAL [phone] [facility] & CHILD [address] [place] [address] 2019-02-20 2019-02-20 Manager Books 2, [facility] Room UNIVERSIT 1 .2.840.114 [id number] Univers 13:54:50 16:16:25 Visit Bradley Hayden [facility] 350.1.13.10 ity of [facility] 4.2.7.[place] [phone] [facility] [address] [place] 2019-02-17 2019-02-17 Telephone Faculty, [facility] 1.2.840.114 [id number] Univers 00:00:00 00:00:00 Obi chp [employer] 350.1.13.10 ity of [facility] 4.2.7.2.686 Jorge L as MATERNAL [phone] [facility] & CHILD [address] [place] [address] 2019-02-15 2019-02-15 Niles Montelongo [facility] [id number] Univers 00:00:00 00:00:00 Maggie Saeed [employer] 350.1.13.10 it y of [facility] 4.2.7.2.686 Jorge L as MATERNAL [phone] [facility] & CHILD [address] [place] [address] 2019-02-05 2019-02-05 Telephone Faculty, [facility] 1.2.840.114 [id number] Univers 00:00:00 00:00:00 Ang Rmchp [employer] 350.1.13.10 ity of [facility] 4.2.7.2.686 Jorge L as MATERNAL [phone] [facility] & CHILD [address] [place] [address] 2019-01-29 2019-01-29 Orders Doctor ABDIRAHMAN 1.2.840.114 [id number] Univers 00:00:00 00:00:00 Only Unassigned, BART 350.1.13.10 ity of [facility] 4.2.7.2.686 Jorge L as [phone] [facility] [address] [place] 2019-01-27 2019-01-27 Routine [facility] 1.2.139.844 [id number] Univers 14:59:47 16:01:58 Maggie Saeed [employer] 350.1.13.10 i ty of [facility] 4.2.7.2.686 Jorgel as MATERNAL [phone] [facility] & CHILD [address] [place] [address] 2019-01-27 2019-01-27 Orders Doctor ABDIRAHMAN 1.2.840.114 [id number] Univers 00:00:00 00:00:00 Only Unassigned, BART 350.1.13.10 ity of [facility] 4.2.7.2.686 Jorge L as [id number] [facility] [address] [place] 2019-01-23 2019-01-24 [facility] EugeneABDIRAHMAN 1.2.934.329 [id number] Univers 23:55:59 23:15:00 Encounter Aracely BART 350.1.13.10 ity of [facility] 4.2.7.2.686 Jorge L as [phone] [facility] [address]23 [place] 2019-01-16 2019-01-16 Telephone Jadyn [facility] 1.2.840.114 [id number] Univers 00:00:00 00:00:00 Ang Rmchp [employer] 350.1.13.10 ity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 code 0.89 mg/dL 0.5-1.04 = 2774904580) CALCIUM (test code = 9.5 mg/dL 8.6-10.6 6934245780) eGFR Calculation mL/min/1.73m2 (Non-) (test code = 3785741020) eGFR Calculation mL/min/1.73m2 () (test code = 2588705437) BRODY (test code = BRODY) Association of [...] or urine or abnormalities in imaging tests). General acute hospital with [id number] 19:22:00 Test Item Value Reference Range Interpretation Comments WBC (test code = See_Comment [Automated message] 6690-2) The system REscour generated this result transmitted ref erence range: 4.30 - 1 1.10 10*3/?L. The re ference range was not u sed to interpret this result as normal/abnor mal. RBC (test code = See_Comment [Automated message] 349-8) The system REscour generated this result transmitted ref erence range: [...] RDW-SD (test code 42.7 fL 39-49.9 = 02196-8) RDW-CV (test code 13.1 % 12-15.5 = 788-0) PLT (test code = See_Comment [Automated message] 177-3) The system REscour generated this result transmitted ref erence range: 166 - 35 8 10*3/?L. The re ference range was not u sed to interpret this result as normal/abnor mal. MPV (test code = 10.5 fL 9.5-12.9 45375-8) NRBC/100 WBC (test See_Comment [Automat ed message] code = 3833408644) The syste m which generated this result transmitted ref erence range: 0.0 - 10 .0 /100 WBCs. The refer ence range was not u sed to interpret this result as normal/abnor mal. NRBC x10^3 (test <0.01 See_Comment [Automated message] code = 2930225258) The syste m which generated this result transmitted ref erence range: 10*3/?L. The reference range was not used to interpr et this result as normal/abnormal . GRAN MAT (NEUT) % 57.4 % (test code = 770-8) IMM GRAN % (test 0.50 % code = 4399155275) LYMPH % (test code 31.5 % = 736-9) MONO % (test code 7.7 % = 5905-5) EOS % (test code = 2.2 % 713-8) BASO % (test code 0.7 % = 706-2) GRAN MAT 3.43 10*3/uL 1.88-7.09 x10^3(ANC) (test code = 8450085211) IMM GRAN x10^3 0.03 10*3/uL 0-0.06 (test code = 9984182890) LYMPH x10^3 (test 1.88 10*3/uL 1.32-3.29 code = 731-0) MONO x10^3 (test 0.46 10*3/uL 0.33-0.92 code = 742-7) EOS x10^3 (test 0.13 10*3/uL 0.03-0.39 code = 711-2) BASO x10^3 (test 0.04 10*3/uL 0.01-0.07 code = 704-7) General acute hospital WITH [id number] 12:25:00 Test Item Value Reference Range Interpretation Comments WBC (test code = See_Comment H [Automated 3190-2) message] The sy stem which generated this result transmitted reference range : 4.30 - 11.10 10*3/?L. The reference range was not used to interpret this result as normal/abnormal . RBC (test code = See_Comment L [Automated 889-8) message] The sy stem which generated this [...] (test code = 51.1 fL 39-49.9 H 32105-9) RDW-CV (test code = 18.5 % 12-15.5 H 788-0) PLT (test code = See_Comment [Automated 777-3) message] The sy stem which generated this result transmitted reference range : 166 - 358 10*3/ ?L. The reference r duglas was not used to interpret this result as normal/abnormal . MPV (test code = 10.1 fL 9.5-12.9 03643-7) NRBC/100 WBC (test See_Comment [Automat ed code = 9139406467) message] The system which generated this result transmitted reference range : 0.0 - 10.0 /100 WBCs. The refer ence range was not u sed to interpret th is result as normal/abnormal . NRBC x10^3 (test code See_Comment [Auto mated = 8516745567) message] The s ystem which generated this result transmitted reference range : 10*3/?L. The reference range was not used to interpret this result as normal/abnormal . GRAN MAT (NEUT) % 65.0 % (test code = 770-8) IMM GRAN % (test code 12.70 % = 5381907371) LYMPH % (test code = 14.3 % 736-9) MONO % (test code = 5.3 % 5905-5) EOS % (test code = 2.1 % 713-8) BASO % (test code = 0.6 % 706-2) GRAN MAT x10^3(ANC) 8.03 10*3/uL 1.88-7.09 H (test code = 9377097055) IMM GRAN x10^3 (test 1.57 10*3/uL 0-0.06 H code = 9052594318) LYMPH x10^3 (test code 1.76 10*3/uL 1.32-3.29 = 731-0) MONO x10^3 (test code 0.65 10*3/uL 0.33-0.92 = 742-7) EOS x10^3 (test code = 0.26 10*3/uL 0.03-0.39 711-2) BASO x10^3 (test code 0.08 10*3/uL 0.01-0.07 H = 704-7) BASO STIPPLING (test Present A code = 703-9) BANDS (test code = Increased A 9783348438) Lab Interpretation Abnormal (test code = 96745-5) [facility] Lake[facility] Packed RBC (in units), 2 Units 2019-02-24 17:02:09 Test Item Value Reference Range Interpretation Comments Cross Match Result Compatible (test code = 4409) ISBT Blood Type Code (test code = 572016) Unit Blood Type (test A Pos code = 4410) Unit Number (test [id number] code = 4411) Blood Expiration Date & Time (test code = 232805) Status Information Issued (test code = 4412) Product Red Blood Cells Identification (test code = 4413) Product Code (test [id number] Performed at [facility] code = 4414) Laboratory Services - [facility] Blood [address] [address] Free: [phone] A No. [id number] General acute hospital WITH [id number] 12:18:00 Test Item Value Reference Range Interpretation Comments WBC (test code = See_Comment H [Automated 9990-2) message] The sy stem which generated this result transmitted reference range : 4.30 - 11.10 10*3/?L. The reference range was not used to interpret this result as normal/abnormal . RBC (test code = See_Comment L [Automated 579-8) message] The sy stem which generated this [...] RDW-SD (test code = 49.0 fL 39-49.9 75810-9) RDW-CV (test code = 17.2 % 12-15.5 H 788-0) PLT (test code = See_Comment [Automated 777-3) message] The sy stem which generated this result transmitted reference range : 166 - 358 10*3/ ?L. The reference r duglas was not used to interpret this result as normal/abnormal . MPV (test code = 10.0 fL 9.5-12.9 01924-7) NRBC/100 WBC (test See_Comment [Automat ed code = 1332746381) message] The system which generated this result transmitted reference range : 0.0 - 10.0 /100 WBCs. The refer ence range was not u sed to interpret th is result as normal/abnormal . NRBC x10^3 (test code See_Comment [Auto mated = 0087512235) message] The s ystem which generated this result transmitted reference range : 10*3/?L. The reference range was not used to interpret this result as normal/abnormal . GRAN MAT (NEUT) % 71.5 % (test code = 770-8) IMM GRAN % (test code 6.10 % = 3971788490) LYMPH % (test code = 14.5 % 736-9) MONO % (test code = 6.2 % 5905-5) EOS % (test code = 1.4 % 713-8) BASO % (test code = 0.3 % 706-2) GRAN MAT x10^3(ANC) 8.25 10*3/uL 1.88-7.09 H (test code = 7793893984) IMM GRAN x10^3 (test 0.70 10*3/uL 0-0.06 H code = 4058281193) LYMPH x10^3 (test code 1.67 10*3/uL 1.32-3.29 = 731-0) MONO x10^3 (test code 0.72 10*3/uL 0.33-0.92 = 742-7) EOS x10^3 (test code = 0.16 10*3/uL 0.03-0.39 711-2) BASO x10^3 (test code 0.04 10*3/uL 0.01-0.07 = 704-7) Lab Interpretation Abnormal (test code = 00327-6) [facility] Lake[facility]HO (D) IMMUNE [id number] 00:01:25 Test Item Value Reference Range Interpretation Comments RHIG CANDIDATE? No- see comment Patient i s not a (test code = candidate for R hIg- 5055) Patient is Rh Positive.Perfor med at [facility] Laboratory Services - [facility] Blood [address] [address]Dsph Free: [phone] A No. [id number] [facility] LakeARTERIAL CORD [id number] 20:58:00 Test Item Value Reference Range Interpretation Comments BASE EXCESS, CORD mEq/L (test code = 3891912587) AC PH, CORD (BEAKER) 7.18-7.38 (test code = 4996724482) PC02, CORD (test code See_Comment [Auto mated message] The = 8552689836) system which g enerated this result transmit alexandra reference range : 32 - 66 mmHg. The refer ence range was not used to interpret this result as normal/abnormal . PO2, CORD (test code See_Comment [Autom ated message] The = 8365027130) system which g enerated this result transmit alexandra reference range : 10 - 30 mmHg. The refer ence range was not used to interpret this result as normal/abnormal . BICARBONATE, CORD See_Comment [Automate d message] The (test code = system which ge nerated this 5925888479) result transmit alexandra reference range : 17 - 27 mEq/L. The refe rence range was not used to interpret this result as normal/abnormal . [facility] LakeVENOUS CORD [id number] 20:58:00 Test Item Value Reference Range Interpretation Comments VENOUS BASE EXCESS, mEq/L CORD (test code = 3142601514) VENOUS PH, CORD (test 7.25-7.45 code = 4192376416) VENOUS PC02, CORD See_Comment [Automate d message] The (test code = system which ge nerated 5448663686) this result tra nsmitted reference range : 27 - 49 mmHg. The refer ence range was not used to interpret this result as normal/abnormal . VENOUS PO2, CORD (test See_Comment [Aut omated message] The code = 6864896760) system [facility] generated this result tra nsmitted reference range : 17 - 41 mmHg. The refer ence range was not used to interpret this result as normal/abnormal . VENOUS BICARBONATE, See_Comment [Automa alexandra message] The CORD (test code = system [facility] generated 6536605808) this result tra nsmitted reference range : 12 - 29 mEq/L. The refe rence range was not used to interpret this result as normal/abnormal . General acute hospital WITH [id number] 18:02:00 Test Item Value Reference Range Interpretation Comments WBC (test code = See_Comment H [Automated 6690-2) message] The system which generated this result [...] (test code = 50.7 fL 39-49.9 H 91029-1) RDW-CV (test code = 17.6 % 12-15.5 H 788-0) PLT (test code = See_Comment [Automated 777-3) message] The system which generated this result transmit alexandra reference range : 166 - 358 10*3/ ?L. The reference range was not u sed to interpret th is result as normal/abnormal . MPV (test code = 9.7 fL 9.5-12.9 35825-9) NRBC/100 WBC (test See_Comment [Automat ed code = 2292174279) message] The system which generated this result transmit alexandra reference range : 0.0 - 10.0 /100 WBCs. The reference range was not used to interpret this result as normal/abnormal . NRBC x10^3 (test code See_Comment [Auto mated = 6874009233) message] The system which generated this result transmit alexandra reference range : 10*3/?L. The reference range was not used to interpret this result as normal/abnormal . GRAN MAT (NEUT) % 76.3 % (test code = 770-8) IMM GRAN % (test code 5.80 % = 7982247146) LYMPH % (test code = 9.1 % 736-9) MONO % (test code = 7.8 % 5905-5) EOS % (test code = 0.7 % 713-8) BASO % (test code = 0.3 % 706-2) GRAN MAT x10^3(ANC) 11.23 10*3/uL 1.88-7.09 H (test code = 7781627275) IMM GRAN x10^3 (test 0.85 10*3/uL 0-0.06 H code = 6410455653) LYMPH x10^3 (test code 1.34 10*3/uL 1.32-3.29 = 731-0) MONO x10^3 (test code 1.15 10*3/uL 0.33-0.92 H = 742-7) EOS x10^3 (test code = 0.11 10*3/uL 0.03-0.39 711-2) BASO x10^3 (test code 0.04 10*3/uL 0.01-0.07 = 704-7) BANDS (test code = Increased A 5788078158) Lab Interpretation Abnormal (test code = 30081-0) [facility] LakeURINE DRUG (LCMSMS) - SYNTHETIC OPIATES PANEL 2019-02-23 17:45:00 Test Item Value Reference Interpretation Comments Range Tramadol-Interpretat Negative Negative ion (test code = 9133740016) Propoxyph-Interpreta Negative Negative tion (test code = 1373363685) Normeperid-Interpret Negative Negative ation (test code = 6124486629) Meperidine-Interpret Negative Negative ation (test code = 6680167603) Methadone-LCMS (test >2000 See_Comment H [Autom ated code = 3934002273) message] The system which generated this result transmitted reference range : <50 ng/mL. The reference range was not used to interpret this result as normal/abnormal . Methadone-Creatinine ng/mg Unable to Normalized (test calculate code = 1783405017) Methadone-Interpreta Positive Negative A tion (test code = 3320839944) EDDP-LCMS (test code 15833 ng/mL <50 H = 7085018451) EDDP-Creatinine 20262 ng/mg Normalized (test code = 2500797972) EDDP-Interpretation Positive Negative A (test code = 3926155186) CREAT U (test code = 42.6 mg/dL 0858716870) PH (test code = 4.8-8.0 5835513168) Norfentan-Interpreta Negative Negative tion (test code = 1714403937) Fentanyl-Interpretat Negative Negative ion (test code = 9674610390) Buprenorph-Interpret Negative Negative ation (test code = 0180705156) Norbupren-Interpreta Negative Negative tion (test code = 6525449115) Carisopro-Interpreta Negative Negative tion (test code = 9973680560) Meprobamat-Interpret Negative Negative ation (test code = 5947414300) BRODY (test code = Test developed and BRODY) characteristics determined by [facility] Laboratory Services. Lab Interpretation Abnormal (test code = 99599-2) [facility] LakePROTHROMBIN TIME / [id number] 17:09:00 Test Item Value Reference Range Interpretation [...] tions. Lab Interpretation (test Normal code = 46128-3) [facility] LakeaPTT2019-09-09 17:09:00 Test Item Value Reference Range Interpretation Comments APTT Patient (test code See_Comment L [Au tomated message] = 3173-2) The system REscour generated this result transmitted ref erence range: 26 - 36 Seconds. The reference range was not used to int erpret this result as normal/abnormal . Lab Interpretation (test Abnormal code = 18939-8) [facility] LakeFIBRINOGEN2019-09-09 17:09:00 Test Item Value Reference Range Interpretation Comments Fibrinogen (test code = 8551215897) 766 mg/dL 167-453 H Lab Interpretation (test code = Abnormal 91076-5) [facility] LakeD-[id number] 17:09:00 Test Item Value Reference Range Interpretation Comments D-DIMER (test code = See_Comment H [Autom ated 0878052090) message] The system which generated this result [...] (FEU). Lab Interpretation Abnormal (test code = 65700-0) [facility] LakeUrinalysis2019-09-09 07:38:00 Test Item Value Reference Range Interpretation Comments APPEARANCE (test code = Clear Clear 1856446181) COLOR (test code = Straw Yellow A 6323534991) PH (test code = 4.8-8.0 4796415644) SP GRAVITY (test code = 1.003-1.030 9007989323) GLU U QUAL (test code = Normal Normal 2566315752) BLOOD (test code = 1+ Negative A 0395111406) KETONES (test code = Negative Negative 3153613371) PROTEIN (test code = Negative Negative 2887-8) UROBILIN (test code = Normal Normal 9023734357) BILIRUBIN (test code = Negative Negative 0434302636) NITRITE (test code = Negative Negative 7006000891) LEUK MO (test code = Negative Negative 3761395575) RBC/HPF (test code = <1 See_Comment [Autom ated message] 5475773961) The system REscour generated this result transmitted ref erence range: 0 - 3 HP F. The reference range was not used to int erpret this result as normal/abnormal . WBC/HPF (test code = <1 See_Comment [Autom ated message] 6699396025) The system REscour generated this result transmitted ref erence range: 0 - 5 HP F. The reference range was not used to int erpret this result as normal/abnormal . BACTERIA (test code = Negative Negative 6839878823) MUCOUS (test code = Slight Negative LPF A 1679812539) SQ EPITH (test code = <1 See_Comment [Auto mated message] 6806907641) The system REscour generated this result transmitted ref erence range: <=2 HPF. The reference range was not used to int erpret this result as normal/abnormal . Lab Interpretation (test Abnormal code = 34138-9) [facility] LakeProtein CREAT Ratio Urine [id number] 07:35:00 Test Item Value Reference Range Interpretation Comments T. PROT U (test code = 2888-6) 17 mg/dL CREAT U (test code = 1248392198) 16.6 mg/dL Protein/Creatinine Ratio Urine 0.0-2.0 (test code = 7987597522) [facility] LakePROTHROMBIN TIME / [id number] 07:04:00 Test Item Value Reference Range Interpretation Comments PROTIME PATIENT (test See_Comment [Auto mated message] code = 5964-2) The system luma-id generated this result transmitted ref erence range: 10.1 - 1 2.6 Seconds. The re ference range was not u sed to interpret this result as normal/abnor mal. INR (test code = 6301-6) Nor mal INR <1.1; Warfarin Therap eutic range 2.0 to 3. 0 or 2.5 to 3.5, dep ending upon the indica tions. Lab Interpretation (test Normal code = 31293-0) [facility] LakeaPTT2019-09-09 07:04:00 Test Item Value Reference Range Interpretation Comments APTT Patient (test code See_Comment L [Au tomated message] = 3173-2) The system REscour generated this result transmitted ref erence range: 26 - 36 Seconds. The reference range was not used to int erpret this result as normal/abnormal . Lab Interpretation (test Abnormal code = 65603-9) [facility] LakeFIBRINOGEN2019-09-09 07:04:00 Test Item Value Reference Range Interpretation Comments Fibrinogen (test code = 4728674169) 740 mg/dL 167-453 H Lab Interpretation (test code = Abnormal 67034-0) [facility] LakePROFILE / [id number] 06:56:00 Test Item Value Reference Range Interpretation Comments WBC (test code = 6690-2) See_Comment H [A utomated message] The system REscour generated this result transmit alexandra reference range : 4.30 - 11.10 10*3/?L. The reference range was not used to interpret this result as normal/abnormal . RBC (test code = 789-8) See_Comment L [Au tomated message] The system REscour generated this result transmit alexandra reference range [...] 777-3) See_Comment [Au tomated message] The system REscour generated this result transmit alexandra reference range : 166 - 358 10*3/?L. The reference range was not used to interpret this result as normal/abnormal . MPV (test code = 9.7 fL 9.5-12.9 67963-8) RDW-CV (test code = 17.4 % 12-15.5 H 788-0) RDW-SD (test code = 49.7 fL 39-49.9 86751-1) NRBC x10^3 (test code = See_Comment [Au tomated message] 8712261932) The system [facility] generated this result transmit alexandra reference range : 10*3/?L. The reference range was not used to interpret this result as normal/abnormal . NRBC/100 WBC (test code See_Comment [Au tomated message] = 1283236765) The system [facility] generated this result transmit alexandra reference range : 0.0 - 10.0 /100 WBC s. The reference r duglas was not used to interpret this result as normal/abnormal . IPF % (test code = 1.3-7.7 3482803232) Lab Interpretation (test Abnormal code = 39518-9) [facility] WITH [id number] 06:11:00 Test Item Value Reference Range Interpretation Comments WBC (test code = See_Comment H [Automated 9290-2) message] The system which generated this result transmit alexandra reference range : 4.30 - 11.10 10*3/?L. The reference range was not used to interpret this result as normal/abnormal . RBC (test code = See_Comment L [Automated 139-8) message] The system which generated this result [...] RDW-SD (test code = 49.1 fL 39-49.9 61912-3) RDW-CV (test code = 17.4 % 12-15.5 H 788-0) PLT (test code = See_Comment [Automated 777-3) message] The system which generated this result transmit alexandra reference range : 166 - 358 10*3/ ?L. The reference range was not u sed to interpret th is result as normal/abnormal . MPV (test code = 9.7 fL 9.5-12.9 29411-6) NRBC/100 WBC (test See_Comment [Automat ed code = 3597032027) message] The system which generated this result transmit alexandra reference range : 0.0 - 10.0 /100 WBCs. The reference range was not used to interpret this result as normal/abnormal . NRBC x10^3 (test code See_Comment [Auto mated = 2784775880) message] The system which generated this result transmit alexandra reference range : 10*3/?L. The reference range was not used to interpret this result as normal/abnormal . GRAN MAT (NEUT) % 79.9 % (test code = 770-8) IMM GRAN % (test code 4.60 % = 8822860650) LYMPH % (test code = 8.6 % 736-9) MONO % (test code = 6.3 % 5905-5) EOS % (test code = 0.4 % 713-8) BASO % (test code = 0.2 % 706-2) GRAN MAT x10^3(ANC) 10.95 10*3/uL 1.88-7.09 H (test code = 4650193055) IMM GRAN x10^3 (test 0.63 10*3/uL 0-0.06 H code = 7292485594) LYMPH x10^3 (test code 1.18 10*3/uL 1.32-3.29 L = 731-0) MONO x10^3 (test code 0.86 10*3/uL 0.33-0.92 = 742-7) EOS x10^3 (test code = 0.06 10*3/uL 0.03-0.39 711-2) BASO x10^3 (test code 0.03 10*3/uL 0.01-0.07 = 704-7) BANDS (test code = Increased A 1522826357) GIANT PLATELETS (test Present See_Comment A [Auto mated code = 5908-9) message] The system which generated this result transmit alexandra reference range : (none). The reference range was not used to interpret this result as normal/abnormal . Lab Interpretation Abnormal (test code = 96704-2) [facility] LakeUric Acid [id number] 05:54:00 Test Item Value Reference Range Interpretation Comments URIC ACID (test code = 3319931972) 5.5 mg/dL 2.9-6 Lab Interpretation (test code = Normal 13407-1) [facility] LakeSerum [id number] 05:54:00 Test Item Value Reference Range Interpretation Comments CREATININE (test code = 0.45 mg/dL 0.5-1.04 L 2295904094) eGFR Calculation mL/min/1.73m2 (Non-) (test code = 5154692759) eGFR Calculation mL/min/1.73m2 () (test code = 2608750585) BRODY (test code = BRODY) Association of Glomerular Filtration Rate (GFR) and Staging of Kidney Disease*+ + + +| GFR (mL/min/1.73 m2)?| With Kidney Damage?|?Without Kidney Damage+ --------+ --------+ +|?>90?|?S tage one?|? Normal?+ ---------+ ---------+ +|?60-89? |?Stage two?|? [...] tests). Lab Interpretation Abnormal (test code = 03521-9) [facility] LakeSGOT (Asparate Amino Transfer)2019-02-23 05:54:00 Test Item Value Reference Range Interpretation Comments AST(SGOT) (test code = 3847786048) 16 U/L 13-40 Lab Interpretation (test code = Normal 92823-3) [facility] LakeLactate [id number] 05:54:00 Test Item Value Reference Range Interpretation Comments LDH (test code = 7661221118) 488 U/L 300-600 Lab Interpretation (test code = Normal 85587-5) [facility] LakeAlanine Amino Transferase (SGPT)2019-02-23 05:53:00 Test Item Value Reference Range Interpretation Comments ALT(SGPT) (test code = 2136588954) 7 U/L 9-51 L Lab Interpretation (test code = Abnormal 85807-0) [facility] NON-STRESS [id number] 19:36:31Daily NST: Mayra Curran is a 38 year old female 31w5d admitted for vaginal bleeding most likely from chronic abruption. Moderate variability, baseline 120s, Accels present, no decelsToco: irritabilityPatient denies contractions/pelvic pressure/abdominal pain Interpretation: FLAVIO Agiular MD02/20/20198:09 [facility] [id number] 04:18:35GA: 31w6d?Baseline: 130 bpmVariability: ModerateAccels: +Decels: NoneToco: Quiescent Interpretation:Reactive NST Nikunj Payan MD?[facility] LakeType and Screen - ONCE [id number] 03:18:03 Test Item Value Reference Range Interpretation Comments ABO & RH (test code A POSITIVE Performe d at [place] = 20) [facility] s [id number] Free: [phone] A No. [id number] IAT (test code = Negative Performed a t [place] 1185) [facility] Blood [facility] s [id number] Free: [phone] A No. [id number] [facility] LakeURINE DRUG (LCMSMS) - BENZODIAZEPINES PANEL 2019-02-21 13:33:00 Test Item Value Reference Range Interpretation Comments LFZSO-FQ-UIVOV-INTERPR Negative Negative ETATION (test code = 4159168530) 9-MIADR-CO-LCMS (test 1784 ng/mL <50 H code = 1804022580) 4-DLOLT-UJ-CREATININE 4188 ng/mg NORMALIZED (test code = 0945695556) 4-RJAFV-EA-INTERPRETAT Positive Negative A ION (test code = 9617871911) LORAZEPAM-INTERPRETATI Negative Negative ON (test code = 5416317559) NORDIAZEP-INTERPRETATI Negative Negative ON (test code = 1103337240) TEMAZEPAM-INTERPRETATI Negative Negative ON (test code = 4910834519) OXAZEPAM-INTERPRETATIO Negative Negative N (test code = 3128921559) CREAT U (test code = 42.6 mg/dL 0809300424) PH (test code = 4.8-8.0 8306721018) BRODY (test code = BRODY) Test developed and characteristics determined by [facility] Services. Lab Interpretation Abnormal (test code = 24354-1) [facility] LakeTRANSFERRIN2019-09-06 15:41:00 Test Item Value Reference Range Interpretation Comments TRANSFERRN (test code = 0361099634) 430 mg/dL 168-336 H Lab Interpretation (test code = Abnormal 54069-1) [facility] LakeGROUP B STREPTOCOCCUS BY [id number] 15:05:00 Test Item Value Reference Range Interpretation Comments Group B Streptococcus by PCR (test Negative Negative code = 64160-0) Lab Interpretation (test code = Normal 96656-1) [facility] LakeFETAL NON-STRESS [id number] 14:29:08Daily NST: Mayra Curran is a 38 year old female 31w4d admitted for vaginal bleeding. Moderate variability, baseline: 130s, + accels, no decels [place]: irritability Interpretation: FLAVIO Aguilar MD02/19/201911:41 AM [facility] LakeURINE [id number] 20:44:00 Test Item Value Reference Range Interpretation Comments URINE CULTURE (test 10,000 - 100,000 CFU/mL code = 630-4) mixed aerobic organisms - suggests endogenous microbial contamination [facility] LakeFERRITIN [id number] 19:10:00 Test Item Value Reference Range Interpretation Comments FERRITIN (test code = 5.9 ng/mL 6-137 L 1538876591) BRODY (test code = BRODY) Biotin has been reported to cause a negative bias, interpret results relative to patient's use of biotin. Lab Interpretation (test Abnormal code = 09116-3) [facility] LakeTOTAL IRON BINDING [id number] 18:43:00 Test Item Value Reference Range Interpretation Comments TIBC (test code = 7866586084) 516 ug/dL 250-410 H % FE SAT (test code = 0700534118) 8 % 20-50 L Lab Interpretation (test code = Abnormal 82617-3) [facility] LakeIRON2019-09-05 18:33:00 Test Item Value Reference Range Interpretation Comments IRON (test code = 7459481116) 42 ug/dL 50-160 L Lab Interpretation (test code = Abnormal 54359-5) [facility] LakeGLUCOSE 1 HOUR POST [id number] 18:09:00 Test Item Value Reference Range Interpretation Comments GLUC 1 HR (test code = 3740575270) 117 mg/dL 120-170 L Lab Interpretation (test code = Abnormal 18099-6) [facility] LakeGC & CHLAMYDIA AMPLIFIED [id number] 17:08:00 Test Item Value Reference Range Interpretation Comments Lab Interpretation (test code = Normal 52159-0) [facility] LakeGALV ONLY - SYPHILIS [id number] 14:35:00 Test Item Value Reference Range Interpretation Comments Syphilis IgG/IgM (test Non-reactive Non-reactive code = 29784-7) BRODY (test code = BRODY) Non-reactive - No serologic evidence of T. pallidum infection. Cannot exclude incubating or early syphilis. Submit a second specimen in 2-4 weeks if syphilis is clinically suspected.Equivocal - Further testing to follow.Reactive - Further testing to follow. Lab Interpretation (test Normal code = 25248-2) [facility] LakeHIV 1/2 AG-AB WITH [id number] 19:23:00 Test Item Value Reference Range Interpretation Comments HIV Negative Negative Semi-quantitative (test code = 91559-2) BRODY (test code = Non-reactive for HIV-1 BRODY) antigen and HIV-1/HIV-2 antibodies.?No laboratory evidence of HIV infection.?Repeat in 2-4 weeks if acute HIV infection is suspected. [facility] LakeURINALYSIS2019-09-04 19:15:00 Test Item Value Reference Range Interpretation Comments APPEARANCE (test code = Clear Clear 3998829444) COLOR (test code = Yellow Yellow 0013473428) PH (test code = 4.8-8.0 3964331639) SP GRAVITY (test code = 1.003-1.030 4825410551) GLU U QUAL (test code = Normal Normal 3857909859) BLOOD (test code = 2+ Negative A 9105088004) KETONES (test code = Negative Negative 1522076364) PROTEIN (test code = Negative Negative 2887-8) UROBILIN (test code = Normal Normal 6638014264) BILIRUBIN (test code = Negative Negative 3448508824) NITRITE (test code = Negative Negative 0433553645) LEUK MO (test code = 500/uL Negative A 3408884482) RBC/HPF (test code = See_Comment [Autom ated message] 6614825536) The system REscour generated this result transmitted ref erence range: 0 - 3 HP F. The reference range was not used to int erpret this result as normal/abnormal . WBC/HPF (test code = See_Comment H [Autom ated message] 2090671663) The system REscour generated this result transmitted ref erence range: 0 - 5 HP F. The reference range was not used to int erpret this result as normal/abnormal . BACTERIA (test code = Few Negative A 9666822990) SQ EPITH (test code = See_Comment [Auto mated message] 6340489515) The system REscour generated this result transmitted ref erence range: <=2 HPF. The reference range was not used to int erpret this result as normal/abnormal . Lab Interpretation (test Abnormal code = 21824-4) [facility] LakeHepatitis B Surface [id number] 19:13:00 Test Item Value Reference Range Interpretation Comments HBsAg Semi-Quantitative (test code = 5195-3) [facility] LakeDRUG PANEL 2 [id number] 19:01:00 Test Item Value Reference Range Interpretation Comments AMPHET (test code = Negative Negative 6575775463) NADYA U (test code = Negative Negative 9758154341) BENZO U (test code = Presumptive Positive Negative A 0550834203) Cocaine Metabolite (test Negative Negative code = 4765468629) METHADONE (test code = Presumptive Positive Negative A 1675281322) OPIATES (test code = Negative Negative 1624238269) PCP (test code = Negative Negative 7776387234) THC (test code = Negative Negative 6295655428) BRODY (test code = BRODY) Urine Drug Cutoff RangesCocaine:? 150 ng/mLBenzodiazepines: ? 200 ng/mLMethadone:? 300 ng/mLAmphetamine:? 1,000 ng/mLOpiates:? 300 ng/mLCannabinoids:?50 ng/mLPhencyclidine:?? 25 ng/mLBarbiturates:?20 0 ng/mLThe results are to be used only for medical (i.e., treatment) purposes. Unconfirmed screening results must not be used for non-medical purposes (e.g., employment testing, legal testing). Lab Interpretation (test Abnormal code = 24457-0) [facility] LakeCBC WITH [id number] 18:42:00 Test Item Value Reference Range Interpretation Comments WBC (test code = See_Comment H [Automated 1424-2) message] The system which generated this result transmit alexandra reference range : 4.30 - 11.10 10*3/?L. The reference range was not used to interpret this result as normal/abnormal . RBC (test code = See_Comment L [Automated 353-8) message] The system which generated this result [...] RDW-SD (test code = 48.0 fL 39-49.9 16499-1) RDW-CV (test code = 16.8 % 12-15.5 H 788-0) PLT (test code = See_Comment [Automated 777-3) message] The system which generated this result transmit alexandra reference range : 166 - 358 10*3/ ?L. The reference range was not u sed to interpret th is result as normal/abnormal . MPV (test code = 10.1 fL 9.5-12.9 65077-2) NRBC/100 WBC (test See_Comment [Automat ed code = 2524816167) message] The system which generated this result transmit alexandra reference range : 0.0 - 10.0 /100 WBCs. The reference range was not used to interpret this result as normal/abnormal . NRBC x10^3 (test code See_Comment [Auto mated = 8619882943) message] The system which generated this result transmit alexandra reference range : 10*3/?L. The reference range was not used to interpret this result as normal/abnormal . GRAN MAT (NEUT) % 76.1 % (test code = 770-8) IMM GRAN % (test code 2.50 % = 5226515909) LYMPH % (test code = 12.9 % 736-9) MONO % (test code = 6.4 % 5905-5) EOS % (test code = 1.8 % 713-8) BASO % (test code = 0.3 % 706-2) GRAN MAT x10^3(ANC) 11.24 10*3/uL 1.88-7.09 H (test code = 0129665365) IMM GRAN x10^3 (test 0.37 10*3/uL 0-0.06 H code = 7453852889) LYMPH x10^3 (test code 1.90 10*3/uL 1.32-3.29 = 731-0) MONO x10^3 (test code 0.95 10*3/uL 0.33-0.92 H = 742-7) EOS x10^3 (test code = 0.26 10*3/uL 0.03-0.39 711-2) BASO x10^3 (test code 0.05 10*3/uL 0.01-0.07 = 704-7) POLYCHROMASIA (test 2+ See_Comment [Automa alexandra code = 71722-9) message] The system which generated this result [...] . Lab Interpretation Abnormal (test code = 37584-8) [facility] LakeType and Screen - ONCE [id number] 18:17:53 Test Item Value Reference Range Interpretation Comments ABO & RH (test code A POSITIVE Performe d at [facility] = 20) [facility] Blood Bank[address] [place] [address] Free: [phone] A No. [id number] IAT (test code = Negative Performed a t [facility] 1185) [facility] [place] [address]Thmg Free: [phone] A No. [id number] [facility] LakePOCT URINALYSIS W/O SPECIFIC [id number] 20:22:00 Test Item Value Reference Range Interpretation [...] code = 3257) .. Negative - Negative [facility] LakePOCT URINALYSIS W/O SPECIFIC [id number] 20:22:00 Test Item Value Reference Range Interpretation [...] code = 3257) .. Negative - Negative [facility] LakeTHYROID STIMULATING [id number] 03:42:00 Test Item Value Reference Range Interpretation Comments TSH (test code = See_Comment Biotin has been 2660884869) reported to cau se a negative bias, interpret resul ts relative to rm mars's use of biotin. [Automated mess age] The system REscour generated this result transmitted ref erence range: 0.45 - 4 .70 mIU/L. The refe rence range was not u sed to interpret this result as normal/abnor mal. Lab Interpretation (test Normal code = 45647-7) [facility] LakePROFILE / [id number] 03:01:00 Test Item Value Reference Range Interpretation Comments WBC (test code = 6690-2) See_Comment [A utomated message] The system REscour generated this result transmit alexandra reference range : 4.30 - 11.10 10*3/?L. The reference range was not used to interpret this result as normal/abnormal . RBC (test code = 789-8) See_Comment L [Au tomated message] The system REscour generated this result transmit alexandra reference range [...] 777-3) See_Comment [Au tomated message] The system REscour generated this result transmit alexandra reference range : 166 - 358 10*3/?L. The reference range was not used to interpret this result as normal/abnormal . MPV (test code = 10.0 fL 9.5-12.9 62681-9) RDW-CV (test code = 15.9 % 12-15.5 H 788-0) RDW-SD (test code = 48.1 fL 39-49.9 69603-7) NRBC x10^3 (test code = See_Comment [Au tomated message] 6249167355) The system REscour generated this result transmit alexandra reference range : 10*3/?L. The reference range was not used to interpret this result as normal/abnormal . NRBC/100 WBC (test code See_Comment [Au tomated message] = 8743371933) The system [facility] generated this result transmit alexandra reference range : 0.0 - 10.0 /100 WBC s. The reference r duglas was not used to interpret this result as normal/abnormal . IPF % (test code = 1.3-7.7 9727690700) Lab Interpretation (test Abnormal code = 10123-7) [facility] acute [facility] WITH [id number] 12:52:00 Test Item Value Reference Range Interpretation Comments WBC (test code = See_Comment H [Automated 6790-2) message] The sy stem which generated this result transmitted reference range : 4.30 - 11.10 10*3/?L. The reference range was not used to interpret this result as normal/abnormal . RBC (test code = See_Comment L [Automated 229-8) message] The sy stem which generated this [...] RDW-SD (test code = 46.4 fL 39-49.9 07113-0) RDW-CV (test code = 15.6 % 12-15.5 H 788-0) PLT (test code = See_Comment [Automated 777-3) message] The sy stem which generated this result transmitted reference range : 166 - 358 10*3/ ?L. The reference r duglas was not used to interpret this result as normal/abnormal . MPV (test code = 10.2 fL 9.5-12.9 11593-0) NRBC/100 WBC (test See_Comment [Automat ed code = 5532133678) message] The system which generated this result transmitted reference range : 0.0 - 10.0 /100 WBCs. The refer ence range was not u sed to interpret th is result as normal/abnormal . NRBC x10^3 (test code See_Comment [Auto mated = 0957365205) message] The s ystem which generated this result transmitted reference range : 10*3/?L. The reference range was not used to interpret this result as normal/abnormal . GRAN MAT (NEUT) % 72.5 % (test code = 770-8) IMM GRAN % (test code 4.80 % = 3213173075) LYMPH % (test code = 13.4 % 736-9) MONO % (test code = 7.9 % 5905-5) EOS % (test code = 1.1 % 713-8) BASO % (test code = 0.3 % 706-2) GRAN MAT x10^3(ANC) 9.68 10*3/uL 1.88-7.09 H (test code = 8623810523) IMM GRAN x10^3 (test 0.64 10*3/uL 0-0.06 H code = 5685326543) LYMPH x10^3 (test code 1.78 10*3/uL 1.32-3.29 = 731-0) MONO x10^3 (test code 1.05 10*3/uL 0.33-0.92 H = 742-7) EOS x10^3 (test code = 0.14 10*3/uL 0.03-0.39 711-2) BASO x10^3 (test code 0.04 10*3/uL 0.01-0.07 = 704-7) POLYCHROMASIA (test 2+ See_Comment [Automa alexandra code = 51257-1) message] The system which generated this result [...] . Lab Interpretation Abnormal (test code = 43741-1) [facility] LakeType and Screen - ONCE [id number] 12:22:13 Test Item Value Reference Range Interpretation Comments ABO & RH (test code A POSITIVE Performe d at [facility] = 20) [facility] Blood Bank[facility] s [address]Xbjc Free: [phone] A No. [id number] IAT (test code = Negative Performed a t [facility] 1185) [facility] Blood Bank3 [address] [facility] s [address]Eqps Free: [phone] A No. [id number] [facility]"
[2022-07-05] MEDS ORDERED: HYDROCODONE/APAP 7.5/325 MG TAB ONE (09:24)
--- NOTE | 2022-07-05 10:23 | RAD REPORT ---
EXAM DESCRIPTION: Shoulder Right 2 View - 07/05/2022 10:06 am CLINICAL HISTORY: PAIN COMPARISON: No comparisons TECHNIQUE: Internal and external rotation views of the right shoulder were obtained. FINDINGS: Two views of the right shoulder were obtained in essentially same position. Humeral head o verlies the bony glenoid. Dislocation is not suspected. There is no fracture. No AC joint separation. Acromial humeral joint space is normal. No abnormal soft tissue calcifications. Delete select IMPRESSION: No fracture or acute finding identifiable. Positioning is not optimal. A posterior humeral head dislocation can sometimes appear to be normally positioned. If there is concern for the uncommon posterior dislocation, repeat imaging with scapular Y-view could be obtained.
--- NOTE | 2022-07-05 10:25 | EDPHYS ---
Physician Documentation [facility] Name: Mayra Peterson Age: 41 yrs Sex: Female : 1980 Arrival Date: 07/05/2022 Time: 09:04 Bed 12 Private MD: ED Physician Lenin Caicedo HPI: 07/05 09:17 This 41 yrs old Female presents to ER via Ambulatory with complaints of Shoulder Pain. sb4 09:17 The patient or guardian complains of an injury, pain, that is acute. right shoulder. sb4 Context:. Patient reports that she was doing a push-up about 5 days ago when her right shoulder "gave out." She states that since then, she has had pain with active ROM, especially abduction. She denies any numbness/tingling. Reports pain on the anterior aspect of her shoulder. She has been taking tylenol without any relief. . 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 - Social history:: Smoking status: Patient/guardian denies using tobacco, Stopped _ months ago 2. ROS: 09:17 Constitutional: Negative for chills, fever. sb4 09:17 Eyes: Negative for acute changes, blurry vision. 09:17 ENT: Negative for injury or acute deformity, acute changes. 09:17 Neck: Negative for injury or acute deformity, pain with movement, pain at rest. 09:17 Cardiovascular: Negative for chest pain, palpitations. 09:17 Respiratory: Negative for cough, dyspnea on exertion. 09:17 Abdomen/GI: Negative for abdominal pain, nausea, vomiting, and diarrhea. 09:17 Back: Negative for injury or acute deformity, pain at rest, pain with movement. 09:17 : 09:17 MS/extremity: Positive for decreased range of motion, pain, right shoulder, Negative for deformity, paresthesias, swelling, tingling. 09:17 Skin: Negative for ecchymosis, erythema, hematoma. 09:17 Neuro: Negative for altered mental status, gait disturbance. 09:17 Psych: Negative for suicidal ideation. 11:58 Neuro: Negative for headache, weakness, numbness, tingling, and seizure. sb4 Exam: 09:17 Constitutional: The patient appears in no acute distress, alert, awake. sb4 09:17 Head/face: Exam is negative for erythema, swelling. 09:17 Eyes: 09:17 Neck: Exam negative for pain w/ palpation, pain with movement or limited range of motion. 09:17 Chest/axilla: Exam negative for acute changes, rash, tenderness, Inspection: 09:17 Cardiovascular: Exam negative for arrhythmia, edema. 09:17 Respiratory: Exam negative for respiratory distress, intercostal retractions, shortness of breath. 09:17 Abdomen/GI: Exam negative for acute changes, discomfort. 09:17 Back: Exam negative for deformity, pain at rest. 09:17 Musculoskeletal/extremity: ROM: limited active range of motion due to pain, limited passive range of motion due to pain, Circulation is intact in all extremities. Sensation intact. 09:17 Skin: Exam negative for ecchymosis, erythema 09:17 Neuro: Exam negative for acute changes, paresthesias. 11:58 ENT: Mucous membranes moist. sb4 Vital Signs: 09:09 BP 125 / 89; Pulse 98; Pulse Ox 99% on R/A; ap3 09:24 Resp 17; ap3 MDM: 09:16 Patient medically screened. sb4 09:17 Differential diagnosis: Anterior dislocation with fracture, Anterior dislocation sb4 without fracture, humeral head fracture, tendonitis. Differential diagnosis: Muscle/ligament sprain, muscle spasm, arthritis. 10:29 Data reviewed: vital signs, nurses notes, radiologic studies, plain films. Counseling: sb4 I had a detailed discussion with the patient and/or guardian regarding: the historical points, exam findings, and any diagnostic results supporting the discharge/admit diagnosis, radiology results, the need for outpatient follow up, a orthopedic surgeon. Response to treatment: the patient's symptoms have mildly improved after treatment, and as a result, I will discharge patient. 07/05 09:17 Order name: Shoulder Right (2 View) XRAY; Complete Time: 10:24 sb4 Administered Medications: 09:24 Drug: [place] (HYDROcodone-acetaminophen) (7.5 mg-325 mg) 1 tabs Route: PO; ap3 10:45 Follow up: Response: No adverse reaction; Pain is decreased ap3 Disposition: 12:36 Co-signature as Attending Physician, Lenin Caicedo MD I agree with the assessment and kdr plan of care. Disposition Summary: 07/05/22 10:25 Discharge Ordered Location: Home sb4 Problem: new sb4 Symptoms: are unchanged sb4 Condition: Stable sb4 Diagnosis - Strain of muscle(s) and tendon(s) of the rotator cuff of right shoulder sb4 Followup: sb4 - With: - When: 2 - 3 days - Reason: Further diagnostic work-up, Recheck today's complaints, Re-evaluation by your physician Discharge Instructions: - Discharge Summary Sheet sb4 - Shoulder Range of Motion Exercises sb4 - Shoulder Pain, [id number] sb4 Forms: - Medication Reconciliation Form sb4 - Thank You Letter sb4 - Antibiotic Education sb4 - Prescription Opioid Use sb4 Prescriptions: - Cyclobenzaprine 10 mg Oral Tablet - take 1 tablet by ORAL route every 8 hours As needed; 30 tablet; Refills: 0, sb4 Product Selection Permitted - Diclofenac Sodium 75 mg Oral Tablet Sustained Release - take 1 tablet by ORAL route 2 times per day; 30 tablet; Refills: 0, Product sb4 Selection Permitted Signatures: Dispatcher [employer] EDLenin Jordan MD MD kdr Williams, Irene RN Virgen Miller RN RN ap3 Linda Ji, PAAlicja PAAlicja sb4
--- NOTE | 2022-07-05 10:25 | ER ---
Nurse's Notes [facility] Name: Mayra Peterson Age: 41 yrs Sex: Female : 1980 Arrival Date: 07/05/2022 Time: 09:04 Bed 12 Private MD: Diagnosis: Strain of muscle(s) and tendon(s) of the rotator cuff of right shoulder Presentation: 07/05 09:12 Chief complaint: Patient states: right shoulder pain X 1 week , she did a push up and iw fell on her right shoulder. 09:12 Method Of Arrival: Ambulatory iw 09:12 Acuity: AR 4 iw 09:12 Coronavirus screen: At this time, the client does not indicate any symptoms associated iw with coronavirus-19. Ebola Screen: Patient negative for fever greater than or equal to 101.5 degrees Fahrenheit, and additional compatible Ebola Virus Disease symptoms Patient denies exposure to infectious person. Patient denies travel to an Ebola-affected area in the 21 days before illness onset. No symptoms or risks identified at this time. Initial Sepsis Screen: Does the patient meet any 2 criteria? No. Patient's initial sepsis screen is negative. Does the patient have a suspected source of infection? No. Patient's initial sepsis screen is negative. Risk Assessment: Do you want to hurt yourself or someone else? Patient reports no desire to harm self or others. Onset of symptoms was June 28, 2022. 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 - Social history:: Smoking status: Patient/guardian denies using tobacco, Stopped _ months ago 2. Screenin:10 [facility] ED Fall Risk Assessment (Adult) History of falling in the last 3 months, ap3 including since admission. Abuse screen: Denies threats or abuse. Nutritional screening: No deficits noted. Tuberculosis screening: No symptoms or risk factors identified. Assessment: 09:10 General: Appears in no apparent distress. Behavior is calm, cooperative. Pain: ap3 Complains of pain in right shoulder Pain began one week ago. Neuro: Level of Consciousness is awake, alert, obeys commands, Oriented to person, place, time, situation. Cardiovascular: Patient's skin is warm and dry. Respiratory: Airway is patent Respiratory effort is even, unlabored. 09:24 Pain: Pain currently is 7 out of 10 on a pain scale. ap3 09:26 GI: No deficits noted. : No deficits noted. EENT: No deficits noted. Derm: No ap3 deficits noted. Musculoskeletal: Reports pain in right shoulder since one week ago. Pain is 7 out of 10 on a pain scale. Vital Signs: 09:09 BP 125 / 89; Pulse 98; Pulse Ox 99% on R/A; ap3 09:24 Resp 17; ap3 ED Course: 09:04 Patient arrived in ED. rg4 09:05 Virgen Rios, SARITA is Primary Nurse. ap3 09:07 Linda Ji PA-C is PHCP. sb4 09:07 Lenin Caicedo MD is Attending Physician. sb4 09:11 Patient has correct armband on for positive identification. Bed in low position. Call ap3 light in reach. Pulse ox on. NIBP on. Door closed. Noise minimized. 09:12 Triage completed. iw 09:15 Arm band placed on right wrist. ap3 10:08 Shoulder Right (2 View) XRAY In Process Unspecified. EDMS 10:25 Ciaran Ferrara MD is Referral Physician. sb4 10:45 No provider procedures requiring assistance completed. Patient did not have IV access ap3 during this emergency room visit. Administered Medications: 09:24 Drug: [place] (HYDROcodone-acetaminophen) (7.5 mg-325 mg) 1 tabs Route: PO; ap3 10:45 Follow up: Response: No adverse reaction; Pain is decreased ap3 Medication: 09:15 VIS not applicable for this client. ap3 Outcome: 10:25 Discharge ordered by . sb4 10:45 Discharged to home ambulatory. ap3 10:45 Condition: good 10:45 Discharge instructions given to patient, Instructed on discharge instructions, follow up and referral plans. Demonstrated understanding of instructions, follow-up care, medications, Prescriptions given X 2. 10:46 Patient left the ED. ap3 Signatures: Dispatcher [employer] EDMS Gladys Felizne, RN RN Jaqueline Pascual rg4 Virgen Rios RN RN ap3 Linda Ji, VINCENT KAUR sb4
[2022-07-05 10:50] VITALS: BP 125/89; O2SAT 99
== END 2022-07-05 10:46 | disposition home or self-care (01) ==
LOC: ER 09:01
DX: S46.011A Strain of muscle(s) and tendon(s) of the rotator cuff of right shoulder, initial encounter (principal); W18.39XA Other fall on same level, initial encounter; Y93.B2 Activity, push-ups, pull-ups, sit-ups; Y92.9 Unspecified place or not applicable; E03.9 Hypothyroidism, unspecified; F43.10 Post-traumatic stress disorder, unspecified; F32.A Depression, unspecified
CPT/HCPCS: 99283

== ENCOUNTER 2023-04-10 19:08 | Emergency (ER) | payer OTHER, SELFPAY ==
--- OUTSIDE RECORDS SUMMARY | 2023-04-10 19:16 | XMS REPORT | Continuity of Care Document ---
:1980 Author Organization [facility] t Address [address] [facility] [address] [place] [address] Care Team Providers Name Role Phone ELIANA KAREEN Peralta Primary Care Physician Unavailable OLINDA GILMAN Attending Clinician Unavailable TENA MONTEZ Attending Clinician Unavailable Amanda Bay Attending Clinician Tena Montez DO Attending Clinician [phone] ELIANA Attending Clinician Unavailable Alexandra Chavez Attending Clinician [phone] Nurse, [facility] Attending Clinician Unavailable Yeny Garza RN Attending Clinician Unavailable Only, [facility] Attending Clinician Unavailable Virgen Day MD Attending Clinician Doctor Unassigned, [place] Attending Clinician Unavailable Diana Tabares Attending Clinician Veronica Sanchez MD Attending Clinician KELSEY LR Attending Clinician Unavailable HERMILO PARHAM Attending Clinician Unavailable Lay Montelongo DO Attending Clinician LAY MONTELONGO Attending Clinician Unavailable Hermilo Collazo Attending Clinician Chiquis Nuno MD Attending Clinician Reginald BANKRUPTCY PARALEGAL, Maggie N Attending Clinician 2, [facility] Attending Clinician Unavailable Catracho VIDAL, Bradley Donovan Attending Clinician Faculty, Obi [facility] Attending Clinician Unavailable Eugene VIDAL, Aracely Attending Clinician AMANDA CAMILO Admitting Clinician Unavailable ELIANA Admitting Clinician Unavailable LAY MONTELONGO Admitting Clinician Unavailable Yaakov VIDAL, Chiquis Admitting Clinician Eugene VIDAL, Aracely Admitting Clinician Payers Payer Name Policy Type Policy Number Effective Date Expiration Date Jay owens [facility] [id number] 2021 00:00:00 [facility] [id number] 2020 [place] (MEDICAID 00:00:00 O) Problems Condition Condition Condition Status Onset Resolution Last Treating Co mments Source Name Details Category Date Date Treatment Clinician Date Attention Attention Problem Active [place] deficit Deficit 9-07 Communi hyperactiv Hyperactiv 00:00: ty ity ity 00 [facility] disorder Disorder l Clinics Hypothyroi Hypothyroi Problem Active S [facility] dism dism 7-20 Communi 00:00: [facility] 00 [facility] Clinics Anxiety Anxiety Problem Active [place] disorder Disorder 7-20 Commun i 00:00: ty 00 [facility]osp[facility] l Clinics Essential Essential Problem Active [facility] hypertensi Hypertensi 7-20 Co mmuni on on 00:00: ty 00 [facility]osp[facility] Clinics Umbilical Umbilical Problem Active [facility] [place] hernia Hernia 7-20 Communi 00:00: [facility] 00 [facility] Clin[facility] Other Other Disease Active 2018-06 Univers general general 0-24 ity of counseling [place] and advice and advice 00 [facility] dical for for Branch contracept contracept hollie hollie management management History of History of Disease Active 2018-06 U nivers tubal tubal 0-24 ity of ligation ligation 00:00: [place] 00 Medical Branch 31 weeks 31 weeks Disease Active Unive rs gestation gestation 9-12 ity of of of 00:00: [place] 00 [facility] Disease Active 2019 Univers labor labor 9-05 ity of 00:00: [place] 00 Medical Branch Vaginal Vaginal Disease Active Univers bleeding bleeding 9-05 ity of 00:00: [place] 00 Medical Branch Obesity Obesity Disease Active 2019 Univers (BMI (BMI 9-04 ity of 30-39.9) 30-39.9) 00:00: [place] 00 Medical Branch Disease Active 2019 Univers labor in labor in 9-04 ity of third third 00:00: [place] trimester trimester 00 [facility] Obesity Obesity Disease Active Univers affecting affecting 8-13 [place] of 00:[place] in third in third 00 Medica l trimester trimester Bran ch Nausea and Nausea and Disease Active U nivers vomiting vomiting 8-13 ity of of of 00:00: [place] , , 00 Me dical antepartum antepartum Br anch Depression Depression Disease Active U nivers affecting affecting 6-27 it[place] of 00:[place] second in second 00 [facility] trimester, trimester, Br anch antepartum antepartum History of History of Disease Active U nivers depression depression 6-27 it y of 00:00: [place] 00 [facility] Branch Multiple Multiple Disease Active Overview: [place] mandy [...] , [place] ante[place] antepartum 00 [facility] Hypothyroi Hypothyroi Disease Active Overview : Univers d in d in 5-15 TSH 27 ity of , , 00:00: [place]28/18 [place] antepartum antepartum 00 [facility] Acute Acute Disease Active Univers urinary urinary 5-15 it[place] of retention [place] 00:[place] [facility] Hypothyroi Hypothyroi Disease Active Overview : Univers [...] 5-14 it y of adult adult 00:00: [place] [facility] High-risk High-risk Disease Active Uni vers , , 5-14 it y of second second 00:00: [place] trimester trimester 00 Medi raquel Branch History of History of Disease Active Overview : Univers herpes herpes -14 Formattin ity of genitalis genitalis 00:00: [place] of this [place] 00 note Medical might be Branch different from the original. 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 5-14 it y of 00:00: [address] Tobacco Tobacco Disease Active Univers use use 5-14 ity of 00:00: [place] 00 [facility] No known No known Disease Unive rs active active ity of problems problems [facility] Allergies, Adverse Reactions, Alerts Allergy Allergy Status Severity Reaction(s) Onset Inactive Treating Comm ents Source Name Type Date Date Clinician NO KNOWN Drug Active Univers ALLERGIE Class ity of S [facility] Social History Social Habit Start Date Stop Date Quantity Comments Source ASSERTION 2018-07-27 University of 00:00:00 [facility] History of tobacco 1994-10-28 Cigarette Smoker University of use 00:00:00 [facility] Exposure to 2021-11-21 2021-12-01 Not sure University SARS-CoV-2 (event) 00:00:00 15:43:00 [facility] Alcohol intake 2020-06-21 2020-06-21 Current University of 00:00:00 00:00:00 non-drinker of [facility] alcohol Branch (finding) Cigarettes smoked 2018-10-28 2018-10-28 Univers ity of current (pack per 00:00:00 00:00:00 [place] ) - Reported Branch Tobacco use and 2018-10-28 2018-10-28 Never used Universit y of exposure 00:00:00 00:00:00 [facility] Sex [birth year] At [birth year] Universit y of 00:00:00 00:00:00 [facility] Smoking Status Start Date Stop Date Source Unknown if ever smoked [facility] [place] [facility] y [facility] Current every day smoker 2018-10-28 00:00:00 Uni versity of [facility] Medications Ordered Filled Start Stop Current Ordering Indication Dosage Frequency Signature Comments Components Source Medication Medication Date Date Medication? Clinician (SIG) Name Name iopamidol 2021- No [id number] 100mL 100 mL, Univers (ISOVUE 12-03 Intravenou ity o f 370-500 mL) 04:58: 04:50 s, ONCE, 1 [place] injection 00 :00 dose, On Medica l 100 mL Sun Branch 12/03/21 at 0000, Routine NaCl 0.9% 2021- No 1000mL at 999 Uni vers (NS) [...] Med ical mg 08/19/20 at Branch 2115, ISL dicyclomine 2020- No 20mg 20 mg, Uni vers (BENTYL) 3-06 Oral, ity of capsule 20 03:15: 02:18 ONCE, 1 Jorge L as mg 00 :00 dose, Fri Medical 08/19/20 at Branch 2115, Routine ondansetron 2020- No 4mg 4 mg, Slow Univers (ZOFRAN 08-20-05 IV Push, ity of (PF)) 01:00: 23:56 ONCE, 1 [place] injection 4 00 :00 dose, Fri Med ical mg 08/19/20 at Branch 1900, SIL morpHINE 2020- No 4mg 4 mg, Slow Un mandy injection 4 08-20-05 IV Push, ity of mg 01:00: 23:56 [...] No 120mL 120 mL, Unive rs (OMNIPAQUE 305 03-05 Intravenou it y of 350 23:45: 23:30 s, ONCE, 1 [place] BULK-150 00 :00 dose, Fri Medica l mL) 08/19/20 at Branch injection 1745, 120 mL Routine dicyclomine Yes [id number] 20mg Take 1 Univers 20 mg 3-05 tablet by ity of tablet 00:00: mouth 4 [place] 00 (four) Medical times Branch daily. ondansetron 0 Yes [id number] 4mg Take 1 Univers (ZOFRAN 3-05 tablet by ity of ODT) 4 mg 00:00: mouth [place] disintegrat 00 every 8 Medic al ing tablet (eight) Branch hours as needed for Nausea and Vomiting (N/V). dicyclomine Yes [id number] 20mg Take 1 Univers 20 mg 3-05 tablet by ity of tablet 00:00: mouth 4 [place] 00 (four) Medical times Branch daily. ondansetron 2021-0 Yes [id number] 4mg Take 1 Univers (ZOFRAN 3-05 tablet by ity of ODT) 4 mg 00:00: mouth [place] disintegrat 00 every 8 Medic al ing tablet (eight) Branch hours as needed for Nausea and Vomiting (N/V). dicyclomine 2021-0 Yes [id number] 20mg Take 1 Univers 20 mg 3-05 tablet by ity of tablet 00:00: mouth 4 [place] 00 (four) Medical times Branch daily. ondansetron 2021-0 Yes [id number] 4mg Take 1 Univers (ZOFRAN 3-05 tablet by ity of ODT) 4 mg 00:00: mouth [place] disintegrat 00 every 8 Medic al ing tablet (eight) Branch hours as needed for Nausea and Vomiting (N/V). dicyclomine 2021-0 Yes [id number] 20mg Take 1 Univers 20 mg 3-05 tablet by ity of tablet 00:00: mouth 4 [place] 00 (four) Medical times Branch daily. ondansetron 2021-0 Yes [id number] 4mg Take 1 Univers (ZOFRAN 3-05 tablet by ity of ODT) 4 mg 00:00: mouth [place] disintegrat 00 every 8 Medic al ing tablet (eight) Branch hours as needed for Nausea and Vomiting (N/V). dicyclomine 2021-0 Yes [id number] 20mg Take 1 Univers 20 mg 3-05 tablet by ity of tablet 00:00: mouth 4 [place] 00 (four) Medical times Branch daily. ondansetron 2021-0 Yes [id number] 4mg Take 1 Univers (ZOFRAN 3-05 tablet by ity of ODT) 4 mg 00:00: mouth [place] disintegrat 00 every 8 Medic al ing tablet (eight) Branch hours as needed for Nausea and Vomiting (N/V). dicyclomine 2021-0 Yes [id number] 20mg Take 1 Univers 20 mg 3-05 tablet by ity of tablet 00:00: mouth 4 [place] 00 (four) Medical times Branch daily. ondansetron 2021-0 Yes [id number] 4mg Take 1 Univers (ZOFRAN 3-05 tablet by ity of ODT) 4 mg 00:00: mouth [place] disintegrat 00 every 8 Medic al ing tablet (eight) Branch hours as needed for Nausea and Vomiting (N/V). dicyclomine Yes [id number] 20mg Take 1 Univers 20 mg 3-05 tablet by ity of tablet 00:00: mouth 4 [place] 00 (four) Medical times Branch daily. ondansetron Yes [id number] 4mg Take 1 Univers (ZOFRAN 3-05 tablet [...] 0930, 100 mL Routine ondansetron 2019-06 Yes [id number] 4mg Take 1 Univers (ZOFRAN 2-09 tablet by ity of ODT) 4 mg 00:00: mouth [place] disintegrat 00 every 8 Medic al ing tablet (eight) Branch hours as needed for Nausea and Vomiting (N/V). ondansetron 2019-06 Yes [id number] 4mg Take 1 Univers (ZOFRAN 2-09 tablet by ity of ODT) 4 mg 00:00: mouth [place] disintegrat 00 every 8 Medic al ing tablet (eight) Branch hours as needed for Nausea and Vomiting (N/V). ondansetron 2019-06 Yes [id number] 4mg Take 1 Univers (ZOFRAN 2-09 tablet by ity of ODT) 4 mg 00:00: mouth [place] disintegrat 00 every 8 Medic al ing tablet (eight) Branch hours as needed for Nausea and Vomiting (N/V). ondansetron 2019-06 Yes [id number] 4mg Take 1 Univers (ZOFRAN 2-09 tablet by ity of ODT) 4 mg 00:00: mouth [place] disintegrat 00 every 8 Medic al ing tablet (eight) Branch hours as needed for Nausea and Vomiting (N/V). ondansetron 2019-06 Yes [id number] 4mg Take 1 Univers (ZOFRAN 2-09 tablet by ity of ODT) 4 mg 00:00: mouth [place] disintegrat 00 every 8 Medic al ing tablet (eight) Branch hours as needed for Nausea and Vomiting (N/V). ondansetron 2019- Yes [id number] 4mg Take 1 Univers (ZOFRAN 2-09 tablet by ity of ODT) 4 mg 00:00: mouth [place] disintegrat 00 every 8 Medic al ing tablet (eight) Branch hours as needed for Nausea and Vomiting (N/V). ondansetron 2019-06 Yes [id number] 4mg Take 1 Univers (ZOFRAN 2-09 tablet by ity of ODT) 4 mg 00:00: mouth [place] disintegrat 00 every 8 Medic al ing tablet (eight) Branch hours as needed for Nausea and Vomiting (N/V). ondansetron 2019-06 Yes [id number] 4mg Take 1 Univers (ZOFRAN 2-09 tablet [...] s: acute pain metroNIDAZO 2019- 2020- No [id number] 500mg Take 1 Univers LE 500 mg 0-16 10-24 tablet by ity of tablet 00:00: 04:59 mouth 2 [place] 00 :00 (two) [facility] daily for 7 days. Levothyroxi 2018-06 Yes Take by Uni vers ne 150 mcg 0-24 mouth. ity of capsule 19:43: [address] Levothyroxi 2018-06 Yes Take by Uni vers ne 150 mcg 0-24 mouth. ity of capsule 19:43: [address] Levothyroxi 2018-06 Yes Take by Uni vers ne 150 mcg 0-24 mouth. ity of capsule 19:43: [address] Levothyroxi 2018-06 Yes Take by Uni vers ne 150 mcg 0-24 mouth. ity of capsule 19:43: [address] Levothyroxi 2018-06 Yes Take by Uni vers ne 150 mcg 0-24 mouth. ity of capsule 19:43: [address] Levothyroxi 2018-06 Yes Take by Uni vers ne 150 mcg 0-24 mouth. ity of capsule 19:43: [address] Levothyroxi 2018-06 Yes Take by Uni vers ne 150 mcg 0-24 mouth. ity of capsule 19:43: [address] Levothyroxi 2018-06 Yes Take by Uni vers ne 150 mcg 0-24 mouth. ity of capsule 19:43: [address] Levothyroxi 2018-06 Yes Take by Uni vers ne 150 mcg 0-24 mouth. ity of capsule 19:43: [address] furosemide 2018-06 Yes 20mg Take 20 mg U nivers 20 mg 0-24 by mouth ity of tablet 19:41: daily. [address] furosemide 2018-06 Yes 20mg Take 20 mg U nivers 20 mg 0-24 by mouth ity of tablet 19:41: daily. [address] furosemide 2018-06 Yes 20mg Take 20 mg U nivers 20 mg 0-24 by mouth ity of tablet 19:41: daily. [address] furosemide 2018-06 Yes 20mg Take 20 mg U nivers 20 mg 0-24 by mouth ity of tablet 19:41: daily. [address] furosemide 2018-06 Yes 20mg Take 20 mg U nivers 20 mg 0-24 by mouth ity of tablet 19:41: daily. [address] furosemide 2018-06 Yes 20mg Take 20 mg U nivers 20 mg 0-24 by mouth ity of tablet 19:41: daily. [address] furosemide 2018-06 Yes 20mg Take 20 mg U nivers 20 mg 0-24 by mouth ity of tablet 19:41: daily. [address] furosemide 2018-06 Yes 20mg Take 20 mg U nivers 20 mg 0-24 by mouth ity of tablet 19:41: daily. [address] furosemide 2018-06 Yes 20mg Take 20 mg U nivers 20 mg 0-24 by mouth ity of tablet 19:41: daily. [address] Levothyroxi 2018-06 Yes Take by Uni vers ne 150 mcg 0-24 mouth. ity of capsule 14:43: [address] Levothyroxi 2018-06 Yes Take by Uni vers ne 150 mcg 0-24 mouth. ity of capsule 14:43: [address] Levothyroxi 2018-06 Yes Take by Uni vers ne 150 mcg 0-24 mouth. ity of capsule 14:43: [address] Levothyroxi 2018-06 Yes Take by Uni vers ne 150 mcg 0-24 mouth. ity of capsule 14:43: [address] Levothyroxi 2018-06 Yes Take by Uni vers ne 150 mcg 0-24 mouth. ity of capsule 14:43: [address] Levothyroxi 2018-06 Yes Take by Uni vers ne 150 mcg 0-24 mouth. ity of capsule 14:43: [address] furosemide 2018-06 Yes 20mg Take 20 mg U nivers 20 mg 0-24 by mouth ity of tablet 14:41: daily. [address] furosemide 2018-06 Yes 20mg Take 20 mg U nivers 20 mg 0-24 by mouth ity of tablet 14:41: daily. [address] furosemide 2018-06 Yes 20mg Take 20 mg U nivers 20 mg 0-24 by mouth ity of tablet 14:41: daily. [address] furosemide 2018-06 Yes 20mg Take 20 mg U nivers 20 mg 0-24 by mouth ity of tablet 14:41: daily. [address] furosemide 2018-06 Yes 20mg Take 20 mg U nivers 20 mg 0-24 by mouth ity of tablet 14:41: daily. [address] furosemide 2018-06 Yes 20mg Take 20 mg U nivers 20 mg 0-24 by mouth ity of tablet 14:41: daily. [place] 50 Medical Branch proMETHazin 2018-06 Yes [id number] 25mg Take 1 Univers e 25 mg 0-24 tablet by ity of tablet 00:00: mouth [place] 00 every 6 Medical (six) Branch hours as needed for Nausea and Vomiting (N/V). proMETHazin 2018-06 Yes [id number] 25mg Take 1 Univers e 25 mg 0-24 tablet by ity of tablet 00:00: mouth [place] 00 every 6 Medical (six) Branch hours as needed for Nausea and Vomiting (N/V). proMETHazin 2018-06 Yes [id number] 25mg Take 1 Univers e 25 mg 0-24 tablet by ity of tablet 00:00: mouth [place] 00 every 6 Medical (six) Branch hours as needed for Nausea and Vomiting (N/V). proMETHazin 2018-06 Yes [id number] 25mg Take 1 Univers e 25 mg 0-24 tablet by ity of tablet 00:00: mouth [place] 00 every 6 Medical (six) Branch hours as needed for Nausea and Vomiting (N/V). proMETHazin 2018-06 Yes [id number] 25mg Take 1 Univers e 25 mg 0-24 tablet by ity of tablet 00:00: mouth [place] 00 every 6 Medical (six) Branch hours as needed for Nausea and Vomiting (N/V). proMETHazin 2018-06 Yes [id number] 25mg Take 1 Univers e 25 mg 0-24 tablet by ity of tablet 00:00: mouth [place] 00 every 6 Medical (six) Branch hours as needed for Nausea and Vomiting (N/V). proMETHazin 2018-06 Yes [id number] 25mg Take 1 Univers e 25 mg 0-24 tablet by ity of tablet 00:00: mouth [place] 00 every 6 Medical (six) Branch hours as needed for Nausea and Vomiting (N/V). proMETHazin 2018-06 Yes [id number] 25mg Take 1 Univers e 25 mg 0-24 tablet by ity of tablet 00:00: mouth [place] 00 every 6 Medical (six) Branch hours as needed for Nausea and Vomiting (N/V). proMETHazin 2018-06 Yes [id number] 25mg Take 1 Univers e 25 mg 0-24 tablet by ity of tablet 00:00: mouth [place] 00 every 6 Medical (six) Branch hours as needed for Nausea and Vomiting (N/V). proMETHazin 2018-06 Yes [id number] 25mg Take 1 Univers e 25 mg 0-24 tablet by ity of tablet 00:00: mouth [place] 00 every 6 Medical (six) Branch hours as needed for Nausea and Vomiting (N/V). proMETHazin 2018-06 Yes [id number] 25mg Take 1 Univers e 25 mg 0-24 tablet by ity of tablet 00:00: mouth [place] 00 every 6 Medical (six) Branch hours as needed for Nausea and Vomiting (N/V). proMETHazin 2018-06 Yes [id number] 25mg Take 1 Univers e 25 mg 0-24 tablet by ity of tablet 00:00: mouth [place] 00 every 6 Medical (six) Branch hours as needed for Nausea and Vomiting (N/V). proMETHazin 2018-06 Yes [id number] 25mg Take 1 Univers e 25 mg 0-24 tablet by ity of tablet 00:00: mouth [place] 00 every 6 Medical (six) Branch hours as needed for Nausea and Vomiting (N/V). proMETHazin 2018-06 Yes [id number] 25mg Take 1 Univers e 25 mg 0-24 tablet by ity of tablet 00:00: mouth [place] 00 every 6 Medical (six) Branch hours as needed for Nausea and Vomiting (N/V). proMETHazin 2018-06 Yes [id number] 25mg Take 1 Univers e 25 mg [...] 0700, Until Discontinu ed, Routine 2018- Yes [id number] 1{tbl} Take 1 U nivers vitamin 9-11 tablet by ity of w/FA tablet 00:00: mouth [place] 00 daily. Medical Branch docusate Yes [id number] 240mg Take 1 Un mandy calcium 240 9-11 capsule by it y of mg capsule 00:00: mouth once [place] 00 daily as Medical needed for Branch Constipati on. ferrous 2019-0 Yes [id number] 325mg Take 1 Uni vers sulfate 325 9-11 tablet by ity of mg (65 mg 00:00: mouth 2 [place] iron) 00 (two) Medical tablet times Branch daily. ibuprofen 2018-0 Yes [id number] 600mg Take 1 U nivers 600 mg 9-11 tablet by ity of tablet 00:00: mouth [place] 00 every 6 Medical (six) Branch hours as needed for Pain (scale 1-3) or Pain (scale 4-6) (Pain). Take with food or milk. 2018-0 Yes [id number] 1{tbl} Take 1 U nivers vitamin 9-11 tablet by ity of w/FA tablet 00:00: mouth [place] 00 daily. Medical Branch docusate Yes [id number] 240mg Take 1 Un mandy calcium 240 9-11 capsule by it y of mg capsule 00:00: mouth once [place] 00 daily as Medical needed for Branch Constipati on. ferrous Yes [id number] 325mg Take 1 Uni vers sulfate 325 9-11 tablet by ity of mg (65 mg 00:00: mouth 2 [place] iron) 00 (two) Medical tablet times Branch daily. ibuprofen Yes [id number] 600mg Take 1 U nivers 600 mg 9-11 tablet by ity of tablet 00:00: mouth [place] 00 every 6 Medical (six) Branch hours as needed for Pain (scale 1-3) or Pain (scale 4-6) (Pain). Take with food or milk. 2018-0 Yes [id number] 1{tbl} Take 1 Univers vitamin 9-11 tablet by ity of w/FA tablet 00:00: mouth [place] 00 daily. Medical Branch docusate 0 Yes [id number] 240mg Take 1 U nivers calcium 240 9-11 capsule by it y of mg capsule 00:00: mouth once [place] 00 daily as Medical needed for Branch Constipati on. ferrous 2018-0 Yes [id number] 325mg Take 1 Un mandy sulfate 325 9-11 tablet by ity of mg (65 mg 00:00: mouth 2 [place] iron) 00 (two) Medical tablet times Branch daily. ibuprofen 2018-0 Yes [id number] 600mg Take 1 Univers 600 mg 9-11 tablet by ity of tablet 00:00: mouth [place] 00 every 6 Medical (six) Branch hours as needed for Pain (scale 1-3) or Pain (scale 4-6) (Pain). Take with food or milk. Yes [id number] 1{tbl} Take 1 Univers vitamin 9-11 tablet by ity of w/FA tablet 00:00: mouth [place] 00 daily. Medical Branch docusate Yes [id number] 240mg Take 1 U nivers calcium 240 9-11 capsule by it y of mg capsule 00:00: mouth once [place] 00 daily as Medical needed for Branch Constipati on. ferrous Yes [id number] 325mg Take 1 Un mandy sulfate 325 9-11 tablet by ity of mg (65 mg 00:00: mouth 2 [place] iron) 00 (two) Medical tablet times Branch daily. ibuprofen Yes [id number] 600mg Take 1 Univers 600 mg 9-11 tablet by ity of tablet 00:00: mouth [place] 00 every 6 Medical (six) Branch hours as needed for Pain (scale 1-3) or Pain (scale 4-6) (Pain). Take with food or milk. Yes [id number] 1{tbl} Take 1 Univers vitamin 9-11 tablet by ity of w/FA tablet 00:00: mouth [place] 00 daily. Medical Branch docusate Yes [id number] 240mg Take 1 U nivers calcium 240 9-11 capsule by it y of mg capsule 00:00: mouth once [place] 00 daily as Medical needed for Branch Constipati on. ferrous 0 Yes [id number] 325mg Take 1 Un mandy sulfate 325 9-11 tablet by ity of mg (65 mg 00:00: mouth 2 [place] iron) 00 (two) Medical tablet times Branch daily. ibuprofen Yes [id number] 600mg Take 1 Univers 600 mg 9-11 tablet by ity of tablet 00:00: mouth [place] 00 every 6 Medical (six) Branch hours as needed for Pain (scale 1-3) or Pain (scale 4-6) (Pain). Take with food or milk. Yes [id number] 1{tbl} Take 1 Univers vitamin 9-11 tablet by ity of w/FA tablet 00:00: mouth [place] 00 daily. Medical Branch docusate Yes [id number] 240mg Take 1 U nivers calcium 240 9-11 capsule by it y of mg capsule 00:00: mouth once [place] 00 daily as Medical needed for Branch Constipati on. ferrous 2019-0 Yes [id number] 325mg Take 1 Un mandy sulfate 325 9-11 tablet by ity of mg (65 mg 00:00: mouth 2 [place] iron) 00 (two) Medical tablet times Branch daily. ibuprofen 2019- Yes [id number] 600mg Take 1 Univers 600 mg 9-11 tablet by ity of tablet 00:00: mouth [place] 00 every 6 Medical (six) Branch hours as needed for Pain (scale 1-3) or Pain (scale 4-6) (Pain). Take with food or milk. Yes [id number] 1{tbl} Take 1 Univers vitamin 9-11 tablet by ity of w/FA tablet 00:00: mouth [place] 00 daily. Medical Branch docusate Yes [id number] 240mg Take 1 U nivers calcium 240 9-11 capsule by it y of mg capsule 00:00: mouth once [place] 00 daily as Medical needed for Branch Constipati on. ferrous 2018-0 Yes [id number] 325mg Take 1 Un mandy sulfate 325 9-11 tablet by ity of mg (65 mg 00:00: mouth 2 [place] iron) 00 (two) Medical tablet times Branch daily. ibuprofen 0 Yes [id number] 600mg Take 1 Univers 600 mg 9-11 tablet by ity of tablet 00:00: mouth [place] 00 every 6 Medical (six) Branch hours as needed for Pain (scale 1-3) or Pain (scale 4-6) (Pain). Take with food or milk. 0 Yes [id number] 1{tbl} Take 1 Univers vitamin 9-11 tablet by ity of w/FA tablet 00:00: mouth [place] 00 daily. Medical Branch docusate 0 Yes [id number] 240mg Take 1 U nivers calcium 240 9-11 capsule by it y of mg capsule 00:00: mouth once [place] 00 daily as Medical needed for Branch Constipati on. ferrous 2018-0 Yes [id number] 325mg Take 1 Un mandy sulfate 325 9-11 tablet by ity of mg (65 mg 00:00: mouth 2 [place] iron) 00 (two) Medical tablet times Branch daily. ibuprofen 2019-0 Yes [id number] 600mg Take 1 Univers 600 mg 9-11 tablet by ity of tablet 00:00: mouth [place] 00 every 6 Medical (six) Branch hours as needed for Pain (scale 1-3) or Pain (scale 4-6) (Pain). Take with food or milk. Yes [id number] 1{tbl} Take 1 Univers vitamin 9-11 tablet by ity of w/FA tablet 00:00: mouth [place] 00 daily. Medical Branch docusate Yes [id number] 240mg Take 1 U nivers calcium 240 9-11 capsule by it y of mg capsule 00:00: mouth once [place] 00 daily as Medical needed for Branch Constipati on. ferrous Yes [id number] 325mg Take 1 [facility] mand[facility] sulfate 325 9-11 tablet by ity of mg (65 mg 00:00: mouth 2 [place] iron) 00 (two) Medical tablet times Branch daily. ibuprofen Yes [id number] 600mg Take 1 [facility] 600 mg 9-11 tablet by ity of tablet 00:00: mouth [place] 00 every 6 Medical (six) Branch hours as needed for Pain (scale 1-3) or Pain (scale 4-6) (Pain). Take with food or milk. Yes [id number] 1{tbl} Take 1 [facility] vitamin 9-11 tablet by ity of w/FA tablet 00:00: mouth [place] 00 daily. Medical Branch docusate 0 Yes [id number] 240mg Take 1 U nivers calcium 240 9-11 capsule by it y of mg capsule 00:00: mouth once [place] 00 daily as Medical needed for Branch Constipati on. ferrous 0 Yes [id number] 325mg Take 1 [facility] sulfate 325 9-11 tablet by ity of mg (65 mg 00:00: mouth 2 [place] iron) 00 (two) Medical tablet times Branch daily. ibuprofen Yes [id number] 600mg Take 1 [facility] 600 mg 9-11 tablet by ity of tablet 00:00: mouth [place] 00 every 6 Medical (six) Branch hours as needed for Pain (scale 1-3) or Pain (scale 4-6) (Pain). Take with food or milk. Yes [id number] 1{tbl} Take 1 [facility] vitamin 9-11 tablet by ity of w/FA tablet 00:00: mouth [place] 00 daily. Medical Branch docusate 2019 Yes [id number] 240mg Take 1 [facility] nivers calcium 240 9-11 capsule by it y of mg capsule 00:00: mouth once [place] 00 daily as Medical needed for Branch Constipati on. ferrous 2019-0 Yes [id number] 325mg Take 1 [facility] [place] sulfate 325 9-11 tablet by ity of mg (65 mg 00:00: mouth 2 [place] iron) 00 (two) Medical tablet times Branch daily. ibuprofen Yes [id number] 600mg Take 1 [facility] 600 mg 9-11 tablet by ity of tablet 00:00: mouth [place] 00 every 6 Medical (six) Branch hours as needed for Pain (scale 1-3) or Pain (scale 4-6) (Pain). Take with food or milk. Yes [id number] 1{tbl} Take 1 [facility] vitamin 9-11 tablet by ity of w/FA tablet 00:00: mouth [place] 00 daily. Medical Branch docusate Yes [id number] 240mg Take 1 U nivers calcium 240 9-11 capsule by it y of mg capsule 00:00: mouth once [place] 00 daily as Medical needed for Branch Constipati on. ferrous Yes [id number] 325mg Take 1 [facility] [place] sulfate 325 9-11 tablet by ity of mg (65 mg 00:00: mouth 2 [place] iron) 00 (two) Medical tablet times Branch daily. ibuprofen Yes [id number] 600mg Take 1 [facility] 600 mg 9-11 tablet by ity of tablet 00:00: mouth [place] 00 every 6 Medical (six) Branch hours as needed for Pain (scale 1-3) or Pain (scale 4-6) (Pain). Take with food or milk. Yes [id number] 1{tbl} Take 1 [facility] vitamin 9-11 tablet by ity of w/FA tablet 00:00: mouth [place] 00 daily. Medical Branch docusate Yes [id number] 240mg Take 1 U nivers calcium 240 9-11 capsule by it y of mg capsule 00:00: mouth once [place] 00 daily as Medical needed for Branch Constipati on. ferrous 2018-0 Yes [id number] 325mg Take 1 [facility] [place] sulfate 325 9-11 tablet by ity of mg (65 mg 00:00: mouth 2 [place] iron) 00 (two) Medical tablet times Branch daily. ibuprofen 2019-0 Yes [id number] 600mg Take 1 [facility] 600 mg 9-11 tablet by ity of tablet 00:00: mouth [place] 00 every 6 Medical (six) Branch hours as needed for Pain (scale 1-3) or Pain (scale 4-6) (Pain). Take with food or milk. 2019-0 Yes [id number] 1{tbl} Take 1 [facility] vitamin 9-11 tablet by ity of w/FA tablet 00:00: mouth [place] 00 daily. Medical Branch docusate Yes [id number] 240mg Take 1 U nivers calcium 240 9-11 capsule by it y of mg capsule 00:00: mouth once [place] 00 daily as Medical needed for Branch Constipati on. ferrous Yes [id number] 325mg Take 1 [facility] [place] sulfate 325 9-11 tablet by ity of mg (65 mg 00:00: mouth 2 [place] iron) 00 (two) Medical tablet times Branch daily. ibuprofen 0 Yes [id number] 600mg Take 1 [facility] 600 mg 9-11 tablet by ity of tablet 00:00: mouth [place] 00 every 6 Medical (six) Branch hours as needed for Pain (scale 1-3) or Pain (scale 4-6) (Pain). Take with food or milk. Yes [id number] 1{tbl} Take 1 [facility] vitamin 9-11 tablet by ity of w/FA tablet 00:00: mouth [place] 00 daily. Medical Branch docusate Yes [id number] 240mg Take 1 U nivers calcium 240 9-11 capsule by it y of mg capsule 00:00: mouth once [place] 00 daily as Medical needed for Branch Constipati on. ferrous 2018-0 Yes [id number] 325mg Take 1 [facility] [place] sulfate 325 9-11 tablet by ity of mg (65 mg 00:00: mouth 2 [place] iron) 00 (two) Medical tablet times Branch daily. ibuprofen 2018-0 Yes [id number] 600mg Take 1 [facility] 600 mg 9-11 tablet by ity of tablet 00:00: mouth [place] 00 every 6 Medical (six) Branch hours as needed for Pain (scale 1-3) or Pain (scale 4-6) (Pain). Take with food or milk. 2018-0 Yes [id number] 1{tbl} Take 1 [facility] vitamin 9-11 tablet by ity of w/FA tablet 00:00: mouth [place] 00 daily. Medical Branch docusate Yes [id number] 240mg Take 1 U nivers calcium 240 9-11 capsule by it y of mg capsule 00:00: mouth once [place] 00 daily as Medical needed for Branch Constipati on. ferrous Yes [id number] 325mg Take 1 [facility] [place] sulfate 325 9-11 tablet by ity of mg (65 mg 00:00: mouth 2 [place] iron) 00 (two) Medical tablet times Branch daily. ibuprofen Yes [id number] 600mg Take 1 [facility] 600 mg 9-11 tablet by ity of tablet 00:00: mouth [place] 00 every 6 Medical (six) Branch hours as needed for Pain (scale 1-3) or Pain (scale 4-6) (Pain). Take with food or milk. Yes [id number] 1{tbl} Take 1 [facility] vitamin 9-11 tablet by ity of w/FA tablet 00:00: mouth [place] 00 daily. Medical Branch docusate Yes [id number] 240mg Take 1 U nivers calcium 240 9-11 capsule by it y of mg capsule 00:00: mouth once [place] 00 daily as Medical needed for Branch Constipati on. ferrous Yes [id number] 325mg Take 1 [facility] [place] sulfate 325 9-11 tablet by ity of mg (65 mg 00:00: mouth 2 [place] iron) 00 (two) Medical tablet times Branch daily. ibuprofen Yes [id number] 600mg Take 1 [facility] 600 mg 9-11 tablet by ity of tablet 00:00: mouth [place] 00 every 6 Medical (six) Branch hours as needed for Pain (scale 1-3) or Pain (scale 4-6) (Pain). Take with food or milk. levothyroxi 2019- No [id number] 150ug Take 1 [facility] ne 150 mcg 9-11 10-12 tablet by ity of tablet 00:00: 04:59 mouth [place] 00 :00 every Medical morning Branch for 30 days. SERTraline 2019- No [id number] 50mg Take 1 [facility] 50 mg 9-11 10-12 tablet by ity of tablet 00:00: 04:59 mouth [place] 00 :00 daily for Medical 30 days. Branch levothyroxi 2019- No [id number] 150ug Take 1 [facility] ne 150 mcg 9- 10-12 tablet by ity of tablet 00:00: 04:59 mouth [place] 00 :00 every Medical morning Branch for 30 days. SERTraline 2019- No [id number] 50mg Take 1 [facility] 50 mg 9-11 10-12 tablet by ity of tablet 00:00: 04:59 mouth [place] 00 :00 daily for Medical 30 days. Branch ibuprofen 2018- Yes 600mg 600 mg, Univ ers (IBU) 9-10 Oral, Q8H, ity of tablet 600 19:00: First dose [place] mg 00 on [facility] Medical 02/24/19 at Branch 1400, Until Discontinu ed, Routine acetaminoph Yes 650mg 650 mg, Un mandy en 9-10 Oral, Q6H, ity of (TYLENOL) 17:00: First dose [place] tablet 650 00 on [facility] mg 02/24/19 at Branch 1200, Until Discontinu ed, Routine magnesium 2018- Yes 30mL 30 mL, Univer s hydroxide 9-10 Oral, ity of (MILK OF 14:00: DAILY, [place] MAGNESIA) 00 First dose Medi raquel 400 mg/5 mL on [facility] suspension 02/24/19 at 30 mL 0900, Until Discontinu ed, Routine simethicone Yes 160mg 160 mg, Un mandy (GAS 9-10 Oral, ity of RELIEF) 14:00: PC+HS, [place] chewable 00 First dose Medic al tablet 160 on [facility] mg 02/24/19 at 0900, Until Discontinu ed, Routine docusate 2018- Yes 240mg 240 mg, Unive rs calcium 9-10 Oral, ity of (SURFAK) 14:00: DAILY, [place] capsule 240 00 First dose Me dical mg on [facility] Branch 02/24/19 at 0900, Until Discontinu ed, Routine ketorolac 2019- No 30mg 30 mg, Unive rs (TORADOL) 9-10 09-10 Slow IV ity of injection 02:58: 03:39 Push, PRN, [place] 30 mg 18 :00 1 dose, Medical Starting Branch 02/23/19 at 2158, Until [facility] 02/23/19 at 2239, Routine, Pain (scale 7-10)
F aculty member approving Restricted medication : ЮЛИЯ EDWARDS nalbuphine 2019-0 Yes 5mg 5 mg, Univer s (NUBAIN) 02-24 Intravenou ity o f injection 5 02:57: s, PRN, 1 [place] mg 39 dose, Medical Starting Branch Sat02/23/19 at 2157, Until Discontinu ed, Routine, Itching naloxone 2019-0 2019- No .4mg 0.4 mg, Unive rs (NARCAN) 02-2411 Slow IV ity of injection 02:57: 23:14 Push, PRN [place] 0.4 mg 39 :19 - SEE Medical INSTRUCTIO Branch NS, Starting Sat02/23/19 at 2157, Until Sat02/25/19 at 1814, Routine, Analgesia Recovery HYDROcodone 2018-0 Yes 1{tbl} 1 tablet, Univers -acetaminop -10 Oral, ity of hen (NORCO 02:10: Q6HPRN, [place] 5) 5-325 mg 37 Starting Medi raquel tablet 1 Sat02/23/19 Branc h tablet at 2110, Until Discontinu ed, Routine, Pain (scale 7-10) rho(D) 2018-0 Yes 300ug 300 mcg, Univer s immune - Intramuscu ity of globulin 00:00: lar, ONCE, Jorge L as (RHOGAM) 24 For 1 Medical syringe 300 dose, Branch mcg Conditiona l, Routine diphenhydrA 2018-0 Yes 25mg 25 mg, Univ ers MINE [...] 0.25 mg 00 :00 1 dose, Medical [place] 02/22/19 Branch at 1815, Routine acetaminoph 2019- No 650mg 650 mg, U nivers en 02-22 Oral, ity of (TYLENOL) 22:15: 21:19 ONCE, 1 [place] tablet 650 00 :00 dose, [place] Medi raquel mg 02/22/19 at Branch 1715, [...] First dose [place] mg 00 on [facility] Medical 02/21/19 at Branch 1245, Until Discontinu ed, Routine ferrous Yes 325mg 325 mg, Univer s sulfate 02-21 Oral, TID ity of tablet 325 13:00: MEALS, [place] mg 00 First dose Medical on [facility] Branch 02/21/19 at 0800, Until [...] Routine bisacodyl 2018- No 10mg 10 mg, [facility] rs (DULCOLAX) 02-19 Rectal, ity o f suppository 21:02: 00:00 QHSPRN, [place] 10 mg 01 :25 Starting Medical [facility] 02/19/19 Branch at 1602, Until 02/23/19 at 1900, Routine, Constipati on albuterol Yes 2.5mg 2.5 mg, Univ ers (PROVENTIL) 02-19 Inhalation it y of 2.5 mg /3 21:00: , Q6HPRN, Jorge L as mL (0.083 02 Starting Medica l %) [facility] 02/19/19 Branch nebulizer at 1600, solution Until [...] 1 [place] g/300 mL 00 :00 dose, [facility] Medica l (LIMEONDEX 02/19/19 at Bran ch 100) liquid 0900, 50 g Routine albuterol 2018- No 2.5mg 2.5 mg, Uni vers (PROVENTIL) 02-19 Inhalation i ty of 2.5 mg /3 12:18: 18:07 , Q6HPRN, [place] mL (0.083 50 :53 Starting Medica l %) [facility] 02/19/19 Branch nebulizer at 0718, solution Until [place] 2.5 mg 02/19/19 at 1307, Routine, Shortness of Breath, Wheezing levothyroxi Yes 150ug 150 mcg, U nivers ne 02-19 Oral, ity of (SYNTHROID) 11:00: QAM-0600, [place] tablet 150 00 First dose Med ical mcg on [place] Branch 02/19/19 at 0600, Until Discontinu ed, Routine alum-mag 2019-0 2019- No 30mL 30 mL, Univer s hydroxide-s 02-19 Oral, ity of imeth 07:08: 00:00 Q6HPRN, [place] (MAALOX 43 :25 Starting Medical PLUS / [place] 02/19/19 Branch MAG-AL at 0208, PLUS) Until Mon 200-200-20 02/23/19 at mg/5 mL 1900, suspension Routine, 30 mL Indigestio n docusate 2018- No 240mg 240 mg, Univ ers calcium 02-19 Oral, ity of (SURFAK) 07:08: 12:27 QHSPRN, [place] capsule 240 42 :43 Starting Medi raquel mg [place] 02/19/19 Branch at 0208, Until 02/20/19 at 0727, Routine, Constipati on SERTraline 2018- No 25mg 25 mg, Univ ers (ZOLOFT) [...] First dose [place] mg 00 :25 on Sat02/18/19 at Branch 1400, Until Discontinu ed, SIL methadone 2018- No 120mg 120 mg, Uni vers 10 [...] ty of phos 17:15: 17:24 lar, Q24H, [place] (CELESTONE 00 :00 2 doses, Medic al [...] [place] 02/19/19 at 0209, Routine proMETHazin Yes [id number] 25mg Take 1 Univers e 25 mg 8-13 tablet by ity of tablet 00:00: mouth [place] 00 every 4 Medical (four) Branch hours as needed for Nausea and Vomiting (N/V). proMETHazin 2019-0 Yes [id number] 25mg Take 1 Univers e 25 mg 8-13 tablet by ity of tablet 00:00: mouth [place] 00 every 4 Medical (four) Branch hours as needed for Nausea and Vomiting (N/V). proMETHazin 2019-0 Yes [id number] 25mg Take 1 Univers e 25 mg 8-13 tablet by ity of tablet 00:00: mouth [place] 00 every 4 Medical (four) Branch hours as needed for Nausea and Vomiting (N/V). proMETHazin 2019-0 Yes [id number] 25mg Take 1 Univers e 25 mg 8-13 tablet by ity of tablet 00:00: mouth [place] 00 every 4 Medical (four) Branch hours as needed for Nausea and Vomiting (N/V). proMETHazin 2019-0 Yes [id number] 25mg Take 1 Univers e 25 mg 8-13 tablet by ity of tablet 00:00: mouth [place] 00 every 4 Medical (four) Branch hours as needed for Nausea and Vomiting (N/V). proMETHazin 2018-0 Yes [id number] 25mg Take 1 Univers e 25 mg 8-13 tablet by ity of tablet 00:00: mouth [place] 00 every 4 Medical (four) Branch hours as needed for Nausea and Vomiting (N/V). proMETHazin 2019-0 Yes [id number] 25mg Take 1 Univers e 25 mg 8-13 tablet by ity of tablet 00:00: mouth [place] 00 every 4 Medical (four) Branch hours as needed for Nausea and Vomiting (N/V). proMETHazin 2019-0 Yes [id number] 25mg Take 1 Univers e 25 mg 8-13 tablet by ity of tablet 00:00: mouth [place] 00 every 4 Medical (four) Branch hours as needed for Nausea and Vomiting (N/V). proMETHazin 2019-0 Yes [id number] 25mg Take 1 Univers e 25 mg 8-13 tablet by ity of tablet 00:00: mouth [place] 00 every 4 Medical (four) Branch hours as needed for Nausea and Vomiting (N/V). proMETHazin 2019-0 Yes [id number] 25mg Take 1 Univers e 25 mg 8-13 tablet by ity of tablet 00:00: mouth [place] 00 every 4 Medical (four) Branch hours as needed for Nausea and Vomiting (N/V). tramadol 2019-0 2019- [facility] (UL[facility]AM 01-25- mouth. ity o f ORAL) 04:15: 00:00 [place] 52 :00 Medical Branch methadone 2019- No Take by Univ ers HCl 01-25 mouth. ity of (METHADONE 04:15: 00:00 [place] ORAL) 52 :00 Medical Branch levothyroxi 2018-0 Yes 150ug 150 mcg, U nivers ne 8-10 Oral, ity of (SYNTHROID) 16:15: QAM-0600, [place] tablet 150 00 First dose Med ical mcg on [facility] Branch 01/24/19 at 1115, Until Discontinu ed, Routine 2018- Yes 1{tbl} 1 tablet, Un mandy vitamin 8-10 Oral, ity of w/FA 14:00: DAILY, [place] (PRENATABS 00 First dose Med ical RX) tablet on [facility] Branch 1 tablet 01/24/19 at 0900, Until Discontinu ed, Routine methadone Yes 110mg 110 mg, Univ ers (DOLOPHINE 8-10 Oral, QAM, ity of HCL) tablet 14:00: First dose [place] 110 mg 00 on [facility] Medical 01/24/19 at Branch 0900, Until Discontinu ed, Routine clonazePAM 2018- Yes 2mg 2 mg, Univer s (KLONOPIN) 8-10 Oral, BID, ity of tablet 2 mg 13:00: First dose [place] 00 on [facility] Medical 01/24/19 at Branch 0800, Until Discontinu ed, Routine SERTraline 2018- Yes 25mg 25 mg, Unive rs (ZOLOFT) 8-10 Oral, ity of tablet 25 11:45: DAILY, [place] mg 00 First dose Medical on [facility] Branch 01/24/19 at 0645, Until Discontinu ed, Routine lactated 2019- No 1000mL at 999 Univ ers ringers IV 01-24 08-10 mL/hr, ity of infusion 11:45: 14:14 1,000 mL, Jorge L as 1,000 mL 00 :00 Intravenou Medic al s, ONCE, 1 Branch dose, [facility] 01/24/19 at 0645, Routine acetaminoph 2019- No 650mg 650 mg, U nivers en 01-24 08-10 Oral, ity of (TYLENOL) 09:47: 10:34 ONCE, 1 [place] tablet 650 00 :00 dose, Sat Medi raquel mg 01/24/19 at Branch 0500, Routine clonazePAM Yes Univers 2 mg tablet 7-24 ity of 00:00: [address] clonazePAM Yes Univers 2 mg tablet 7-24 ity of 00:00: [address] clonazePAM Yes Univers 2 mg tablet 7-24 ity of 00:00: [address] clonazePAM Yes Univers 2 mg tablet 7-24 ity of 00:00: [address] clonazePAM Yes Univers 2 mg tablet 7-24 ity of 00:00: [address] clonazePAM Yes Univers 2 mg tablet 7-24 ity of 00:00: [address] clonazePAM Yes Univers 2 mg tablet 7-24 ity of 00:00: [address] clonazePAM Yes Univers 2 mg tablet 7-24 ity of 00:00: [address] clonazePAM Yes Univers 2 mg tablet 7-24 ity of 00:00: [address] clonazePAM Yes Univers 2 mg tablet 7-24 ity of 00:00: [address] SERTraline 0 Yes Univers 25 mg 7-17 ity of tablet 00:00: [address] SERTraline Yes Univers 25 mg 7-17 ity of tablet 00:00: [address] SERTraline 0 Yes Univers 25 mg 7-17 ity of tablet 00:00: [address] SERTraline Yes Univers 25 mg 7-17 ity of tablet 00:00: [address] SERTraline 0 Yes Univers 25 mg 7-17 ity of tablet 00:00: [address] SERTraline 0 Yes Univers 25 mg 7-17 ity of tablet 00:00: [address] SERTraline 0 Yes Univers 25 mg 7-17 ity of tablet 00:00: [address] SERTraline 0 Yes Univers 25 mg 7-17 ity of tablet 00:00: [address] SERTraline Yes Univers 25 mg 7-17 ity of tablet 00:00: [place] 00 Medical Branch SERTraline 2019-0 Yes Univers 25 mg 7-17 ity of tablet 00:00: [place] 00 Medical Branch levothyroxi 2019-0 Yes Univer s ne 150 mcg 6-28 ity of tablet 00:00: [place] 00 Medical Branch levothyroxi 2019-0 Yes Univer s ne 150 mcg 6-28 ity of tablet 00:00: [place] 00 Medical Branch levothyroxi 2019-0 Yes Univer s ne 150 mcg 6-28 ity of tablet 00:00: [place] 00 Medical Branch levothyroxi 2019-0 Yes Univer s ne 150 mcg 6-28 ity of tablet 00:00: [place] 00 Medical Branch levothyroxi 2019-0 Yes Univer s ne 150 mcg 6-28 ity of tablet 00:00: [place] 00 Medical Branch levothyroxi 2019-0 Yes Univer s ne 150 mcg 6-28 ity of tablet 00:00: [place] 00 Medical Branch levothyroxi 2019-0 Yes Univer s ne 150 mcg 6-28 ity of tablet 00:00: [place] 00 Medical Branch levothyroxi 2019-0 Yes Univer s ne 150 mcg 6-28 ity of tablet 00:00: [place] 00 Medical Branch levothyroxi 2019-0 Yes Univer s ne 150 mcg 6-28 ity of tablet 00:00: [place] 00 Medical Branch levothyroxi 2019-0 Yes Univer s ne 150 mcg 6-28 ity of tablet 00:00: [place] 00 Medical Branch levothyroxi 2019-0 Yes [id number] 150ug Take 1 Univers ne 150 mcg 6-28 tablet by ity of tablet 00:00: mouth [place] 00 every Medical morning. Branch levothyroxi 2019-0 Yes [id number] 150ug Take 1 [facility] ne 150 mcg 6-28 tablet by ity of tablet 00:00: mouth [place] 00 every Medical morning. Branch levothyroxi 2019-0 Yes [id number] 150ug Take 1 [facility] ne 150 mcg 6-28 tablet by ity of tablet 00:00: mouth [place] 00 every Medical morning. Branch levothyroxi 2019-0 Yes [id number] 150ug Take 1 [facility] ne 150 mcg 6-28 tablet by ity of tablet 00:00: mouth [place] 00 every Medical morning. Branch levothyroxi 2019-0 2019- No [id number] 150ug Take 1 Univers ne 150 mcg [...] s mg tablet 5-25 ity of 00:00: [place] 00 Medical Branch traMADOL 50 2019-0 Yes Univer s mg tablet 5-25 ity of 00:00: [place] 00 Medical Branch traMADOL 50 2019-0 Yes Univer s mg tablet 5-25 ity of 00:00: [place] 00 Medical Branch traMADOL 50 2019-0 2019- No Unive rs mg tablet 5-25 08-10 ity of 00:00: 00:00 [place] 00 :00 Medical Branch tramadol 2019-0 Yes Take by Univer s HCl (ULTRAM 5-14 mouth. ity of ORAL) 19:34: [address] Branch tramadol 2019-0 Yes Take by Univer s HCl (ULTRAM 5-14 mouth. ity of ORAL) 19:34: [address] Branch tramadol 2019-0 Yes Take by Univer s HCl (ULTRAM 5-14 mouth. ity of ORAL) 19:34: [address] Branch tramadol 2019-0 Yes Take by Univer s HCl (ULTRAM 5-14 mouth. ity of ORAL) 19:34: [address] Branch PNV 67-iron 2019-0 Yes [id number] 1{capsu Take 1 Univers ps-folate 5-14 le} capsule by ity of no.1-dha 00:00: mouth [place] (VITAFOL 00 daily. Medical ULTRA) 29 Branch mg iron- 1 mg-200 mg Cap PNV 67-iron 2018-0 Yes [id number] 1{capsu Take 1 Univers ps-folate 5-14 le} capsule by ity of no.1-dha 00:00: mouth [place] (VITAFOL 00 daily. Medical ULTRA) 29 Branch mg iron- 1 mg-200 mg Cap PNV 67-iron 2019- Yes [id number] 1{capsu Take 1 Univers ps-folate 5-14 le} capsule by ity of no.1-dha 00:00: mouth [place] (VITAFOL 00 daily. Medical ULTRA) 29 Branch mg iron- 1 mg-200 mg Cap PNV 67-iron 2018- Yes [id number] 1{capsu Take 1 Univers ps-folate 5-14 le} capsule by ity of no.1-dha 00:00: mouth [place] (VITAFOL 00 daily. Medical ULTRA) 29 Branch mg iron- 1 mg-200 mg Cap PNV 67-iron 2019- No [id number] 1{capsu Take 1 Univers ps-folate 5-14 08-10 le} capsule by ity of no.1-dha 00:00: 00:00 mouth [place] (VITAFOL 00 :00 daily. Medical ULTRA) 29 Branch mg iron- 1 mg-200 mg Cap clonazePAM 0 Yes Univers 2 mg tablet 10-23 ity of 00:00: [place] 00 [facility] clonazePAM 2018-0 Yes Univers 2 mg tablet 10-23 ity of 00:00: [place] 00 [facility] clonazePAM 2019-0 Yes Univers 2 mg tablet 10-23 ity of 00:00: [place] 00 [facility] clonazePAM 2019-0 Yes Univers 2 mg tablet 10-23 ity of 00:00: [place] 00 [facility] clonazePAM 0 2019- No Univer s 2 mg tablet 10-23 08-10 ity of 00:00: 00:00 [place] 00 :00 [facility] Euthyrox Euthyrox No 1 Q1D Euthyrox Swe larry 150 mcg 150 mcg 150 mcg Commun i tablet Take tablet Take tablet ty 1 tablet 1 tablet Take 1 Hospi ta every day every day tablet l by oral by oral every day Clin ics route. route. by oral route. gabapentin gabapentin No gabapentin [place] 400 mg 400 mg 400 mg Communi capsule capsule capsule ty TAKE 1 TAKE 1 TAKE 1 Hospita CAPSULE BY CAPSULE BY CAPSULE BY l MOUTH TWICE MOUTH TWICE MOUTH Clinics A DAY A DAY TWICE A DAY hydrochloro hydrochloro No 1 Q1D hydrochlor [place] thiazide thiazide othiazide Co mmuni 12.5 mg 12.5 mg 12.5 mg ty tablet Take tablet Take tablet Hospita 1 tablet 1 tablet Take 1 l every day every day tablet Cli nics by oral by oral every day route. route. by oral route. hydrocodone hydrocodone No 1 Q8H hydrocodon [place] 5 5 e 5 Communi mg-acetamin mg-acetamin mg-acetami ty ophen 325 ophen 325 nophen 325 Hospita mg tablet mg tablet mg tablet l Take 1 Take 1 Take 1 Clinics tablet tablet tablet every 8 every 8 every 8 hours by hours by hours by oral route. oral route. oral route. methadone methadone No methadone [place] (bulk) 110 (bulk) 110 (bulk) 110 Communi mg po q day mg po q day mg po q ty day Hospita l [facility] trazodone trazodone No 1 Q1D trazodone [place] 50 mg 50 mg 50 mg Communi tablet Take tablet Take tablet ty 1 tablet 1 tablet Take 1 Hospi ta every day every day tablet l by oral by oral every day Clin ics route. route. by oral route. Adderall 10 Adderall 10 No 1 Q1D Adderall [place] mg tablet mg tablet 10 mg Comm uni Take 1 Take 1 tablet ty tablet tablet Take 1 Hospita every day every day tablet l by oral by oral every day Clin ics route. route. by oral route. amitriptyli amitriptyli No amitriptyl [place] ne 50 mg ne 50 mg ine 50 mg Co mmuni tablet TAKE tablet TAKE tablet ty 1 TABLET BY 1 TABLET BY TAKE 1 Hospita MOUTH MOUTH TABLET BY l EVERYDAY AT EVERYDAY AT MOUTH Clinics BEDTIME BEDTIME EVERYDAY AT BEDTIME clonazepam clonazepam No 2 BID clonazepam [place] 1 mg tablet 1 mg tablet 1 mg C ommuni Take 2 Take 2 tablet ty tablets tablets Take 2 Hospita twice a day twice a day tablets l by oral by oral twice a Clinic s route. route. day by oral route. dextroamphe dextroamphe No dextroamph [place] tamine-amph tamine-amph etamine-am Communi etamine 20 etamine 20 phetamine ty mg tablet mg tablet 20 mg Hosp yarely TAKE 2 TAKE 2 tablet l TABLETS (40 TABLETS (40 TAKE 2 Clinics MG) BY MG) BY TABLETS MOUTH DAILY MOUTH DAILY (40 MG) BY MOUTH DAILY doxepin 50 doxepin 50 No doxepin 50 [place] mg capsule mg capsule mg capsule Communi TAKE 1 TAKE 1 TAKE 1 ty CAPSULE BY CAPSULE BY CAPSULE BY Hospita MOUTH AT MOUTH AT MOUTH AT l BEDTIME BEDTIME BEDTIME Clinic s Euthyrox Euthyrox No 1 Q1D Euthyrox Swe [place] 150 mcg 150 mcg 150 mcg Commun i tablet Take tablet Take tablet ty 1 tablet 1 tablet Take 1 Hospi ta every day every day tablet l by oral by oral every day Clin ics route. route. by oral route. gabapentin gabapentin No gabapentin [place] 400 mg 400 mg 400 mg Communi capsule capsule capsule ty TAKE 1 TAKE 1 TAKE 1 Hospita CAPSULE BY CAPSULE BY CAPSULE BY l MOUTH TWICE MOUTH TWICE MOUTH Clinics A DAY A DAY TWICE A DAY hydrochloro hydrochloro No 1 Q1D hydrochlor [place] thiazide thiazide othiazide Co mmuni 12.5 mg 12.5 mg 12.5 mg ty tablet Take tablet Take tablet Hospita 1 tablet 1 tablet Take 1 l every day every day tablet Cli nics by oral by oral every day route. route. by oral route. hydrocodone hydrocodone No 1 Q8H hydrocodon [place] 5 5 e 5 Communi mg-acetamin mg-acetamin mg-acetami ty ophen 325 ophen 325 nophen 325 Hospita mg tablet mg tablet mg tablet l Take 1 Take 1 Take 1 Clinics tablet tablet tablet every 8 every 8 every 8 hours by hours by hours by oral route. oral route. oral route. methadone methadone No methadone [place] (bulk) 110 (bulk) 110 (bulk) 110 Communi mg po q day mg po q day mg po q ty day [facility] trazodone trazodone No 1 Q1D trazodone [place] 50 mg 50 mg 50 mg Communi tablet Take tablet Take tablet ty 1 tablet 1 tablet Take 1 Hospi ta every day every day tablet l by oral by oral every day Clin ics route. route. by oral route. acetaminoph acetaminoph No acetaminop [place] en 300 en 300 hen 300 Communi mg-codeine mg-codeine mg-codeine ty 30 mg 30 mg 30 mg Hospita tablet TAKE tablet TAKE tablet l 1 TABLET 1 TABLET TAKE 1 Clini cs EVERY 8 EVERY 8 TABLET HOURS BY HOURS BY EVERY 8 ORAL ROUTE. ORAL ROUTE. HOURS BY ORAL ROUTE. Adderall 10 Adderall 10 No 1 Q1D Adderall [place] mg tablet mg tablet 10 mg Comm uni Take 1 Take 1 tablet ty tablet tablet Take 1 Hospita every day every day tablet l by oral by oral every day Clin ics route. route. by oral route. amitriptyli amitriptyli No amitriptyl [place] ne 50 mg ne 50 mg ine 50 mg [facility] tablet TAKE tablet TAKE tablet ty 1 TABLET BY 1 TABLET BY TAKE 1 Hospita MOUTH MOUTH TABLET BY l EVERYDAY AT EVERYDAY AT MOUTH Clinics BEDTIME BEDTIME EVERYDAY AT BEDTIME clonazepam clonazepam No 2 BID clonazepam [place] 1 mg tablet 1 mg tablet 1 mg [facility] Take 2 Take 2 tablet ty tablets tablets Take 2 Hospita twice a day twice a day tablets l by oral by oral twice a Clinic s route. route. day by oral route. dextroamphe dextroamphe No dextroamph [place] tamine-amph tamine-amph etamine-am Communi etamine 20 etamine 20 phetamine ty mg tablet mg tablet 20 mg Hosp yarely TAKE 2 TAKE 2 tablet l TABLETS (40 TABLETS (40 TAKE 2 Clinics MG) BY MG) BY TABLETS MOUTH DAILY MOUTH DAILY (40 MG) BY MOUTH DAILY doxepin 50 doxepin 50 No doxepin 50 [place] mg capsule mg capsule mg capsule Communi TAKE 1 TAKE 1 TAKE 1 ty CAPSULE BY CAPSULE BY CAPSULE BY Hospita MOUTH AT MOUTH AT MOUTH AT l BEDTIME BEDTIME BEDTIME Clinic s escitalopra escitalopra No escitalopr [place] m 10 mg m 10 mg am 10 mg Commu ni tablet TAKE tablet TAKE tablet ty 1 TABLET BY 1 TABLET BY TAKE 1 Hospita MOUTH EVERY MOUTH EVERY TABLET BY l DAY DAY MOUTH Clinics EVERY DAY Euthyrox Euthyrox No 1 Q1D Euthyrox Swe lar[facility] 150 mcg 150 mcg 150 mcg Commun i tablet Take tablet Take tablet ty 1 tablet 1 tablet Take 1 Hospi ta every day every day tablet l by oral by oral every day Clin ics route. route. by oral route. gabapentin gabapentin No gabapentin [place] 400 mg 400 mg 400 mg Communi capsule capsule capsule ty TAKE 1 TAKE 1 TAKE 1 [facility]ospita CAPSULE BY CAPSULE BY CAPSULE BY l MOUTH TWICE MOUTH TWICE MOUTH Clinics A DAY A DAY TWICE A DAY hydrochloro hydrochloro No 1 Q1D hydrochlor [place] thiazide thiazide othiazide [facility] 12.5 mg 12.5 mg 12.5 mg ty tablet Take tablet Take tablet Hospita 1 tablet 1 tablet Take 1 l every day every day tablet Cli nics by oral by oral every day route. route. by oral route. hydrocodone hydrocodone No 1 Q8H hydrocodon [place] 5 5 e 5 Communi mg-acetamin mg-acetamin mg-acetami ty ophen 325 ophen 325 nophen 325 [facility]ospita mg tablet mg tablet mg tablet l Take 1 Take 1 Take 1 Clinics tablet tablet tablet every 8 every 8 every 8 hours by hours by hours by oral route. oral route. oral route. methadone methadone No methadone [place] (bulk) 110 (bulk) 110 (bulk) 110 [facility] mg po q day mg po q day mg po q ty day [facility] trazodone trazodone No 1 Q1D trazodone [place] 50 mg 50 mg 50 mg [facility] tablet Take tablet Take tablet ty 1 tablet 1 tablet Take 1 Hospi ta every day every day tablet l by oral by oral every day Clin ics route. route. by oral route. acetaminoph acetaminoph No acetaminop [place] en 300 en 300 hen 300 [facility]i mg-codeine mg-codeine mg-codeine ty 30 mg 30 mg 30 mg [facility]osp[facility] tablet TAKE tablet TAKE tablet l 1 TABLET 1 TABLET TAKE 1 Clini cs EVERY 8 EVERY 8 TABLET HOURS BY HOURS BY EVERY 8 ORAL ROUTE. ORAL ROUTE. HOURS BY ORAL ROUTE. Adderall 10 Adderall 10 No 1 Q1D Adderall [place] mg tablet mg tablet 10 mg Comm uni Take 1 Take 1 tablet ty tablet tablet Take 1 [facility]ospita every day every day tablet l by oral by oral every day Clin ics route. route. by oral route. amitriptyli amitriptyli No amitriptyl [place] ne 50 mg ne 50 mg ine 50 mg [facility] tablet TAKE tablet TAKE tablet ty 1 TABLET BY 1 TABLET BY TAKE 1 [facility]ospita MOUTH MOUTH TABLET BY l EVERYDAY AT EVERYDAY AT MOUTH Clinics BEDTIME BEDTIME EVERYDAY AT BEDTIME clonazepam clonazepam No 2 BID clonazepam [place] 1 mg tablet 1 mg tablet 1 mg C [facility] Take 2 Take 2 tablet ty tablets tablets Take 2 Hospita twice a day twice a day tablets l by oral by oral twice a Clinic s route. route. day by oral route. dextroamphe dextroamphe No dextroamph [place] tamine-amph tamine-amph etamine-am Communi etamine 20 etamine 20 phetamine ty mg tablet mg tablet 20 mg [facility]osp [facility]ly TAKE 2 TAKE 2 tablet l TABLETS (40 TABLETS (40 TAKE 2 Clinics MG) BY MG) BY TABLETS MOUTH DAILY MOUTH DAILY (40 MG) BY MOUTH DAILY doxepin 50 doxepin 50 No doxepin 50 [place] mg capsule mg capsule mg capsule Communi TAKE 1 TAKE 1 TAKE 1 ty CAPSULE BY CAPSULE BY CAPSULE BY [facility]ospita MOUTH AT MOUTH AT MOUTH AT l BEDTIME BEDTIME BEDTIME Clinic s escitalopra escitalopra No escitalopr [place] m 10 mg m 10 mg am 10 mg Commu ni tablet TAKE tablet TAKE tablet ty 1 TABLET BY 1 TABLET BY TAKE 1 Hospita MOUTH EVERY MOUTH EVERY TABLET BY l DAY DAY MOUTH Clinics EVERY DAY Euthyrox Euthyrox No 1 Q1D Euthyrox Swe lar[facility] 150 mcg 150 mcg 150 mcg Commun i tablet Take tablet Take tablet ty 1 tablet 1 tablet Take 1 Hospi ta every day every day tablet l by oral by oral every day Clin ics route. route. by oral route. gabapentin gabapentin No gabapentin [place] 400 mg 400 mg 400 mg Communi capsule capsule capsule ty TAKE 1 TAKE 1 TAKE 1 [facility]ospita CAPSULE BY CAPSULE BY CAPSULE BY l MOUTH TWICE MOUTH TWICE MOUTH Clinics A DAY A DAY TWICE A DAY hydrochloro hydrochloro No 1 Q1D hydrochlor [place] thiazide thiazide othiazide [facility] 12.5 mg 12.5 mg 12.5 mg ty tablet Take tablet Take tablet Hospita 1 tablet 1 tablet Take 1 l every day every day tablet Cli nics by oral by oral every day route. route. by oral route. hydrocodone hydrocodone No 1 Q8H hydrocodon [place] 5 5 e 5 Communi mg-acetamin mg-acetamin mg-acetami ty ophen 325 ophen 325 nophen 325 [facility]osp[facility] mg tablet mg tablet mg tablet l Take 1 Take 1 Take 1 Clinics tablet tablet tablet every 8 every 8 every 8 hours by hours by hours by oral route. oral route. oral route. methadone methadone No methadone [place] (bulk) 110 (bulk) 110 (bulk) 110 [facility] mg po q day mg po q day mg po q ty day [facility] trazodone trazodone No 1 Q1D trazodone [place] 50 mg 50 mg 50 mg [facility] tablet Take tablet Take tablet ty 1 tablet 1 tablet Take 1 Hospi ta every day every day tablet l by oral by oral every day Clin ics route. route. by oral route. acetaminoph acetaminoph No acetaminop [place] en 300 en 300 hen 300 [facility] mg-codeine mg-codeine mg-codeine ty 30 mg 30 mg 30 mg [facility]ospita tablet Take tablet Take tablet l 1 tablet 1 tablet Take 1 Clini cs every 8 every 8 tablet hours by hours by every 8 oral route. oral route. hours by oral route. Adderall 10 Adderall 10 No 1 Q1D Adderall [place] mg tablet mg tablet 10 mg Comm uni Take 1 Take 1 tablet ty tablet tablet Take 1 [facility]ospita every day every day tablet l by oral by oral every day Clin ics route. route. by oral route. amitriptyli amitriptyli No amitriptyl [place] ne 50 mg ne 50 mg ine 50 mg [facility] tablet TAKE tablet TAKE tablet ty 1 TABLET BY 1 TABLET BY TAKE 1 [facility]ospita MOUTH MOUTH TABLET BY l EVERYDAY AT EVERYDAY AT MOUTH Clinics BEDTIME BEDTIME EVERYDAY AT BEDTIME clonazepam clonazepam No 2 BID clonazepam [place] 1 mg tablet 1 mg tablet 1 mg [facility] Take 2 Take 2 tablet ty tablets tablets Take 2 Hospita twice a day twice a day tablets l by oral by oral twice a Clinic s route. route. day by oral route. dextroamphe dextroamphe No dextroamph [place] tamine-amph tamine-amph etamine-am Communi etamine 20 etamine 20 phetamine ty mg tablet mg tablet 20 mg [facility]osp [facility]ly TAKE 2 TAKE 2 tablet l TABLETS (40 TABLETS (40 TAKE 2 Clinics MG) BY MG) BY TABLETS MOUTH DAILY MOUTH DAILY (40 MG) BY MOUTH DAILY doxepin 50 doxepin 50 No doxepin 50 [place] mg capsule mg capsule mg capsule Communi TAKE 1 TAKE 1 TAKE 1 ty CAPSULE BY CAPSULE BY CAPSULE BY [facility]ospita MOUTH AT MOUTH AT MOUTH AT l BEDTIME BEDTIME BEDTIME Clinic s escitalopra escitalopra No escitalopr [place] m 10 mg m 10 mg am 10 mg Commu ni tablet TAKE tablet TAKE tablet ty 1 TABLET BY 1 TABLET BY TAKE 1 Hospita MOUTH EVERY MOUTH EVERY TABLET BY l DAY DAY MOUTH Clinics EVERY DAY Euthyrox Euthyrox No 1 Q1D Euthyrox Swe lar[facility] 150 mcg 150 mcg 150 mcg Commun i tablet Take tablet Take tablet ty 1 tablet 1 tablet Take 1 Hospi ta every day every day tablet l by oral by oral every day Clin ics route. route. by oral route. gabapentin gabapentin No gabapentin [place] 400 mg 400 mg 400 mg Communi capsule capsule capsule ty TAKE 1 TAKE 1 TAKE 1 [facility]ospita CAPSULE BY CAPSULE BY CAPSULE BY l MOUTH TWICE MOUTH TWICE MOUTH Clinics A DAY A DAY TWICE A DAY hydrochloro hydrochloro No 1 Q1D hydrochlor [place] thiazide thiazide othiazide [facility] 12.5 mg 12.5 mg 12.5 mg ty tablet Take tablet Take tablet Hospita 1 tablet 1 tablet Take 1 l every day every day tablet Cli nics by oral by oral every day route. route. by oral route. hydrocodone hydrocodone No hydrocodon [place] 5 5 e 5 Communi mg-acetamin mg-acetamin mg-acetami ty ophen 325 ophen 325 nophen 325 [facility]ospita mg tablet mg tablet mg tablet l Take 1 Take 1 Take 1 Clinics tablet tablet tablet every 8 every 8 every 8 hours by hours by hours by oral route. oral route. oral route. methadone methadone No methadone [place] (bulk) 110 (bulk) 110 (bulk) 110 [facility] mg po q day mg po q day mg po q ty day [facility] trazodone trazodone No 1 Q1D trazodone [place] 50 mg 50 mg 50 mg [facility] tablet Take tablet Take tablet ty 1 tablet 1 tablet Take 1 Hospi ta every day every day tablet l by oral by oral every day Clin ics route. route. by oral route. Adderall 10 Adderall 10 No 1 Q1D Adderall [place] mg tablet mg tablet 10 mg Comm uni Take 1 Take 1 tablet ty tablet tablet Take 1 Hospita every day every day tablet l by oral by oral every day Clin ics route. route. by oral route. amitriptyli amitriptyli No 1 Q1D amitriptyl [place] ne 50 mg ne 50 mg ine 50 mg [facility] tablet Take tablet Take tablet ty 1 tablet 1 tablet Take 1 Hospi ta every day every day tablet l by oral by oral every day Clin ics route. route. by oral route. clonazepam clonazepam No 2 BID clonazepam [place] 1 mg tablet 1 mg tablet 1 mg [facility] Take 2 Take 2 tablet ty tablets tablets Take 2 Hospita twice a day twice a day tablets l by oral by oral twice a Clinic s route. route. day by oral route. Euthyrox Euthyrox No 1 Q1D Euthyrox Swe lar[facility] 150 mcg 150 mcg 150 mcg Commun i tablet Take tablet Take tablet ty 1 tablet 1 tablet Take 1 Hospi ta every day every day tablet l by oral by oral every day Clin ics route. route. by oral route. hydrochloro hydrochloro No 1 Q1D hydrochlor [place] thiazide thiazide othiazide [facility] 12.5 mg 12.5 mg 12.5 mg ty tablet Take tablet Take tablet Hospita 1 tablet 1 tablet Take 1 l every day every day tablet Cli nics by oral by oral every day route. route. by oral route. methadone methadone No methadone [place] (bulk) 110 (bulk) 110 (bulk) 110 [facility] mg po q day mg po q day mg po q ty day [facility]osp[facility] Clin[facility] trazodone trazodone No 1 Q1D trazodone [place] 50 mg 50 mg 50 mg Communi tablet Take tablet Take tablet ty 1 tablet 1 tablet Take 1 Hospi ta every day every day tablet l by oral by oral every day Clin ics route. route. by oral route. Adderall 10 Adderall 10 No 1 Q1D Adderall [place] mg tablet mg tablet 10 mg Comm uni Take 1 Take 1 tablet ty tablet tablet Take 1 [facility]ospita every day every day tablet l by oral by oral every day Clin ics route. route. by oral route. amitriptyli amitriptyli No 1 Q1D amitriptyl [place] ne 50 mg ne 50 mg ine 50 mg [facility] tablet Take tablet Take tablet ty 1 tablet 1 tablet Take 1 Hospi ta every day every day tablet l by oral by oral every day Clin ics route. route. by oral route. clonazepam clonazepam No 2 BID clonazepam [place] 1 mg tablet 1 mg tablet 1 mg C [facility] Take 2 Take 2 tablet ty tablets tablets Take 2 Hospita twice a day twice a day tablets l by oral by oral twice a Clinic s route. route. day by oral route. Euthyrox Euthyrox No 1 Q1D Euthyrox Swe lar[facility] 150 mcg 150 mcg 150 mcg Commun i tablet Take tablet Take tablet ty 1 tablet 1 tablet Take 1 Hospi ta every day every day tablet l by oral by oral every day Clin ics route. route. by oral route. hydrochloro hydrochloro No 1 Q1D hydrochlor [place] thiazide thiazide othiazide [facility] 12.5 mg 12.5 mg 12.5 mg ty tablet Take tablet Take tablet Hospita 1 tablet 1 tablet Take 1 l every day every day tablet Cli nics by oral by oral every day route. route. by oral route. methadone methadone No methadone [place] (bulk) 110 (bulk) 110 (bulk) 110 Communi mg po q day mg po q day mg po q ty day [facility] trazodone trazodone No 1 Q1D trazodone [place] 50 mg 50 mg 50 mg [facility] tablet Take tablet Take tablet ty 1 tablet 1 tablet Take 1 Hospi ta every day every day tablet l by oral by oral every day Clin ics route. route. by oral route. Adderall 10 Adderall 10 No 1 Q1D Adderall [place] mg tablet mg tablet 10 mg Comm uni Take 1 Take 1 tablet ty tablet tablet Take 1 Hospita every day every day tablet l by oral by oral every day Clin ics route. route. by oral route. amitriptyli amitriptyli No 1 Q1D amitriptyl [place] ne 50 mg ne 50 mg ine 50 mg [facility] tablet Take tablet Take tablet ty 1 tablet 1 tablet Take 1 Hospi ta every day every day tablet l by oral by oral every day Clin ics route. route. by oral route. clonazepam clonazepam No 2 BID clonazepam [place] 1 mg tablet 1 mg tablet 1 mg C [facility] Take 2 Take 2 tablet ty tablets tablets Take 2 Hospita twice a day twice a day tablets l by oral by oral twice a Clinic s route. route. day by oral route. Euthyrox Euthyrox No 1 Q1D Euthyrox Swe lar[facility] 150 mcg 150 mcg 150 mcg Commun i tablet Take tablet Take tablet ty 1 tablet 1 tablet Take 1 Hospi ta every day every day tablet l by oral by oral every day Clin ics route. route. by oral route. hydrochloro hydrochloro No 1 Q1D hydrochlor [place] thiazide thiazide othiazide Co [facility] 12.5 mg 12.5 mg 12.5 mg ty tablet Take tablet Take tablet Hospita 1 tablet 1 tablet Take 1 l every day every day tablet Cli nics by oral by oral every day route. route. by oral route. hydrocodone hydrocodone No 1 Q8H hydrocodon [place] 5 5 e 5 Communi mg-acetamin mg-acetamin mg-acetami ty ophen 325 ophen 325 nophen 325 Hospita mg tablet mg tablet mg tablet l Take 1 Take 1 Take 1 Clinics tablet tablet tablet every 8 every 8 every 8 hours by hours by hours by oral route. oral route. oral route. methadone methadone No methadone [place] (bulk) 110 (bulk) 110 (bulk) 110 [facility]i mg po q day mg po q day mg po q ty day Hospita l [facility] trazodone trazodone No 1 Q1D trazodone [place] 50 mg 50 mg 50 mg Communi tablet Take tablet Take tablet ty 1 tablet 1 tablet Take 1 Hospi ta every day every day tablet l by oral by oral every day Clin ics route. route. by oral route. Adderall 10 Adderall 10 No 1 Q1D Adderall [place] mg tablet mg tablet 10 mg Comm uni Take 1 Take 1 tablet ty tablet tablet Take 1 Hospita every day every day tablet l by oral by oral every day Clin ics route. route. by oral route. amitriptyli amitriptyli No amitriptyl [place] ne 50 mg ne 50 mg ine 50 mg [facility] tablet TAKE tablet TAKE tablet ty 1 TABLET BY 1 TABLET BY TAKE 1 Hospita MOUTH MOUTH TABLET BY l EVERYDAY AT EVERYDAY AT MOUTH Clinics BEDTIME BEDTIME EVERYDAY AT BEDTIME clonazepam clonazepam No 2 BID clonazepam [place] 1 mg tablet 1 mg tablet 1 mg [facility] Take 2 Take 2 tablet ty tablets tablets Take 2 Hospita twice a day twice a day tablets l by oral by oral twice a Clinic s route. route. day by oral route. dextroamphe dextroamphe No dextroamph [place] tamine-amph tamine-amph etamine-am Communi etamine 20 etamine 20 phetamine ty mg tablet mg tablet 20 mg Hosp yarely TAKE 2 TAKE 2 tablet l TABLETS (40 TABLETS (40 TAKE 2 Clinics MG) BY MG) BY TABLETS MOUTH DAILY MOUTH DAILY (40 MG) BY MOUTH DAILY doxepin 50 doxepin 50 No doxepin 50 [place] mg capsule mg capsule mg capsule Communi TAKE 1 TAKE 1 TAKE 1 ty CAPSULE BY CAPSULE BY CAPSULE BY Hospita MOUTH AT MOUTH AT MOUTH AT l BEDTIME BEDTIME BEDTIME Clinic s Vital Signs Vital Name Observation Time Observation Value Comments Source Systolic blood 2021-12-02 07:46:00 130 mm[Hg] Univer sity [facility] Diastolic blood 2021-12-02 07:46:00 85 mm[Hg] [facility] 2021-12-02 07:46:00 79 /min [facility] Respiratory rate 2021-12-02 07:46:00 20 /min [facility] Oxygen saturation in 2021-12-02 07:46:00 99 /min [facility] Arterial blood by [facility] Pulse oximetry Branch Body temperature 2021-12-01 20:53:00 36.67 Oksana [facility] Body weight 2021-12-01 20:53:00 102.059 kg [facility] BMI 2021-12-01 20:53:00 43.94 kg/m2 [facility] Height 2021-03-09 00:00:00 60 [in_i] [facility] s BMI (Body Mass 2021-03-09 00:00:00 43 kg/m2 [place] [facility] Index) [facility] s Body Weight 2021-03-09 00:00:00 3520 [oz_av] [facility] s BP Diastolic 2020-12-08 00:00:00 88 mm[Hg] [facility] s Height 2020-12-08 00:00:00 60 [in_i] [facility] s BMI (Body Mass 2020-12-08 00:00:00 39.5 kg/m2 [place] [facility] Index) [facility] s BP Systolic 2020-12-08 00:00:00 122 mm[Hg] [facility] s Body Weight 2020-12-08 00:00:00 3232 [oz_av] [facility] s Systolic blood 2020-08-20 02:00:00 133 mm[Hg] Univer sity [facility] Diastolic blood 2020-08-20 02:00:00 98 mm[Hg] Unive rsity [facility] Heart rate 2020-08-20 02:00:00 80 /min [facility] Respiratory rate 2020-08-20 02:00:00 17 /min [facility] Oxygen saturation in 2020-08-20 02:00:00 96 /min [facility] Arterial blood by [employer] [facility] Pulse oximetry Branch Body weight 2020-08-19 22:02:00 90.719 kg [facility] BMI 2020-08-19 22:02:00 39.06 kg/m2 [facility] Body temperature 2020-08-19 21:57:00 37 Oksana [facility] Systolic blood 2020-05-25 13:45:00 146 mm[Hg] [facility]iver [facility] Diastolic blood 2020-05-25 13:45:00 96 mm[Hg] [facility]ive rsity [facility] Heart rate 2020-05-25 13:45:00 89 /min [facility] Body temperature 2020-05-25 13:45:00 36.39 Oksana [facility] Respiratory rate 2020-05-25 13:45:00 18 /min [facility] Body weight 2020-05-25 13:45:00 81.647 kg [facility] BMI 2020-05-25 13:45:00 35.15 kg/m2 [facility] Oxygen saturation in 2020-05-25 13:45:00 97 /min [facility] Arterial blood by [employer] [facility] Pulse oximetry Branch Systolic blood 2020-04-09 21:48:00 119 mm[Hg] [facility]iver [facility]ity [facility] Diastolic blood 2020-04-09 21:48:00 94 mm[Hg] [facility]ive rs[facility] Heart rate 2020-04-09 21:48:00 77 /min [facility] Respiratory rate 2020-04-09 21:48:00 16 /min [facility] Oxygen saturation in 2020-04-09 21:48:00 96 /min [facility] Arterial blood by [facility] Pulse oximetry Branch Body temperature 2020-04-09 19:02:10 36.28 Oksana [facility] Body weight 2020-04-09 19:02:10 81.647 kg [facility] Systolic blood 2020-03-30 14:27:00 127 mm[Hg] [facility]iver [facility]ity [facility] Diastolic blood 2020-03-30 14:27:00 83 mm[Hg] [facility]ive rs[facility] Heart rate 2020-03-30 14:27:00 77 /min [facility] Body temperature 2020-03-30 14:27:00 37.28 Oksana [facility] Respiratory rate 2020-03-30 14:27:00 16 /min [facility] Body height 2020-03-30 14:27:00 152.4 cm [facility] Body weight 2020-03-30 14:27:00 85.186 kg [facility] BMI 2020-03-30 14:27:00 36.68 kg/m2 [facility] Oxygen saturation in 2019-02-25 13:00:00 98 /min [facility] Arterial blood by [facility] Pulse oximetry Branch Systolic blood 2019-02-25 13:00:00 138 mm[Hg] Univer [facility]ity [facility] Diastolic blood 2019-02-25 13:00:00 73 mm[Hg] Unive rsity [facility] Heart rate 2019-02-25 13:00:00 70 /min [facility] Body temperature 2019-02-25 13:00:00 36.72 Oksana [facility] Respiratory rate 2019-02-25 13:00:00 20 /min [facility] Body height 2019-02-18 15:51:00 152.4 cm [facility] Body weight 2019-02-18 15:51:00 92.534 kg [facility] BMI 2019-02-18 15:51:00 39.84 kg/m2 [facility] Systolic blood 2019-01-27 20:21:00 122 mm[Hg] Univer sity of pressure [facility] Diastolic blood 2019-01-27 20:21:00 68 mm[Hg] Unive rsity of pressure [facility] Heart rate 2019-01-27 20:21:00 62 /min [facility] Body temperature 2019-01-27 20:21:00 36.94 Oksana [facility] Respiratory rate 2019-01-27 20:21:00 16 /min [facility] Body height 2019-01-27 20:21:00 152.4 cm [facility] Body weight 2019-01-27 20:21:00 89.812 kg [facility] BMI 2019-01-27 20:21:00 38.67 kg/m2 [facility] Oxygen saturation in 2019-01-25 02:00:00 100 /min [facility] Arterial blood by [facility] Pulse oximetry Branch Systolic blood 2019-01-25 02:00:00 122 mm[Hg] Univer sity of [facility] Diastolic blood 2019-01-25 02:00:00 81 mm[Hg] Unive rsity [facility] Heart rate 2019-01-25 02:00:00 92 /min [facility] Body temperature 2019-01-25 02:00:00 36.56 Oksana [facility] Respiratory rate 2019-01-25 02:00:00 18 /min [facility] Body height 2019-01-24 09:34:00 152.4 cm [facility] Body weight 2019-01-24 09:34:00 81.647 kg [facility] BMI 2019-01-24 09:34:00 35.15 kg/m2 [facility] Procedures Procedure Date / Time Performing Clinician Source Performed CT ANGIOGRAM 2021-12-02 04:58:25 Amanda Camilo [facility] ABDOMEN/PELVIS [facility] URINALYSIS 2021-12-02 04:28:00 Amanda Camilo [facility] LIPASE 2021-12-02 01:51:00 Amanda Camilo [facility] TEST, SERUM 2021-12-02 01:51:00 Amanda Camilo [facility] COMP. METABOLIC PANEL 2021-12-02 01:51:00 Amanda Camilo [facility] ([id number]) [facility] CBC WITH DIFF 2021-12-02 01:50:00 Amanda Camilo [facility] CONSENT/REFUSAL FOR 2021-12-01 20:48:21 Doctor Unassigned, No Un [facility] DIAGNOSIS AND TREATMENT Name [facility] Laparoscopic Umbilical 2021-05-30 00:00:00 [facility] ([facility]) [facility] inics CT, abdomen + pelvis, w/o 2021-04-25 00:00:00 [facility] US, abdomen 2020-12-08 00:00:00 [facility] US, gallbladder 2020-12-08 00:00:00 [facility] CT ABDOMEN PELVIS W 2020-08-19 23:43:26 Diana Husain [facility] LIPASE 2020-08-19 22:59:00 Lisha [facility] TROPONIN I 2020-08-19 22:59:00 Diana Husain [facility] COMP. METABOLIC PANEL 2020-08-19 22:59:00 Diana Husain [facility] ([id number]) [facility] CBC WITH DIFF 2020-08-19 22:59:00 Diana Husain [facility] URINALYSIS 2020-08-19 22:59:00 Diana Husain [facility] POCT TEST 2020-08-19 22:59:00 Diana Husain [facility] CT ABDOMEN PELVIS W 2020-05-25 15:16:42 Veronica Sanchez [facility] LIPASE 2020-05-25 14:21:00 Veronica Sanchez [facility] TEST, SERUM 2020-05-25 14:21:00 Veronica Sanchez [facility] HEPATIC FUNCTION PANEL 2020-05-25 14:21:00 Veronica Sanchez [facility] ([id number]) (ALB,T.PRO,BILI Medical Branch T,BU/BC,ALT,AST,ALK PHOS) BASIC METABOLIC PANEL 2020-05-25 14:21:00 Veronica Sanchez [facility] (NA, K, CL, CO2, GLUCOSE, Medica l Branch BUN, CREATININE, CA) CBC WITH DIFF 2020-05-25 14:21:00 Veronica Sanchez [facility] URINALYSIS 2020-05-25 14:21:00 Veronica Sanchez [facility] CT ABDOMEN PELVIS W 2020-04-09 19:47:06 Lay Montelongo [facility] XR CHEST 1 VW 2020-04-09 19:40:35 Lay Montelongo [facility] CT CERVICAL SPINE WO 2020-04-09 19:40:15 Lay Montelongo [facility] CT HEAD WO CONTRAST 2020-04-09 19:40:15 Lay Montelongo [facility] BASIC METABOLIC PANEL 2020-04-09 19:11:00 Lay Montelongo [facility] (NA, K, CL, CO2, GLUCOSE, Medica l Branch BUN, CREATININE, CA) CBC WITH DIFF 2020-04-09 19:11:00 Lay Montelongo [facility] CONSENT/REFUSAL FOR 2020-03-30 14:07:13 Doctor Unassigned, No [facility] DIAGNOSIS AND TREATMENT Name [facility] STERILIZATION CONSENT 2019-03-04 05:01:00 Doctor Unassigned, No [facility] FORM Name [facility] CBC WITH DIFFERENTIAL 2019-02-25 10:58:00 Carrol [facility] PREPARE PACKED RBC 2019-02-24 17:02:09 Charlee Reeves [facility] CBC WITH DIFFERENTIAL 2019-02-24 10:42:00 Isael Mcfarland [facility] TUBAL LIGATION 2019-02-24 02:07:00 Cameron Alatorre [facility] VENOUS CORD GAS 2019-02-23 20:44:[address] [facility] CBC WITH DIFFERENTIAL 2019-02-23 16:47:00 Chiquis Nuno [facility] PROTHROMBIN TIME / INR 2019-02-23 16:47:00 Ludy De La Cruz [facility] D-DIMER 2019-02-23 16:47:00 [facility] 2019-02-23 16:47:00 Jane De La Cruzmary [facility] FIBRINOGEN 2019-02-23 16:47:[address] [facility] URINALYSIS 2019-02-23 07:09:00 [facility] PROTEIN CREAT RATIO URINE 2019-02-23 07:09:00 Shyann Aguilar [facility] PROFILE / HEMOGRAM 2019-02-23 06:37:00 Shyann [facility]OT[facility] / INR 2019-02-23 06:37:00 Shyann Aguilar [facility] ACTIVATED PARTIAL 2019-02-23 06:37:00 Shyann Aguilar [facility] FIBRINOGEN 2019-02-23 06:37:00 Shyann Aguilar Ale Unive [facility] SGOT (ASPARTATE AMINO 2019-02-23 05:06:00 Shyann Aguilar [facility] TRANSFER) Medical Branch CREATININE 2019-02-23 05:06:00 Shyann Aguilar Ale Unive [facility] ALANINE AMINO 2019-02-23 05:06:00 Shyann Aguilar [facility] TRANSFERASE(PT Medical Branch LACTATE DEHYDROGENASE 2019-02-23 05:06:00 Shyann Aguilar [facility] URIC ACID 2019-02-23 05:06:00 Shyann Aguilar Ale Unive [facility] CBC WITH DIFFERENTIAL 2019-02-23 05:06:00 Shyann Aguilar [facility] TYPE AND SCREEN 2019-02-22 02:09:00 Charlee Reeves [facility] RHO (D) IMMUNE GLOBULIN 2019-02-22 02:09:00 Isael Mcfarland [facility] NON-STRESS TEST 2019-02-21 22:58:23 Nikunj Payan [facility] SECOND AND THIRD 2019-02-20 21:03:[address] [facility] TRIMESTER ULTRASOUND Medical [facility] NON-STRESS TEST 2019-02-20 13:07:39 Shyann Aguilar September [facility] RADIOLOGY DOCUMENTATION 2019-02-20 05:01:00 Doctor Unassigned, N o [facility] GLUCOSE 1 HOUR POST 2019-02-19 17:47:00 Shyann Aguilar [facility] FERRITIN SERUM 2019-02-19 17:46:00 Shyann Aguilar [facility] IRON 2019-02-19 17:46:00 Shyann Aguilar [facility] TRANSFERRIN 2019-02-19 17:46:00 Shyann Aguilar [facility] TOTAL IRON BINDING 2019-02-19 17:46:00 Shyann Aguilar [facility] NON-STRESS TEST 2019-02-19 16:40:11 Shyann Aguilar [facility] HEPATITIS B SURFACE 2019-02-18 17:35:00 Lori Armstrong [facility] ANTIGEN [facility] HIV 1/2 AG-AB WITH REFLEX 2019-02-18 17:35:00 Lori Armstrong [facility] GALV ONLY - SYPHILIS 2019-02-18 17:35:00 Lori Armstrong [facility] IGG/IGM Medical [place] TYPE AND SCREEN 2019-02-18 17:33:00 Lori Armstrong [facility] GALV/CLC ONLY - URINE 2019-02-18 17:25:00 K[facility]Lori [facility] DRUG (IMMUNOASSAY) - Medical [facility] COMPREHENSIVE DRUG SCREEN CBC WITH DIFFERENTIAL 2019-02-18 17:25:00 Lori Armtsrong [facility] URINALYSIS 2019-02-18 17:25:00 Lori Armstrong [facility] URINE CULTURE 2019-02-18 17:25:00 Lori Armstrong [facility] GC & CHLAMYDIA AMPLIFIED 2019-02-18 17:25:00 Lori Armstrong [facility] ASSAY [facility] Branch GROUP B STREPTOCOCCUS BY 2019-02-18 17:25:00 Jose Armstrongzie [facility] PCR Medical Branch URINE DRUG (LCMSMS) - 2019-02-18 17:25:00 Lori Armstrong [facility] SYNTHETIC OPIATES PANEL [facility] URINE DRUG (LCMSMS) - 2019-02-18 17:25:00 Lori Armstrong [facility] BENZODIAZEPINES PANEL Medical Br anch EXTERNAL PROVIDER RECORDS 2019-01-29 05:01:00 Doctor Unassigned, No [facility] Name [facility] TDAP (ADACEL) 2019-01-27 20:30:38 Maggie Montelongo [facility] IMMUNIZATION [facility] POCT URINALYSIS W/O 2019-01-27 20:21:00 Maggie Montelongo [facility] SPECIFIC GRAVITY [facility] STERILIZATION CONSENT 2019-01-27 05:01:00 Doctor Unassigned, No [facility] Name [facility] THYROID STIMULATING 2019-01-25 02:42:00 Hema Ivey [facility] HORMONE [facility] PROFILE / HEMOGRAM 2019-01-25 02:42:00 Hema Ivey [facility] CBC WITH DIFFERENTIAL 2019-01-24 11:38:00 [facility] TYPE AND SCREEN 2019-01-24 11:34:00 [facility] Care Planned Activity Planned Date Details Comments Source Diagnostic Test 2020-12-08 CBC [code = CBC] [place] [facility] Pending 00:[facility]00 [facility] Clinic s Diagnostic Test 2020-12-08 CMP, serum or [place] [facility] Pending 00:00:00 plasma [code = Hospital Clin ics CMP, serum or plasma] Encounters Start End Encounter Admission Attending Care Care Encounter Source Date/Time Date/Time Type Type Clinicians Facility Department ID 2021-11-29 Outpatient [facility] [id number] [facility] 04:44:10 CAESA [id number] 2021-11-28 Outpatient [facility] [id number] [place] 12:12:41 [id number] [facility] 2021-04-16 Emergency [facility] [id number] Univers 03:41:23 ity of [facility] 2021-04-15 Emergency [facility] [id number] Univers 10:05:45 ity of [facility] 2021-12-01 2021-12-02 Emergency X BANIPAL [facility] ERT [id number] Univers 15:55:00 02:53:00 PORFIRIO, ity of [facility] 2021-12-01 2021-12-02 Emergency Amanda Camilo R TRAUMA 1.2.840.1 [id number] Univers 15:55:00 02:53:00 [facility] 350. 1.13.10 ity of 4.2.7.2.686 Jorge Lmich jay [id number] [address] 2021-09-07 2021-09-07 Outpatient KOVACEV_T [facility] [id number] [place] 02:14:00 02:14:00 0324 [facility] 2021-06-12 2021-06-12 Outpatient KOVACEV_T [facility] [id number] [place] 09:40:00 09:40:00 1227 [facility] 2021-06-01 2021-06-01 Outpatient KOVACEV_T [facility] [id number] [place] 02:56:00 02:56:00 1216 Commun i [facility] 2021-05-30 2021-05-30 [facility] [place] [facility] [place] [id number] [place] 00:00:00 00:00:00 [facility] mmuni Kovacev, Hospital - ty MD: [address] [facility] [address] SURGERY , Ph. 2021-05-30 2021-05-30 Outpatient Kathy [facility] [id number] 00:00:00 00:00:00 Alexandra [id number] Schmitz [id number] 2021-05-18 2021-05-18 Outpatient KOVACEV_T [facility] [place] 09:12:00 09:12:00 1202 Commun i ty Hospita [facility] 2021-05-18 2021-05-18 [facility] [id number] [place] 00:00:00 00:00:00 [facility] MD: [address] [place] [facility] [address] [place] [address] , Ph. 2021-05-18 2021-05-18 Outpatient Kathy [facility] [id number] 00:00:00 00:00:00 Alexandra [id number] Schmitz [id number] 2021-05-15 2021-05-15 Outpatient KOVACEV_T [facility] [place] 10:23:00 10:23:00 1129 Commun i ty [facility] 2021-03-24 2021-03-24 Outpatient KOVACEV_T [facility] [place] 05:34:00 05:34:00 1008 Commun i ty Hosp[facility] 2021-03-23 2021-03-23 Letter Nurse, Obi IAALYCIA 1.2.840.114 [id number] Univers 00:00:00 00:00:00 (Out) Db [facility] [id number] ity of Care [place] 4.2.7.2.686 Jorge L as John?Blea [phone] [address] Medical Office [facility] 2021-03-22 2021-03-22 Telephone ABDIRAHMAN Garza [id number] Univers 00:00:00 00:00:00 Aneatrice BART 350.1.13.10 ity of HOSPITAL 4.2.7.2.686 Jorge L as [phone] [facility] 0[address] [place] 2021-03-21 2021-03-21 Outpatient R [facility] [id number] Univers 15:00:00 15:00:00 ity of [facility] 2021-03-21 2021-03-21 Laboratory Only, Ang Db Test [facility] 1.2.8 40.114 [id number] Univers 14:37:09 14:52:09 Only [facility] 350.1.13.10 ity of [place] 4.2.7.2.686 Jorge L as John?Blea [phone] [address] Medical Office Building 2021-03-21 2021-03-21 Letter Doctor ABDIRAHMAN 1.2.840.114 [id number] Univers 00:00:00 00:00:00 (Out) Unassigned, BART 350.1.13.10 ity of [place] [facility] 4.2.7.2.686 Jorge L as [phone] [facility] 044 [place] 2021-03-21 2021-03-21 Letter Doctor ABDIRAHMAN 1.2.840.114 [id number] Univers 00:00:00 00:00:00 (Out) Unassigned, BART 350.1.13.10 ity of [place] [facility] 4.2.7.2.686 Jorge L as [phone] [address] 2021-03-09 2021-03-09 Outpatient KATHY_T [facility] [id number] [place] 12:42:00 12:42:00 0923 Commun i ty Hospita [facility] Clinics 2021-03-09 2021-03-09 Outpatient Kathy [facility] [id number] 00:00:00 00:00:00 Alexandra [id number] Schmitz [id number] 2021-03-09 2021-03-09 Outpatient Kathy [facility] [id number] 00:00:00 00:00:00 Alexandra [id number] Schmitz [id number] 2021-03-09 2021-03-09 [facility] [place] [facility] [place] 00:00:00 00:00:00 [facility] - MD: [address] [place] [facility] [address], Specialty [address], [place] [address] , Ph. 2021-03-06 2021-03-06 Outpatient KOVACEV_T [facility] [id number] [place] 03:31:00 03:31:00 0920 Commun i ty Hospita [facility] Clinics 2021-02-21 2021-02-21 Outpatient KOVACEV_T [facility] [id number] [place] 05:58:00 05:58:00 0907 Commun i ty Hospita [facility] Clinics 2021-02-16 2021-02-16 Outpatient KOVACEV_T [facility] [id number] [place] 09:19:00 09:19:00 0902 Commun i ty Hospita [facility] Clinics 2021-02-16 2021-02-16 [facility] [id number] 00:00:00 00:00:00 Alexandra [id number] Schmitz [id number] 2021-02-16 2021-02-16 [facility] [place] [facility] [place] 00:00:00 00:00:00 [facility] MD: [address] [facility] [address], [place] [address] , Ph. 2021-01-14 2021-01-14 Outpatient KOVACEV_T [facility] [id number] [place] 06:56:00 06:56:00 0731 Commun i ty Hospita [facility] 2021-01-03 2021-01-03 Outpatient [facility] [id number] 00:00:00 00:00:00 Alexandra [id number] [place] [id number] 2021-01-03 2021-01-03 [facility] [place] [facility] [place] 00:00:00 00:00:00 [facility] MD: [address] NS[address] [facility] [address] SURGERY , Ph. 2020-12-28 2020-12-28 Outpatient KOVACEV_T [facility] [place] 06:12:00 06:12:00 0714 Commun i ty Hospita l Clinics 2020-12-20 2020-12-20 Outpatient KOVACEV_T [facility] [place] 10:47:00 10:47:00 0706 Commun i ty Hosp[facility] 2020-12-20 2020-12-20 Outpatient [facility] [id number] 00:00:00 00:00:00 Alexandra [id number] [place] [id number] 2020-12-20 2020-12-20 [facility] [place] [facility] [place] 00:00:00 00:00:00 [facility] MD: [address] [facility] [facility] [address] [place] [address] , Ph. 2020-12-08 2020-12-08 Outpatient KOVACEV_T [facility] [place] 11:03:00 11:03:00 0624 Commun i ty Hospita l Clinics 2020-12-08 2020-12-08 Outpatient [facility] [id number] 00:00:00 00:00:00 Alexandra [id number] [place] [id number] 2020-12-08 2020-12-08 Alexandra [facility] [place] [id number] [place] 00:00:00 00:00:00 [facility] sol Chavez, [facility] - ty : Erma NSarina [facility] White, Specialty [address], [place] [address] , Ph. 2020-11-18 2020-11-18 Outpatient KATHY_T [facility] [place] 05:05:00 05:05:00 0604 Commun i ty Hospita [facility] 2020-08-19 2020-08-19 Emergency Lisha, K [facility] 1.2.840.114 [id number] Univers 15:52:00 20:28:00 Marisa Lees 350.1.13.10 i ty of [place] 4.2.7.2.686 [facility] [id number] [place] [id number] Branch 2020-05-25 2020-05-25 Emergency Laura, TRAUMA 1.2.840.114 [id number] Univers 07:46:00 10:56:00 [facility] 350.1.13.10 it y of 4.2.7.2.686 [facility] [phone] [facility] 014 Branch 2020-04-19 2020-04-19 Outpatient R AKINSIPE, [facility] [id number] Univers 10:00:00 10:00:00 KELSEYCASSANDRA scott o f [facility] 2020-04-14 2020-04-14 Outpatient R PARHAM, [facility] [id number] Univers 07:45:00 07:45:00 VANDANAA tyler o f [facility] 2020-04-09 2020-04-09 Emergency [facility] 1.2.840.114 [id number] Univers 13:58:00 16:50:00 Lay Lees 350.1.13.10 ity of [place] 4.2.7.2.686 [facility] [phone] [place] [address] Branch 2020-04-09 2020-04-09 Emergency [facility] ERT [id number] Univers 13:58:00 16:50:00 LAY scott of [facility] 2020-04-09 2020-04-09 Emergency X [facility] ERT [id number] Univers 13:58:00 13:58:00 LAY ity of [facility] 2020-04-01 2020-04-01 [facility] [id number] Univers 00:00:00 00:00:00 Poladalton Everett PRESETTER OPERATOR 350.1.13.[address] [facility] 4.2.7.2.686 Jorge L as MATERNAL [phone] Med ical & CHILD [address] [place] [address] 2020-03-30 2020-03-30 Office [facility] 1.2.840.114 [id number] Univers 09:09:43 09:44:16 Visit Hermiol Everett PRESETTER OPERATOR 350.1.13.10 ity of REGIONAL 4.2.7.2.686 Jorge L as MATERNAL [phone] [facility] ical & CHILD [address] [place] [address] 2020-03-30 2020-03-30 Outpatient [facility] [id number] Univers 09:15:00 09:15:00 YOLISMARIO ity o f [facility] 2020-03-30 2020-03-30 Orders Doctor ABDIRAHMAN 1.2.840.114 [id number] Univers 00:00:00 00:00:00 Only Unassigned, BART 350.1.13.10 ity of [place] [facility] 4.2.7.2.686 Jorge L as [phone] [facility] 00[address] [place] 2019-03-04 2019-03-04 Orders Doctor ABDIRAHMAN 1.2.840.114 [id number] Univers 00:00:00 00:00:00 Only Unassigned, BART 350.1.13.10 ity of [place] [facility] 4.2.7.2.686 Jorge L as [phone] [facility] 009 Branch 2019-02-18 2019-02-25 Hospital ABDIRAHMAN Nuno 1.2.840.114 [id number] Univers 10:17:00 13:11:00 Encounter Chiquis ARRIAGA 350.1.13.10 ity of HOSPITAL 4.2.7.2.686 Jorge L as [phone] [facility] 063 Branch 2019-02-24 2019-02-24 Telephone [facility] 1.2.840.114 [id number] Univers 00:00:00 00:00:00 Maggie N PRESETTER OPERATOR 350.1.13.[address] [facility] 4.2.7.2.686 Jorge L as MATERNAL [phone] [facility] ical & CHILD [address] [place] [address] 2019-02-20 2019-02-20 Account Manager Sales Representative 2, [facility] Room UNIVERSIT 1 .2.840.114 [id number] Univers 13:54:50 16:16:25 Visit Bradley Hayden [facility] 350.1.13.10 ity of [facility] 4.2.7.2.686 [place] [phone] [facility] 104 [place] 2019-02-17 2019-02-17 Telephone Faculty, [facility] 1.2.840.114 [id number] Univers 00:00:00 00:00:00 [facility] PRESETTER OPERATOR 350.1.13.10 ity of [facility] 4.2.7.2.686 Jorge L as MATERNAL [phone] [facility] [address] [place] [address] 2019-02-15 2019-02-15 Niles [facility] 1.2.272.028 [id number] Univers 00:00:00 00:00:00 Maggie Saeed PRESETTER OPERATOR 350.1.13.[address] [facility] 4.2.7.2.686 Jorge L as MATERNAL [phone] [facility] & CHILD [address] [place] [address] 2019-02-05 2019-02-05 Telephone Faculty, [facility] 1.2.840.114 [id number] Univers 00:00:00 00:00:00 [facility] PRESETTER OPERATOR 350.1.13.10 ity of [facility] 4.2.7.2.686 Jorge L as MATERNAL [phone] [facility] [address] [place] [address] 2019-01-29 2019-01-29 Orders Doctor GARY 1.2.840.114 [id number] Univers 00:00:00 00:00:00 Only Unassigned, BART 350.1.13.10 ity of [place] [facility] 4.2.7.2.686 Jorge L as [phone] [facility] 00[address] [place] 2019-01-27 2019-01-27 Gio Montelongo IAMB 1.2.121.562 [id number] Univers 14:59:47 16:01:58 Maggie Christophe PRESETTER OPERATOR 350.1.13.[address] [facility] 4.2.7.2.686 Jorge L as MATERNAL [phone] [facility] ical & CHILD [address] [place] [address] 2019-01-27 2019-01-27 Orders Doctor ABDIRAHMAN 1.2.840.114 [id number] Univers 00:00:00 00:00:00 Only Unassigned, BART 350.1.13.10 ity of [place] [facility] 4.2.7.2.686 Jorge L as [phone] [facility] 009 Branch 2019-01-23 2019-01-24 Hospital SharronraimundoABDIRAHMAN 1.2.364.122 [id number] Univers 23:55:59 23:15:00 Encounter Aracely BART 350.1.13.10 ity of [facility] 4.2.7.2.686 Jorge L as [phone] [facility] 023 Branch 2019-01-16 2019-01-16 Telephone [facility] 1.2.840.114 [id number] Univers 00:00:00 00:00:00 Ang Rmchp PRESETTER OPERATOR 350.1.13.10 ity of [facility] 4.2.7.2.686 Jorge L as MATERNAL [phone] [facility] & CHILD [address] [place] [address] 2019-01-12 2019-01-12 Telephone [facility] 1.2.042.708 [id number] Univers 00:00:00 00:00:00 Hermilo Everett PRESETTER OPERATOR 350.1.13.[address] [facility] 4.2.7.2.686 Jorge L as MATERNAL [phone] [facility] & CHILD [address] [place] [address] Results Test Description Test Time Test Comments Results Result Comments Source COMP. METABOLIC PANEL (71701) 2021-12-02 02:12:09 Test Item Value Reference Range Interpretation Comme nts NA (test code = 2866506561) 136 mmol/L 135-145 K (test code = 9756277496) 4.4 mmol/L 3.5-5.0 S light hemolysis CL (test code = 6094657042) 103 mmol/L 98-108 CO2 TOTAL (test code = 27 mmol/L 23-31 7052965060) AGAP (test code = 2-16 1009327408) BUN (test code = 12 mg/dL 7-23 Slight hemo lysis 3021730978) GLUCOSE (test code = 128 mg/dL 70-110 H 0421252383) CREATININE (test code = 0.59 mg/dL 0.50-1.04 5343637798) TOTAL BILI (test code = 0.4 mg/dL 0.1-1.9 9200095816) CALCIUM (test code = 8.9 mg/dL 8.6-10.6 4536736925) T PROTEIN (test code = 7.1 g/dL 6.3-8.2 1024432754) ALBUMIN (test code = 4.3 g/dL 3.5-5.0 3690280854) ALK PHOS (test code = 101 U/L 34-122 Slight hemolysis 8871051887) ALTv (test code = 1742-6) 90 U/L 5-35 H AST(SGOT) (test code = 90 U/L 13-40 H Sligh t hemolysis 0507236652) eGFR (test code = mL/min/1.73m2 8142131634) BRODY (test code = BRODY) Association of [...] tests). Lab Interpretation (test Abnormal code = 74642-3) [facility] 02[facility]12:09 Test Item Value Reference Range Interpretation Comments LIPASE (test code = 0385474157) 136 U/L 0-220 Lab Interpretation (test code = Normal 22789-8) [facility], [id number] 02:06:38 Test Item Value Reference Range Interpretation Comments PREG SERUM (test code Negative = 4876573687) BRODY (test code = BRODY) Less than 10 IU/L. ?If low titer or ectopic is suspected, resubmit specimen in 48-72 hours. [facility] WITH [id number] 02:00:30 Test Item Value Reference Range Interpretation [...] RDW-SD (test code = 49.8 fL 39.0-49.9 11072-6) RDW-CV (test code = 15.9 % 12.0-15.5 H 788-0) PLT (test code = See_Comment [Automated 777-3) message] The sy stem which generated this result transmitted reference range : 166 - 358 10*3/ ?L. The reference r duglas was not used to interpret this result as normal/abnormal . MPV (test code = 11.2 fL 9.5-12.9 86967-8) NRBC/100 WBC (test See_Comment [Automat ed code = 3440998904) message] The system which generated this result transmitted reference range : 0.0 - 10.0 /100 WBCs. The refer ence range was not u sed to interpret th is result as normal/abnormal . NRBC x10^3 (test code <0.01 See_Comment [Auto mated = [id number]) message] The s ystem which generated this result transmitted reference range : 10*3/?L. The reference range was not used to interpret this result as normal/abnormal . GRAN MAT (NEUT) % 55.5 % (test code = 770-8) IMM GRAN % (test code 0.40 % = [id number]) LYMPH % (test code = 34.6 % 736-9) MONO % (test code = 6.9 % 5905-5) EOS % (test code = 1.9 % 713-8) BASO % (test code = 0.7 % 706-2) GRAN MAT x10^3(ANC) 2.98 10*3/uL 1.88-7.09 (test code = [id number]) IMM GRAN x10^3 (test <0.03 0.00-0.06 code = 5455757872) LYMPH x10^3 (test code 1.86 10*3/uL 1.32-3.29 = 731-0) MONO x10^3 (test code 0.37 10*3/uL 0.33-0.92 = 742-7) EOS x10^3 (test code = 0.10 10*3/uL 0.03-0.39 711-2) BASO x10^3 (test code 0.04 10*3/uL 0.01-0.07 = 704-7) Lab Interpretation Abnormal (test code = 84026-4) [facility] [id number] 02:18:25 1. No acute intra-abdominal or intrapelvic [...] in the spine, mostnotably atthe L5-S1 level. [facility], Radiant Results Inft User [...] reviewed this study and agree with theabove report.[facility] HospitalTROP[facility] [id number] 23:29:00 Test Item Value Reference Range Interpretation Comments TROPONIN I (test 0.002 ng/mL See_Comment [Automated code = 1411454151) message] The system which generated this result [...] ? Lab Interpretation Normal (test code = 28253-5) [facility] (22151)2020-08-19 23:16:00 Test Item Value Reference Range Interpretation Comments NA (test code = 139 mmol/L 135-145 9953231773) K (test code = 3.9 mmol/L 3.5-5 9148470394) CL (test code = 100 mmol/L 98-108 9631446851) CO2 TOTAL (test code = 30 mmol/L 23-31 2228877637) AGAP (test code = 2-16 4079099665) BUN (test code = 13 mg/dL 7-23 9974910393) GLUCOSE (test code = 118 mg/dL 70-110 H 5360728124) CREATININE (test code = 0.72 mg/dL 0.5-1.04 2330942174) TOTAL BILI (test code = 0.5 mg/dL 0.1-1.8 2272412125) CALCIUM (test code = 9.2 mg/dL 8.6-10.6 4862110347) T PROTEIN (test code = 8.0 g/dL 6.3-8.2 5706971479) ALBUMIN (test code = 4.8 g/dL 3.5-5 2888683138) ALK PHOS (test code = 84 U/L 34-122 0371199725) ALTv (test code = 152 U/L 5-35 H 1742-6) AST(SGOT) (test code = 122 U/L 13-40 H 3684007703) eGFR Calculation mL/min/1.73m2 (Non-) (test code = 9634455447) eGFR Calculation mL/min/1.73m2 () (test code = 1398975471) BRODY (test code = BRODY) Association of [...] tests). Lab Interpretation Abnormal (test code = 04363-6) [facility] 23:16:00 Test Item Value Reference Range Interpretation Comments LIPASE (test code = 7628908292) 145 U/L 0-220 Lab Interpretation (test code = Normal 51771-8) [facility]2021-[facility]-05 23:15:00 Test Item Value Reference Range Interpretation Comments APPEARANCE (test code = Cloudy Clear A 8852902355) COLOR (test code = Yellow Yellow 5410537831) PH (test code = 4.8-8.0 5324862493) SP GRAVITY (test code = 1.003-1.030 2338222177) GLU U QUAL (test code = Normal Normal 2569974993) BLOOD (test code = Negative Negative 8486826089) KETONES (test code = Negative Negative 4527258593) PROTEIN (test code = Negative Negative 2887-8) UROBILIN (test code = Normal Normal 2415954738) BILIRUBIN (test code = Negative Negative 4953863308) NITRITE (test code = Negative Negative 9405120576) LEUK MO (test code = 25/uL Negative A 9087464862) RBC/HPF (test code = See_Comment [Autom ated message] 3588420502) The system [employer] generated this result transmitted ref erence range: 0 - 3 HP F. The reference range was not used to int erpret this result as normal/abnormal . WBC/HPF (test code = See_Comment [Autom ated message] 3199197900) The system [employer] generated this result transmitted ref erence range: 0 - 5 HP F. The reference range was not used to int erpret this result as normal/abnormal . BACTERIA (test code = Few Negative A 4260463660) SQ EPITH (test code = HPF 3850335191) Lab Interpretation (test Abnormal code = 73994-2) [facility] WITH [id number] 23:08:00 Test Item Value Reference Range Interpretation [...] RDW-SD (test code = 46.6 fL 39-49.9 77049-0) RDW-CV (test code = 13.8 % 12-15.5 788-0) PLT (test code = See_Comment [Automated 777-3) message] The sy stem which generated this result transmitted reference range : 166 - 358 10*3/ ?L. The reference r duglas was not used to interpret this result as normal/abnormal . MPV (test code = 11.6 fL 9.5-12.9 46592-2) NRBC/100 WBC (test See_Comment [Automat ed code = 8999780801) message] The system which generated this result transmitted reference range : 0.0 - 10.0 /100 WBCs. The refer ence range was not u sed to interpret th is result as normal/abnormal . NRBC x10^3 (test code <0.01 See_Comment [Auto mated = 1223977832) message] The s ystem which generated this result transmitted reference range : 10*3/?L. The reference range was not used to interpret this result as normal/abnormal . GRAN MAT (NEUT) % 56.3 % (test code = 770-8) IMM GRAN % (test code 0.80 % = 6688449612) LYMPH % (test code = 34.4 % 736-9) MONO % (test code = 5.8 % 5905-5) EOS % (test code = 2.2 % 713-8) BASO % (test code = 0.5 % 706-2) GRAN MAT x10^3(ANC) 3.61 10*3/uL 1.88-7.09 (test code = 6261178188) IMM GRAN x10^3 (test 0.05 10*3/uL 0-0.06 code = 8080699537) LYMPH x10^3 (test code 2.20 10*3/uL 1.32-3.29 = 731-0) MONO x10^3 (test code 0.37 10*3/uL 0.33-0.92 = 742-7) EOS x10^3 (test code = 0.14 10*3/uL 0.03-0.39 711-2) BASO x10^3 (test code 0.03 10*3/uL 0.01-0.07 = 704-7) Lab Interpretation Abnormal (test code = 15162-9) [facility] HospitalPOMS [id number] 22:59:00 Test Item Value Reference Range Interpretation Comments POCT PREG (test code = 1605) negative On board controls acceptable with present C Line (test code = 3574) POCT PREG LOT # (test code = 3575) [id number] POCT PREG TEST DATE (test code = 3576) Lab Interpretation (test code = Normal 15020-9) [facility] ABDOMEN PELVIS W [id number] 16:52:05 1. ?No acute intra-abdominal or intrapelvic process.2. 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 Recommend correlation withpoint tenderness.3. ?Hepatosplenomegaly and severe diffuse hepatic steatosis.4. ?Suspected punctate gallstone at the gallbladder neck. Nopericholecystic free fluid or inflammatory change.5. ?Small fat-containing umbilical hernia. Preliminary Report Dictated by Resident: Lucas Gonzales MD., have reviewed this study and agree [...] this study and agree with theabove report. [facility] HospitalUrinalysis2020-12-09 15:12:00 Test Item Value Reference Range Interpretation Comments APPEARANCE (test code = Clear Clear 3767538631) COLOR (test code = Yellow Yellow 1939589633) PH (test code = 4.8-8.0 7713589081) SP GRAVITY (test code = 1.003-1.030 9431664472) GLU U QUAL (test code = Normal Normal 5207190009) BLOOD (test code = Negative Negative 7169534588) KETONES (test code = Negative Negative 3853843843) PROTEIN (test code = Negative Negative 2887-8) UROBILIN (test code = Normal Normal 9460963678) BILIRUBIN (test code = Negative Negative 5552659849) NITRITE (test code = Negative Negative 4413337469) LEUK MO (test code = 25/uL Negative A 0299841064) RBC/HPF (test code = See_Comment [Autom ated message] 8927236252) The system [employer] generated this result transmitted ref erence range: 0 - 3 HP F. The reference range was not used to int erpret this result as normal/abnormal . WBC/HPF (test code = See_Comment [Autom ated message] 4711549312) The system [employer] generated this result transmitted ref erence range: 0 - 5 HP F. The reference range was not used to int erpret this result as normal/abnormal . BACTERIA (test code = Negative Negative 0311379896) SQ EPITH (test code = See_Comment [Auto mated message] 8182225754) The system [employer] generated this result transmitted ref erence range: <=2 HPF. The reference range was not used to int erpret this result as normal/abnormal . Lab Interpretation (test Abnormal code = 53715-4) [facility] HospitalPregnancy Test, [id number] 14:53:00 Test Item Value Reference Range Interpretation Comments PREG SERUM (test code Negative = 3146613300) BRODY (test code = BRODY) Less than 10 IU/L. ?If low titer or ectopic is suspected, resubmit specimen in 48-72 hours. [facility] HospitalBapsychiatric Metabolic Panel (NA, K, CL, CO2, GLUCOSE, BUN, CREATININE, CA)2020-05-25 14:45:00 Test Item Value Reference Range Interpretation Comments NA (test code = 138 mmol/L 135-145 4589673837) K (test code = 4.6 mmol/L 3.5-5 1807162079) CL (test code = 100 mmol/L 98-108 8466082348) CO2 TOTAL (test code = 28 mmol/L 23-31 7444312716) AGAP (test code = 2-16 5412927159) BUN (test code = 18 mg/dL 7-23 4039138208) GLUCOSE (test code = 100 mg/dL 70-110 6862287619) CREATININE (test code 0.92 mg/dL 0.5-1.04 = 6694504184) CALCIUM (test code = 10.0 mg/dL 8.6-10.6 0400098096) eGFR Calculation mL/min/1.73m2 (Non-) (test code = 6079939255) eGFR Calculation mL/min/1.73m2 () (test code = 2794804753) BRODY (test code = BRODY) Association of [...] or urine or abnormalities in imaging tests). [facility] HospitalHepatic Function Panel (ALB, T.PRO, BILI T, BU/BC, ALT, AST, ALK PHOS)2020-05-25 14:45:00 Test Item Value Reference Range Interpretation Comments TOTAL BILI (test code = 3128544109) 0.4 mg/dL 0.1-1.1 BILI UNCON (test code = 3511758348) 0.2 mg/dL 0.1-1.1 BILI CONJ (test code = 9785820701) 0.0 mg/dL 0-0.3 T PROTEIN (test code = 7754171449) 8.1 g/dL 6.3-8.2 ALBUMIN (test code = 0290151552) 4.8 g/dL 3.5-5 ALK PHOS (test code = 4438865321) 86 U/L 34-122 ALTv (test code = 1742-6) 248 U/L 5-35 H AST(SGOT) (test code = 0242100563) 219 U/L 13-40 H Lab Interpretation (test code = Abnormal 78208-9) [facility] HospitalLipase [id number] 14:45:00 Test Item Value Reference Range Interpretation Comments LIPASE (test code = 0930242167) 204 U/L 0-220 Lab Interpretation (test code = Normal 78189-6) [facility] with [id number] 14:38:00 Test Item Value Reference Range Interpretation Comments WBC (test code = See_Comment [Automated 2406-2) message] The sy stem which generated this result transmitted reference range : 4.30 - 11.10 10*3/?L. The reference range was not used to interpret this result as normal/abnormal . RBC (test code = See_Comment [Automated 924-8) message] The sy stem which generated this [...] RDW-SD (test code = 46.5 fL 39-49.9 31272-1) RDW-CV (test code = 13.8 % 12-15.5 788-0) PLT (test code = See_Comment [Automated 510-3) message] The sy stem which generated this result transmitted reference range : 166 - 358 10*3/ ?L. The reference r duglas was not used to interpret this result as normal/abnormal . MPV (test code = 10.4 fL 9.5-12.9 67028-6) NRBC/100 WBC (test See_Comment [Automat ed code = 3960483813) message] The system which generated this result transmitted reference range : 0.0 - 10.0 /100 WBCs. The refer ence range was not u sed to interpret th is result as normal/abnormal . NRBC x10^3 (test code <0.01 See_Comment [Auto mated = 3108776169) message] The s ystem which generated this result transmitted reference range : 10*3/?L. The reference range was not used to interpret this result as normal/abnormal . GRAN MAT (NEUT) % 51.0 % (test code = 770-8) IMM GRAN % (test code 1.60 % = 8725221539) LYMPH % (test code = 37.8 % 736-9) MONO % (test code = 6.7 % 5905-5) EOS % (test code = 2.2 % 713-8) BASO % (test code = 0.7 % 706-2) GRAN MAT x10^3(ANC) 3.41 10*3/uL 1.88-7.09 (test code = 0488675889) IMM GRAN x10^3 (test 0.11 10*3/uL 0-0.06 H code = 8124220806) LYMPH x10^3 (test code 2.53 10*3/uL 1.32-3.29 = 731-0) MONO x10^3 (test code 0.45 10*3/uL 0.33-0.92 = 742-7) EOS x10^3 (test code = 0.15 10*3/uL 0.03-0.39 711-2) BASO x10^3 (test code 0.05 10*3/uL 0.01-0.07 = 704-7) Lab Interpretation Abnormal (test code = 01426-3) [facility] W [id number] 21:02:19 Hepatomegaly with diffuse fatty infiltration of [...] splenomegalySmall umbilical hernia containing omental fatRL [facility]28 [facility] Contrast 2020-04-09 20:56:56 No [...] are clear. IMPRESSIONNo fracture or subluxation.RL 47[facility] Head W/O [id number] 20:46:27 No acute intracranial abnormality. ? RL [...] cells are clear. ?Osseous structures areunremarkable. ? [facility], Radiant Results Inft User - 04/09/2020 3:47 [...] areunremarkable. IMPRESSIONNo acute intracranial abnormality. [facility] [id number] 20:05:30 No acute intrathoracic abnormality.PROCEDURE: XR CHEST [...] normal. No acute bony abnormality.IMPRESSIONNo acute intrathoracic abnormality.[facility] HospitalBapsychiatric Metabolic Panel (NA, K, CL, CO2, GLUCOSE, BUN, CREATININE, CA)2020-04-09 19:40:00 Test Item Value Reference Range Interpretation Comments NA (test code = 138 mmol/L 135-145 7198606957) K (test code = 3.7 mmol/L 3.5-5 9508467680) CL (test code = 100 mmol/L 98-108 6436040383) CO2 TOTAL (test code = 30 mmol/L 23-31 4873017023) AGAP (test code = 2-16 1171505542) BUN (test code = 18 mg/dL 7-23 2147210172) GLUCOSE (test code = 110 mg/dL 70-110 1894510703) CREATININE (test code 0.89 mg/dL 0.5-1.04 = 8332141442) CALCIUM (test code = 9.5 mg/dL 8.6-10.6 0879721925) eGFR Calculation mL/min/1.73m2 (Non-) (test code = 4333805159) eGFR Calculation mL/min/1.73m2 () (test code = 0240900810) BRODY (test code = BRODY) Association of [...] or urine or abnormalities in imaging tests). [facility] with [id number] 19:22:00 Test Item Value Reference Range Interpretation Comments WBC (test code = See_Comment [Automated message] 6690-2) The system [employer] generated this result transmitted ref erence range: 4.30 - 1 1.10 10*3/?L. The re ference range was not u sed to interpret this result as normal/abnor mal. RBC (test code = See_Comment [Automated message] 789-8) The system [employer] generated this result transmitted ref erence range: [...] RDW-SD (test code 42.7 fL 39-49.9 = 87450-8) RDW-CV (test code 13.1 % 12-15.5 = 788-0) PLT (test code = See_Comment [Automated message] 777-3) The system [employer] generated this result transmitted ref erence range: 166 - 35 8 10*3/?L. The re ference range was not u sed to interpret this result as normal/abnor mal. MPV (test code = 10.5 fL 9.5-12.9 27243-5) NRBC/100 WBC (test See_Comment [Automat ed message] code = 2619494695) The syste m which generated this result transmitted ref erence range: 0.0 - 10 .0 /100 WBCs. The refer ence range was not u sed to interpret this result as normal/abnor mal. NRBC x10^3 (test <0.01 See_Comment [Automated message] code = 3221453273) The syste m which generated this result transmitted ref erence range: 10*3/?L. The reference range was not used to interpr et this result as normal/abnormal . GRAN MAT (NEUT) % 57.4 % (test code = 770-8) IMM GRAN % (test 0.50 % code = 1017447196) LYMPH % (test code 31.5 % = 736-9) MONO % (test code 7.7 % = 5905-5) EOS % (test code = 2.2 % 713-8) BASO % (test code 0.7 % = 706-2) GRAN MAT 3.43 10*3/uL 1.88-7.09 x10^3(ANC) (test code = 1645618222) IMM GRAN x10^3 0.03 10*3/uL 0-0.06 (test code = 2730956072) LYMPH x10^3 (test 1.88 10*3/uL 1.32-3.29 code = 731-0) MONO x10^3 (test 0.46 10*3/uL 0.33-0.92 code = 742-7) EOS x10^3 (test 0.13 10*3/uL 0.03-0.39 code = 711-2) BASO x10^3 (test 0.04 10*3/uL 0.01-0.07 code = 704-7) [facility] WITH [id number] 12:25:00 Test Item Value Reference Range Interpretation [...] (test code = 51.1 fL 39-49.9 H 47246-5) RDW-CV (test code = 18.5 % 12-15.5 H 788-0) PLT (test code = See_Comment [Automated 777-3) message] The sy stem which generated this result transmitted reference range : 166 - 358 10*3/ ?L. The reference r duglas was not used to interpret this result as normal/abnormal . MPV (test code = 10.1 fL 9.5-12.9 15058-1) NRBC/100 WBC (test See_Comment [Automat ed code = 0975143763) message] The system which generated this result transmitted reference range : 0.0 - 10.0 /100 WBCs. The refer ence range was not u sed to interpret th is result as normal/abnormal . NRBC x10^3 (test code See_Comment [Auto mated = 7197547509) message] The s ystem which generated this result transmitted reference range : 10*3/?L. The reference range was not used to interpret this result as normal/abnormal . GRAN MAT (NEUT) % 65.0 % (test code = 770-8) IMM GRAN % (test code 12.70 % = 8551633713) LYMPH % (test code = 14.3 % 736-9) MONO % (test code = 5.3 % 5905-5) EOS % (test code = 2.1 % 713-8) BASO % (test code = 0.6 % 706-2) GRAN MAT x10^3(ANC) 8.03 10*3/uL 1.88-7.09 H (test code = 1333667791) IMM GRAN x10^3 (test 1.57 10*3/uL 0-0.06 H code = 0234916796) LYMPH x10^3 (test code 1.76 10*3/uL 1.32-3.29 = 731-0) MONO x10^3 (test code 0.65 10*3/uL 0.33-0.92 = 742-7) EOS x10^3 (test code = 0.26 10*3/uL 0.03-0.39 711-2) BASO x10^3 (test code 0.08 10*3/uL 0.01-0.07 H = 704-7) BASO STIPPLING (test Present A code = 703-9) BANDS (test code = Increased A 5588235948) Lab Interpretation Abnormal (test code = 65300-6) [facility] Packed RBC (in units), 2 Units 2019-02-24 17:02:09 Test Item Value Reference Range Interpretation Comments Cross Match Result Compatible (test code = 4409) ISBT Blood Type Code (test code = 226623) Unit Blood Type (test A Pos code = 4410) Unit Number (test [id number] code = 4411) Blood Expiration Date & Time (test code = 753664) Status Information Issued (test code = 4412) Product Red Blood Cells Identification (test code = 4413) Product Code (test Y3020I42 Performed at [facility] code = 4414) Laboratory Services - [facility] [address]vesKindred Hospitalmich [address]Dfgq Free: [phone] A No. [id number] [facility] WITH [id number] 12:18:00 Test Item Value Reference Range Interpretation Comments WBC (test code = See_Comment H [Automated 9090-2) message] The sy stem which generated this [...] RDW-SD (test code = 49.0 fL 39-49.9 26328-3) RDW-CV (test code = 17.2 % 12-15.5 H 788-0) PLT (test code = See_Comment [Automated 777-3) message] The sy stem which generated this result transmitted reference range : 166 - 358 10*3/ ?L. The reference r duglas was not used to interpret this result as normal/abnormal . MPV (test code = 10.0 fL 9.5-12.9 59200-3) NRBC/100 WBC (test See_Comment [Automat ed code = 9871942510) message] The system which generated this result transmitted reference range : 0.0 - 10.0 /100 WBCs. The refer ence range was not u sed to interpret th is result as normal/abnormal . NRBC x10^3 (test code See_Comment [Auto mated = 4091788334) message] The s ystem which generated this result transmitted reference range : 10*3/?L. The reference range was not used to interpret this result as normal/abnormal . GRAN MAT (NEUT) % 71.5 % (test code = 770-8) IMM GRAN % (test code 6.10 % = 5664666090) LYMPH % (test code = 14.5 % 736-9) MONO % (test code = 6.2 % 5905-5) EOS % (test code = 1.4 % 713-8) BASO % (test code = 0.3 % 706-2) GRAN MAT x10^3(ANC) 8.25 10*3/uL 1.88-7.09 H (test code = 4614769816) IMM GRAN x10^3 (test 0.70 10*3/uL 0-0.06 H code = 1594824947) LYMPH x10^3 (test code 1.67 10*3/uL 1.32-3.29 = 731-0) MONO x10^3 (test code 0.72 10*3/uL 0.33-0.92 = 742-7) EOS x10^3 (test code = 0.16 10*3/uL 0.03-0.39 711-2) BASO x10^3 (test code 0.04 10*3/uL 0.01-0.07 = 704-7) Lab Interpretation Abnormal (test code = 07104-2) [facility] IMMUNE [id number] 00:01:25 Test Item Value Reference Range Interpretation Comments RHIG CANDIDATE? No- see comment Patient i s not a (test code = candidate for R hIg- 5055) Patient is Rh Positive.Perfor med at [facility] Laboratory Services - [facility] Blood [address] [place] [address]Plji Free: [phone] A No. [id number] [facility] HospitalARTERIAL CORD [id number] 20:58:00 Test Item Value Reference Range Interpretation Comments BASE EXCESS, CORD mEq/L (test code = 6457603129) AC PH, CORD (BEAKER) 7.18-7.38 (test code = 7823783129) PC02, CORD (test code See_Comment [Auto mated message] The = 4054635441) system which g enerated this result transmit alexandra reference range : 32 - 66 mmHg. The refer ence range was not used to interpret this result as normal/abnormal . PO2, CORD (test code See_Comment [Autom ated message] The = 9203328230) system which g enerated this result transmit alexandra reference range : 10 - 30 mmHg. The refer ence range was not used to interpret this result as normal/abnormal . BICARBONATE, CORD See_Comment [Automate d message] The (test code = system which ge nerated this 5016887224) result transmit alexandra reference range : 17 - 27 mEq/L. The refe rence range was not used to interpret this result as normal/abnormal . [facility] CORD [id number] 20:58:00 Test Item Value Reference Range Interpretation Comments VENOUS BASE EXCESS, mEq/L CORD (test code = 6804064185) VENOUS PH, CORD (test 7.25-7.45 code = 6270230165) VENOUS PC02, CORD See_Comment [Automate d message] The (test code = system which ge nerated 9164352931) this result tra nsmitted reference range : 27 - 49 mmHg. The refer ence range was not used to interpret this result as normal/abnormal . VENOUS PO2, CORD (test See_Comment [Aut omated message] The code = 0771953978) system [facility] generated this result tra nsmitted reference range : 17 - 41 mmHg. The refer ence range was not used to interpret this result as normal/abnormal . VENOUS BICARBONATE, See_Comment [Automa alexandra message] The CORD (test code = system [facility] ch generated 1713560756) this result tra nsmitted reference range : 12 - 29 mEq/L. The refe rence range was not used to interpret this result as normal/abnormal . [facility] WITH [id number] 18:02:00 Test Item Value Reference Range Interpretation [...] (test code = 50.7 fL 39-49.9 H 04133-3) RDW-CV (test code = 17.6 % 12-15.5 H 788-0) PLT (test code = See_Comment [Automated 777-3) message] The system which generated this result transmit alexandra reference range : 166 - 358 10*3/ ?L. The reference range was not u sed to interpret th is result as normal/abnormal . MPV (test code = 9.7 fL 9.5-12.9 95750-1) NRBC/100 WBC (test See_Comment [Automat ed code = 7991399100) message] The system which generated this result transmit alexandra reference range : 0.0 - 10.0 /100 WBCs. The reference range was not used to interpret this result as normal/abnormal . NRBC x10^3 (test code See_Comment [Auto mated = 9950861478) message] The system which generated this result transmit alexandra reference range : 10*3/?L. The reference range was not used to interpret this result as normal/abnormal . GRAN MAT (NEUT) % 76.3 % (test code = 770-8) IMM GRAN % (test code 5.80 % = 2970291790) LYMPH % (test code = 9.1 % 736-9) MONO % (test code = 7.8 % 5905-5) EOS % (test code = 0.7 % 713-8) BASO % (test code = 0.3 % 706-2) GRAN MAT x10^3(ANC) 11.23 10*3/uL 1.88-7.09 H (test code = 2977740703) IMM GRAN x10^3 (test 0.85 10*3/uL 0-0.06 H code = 2437958667) LYMPH x10^3 (test code 1.34 10*3/uL 1.32-3.29 = 731-0) MONO x10^3 (test code 1.15 10*3/uL 0.33-0.92 H = 742-7) EOS x10^3 (test code = 0.11 10*3/uL 0.03-0.39 711-2) BASO x10^3 (test code 0.04 10*3/uL 0.01-0.07 = 704-7) BANDS (test code = Increased A 1630353189) Lab Interpretation Abnormal (test code = 08529-9) [facility] (LCMSMS) - SYNTHETIC OPIATES PANEL 2019-02-23 17:45:00 Test Item Value Reference Interpretation Comments Range Tramadol-Interpretat Negative Negative ion (test code = 8528818333) Propoxyph-Interpreta Negative Negative tion (test code = 9845334651) Normeperid-Interpret Negative Negative ation (test code = 3122606169) Meperidine-Interpret Negative Negative ation (test code = 9855329637) Methadone-LCMS (test >2000 See_Comment H [Autom ated code = 8545723998) message] The system which generated this result transmitted reference range : <50 ng/mL. The reference range was not used to interpret this result as normal/abnormal . Methadone-Creatinine ng/mg Unable to Normalized (test calculate code = 8017292563) Methadone-Interpreta Positive Negative A tion (test code = 8050777944) EDDP-LCMS (test code 77060 ng/mL <50 H = 3989157190) EDDP-Creatinine 24187 ng/mg Normalized (test code = 7230840019) EDDP-Interpretation Positive Negative A (test code = 5588303800) CREAT U (test code = 42.6 mg/dL 0238487932) PH (test code = 4.8-8.0 9311805775) Norfentan-Interpreta Negative Negative tion (test code = 5457936085) Fentanyl-Interpretat Negative Negative ion (test code = 5331609752) Buprenorph-Interpret Negative Negative ation (test code = 2645459806) Norbupren-Interpreta Negative Negative tion (test code = 6792758581) Carisopro-Interpreta Negative Negative tion (test code = 3355673493) Meprobamat-Interpret Negative Negative ation (test code = 6473606038) BRODY (test code = Test developed and BRODY) characteristics determined by [facility] Laboratory Services. Lab Interpretation Abnormal (test code = 56189-2) [facility] / [id number] 17:09:00 Test Item Value Reference Range Interpretation Comments PROTIME PATIENT (test See_Comment [Auto mated message] code = 5964-2) The system [employer] generated this result transmitted ref erence range: 10.1 - 1 2.6 Seconds. The re ference range was not u sed to interpret this result as normal/abnor mal. INR (test code = 6301-6) Nor mal INR <1.1; Warfarin Therap eutic range 2.0 to 3. 0 or 2.5 to 3.5, dep ending upon the indica tions. Lab Interpretation (test Normal code = 64701-4) [facility] 17:09:00 Test Item Value Reference Range Interpretation Comments APTT Patient (test code See_Comment L [Au tomated message] = 3173-2) The system [employer] generated this result transmitted ref erence range: 26 - 36 Seconds. The reference range was not used to int erpret this result as normal/abnormal . Lab Interpretation (test Abnormal code = 12712-3) [facility]FIB[facility]INOGEN2019-[facility]-09 17:09:00 Test Item Value Reference Range Interpretation Comments Fibrinogen (test code = 7415904532) 766 mg/dL 167-453 H Lab Interpretation (test code = Abnormal 57465-4) [facility] HospitalD-[id number] 17:09:00 Test Item Value Reference Range Interpretation Comments D-DIMER (test code = See_Comment H [Autom ated 2963869210) message] The system which generated this result [...] (FEU). Lab Interpretation Abnormal (test code = 79244-0) [facility] HospitalUrinalysis2019-09-09 07:38:00 Test Item Value Reference Range Interpretation Comments APPEARANCE (test code = Clear Clear 1571761407) COLOR (test code = Straw Yellow A 5112638380) PH (test code = 4.8-8.0 8734375355) SP GRAVITY (test code = 1.003-1.030 8195756282) GLU U QUAL (test code = Normal Normal 9905397034) BLOOD (test code = 1+ Negative A 8227415179) KETONES (test code = Negative Negative 3910941324) PROTEIN (test code = Negative Negative 2887-8) UROBILIN (test code = Normal Normal 2552098637) BILIRUBIN (test code = Negative Negative 4784147990) NITRITE (test code = Negative Negative 6272576513) LEUK MO (test code = Negative Negative 6120308496) RBC/HPF (test code = <1 See_Comment [Autom ated message] 4264495085) The system [employer] generated this result transmitted ref erence range: 0 - 3 HP F. The reference range was not used to int erpret this result as normal/abnormal . WBC/HPF (test code = <1 See_Comment [Autom ated message] 5902094105) The system [employer] generated this result transmitted ref erence range: 0 - 5 HP F. The reference range was not used to int erpret this result as normal/abnormal . BACTERIA (test code = Negative Negative 2708867295) MUCOUS (test code = Slight Negative LPF A 1433295962) SQ EPITH (test code = <1 See_Comment [Auto mated message] 9932564846) The system [employer] generated this result transmitted ref erence range: <=2 HPF. The reference range was not used to int erpret this result as normal/abnormal . Lab Interpretation (test Abnormal code = 89687-7) [facility] HospitalProtein CREAT Ratio Urine [id number] 07:35:00 Test Item Value Reference Range Interpretation Comments T. PROT U (test code = 2888-6) 17 mg/dL CREAT U (test code = 9332523183) 16.6 mg/dL Protein/Creatinine Ratio Urine 0.0-2.0 (test code = 9269371211) [facility] HospitalPROTHROMBIN TIME / [id number] 07:04:00 Test Item Value Reference Range Interpretation Comments PROTIME PATIENT (test See_Comment [Auto mated message] code = 5964-2) The system [employer] generated this result transmitted ref erence range: 10.1 - 1 2.6 Seconds. The re ference range was not u sed to interpret this result as normal/abnor mal. INR (test code = 6301-6) Nor mal INR <1.1; Warfarin Therap eutic range 2.0 to 3. 0 or 2.5 to 3.5, dep ending upon the indica tions. Lab Interpretation (test Normal code = 34229-3) [facility]aPTT[facility] 07:04:00 Test Item Value Reference Range Interpretation Comments APTT Patient (test code See_Comment L [Au tomated message] = 3173-2) The system [employer] generated this result transmitted ref erence range: 26 - 36 Seconds. The reference range was not used to int erpret this result as normal/abnormal . Lab Interpretation (test Abnormal code = 78000-6) [facility] HospitalFIBRINOGEN2019-09-09 07:04:00 Test Item Value Reference Range Interpretation Comments Fibrinogen (test code = 1725448948) 740 mg/dL 167-453 H Lab Interpretation (test code = Abnormal 99981-0) [facility] HospitalPROFILE / [id number] 06:56:00 Test Item Value Reference Range Interpretation Comments WBC (test code = 6690-2) See_Comment H [A utomated message] The system [employer] generated this result transmit alexandra reference range : 4.30 - 11.10 10*3/?L. The reference range was not used to interpret this result as normal/abnormal . RBC (test code = 789-8) See_Comment L [Au tomated message] The system [employer] generated this result transmit alexandra reference range [...] 777-3) See_Comment [Au tomated message] The system [employer] generated this result transmit alexandra reference range : 166 - 358 10*3/?L. The reference range was not used to interpret this result as normal/abnormal . MPV (test code = 9.7 fL 9.5-12.9 37903-1) RDW-CV (test code = 17.4 % 12-15.5 H 788-0) RDW-SD (test code = 49.7 fL 39-49.9 42489-0) NRBC x10^3 (test code = See_Comment [Au tomated message] 8165259463) The system [employer] generated this result transmit alexandra reference range : 10*3/?L. The reference range was not used to interpret this result as normal/abnormal . NRBC/100 WBC (test code See_Comment [Au tomated message] = 1614753049) The system [facility] generated this result transmit alexandra reference range : 0.0 - 10.0 /100 WBC s. The reference r duglas was not used to interpret this result as normal/abnormal . IPF % (test code = 1.3-7.7 9892487734) Lab Interpretation (test Abnormal code = 09408-4) [facility] WITH [id number] 06:11:00 Test Item Value Reference Range Interpretation [...] RDW-SD (test code = 49.1 fL 39-49.9 10608-9) RDW-CV (test code = 17.4 % 12-15.5 H 788-0) PLT (test code = See_Comment [Automated 777-3) message] The system which generated this result transmit alexandra reference range : 166 - 358 10*3/ ?L. The reference range was not u sed to interpret th is result as normal/abnormal . MPV (test code = 9.7 fL 9.5-12.9 85234-6) NRBC/100 WBC (test See_Comment [Automat ed code = 4273063409) message] The system which generated this result transmit alexandra reference range : 0.0 - 10.0 /100 WBCs. The reference range was not used to interpret this result as normal/abnormal . NRBC x10^3 (test code See_Comment [Auto mated = 2580408628) message] The system which generated this result transmit alexandra reference range : 10*3/?L. The reference range was not used to interpret this result as normal/abnormal . GRAN MAT (NEUT) % 79.9 % (test code = 770-8) IMM GRAN % (test code 4.60 % = 1281696310) LYMPH % (test code = 8.6 % 736-9) MONO % (test code = 6.3 % 5905-5) EOS % (test code = 0.4 % 713-8) BASO % (test code = 0.2 % 706-2) GRAN MAT x10^3(ANC) 10.95 10*3/uL 1.88-7.09 H (test code = 7354853742) IMM GRAN x10^3 (test 0.63 10*3/uL 0-0.06 H code = 5395787547) LYMPH x10^3 (test code 1.18 10*3/uL 1.32-3.29 L = 731-0) MONO x10^3 (test code 0.86 10*3/uL 0.33-0.92 = 742-7) EOS x10^3 (test code = 0.06 10*3/uL 0.03-0.39 711-2) BASO x10^3 (test code 0.03 10*3/uL 0.01-0.07 = 704-7) BANDS (test code = Increased A 0104029408) GIANT PLATELETS (test Present See_Comment A [Auto mated code = 5908-9) message] The system which generated this result transmit alexandra reference range : (none). The reference range was not used to interpret this result as normal/abnormal . Lab Interpretation Abnormal (test code = 31183-1) [facility] [id number] 05:54:00 Test Item Value Reference Range Interpretation Comments URIC ACID (test code = 3795849547) 5.5 mg/dL 2.9-6 Lab Interpretation (test code = Normal 01303-0) [facility] [id number] 05:54:00 Test Item Value Reference Range Interpretation Comments CREATININE (test code = 0.45 mg/dL 0.5-1.04 L 4114314324) eGFR Calculation mL/min/1.73m2 (Non-) (test code = 7063503375) eGFR Calculation mL/min/1.73m2 () (test code = 1472028890) BRODY (test code = BRODY) Association of [...] tests). Lab Interpretation Abnormal (test code = 77781-1) [facility] HospitalSGOT (Asparate Amino Transfer)2019-02-23 05:54:00 Test Item Value Reference Range Interpretation Comments AST(SGOT) (test code = 9587196422) 16 U/L 13-40 Lab Interpretation (test code = Normal 61685-8) [facility] HospitalLactate [id number] 05:54:00 Test Item Value Reference Range Interpretation Comments LDH (test code = 7475923975) 488 U/L 300-600 Lab Interpretation (test code = Normal 16460-2) [facility] HospitalAlanine Amino Transferase (SGPT)2019-02-23 05:53:00 Test Item Value Reference Range Interpretation Comments ALT(SGPT) (test code = 2291348152) 7 U/L 9-51 L Lab Interpretation (test code = Abnormal 52607-1) [facility] [id number] 19:36:31Daily NST: Mayra Curran is a 38 year old female 31w5d admitted for vaginal bleeding most likely from chronic abruption. Moderate variability, baseline 120s, Accels present, no decelsToco: irritabilityPatient denies contractions/pelvic pressure/abdominal pain Interpretation: FLAVIO Aguilar MD02/20/20198:09 [facility] NON-STRESS [id number] 04:18:35GA: 31w6d?Baseline: 130 bpmVariability: ModerateAccels: +Decels: NoneToco: Quiescent Interpretation:Reactive NST Nikunj Payan MD?[facility] HospitalType and Screen - ONCE [id number] 03:18:03 Test Item Value Reference Range Interpretation Comments ABO & RH (test code A POSITIVE Performe d at [facility] = 20) Laboratory Serv [facility] Blood Bank3 [address] [facility] s [id number] Free: [phone] A No. [id number] IAT (test code = Negative Performed a t [facility] 1185) Laboratory Serv [facility] Blood [facility]3 [address] [facility] s [id number] Free: [phone] A No. [id number] [facility] HospitalURINE DRUG (LCMSMS) - BENZODIAZEPINES PANEL 2019-02-21 13:33:00 Test Item Value Reference Range Interpretation Comments TLGSL-QD-AQCLX-INTERPR Negative Negative ETATION (test code = 8613120473) 7-TKPCS-BO-LCMS (test 1784 ng/mL <50 H code = 8064118127) 5-RDHTK-OD-CREATININE 4188 ng/mg NORMALIZED (test code = 7603803173) 5-LEFYV-JQ-INTERPRETAT Positive Negative A ION (test code = 3087591419) LORAZEPAM-INTERPRETATI Negative Negative ON (test code = 2223860821) NORDIAZEP-INTERPRETATI Negative Negative ON (test code = 4653941408) TEMAZEPAM-INTERPRETATI Negative Negative ON (test code = 3899199556) OXAZEPAM-INTERPRETATIO Negative Negative N (test code = 8665861550) CREAT U (test code = 42.6 mg/dL 4198987960) PH (test code = 4.8-8.0 2940192083) BRODY (test code = BRODY) Test developed and characteristics determined by [facility] Laboratory Services. Lab Interpretation Abnormal (test code = 65101-7) [facility] HospitalTRANSFERRIN2019-09-06 15:41:00 Test Item Value Reference Range Interpretation Comments TRANSFERRN (test code = 2842540273) 430 mg/dL 168-336 H Lab Interpretation (test code = Abnormal 00240-6) [facility] HospitalGROUP B STREPTOCOCCUS BY [id number] 15:05:00 Test Item Value Reference Range Interpretation Comments Group B Streptococcus by PCR (test Negative Negative code = 23563-4) Lab Interpretation (test code = Normal 48852-8) [facility] HospitalFETAL NON-STRESS [id number] 14:29:08Daily NST: Mayra Curran is a 38 year old female 31w4d admitted for vaginal bleeding. Moderate variability, baseline: 130s, + accels, no decels [place]: irritability Interpretation: FLAVIO Aguilar MD02/19/201911:41 AM [facility] HospitalURINE [id number] 20:44:00 Test Item Value Reference Range Interpretation Comments URINE CULTURE (test 10,000 - 100,000 CFU/mL code = 630-4) mixed aerobic organisms - suggests endogenous microbial contamination [facility] HospitalFERRITIN [id number] 19:10:00 Test Item Value Reference Range Interpretation Comments FERRITIN (test code = 5.9 ng/mL 6-137 L 4768460379) BRODY (test code = BRODY) Biotin has been reported to cause a negative bias, interpret results relative to patient's use of biotin. Lab Interpretation (test Abnormal code = 41639-4) [facility] HospitalTOTAL IRON BINDING [id number] 18:43:00 Test Item Value Reference Range Interpretation Comments TIBC (test code = 2853642452) 516 ug/dL 250-410 H % FE SAT (test code = 3348321859) 8 % 20-50 L Lab Interpretation (test code = Abnormal 73563-2) [facility] HospitalIRON2019-09-05 18:33:00 Test Item Value Reference Range Interpretation Comments IRON (test code = 2344550017) 42 ug/dL 50-160 L Lab Interpretation (test code = Abnormal 75429-8) [facility] HospitalGLUCOSE 1 HOUR POST [id number] 18:09:00 Test Item Value Reference Range Interpretation Comments GLUC 1 HR (test code = 8585331530) 117 mg/dL 120-170 L Lab Interpretation (test code = Abnormal 83842-5) [facility] HospitalGC & CHLAMYDIA AMPLIFIED [id number] 17:08:00 Test Item Value Reference Range Interpretation Comments Lab Interpretation (test code = Normal 49165-5) [facility] HospitalGALV ONLY - SYPHILIS [id number] 14:35:00 Test Item Value Reference Range Interpretation Comments Syphilis IgG/IgM (test Non-reactive Non-reactive code = 31704-0) BRODY (test code = BRODY) Non-reactive - No serologic evidence of T. pallidum infection. Cannot exclude incubating or early syphilis. Submit a second specimen in 2-4 weeks if syphilis is clinically suspected.Equivocal - Further testing to follow.Reactive - Further testing to follow. Lab Interpretation (test Normal code = 91534-0) [facility] HospitalHIV 1/2 AG-AB WITH [id number] 19:23:00 Test Item Value Reference Range Interpretation Comments HIV Negative Negative Semi-quantitative (test code = 85913-7) BRODY (test code = Non-reactive for HIV-1 BRODY) antigen and HIV-1/HIV-2 antibodies.?No laboratory evidence of HIV infection.?Repeat in 2-4 weeks if acute HIV infection is suspected. [facility] HospitalURINALYSIS2019-09-04 19:15:00 Test Item Value Reference Range Interpretation Comments APPEARANCE (test code = Clear Clear 8886930188) COLOR (test code = Yellow Yellow 7001270923) PH (test code = 4.8-8.0 8852383439) SP GRAVITY (test code = 1.003-1.030 2536945012) GLU U QUAL (test code = Normal Normal 2978777612) BLOOD (test code = 2+ Negative A 8808375339) KETONES (test code = Negative Negative 3929675217) PROTEIN (test code = Negative Negative 2887-8) UROBILIN (test code = Normal Normal 0506483583) BILIRUBIN (test code = Negative Negative 6536893301) NITRITE (test code = Negative Negative 8160819589) LEUK MO (test code = 500/uL Negative A 7130797280) RBC/HPF (test code = See_Comment [Autom ated message] 4498194788) The system [employer] generated this result transmitted ref erence range: 0 - 3 HP F. The reference range was not used to int erpret this result as normal/abnormal . WBC/HPF (test code = See_Comment H [Autom ated message] 3917226537) The system [employer] generated this result transmitted ref erence range: 0 - 5 HP F. The reference range was not used to int erpret this result as normal/abnormal . BACTERIA (test code = Few Negative A 4264723677) SQ EPITH (test code = See_Comment [Auto mated message] 2132005987) The system [employer] generated this result transmitted ref erence range: <=2 HPF. The reference range was not used to int erpret this result as normal/abnormal . Lab Interpretation (test Abnormal code = 57671-0) [facility] HospitalHepatitis B Surface [id number] 19:13:00 Test Item Value Reference Range Interpretation Comments HBsAg Semi-Quantitative (test code = 5195-3) [facility] HospitalDRUG PANEL 2 [id number] 19:01:00 Test Item Value Reference Range Interpretation Comments AMPHET (test code = Negative Negative 1349690779) NADYA U (test code = Negative Negative 1382747058) BENZO U (test code = Presumptive Positive Negative A 5432994197) Cocaine Metabolite (test Negative Negative code = 0088412135) METHADONE (test code = Presumptive Positive Negative A 2358205916) OPIATES (test code = Negative Negative 4805674269) PCP (test code = Negative Negative 3361959777) THC (test code = Negative Negative 2002790313) BRODY (test code = BRODY) Urine Drug Cutoff RangesCocaine:? 150 ng/mLBenzodiazepines: ? 200 ng/mLMethadone:? 300 ng/mLAmphetamine:? 1,000 ng/mLOpiates:? 300 ng/mLCannabinoids:?50 ng/mLPhencyclidine:?? 25 ng/mLBarbiturates:?20 0 ng/mLThe results are to be used only for medical (i.e., treatment) purposes. Unconfirmed screening results must not be used for non-medical purposes (e.g., employment testing, legal testing). Lab Interpretation (test Abnormal code = 73848-6) [facility] WITH [id number] 18:42:00 Test Item Value Reference Range Interpretation Comments WBC (test code = See_Comment H [Automated 3190-2) message] The system which generated this result transmit alexandra reference range : 4.30 - 11.10 10*3/?L. The reference range was not used to interpret this result as normal/abnormal . RBC (test code = See_Comment L [Automated 629-8) message] The system which generated this result [...] RDW-SD (test code = 48.0 fL 39-49.9 68280-3) RDW-CV (test code = 16.8 % 12-15.5 H 788-0) PLT (test code = See_Comment [Automated 777-3) message] The system which generated this result transmit alexandra reference range : 166 - 358 10*3/ ?L. The reference range was not u sed to interpret th is result as normal/abnormal . MPV (test code = 10.1 fL 9.5-12.9 20495-8) NRBC/100 WBC (test See_Comment [Automat ed code = 0124628948) message] The system which generated this result transmit alexandra reference range : 0.0 - 10.0 /100 WBCs. The reference range was not used to interpret this result as normal/abnormal . NRBC x10^3 (test code See_Comment [Auto mated = 0277375458) message] The system which generated this result transmit alexandra reference range : 10*3/?L. The reference range was not used to interpret this result as normal/abnormal . GRAN MAT (NEUT) % 76.1 % (test code = 770-8) IMM GRAN % (test code 2.50 % = 5926199945) LYMPH % (test code = 12.9 % 736-9) MONO % (test code = 6.4 % 5905-5) EOS % (test code = 1.8 % 713-8) BASO % (test code = 0.3 % 706-2) GRAN MAT x10^3(ANC) 11.24 10*3/uL 1.88-7.09 H (test code = 6930571594) IMM GRAN x10^3 (test 0.37 10*3/uL 0-0.06 H code = 4825461947) LYMPH x10^3 (test code 1.90 10*3/uL 1.32-3.29 = 731-0) MONO x10^3 (test code 0.95 10*3/uL 0.33-0.92 H = 742-7) EOS x10^3 (test code = 0.26 10*3/uL 0.03-0.39 711-2) BASO x10^3 (test code 0.05 10*3/uL 0.01-0.07 = 704-7) POLYCHROMASIA (test 2+ See_Comment [Automa alexandra code = 11102-5) message] The system which generated this result [...] . Lab Interpretation Abnormal (test code = 56587-3) [facility] HospitalType and Screen - ONCE [id number] 18:17:53 Test Item Value Reference Range Interpretation Comments ABO & RH (test code A POSITIVE Performe d at [facility] = 20) Laboratory Serv [facility] Blood Bank3 [address] [facility] [address] [address]Fcpu Free: [phone] A No. [id number] IAT (test code = Negative Performed a t [facility] 1185) Laboratory Serv [facility] Blood Bank3 [address] [facility] [address] [address]Wblg Free: [phone] A No. [id number] [facility] HospitalPOCT URINALYSIS W/O SPECIFIC [id number] 20:22:00 Test Item Value Reference Range Interpretation [...] code = 3257) .. Negative - Negative [facility] HospitalPOCT URINALYSIS W/O SPECIFIC [id number] 20:22:00 Test Item Value Reference Range Interpretation [...] code = 3257) .. Negative - Negative [facility] HospitalTHYROID STIMULATING [id number] 03:42:00 Test Item Value Reference Range Interpretation Comments TSH (test code = See_Comment Biotin has been 6965665839) reported to cau se a negative bias, interpret resul ts relative to pat ryannt's use of biotin. [Automated mess age] The system [employer] generated this result transmitted ref erence range: 0.45 - 4 .70 mIU/L. The refe rence range was not u sed to interpret this result as normal/abnor mal. Lab Interpretation (test Normal code = 95080-8) [facility] HospitalPROFILE / [id number] 03:01:00 Test Item Value Reference Range Interpretation Comments WBC (test code = 6690-2) See_Comment [A utomated message] The system [employer] generated this result transmit alexandra reference range : 4.30 - 11.10 10*3/?L. The reference range was not used to interpret this result as normal/abnormal . RBC (test code = 789-8) See_Comment L [Au tomated message] The system [employer] generated this result transmit alexandra reference range [...] 777-3) See_Comment [Au tomated message] The system [employer] generated this result transmit alexandra reference range : 166 - 358 10*3/?L. The reference range was not used to interpret this result as normal/abnormal . MPV (test code = 10.0 fL 9.5-12.9 44821-6) RDW-CV (test code = 15.9 % 12-15.5 H 788-0) RDW-SD (test code = 48.1 fL 39-49.9 26751-6) NRBC x10^3 (test code = See_Comment [Au tomated message] 9227048033) The system [employer] generated this result transmit alexandra reference range : 10*3/?L. The reference range was not used to interpret this result as normal/abnormal . NRBC/100 WBC (test code See_Comment [Au tomated message] = 3982428443) The system [facility] generated this result transmit alexandra reference range : 0.0 - 10.0 /100 WBC s. The reference r duglas was not used to interpret this result as normal/abnormal . IPF % (test code = 1.3-7.7 7209430400) Lab Interpretation (test Abnormal code = 46900-0) [facility] WITH [id number] 12:52:00 Test Item Value Reference Range Interpretation Comments WBC (test code = See_Comment H [Automated 4190-2) message] The sy stem which generated this [...] RDW-SD (test code = 46.4 fL 39-49.9 76064-2) RDW-CV (test code = 15.6 % 12-15.5 H 788-0) PLT (test code = See_Comment [Automated 777-3) message] The sy stem which generated this result transmitted reference range : 166 - 358 10*3/ ?L. The reference r duglas was not used to interpret this result as normal/abnormal . MPV (test code = 10.2 fL 9.5-12.9 76935-8) NRBC/100 WBC (test See_Comment [Automat ed code = 1926721059) message] The system which generated this result transmitted reference range : 0.0 - 10.0 /100 WBCs. The refer ence range was not u sed to interpret th is result as normal/abnormal . NRBC x10^3 (test code See_Comment [Auto mated = 1112928499) message] The s ystem which generated this result transmitted reference range : 10*3/?L. The reference range was not used to interpret this result as normal/abnormal . GRAN MAT (NEUT) % 72.5 % (test code = 770-8) IMM GRAN % (test code 4.80 % = 1834236610) LYMPH % (test code = 13.4 % 736-9) MONO % (test code = 7.9 % 5905-5) EOS % (test code = 1.1 % 713-8) BASO % (test code = 0.3 % 706-2) GRAN MAT x10^3(ANC) 9.68 10*3/uL 1.88-7.09 H (test code = 0219498341) IMM GRAN x10^3 (test 0.64 10*3/uL 0-0.06 H code = 6577001195) LYMPH x10^3 (test code 1.78 10*3/uL 1.32-3.29 = 731-0) MONO x10^3 (test code 1.05 10*3/uL 0.33-0.92 H = 742-7) EOS x10^3 (test code = 0.14 10*3/uL 0.03-0.39 711-2) BASO x10^3 (test code 0.04 10*3/uL 0.01-0.07 = 704-7) POLYCHROMASIA (test 2+ See_Comment [Automa alexandra code = 60986-5) message] The system which generated this result [...] . Lab Interpretation Abnormal (test code = 31556-6) [facility] [id number] 12:22:13 Test Item Value Reference Range Interpretation Comments ABO & RH (test code A POSITIVE Performe d at [facility] = 20) Laboratory Serv [facility] Blood [facility]3 [address] [facility] [address] [id number] Free: [phone] A No. [id number] IAT (test code = Negative Performed a t [facility] 1185) Laboratory Serv [facility] [address] [facility] [address] [id number] Free: [phone] A No. [id number] [facility]"
[2023-04-10 20:31] LABS: Urine Bilirubin NEGATIVE (Negative); Urine Blood Negative (Negative); Urine Clarity Clear (Clear); Urine Color Colorless (Yellow); Urine Glucose NEGATIVE (Negative); Urine Protein NEGATIVE (Negative); Urine Urobilinogen Normal (Normal)
[2023-04-10 20:34] LABS: Absolute Lymphocytes (CBC) 3.4 K/uL (0.7-4.9); Hematocrit 36.7 % (36.0-45.0); Lymphocytes % 39.5 % (15.3-44.8); MCV 86.2 fL (80-100); MPV 8.2 fL (7.6-11.3); Platelets 380 thou/uL (152-406); RBC Red Blood Cell Count 4.26 M/uL (3.86-4.86)
[2023-04-10] MEDS ORDERED: ACETAMINOPHEN 500 MG TAB ONE (20:41)
[2023-04-10 20:42] LABS: Protime INR 1.05
[2023-04-10 20:56] LABS: ALT/SGPT 160 U/L (13-56); AST/SGOT 61 U/L (15-37); Albumin 3.7 g/dL (3.4-5.0); Alkaline Phosphatase 107 U/L (45-117); BUN Blood Urea Nitrogen 15 mg/dL (7-18); Bicarbonate 24 mEq/L (21-32); Bilirubin Total 0.2 mg/dL (0.2-1.0); Glomerular Filtration Rate 94 ml/min (=/>90); Glucose Level 111 mg/dL (74-106); Potassium 3.9 mEq/L (3.5-5.1); Protein, Total 7.7 g/dL (6.4-8.2); Sodium Level 138 mEq/L (136-145)
[2023-04-10 20:59] LABS: Bilirubin Direct < 0.1 mg/dL (0-0.2); Bilirubin Indirect, Calculated ND mg/dL (0.2-0.8)
[2023-04-10 21:12] LABS: Barbiturates NEGATIVE (NEGATIVE); Benzodiazepines NEGATIVE (NEGATIVE); Cocaine NEGATIVE (NEGATIVE); METHAMPHETAM NEGATIVE (NEGATIVE); Opiates NEGATIVE (NEGATIVE); Phencyclidine NEGATIVE (NEGATIVE); THC Cannibis NEGATIVE (NEGATIVE)
[2023-04-10 21:13] LABS: Methadone ND (NEGATIVE)
[2023-04-10] MEDS ORDERED: ZIPRASIDONE MESYLA 20 MG/VIAL IM ONE (21:16)
--- NOTE | 2023-04-10 21:26 | ER ---
Nurse's Notes [facility] Name: Mayra Peterson Age: 42 yrs Sex: Female : 1980 Arrival Date: 04/10/2023 Time: 19:08 Bed 18 Private MD: Diagnosis: Suicidal ideations;Auditory hallucinations Presentation: 04/10 19:16 Chief complaint: Patient states: that she is having suicidal ideation. Pt states that cm10 today she jumped in the pool in an attempt to drown herself. Pt reports that she is also having auditory hallucinations onset today. Pt states that she hears her grandmother and her mother speaking with her. Pt tearful in triage. Coronavirus screen: Vaccine status: Patient reports being unvaccinated. Client denies travel out of the [place] in the last 14 days. Ebola Screen: Patient denies travel to an Ebola-affected area in the 21 days before illness onset. No symptoms or risks identified at this time. Initial Sepsis Screen: Does the patient meet any 2 criteria? No. Patient's initial sepsis screen is negative. Does the patient have a suspected source of infection? No. Patient's initial sepsis screen is negative. Risk Assessment: Do you want to hurt yourself or someone else? Patient reports desire/thoughts of hurting themselves or someone else. Provider notified. Onset of symptoms was April 10, 2023. 19:16 Method Of Arrival: Ambulatory cm10 19:16 Acuity: AR 2 cm10 Triage Assessment: 19:45 General: Appears distressed, obese, Behavior is cooperative, appropriate for age, bp agitated, anxious. Pain: Complains of pain in head. EENT: No deficits noted. Neuro: Level of Consciousness is awake, alert, obeys commands, Oriented to Appropriate for age. Historical: - Allergies: 19:19 No Known Allergies; cm10 - Home Meds: 04/11 02:43 Zoloft Oral [Active]; Methadone Oral [Active]; levothyroxine 25 mcg/mL oral solution bp [Active]; Klonopin Oral [Active]; - PMHx: 04/10 19:19 depressive disorder; Opioid addiction; PTSD; Thyroid problem; cm10 - PSHx: 19:19 hernia repair x 2; tubal; cm10 - Immunization history:: Adult Immunizations unknown. - Social history:: Smoking status: Patient reports the use of cigarette tobacco products, smokes one-half pack cigarettes per day. Screenin:45 [facility] ED Fall Risk Assessment (Adult) History of falling in the last 3 months, bp including since admission No falls in past 3 months (0 pts). Abuse screen: Denies threats or abuse. Denies injuries from another. Nutritional screening: No deficits noted. Tuberculosis screening: No symptoms or risk factors identified. Assessment: 19:45 General: SEE TRIAGE NOTE. bp 04/11 00:55 Reassessment: REPORT TO JUDY STEIN AT [facility]. bp 02:42 Reassessment: EMS AT B/S FOR TRANSPORT. bp Psych: 04/10 19:45 [place] Suicide Severity Screening: In the past month, have you wished you were kl or wished you could go to sleep and not wake up? Patient responds "yes." "In the past month, have you actually had any thoughts of killing yourself?" Patient responds "yes." "In your lifetime, have you ever done anything, started to do anything, or prepared to do anything to end your life?" Patient responds "no.". Subjective: Patient's mood is sad, Delusions are denied, Hallucinations are denied Having thoughts of suicide. Plan for suicide is drowning. Objective: Patient is cooperative, Speech is normal, Affect is flat. Interventions: Removed personal items and placed in bag. Patient placed in hospital gown. Searched person for dangerous items. Urine collected and sent for urine drug test. Belonging list filled out. Safety Checks: Personal items have been removed. Door is open. Pt denies substance abuse. Commitment: Patient will be a voluntary commitment. Vital Signs: 19:16 BP 141 / 115; Pulse 103; Resp 16; Temp 98.2(TE); Pulse Ox 99% on R/A; Weight 90.72 kg cm10 (R); Height 5 ft. 0 in. (R); 21:27 BP 141 / 98; bc6 21:27 Pulse 88; Resp 19; Temp 97.6(O); Pulse Ox 96% ; bc6 19:16 Body Mass Index 39.06 (90.72 kg, 152.4 cm) cm10 ED Course: 19:11 Patient arrived in ED. jj6 19:12 Bonnie Gonzalez FNP-C is PHCP. kb 19:12 Horacio Sanchez MD is Attending Physician. kb 19:19 Triage completed. cm10 19:20 Arm band placed on Patient placed in an exam room, on a stretcher. cm10 19:23 Ke Mckeon, SARITA is Primary Nurse. bp 19:45 Patient has correct armband on for positive identification. Placed in gown. Bed in low bp position. Side rails up X2. Security at bedside. 20:25 Inserted saline lock: 22 gauge in right antecubital area, using aseptic technique. bc6 Blood collected. 21:21 Faxed pt clinicals to the following facilities for placement; [facility], [address], [facility], [facility], [facility], [facility]. 22:14 Spoke with Judy at [facility] who said his nursing home manager is requesting for the pt to be rv evaluated by [facility], once that is completed they will accept the pt. Provider notified. 22:27 Contacted [facility] for pt to be evaluated. rv1 22:47 Dona from [facility] said her ETA is 45mins to an hour. rv1 23:41 Dona with [facility] at bed side. rv1 04/11 00:51 [facility] recommends inpatient care, faxed [facility] paperwork to [facility]. rv1 02:42 No provider procedures requiring assistance completed. IV discontinued, intact, bp bleeding controlled, No redness/swelling at site. Pressure dressing applied. 02:43 Provided Education on: N/A. bp Administered Medications: 04/10 20:33 Drug: Acetaminophen PO 1000 mg PO once Route: PO; bp 21:47 Follow up: Response: No adverse reaction bp 21:10 Drug: Geodon IM 20 mg IM once Route: IM; Site: right gluteus; bp 21:46 Follow up: Response: No adverse reaction bp 21:40 Drug: Nicotine Transdermal Patch 21 mg/24 hr 1 patches Transdermal once Route: bp Transdermal; Site: affected area; Outcome: 21:25 ER care complete, transfer ordered by . kb 04/11 02:43 Transferred by ground EMS bp Condition: stable Instructed on the need for transfer, 03:07 Patient left the ED. bp Signatures: Bonnie Gonzalez, RICARDO-Ancelmo SILVA-Tabatha Longo, Ke Whitten RN, RN RN Sherron Tobar jj6 Kristen Strauss rv1 Lorraien Cordova Clarissa, RN RN cm10 Corrections: (The following items were deleted from the chart) 00: 00:03 Dona with [facility] at bed side rv1 rv1 00:04/10 23:36 Dona with [facility] at bed side rv1 rv1
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
[2023-04-10] MEDS ORDERED: NICOTINE 21 MG/PAT TD ONE (21:50)
[2023-04-11 16:18] VITALS: BP 141/98; TEMP 97.6; O2SAT 96
== END 2023-04-11 03:07 ==
LOC: ER 19:08
DX: R45.851 Suicidal ideations (principal); R44.0 Auditory hallucinations
CPT/HCPCS: 36415; 80048; 80076; 80143; 80179; 80307; 81003; 81025; 82077; 85025; 85610; 85730; 93005; 96372; 99285; J3486

== ENCOUNTER 2024-07-12 15:21 | Emergency (ER) | payer SELFPAY ==
--- OUTSIDE RECORDS SUMMARY | 2024-07-12 15:26 | XMS REPORT | Continuity of Care Document ---
Author Name Unknown Address [address] [facility] [address] [place] [address] [facility] thconnect Address [address] [facility] [place] [address] Care Team Providers Care Inspector Subassembly Name Role Phone YESICAJESSIE RILEY Primary Care Physician Unava ilable OLINDA GILMAN Attending Clinician Unavailable ELMER GUERRA Attending Clinician Unavailable ELMER GUERRA Attending Clinician Unavailable JEANNIE CARVER Attending Clinician Unavailable JEANINE CARVER Attending Clinician Unavailable TENA MONTEZ Attending Clinician Un available Amanda Bay Attending Clinician [phone] Tena Montez DO Attending Clinician ELIANA Attending Clinician Unavailable Alexandra Chavez Attending Clinician [phone] Nurse, [facility] Attending Clinician Un available Yeny Garza RN Attending Clinician Unavailab Obi Sheriff Test Attending Clinician UnavailVirgen Delvalle MD Attending Clinician [phone] Doctor Unassigned, [place] Attending Clinician U fadiailDiana Lopes Attending Clinician [phone] Laura VIDAL, Veronica Sunshine Attending Clinician [phone] KELSEY LR Attending Clinician Unavail able HERMILO PARHAM Attending Clinician Unavailab Lay Mena DO Attending Clinician [phone] LAY MONTELONGO Attending Clinician Unavailab kenyatta Parham JEWELRY DRILLING MACHINE OPERATOR, Hermilo Everett Attending Clinician [phone] Yaakov VIDAL, Chiquis Attending Clinician [phone] Tray MOP, Maggie Christophe Attending Clinician [phone], [facility] Room Attending Clinician Johny Hayden MD, Bradley Donovan Attending Clinician [phone] Faculty, [facility] Attending Clinician Carissa Knight MD, Aracely Attending Clinician [phone] ELMER GUERRA Admitting Clinician Unavailable AMANDA CAMILO Admitting Clinician Unavailable ELIANA Admitting Clinician Unavailable LAY MONTELONGO Admitting Clinician Unavailab Mark VIDAL, Chiquis Admitting Clinician [phone] Eugene VIDAL, Aracely Admitting Clinician [phone] Payers Payer Name Policy Type Policy Number Effective Date Expirati on Date Source [facility] [id number] 2023 00:00:00 2023 00:00:00 [facility] [id number] 2021 00:00:00 [facility] (MEDICAID HMO) [id number] 2020 00:00:00 Problems Condition Name Condition Details Condition Category Status Onset Date Resolution Date Last Treatment Date Treating Clinician Comments Source Attention deficit hyperactiv ity disorder Attention Deficit Hyperactiv ity Disorder Problem Active 02-21 00:00: 00 [facility] Hypothyroi dism Hypothyroi dism Problem Active 01-03 00:00: 00 [facility] Anxiety disorder Anxiety Disorder Problem Active 01-03 00:00: 00 [facility] Essential hypertensi on Essential Hypertensi on Problem Active 01-03 00:00: 00 [facility] Umbilical hernia Umbilical Hernia Problem Active 2021-0 7-20 00:00: [address] [facility] [address] [facility] Other general counseling and advice for contracept hollie management Other general counseling and advice for contracept hollie management Disease Active 2018-06 024 00:00: 00 [facility] History of tubal ligation History of tubal ligation Disease Active 2018-06 024 00:00: 00 [facility] Obesity (BMI 30-39.9) Obesity (BMI 30-39.9) Disease Active 9-04 00:00: 00 [facility] Depression affecting in second trimester, antepartum Depression affecting in second trimester, antepartum Disease Active 12-11 00:00: 00 [facility] History of depression History of depression Disease Active 12-11 00:00: 00 [facility] Anemia of mother in , antepartum Anemia of mother in , antepartum Disease Active 10-29 00:00: 00 [facility] Hypothyroi d in , antepartum Hypothyroi d in , antepartum Disease Active 10-29 00:00: 00 Overview: TSH 10/28/18 [facility] Hypothyroi dism Hypothyroi dism Disease Active 10-29 00:00: 00 Overview: Formattin g of this note might be different from the original. [facility] 27 10/28/18 [facility] BMI 33.0-33.9, adult BMI 33.0-33.9, adult Disease Active 10-28 00:00: 00 [facility] History of herpes genitalis History of herpes genitalis Disease Active 10-28 00:00: 00 Overview: Formattin g of this note might be different from the original. HSV I&II serologie s positive [facility] Tobacco smoking affecting in second trimester Tobacco smoking affecting in second trimester Disease Active 10-28 00:00: 00 [facility] Methadone dependence Methadone dependence Disease Active 10-28 00:00: 00 [facility] Tobacco use Tobacco use Disease Active 10-28 00:00: 00 [facility] No known active problems No known active problems Disease [facility] 31 weeks gestation of 31 weeks gestation of Disease Resolve d 2018-0 9-12 00:00: 00 2019-04-09 00:00:00 2019-04-09 14:50:01 [facility] labor labor Disease Resolve d 2018-0 9-05 00:00: 00 2019-04-09 00:00:00 2019-04-09 14:50:47 [facility] Vaginal bleeding Vaginal bleeding Disease Resolve d 2018-0 9-05 00:00: 00 2019-04-09 00:00:00 2019-04-09 14:50:00 [facility] labor in third trimester labor in third trimester Disease Resolve d 2018-0 9-04 00:00: 00 2019-04-09 00:00:00 2019-04-09 14:50:49 [facility] Obesity affecting in third trimester Obesity affecting in third trimester Disease Resolve d 0 8-13 00:00: 00 2019-04-09 00:00:00 2019-04-09 14:50:46 [facility] Nausea and vomiting of , antepartum Nausea and vomiting of , antepartum Disease Resolve d 2018-0 8-13 00:00: 00 2019-04-09 00:00:00 2019-04-09 14:50:43 [facility] Multiple marker screen positive for Down syndrome Multiple marker screen positive for Down syndrome Disease Resolve d 0 5-15 00:00: 00 2019-04-09 00:00:00 2019-04-09 14:50:41 Overview: Quad screen /14/19 + DS 1:10, patient not definite on LMP. Need US to confirm dates and possibly repeat screening [facility] Acute urinary retention Acute urinary retention Disease Resolve d 0 5-15 00:00: 00 2019-04-09 00:00:00 2019-04-09 14:55:32 [facility] Anemia of mother in , antepartum Anemia of mother in , antepartum Disease Resolve d 0 5-15 00:00: 00 2019-04-09 00:00:00 2019-04-09 14:50:06 [facility] AMA (advanced maternal age) multigravi da 35+, second trimester AMA (advanced maternal age) multigravi da 35+, second trimester Disease Resolve d 10-28 00:00: 00 2019-04-09 00:00:00 2019-04-09 14:50:05 [facility] High-risk , second trimester High-risk , second trimester Disease Resolve d 10-28 00:00: 00 2019-04-09 00:00:00 2019-04-09 14:55:24 [facility] Grand multiparit y Grand multiparit y Disease Resolve d 10-28 00:00: 00 2019-04-09 00:00:00 2019-04-09 14:55:13 [facility] Allergies, Adverse Reactions, Alerts Allergy Name Allergy Type Status Severity Reaction(s) Onset Date Inactive Date Treating Clinician Comments Source NO KNOWN ALLERGIE S Drug Class Active [facility] Social History Social Habit Start Date Stop Date Quantity Comments Source ASSERTION 2018-07-27 00:00:00 [facility] History of tobacco use 1994-10-28 00:00:[address] [facility] Alcohol intake 2023-09-14 00:00:00 2023-09-14 00:00:00 Current non-drinker of alcohol (finding) [facility] Alcoholic beverage intake 2023-09-14 00:00:00 2023-09-14 00:00:00 Current non-drinker of alcohol (finding) [facility] Exposure to SARS-CoV-2 (event) 2021-11-21 00:00:00 2021-12-01 15:43:[address] [facility] History of Social function 2020-01-20 00:00:00 2020-01-20 00:00:00 [facility] Cigarettes smoked current (pack per day) - Reported 2018-10-28 00:00:00 2018-10-28 00:00:00 [facility] Tobacco use and exposure 2018-10-28 00:00:00 2018-10-28 00:00:[address]okeless tobacco non-user [facility] Cigarette pack-years 2018-10-28 00:00:00 2018-10-28 00:00:00 [facility] Sex assigned at 1980 00:00:1980 00:00:00 [facility] Smoking Status Start Date Stop Date Source Unknown if ever [facility] Smokes tobacco daily 2018-10-28 00:00:00 [facility] Medications Ordered Medication Name Filled Medication Name Start Date Stop Date Current Medication? Ordering Clinician Indication Dosage Frequency Signature (SIG) Comments Components Source acetaminoph en (TYLENOL) tablet 975 mg 01-14 02:00: 00 01-14 13:59 :00 No 975mg 975 mg, Oral, ONCE, 1 dose, On Sat01/14/24 at 2100, SIL [facility] iopamidol (ISOVUE 370-500 mL) injection 84 mL 01-14 00:30: 00 01-14 00:30 :00 No [id number] 84mL 84 mL, Intravenou s, ONCE, 1 dose, On Sat01/14/24 at 1930, Routine [facility] ondansetron 4 mg disintegrat ing tablet 01-13 00:00: 00 Yes [id number] 4mg Take 1 tablet by mouth every 4 (four) hours as needed for Nausea and Vomiting (N/V). [facility] naproxen 500 mg tablet 01-13 00:00: 00 01-24 04:59 :00 No [id number] 500mg Take 1 tablet by mouth in the morning and 1 tablet in the evening. Take with meals. Do all this for 10 days. [facility] sulfamethox azole-trime thoprim (BACTRIM DS) 800-160 mg per tablet 1 tablet 09-13 20:45: 00 09-13 19:51 :00 No 1{tbl} 1 tablet, Oral, ONCE, 1 dose, On 09/14/23 at 1545, SIL
Re ason for Anti-Infec tive: Documented Infection< br>Documen alexandra Infection Site: Urine
D uration of Therapy: Once (ED) [facility] ketorolac (TORADOL) injection 15 mg 09-13 19:30: 00 09-13 19:02 :00 No 15mg 15 mg, Slow IV Push, ONCE, 1 dose, On 09/14/23 at 1430, Routine [facility] ondansetron (ZOFRAN (PF)) injection 4 mg 09-13 19:30: 00 09-13 18:38 :00 No 4mg 4 mg, Slow IV Push, ONCE, 1 dose, On 09/14/23 at 1430, SIL [facility] sulfamethox azole-trime thoprim 800-160 mg per tablet 09-13 00:00: 00 Yes [id number] 1{tbl} Take 1 tablet by mouth every 12 (twelve) hours. [facility] ketorolac 10 mg tablet 09-13 00:00: 00 Yes [id number] 10mg Take 1 tablet by mouth every 6 (six) hours as needed for Pain (scale 1-3). [facility] proMETHazin e 25 mg tablet 09-13 00:00: 00 Yes [id number] 25mg Take 1 tablet by mouth every 6 (six) hours as needed for Nausea and Vomiting (N/V). [facility] iopamidol (ISOVUE 370-500 mL) injection 100 mL 12-03 04:58: 00 12-02 04:50 :00 No [id number] 100mL 100 mL, Intravenou s, ONCE, 1 dose, On Sat12/03/21 at 0000, Routine [facility] NaCl 0.9% (NS) bolus infusion 1,000 mL 12-01 22:45: 00 12-02 04:36 :00 No 1000mL at 999 mL/hr, 1,000 mL, IV Infusion, ONCE, 1 dose, On Sat12/01/21 at 1745, SIL [facility] famotidine (PEPCID (PF)) injection 20 mg 12-01 22:45: 00 12-02 01:54 :00 No 20mg 20 mg, Slow IV Push, ONCE, 1 dose, On Sat12/01/21 at 1745, [facility] ondansetron (ZOFRAN (PF)) injection 4 mg 3-06 03:15: 00 08-20 02:19 :00 No 4mg 4 mg, Slow IV Push, ONCE, 1 dose, Sat08/19/20 at 2115, [facility] dicyclomine (BENTYL) capsule 20 mg 08-20 03:15: 00 08-20 02:18 :00 No 20mg 20 mg, Oral, ONCE, 1 dose, Sat08/19/20 at 2115, Routine [facility] ondansetron (ZOFRAN (PF)) injection 4 mg 08-20 01:00: 00 08-19 23:56 :00 No 4mg 4 mg, Slow IV Push, ONCE, 1 dose, Sat08/19/20 at 1900, [facility] morpHINE injection 4 mg 06 01:00: 00 08-19 23:56 :00 No 4mg 4 mg, Slow IV Push, ONCE, 1 dose, Sat08/19/20 at 1900, STAT [facility] NaCl 0.9% (NS) bolus infusion 1,000 mL 08-20 00:00: 00 08-20 01:10 :00 No 1000mL at 999 mL/hr, 1,000 mL, IV Infusion, ONCE, 1 dose, Sat08/19/20 at 1800, STAT [facility] iohexol (OMNIPAQUE 350 BULK-150 mL) injection 120 mL 08-19 23:45: 00 08-19 23:30 :00 No 120mL 120 mL, Intravenou s, ONCE, 1 dose, Sat08/19/20 at 1745, Routine [facility] dicyclomine 20 mg tablet 08-19 00:00: 00 Yes [id number] 20mg Take 1 tablet by mouth 4 (four) times daily. [facility] ondansetron (ZOFRAN ODT) 4 mg disintegrat ing tablet 08-19 00:00: 00 Yes [id number] 4mg Take 1 tablet by mouth every 8 (eight) hours as needed for Nausea and Vomiting (N/V). [facility] iohexol (OMNIPAQUE 350 BULK-100 mL) injection 100 mL 2019-06 15:30: 00 05-25 15:09 :00 No 100mL 100 mL, Intravenou s, ONCE, 1 dose, 05/25/20 at 0930, Routine [facility] ondansetron (ZOFRAN ODT) 4 mg disintegrat ing tablet 2019-06 00:00: 00 01-13 00:00 :00 No [id number] 4mg Take 1 tablet by mouth every 8 (eight) hours as needed for Nausea and Vomiting (N/V). [facility] FENTanyl PF (SUBLIMAZE (PF)) injection 50 mcg 2019-06 20:15: 00 04-09 20:15 :00 No 50ug 50 mcg, Slow IV Push, ONCE, 1 dose, 04/09/20 at 1515, Routine [facility] iohexol (OMNIPAQUE 350 BULK-100 mL) injection 120 mL 2019-06 20:00: 00 04-09 19:44 :00 No 120mL 120 mL, Intravenou s, ONCE, 1 dose, 04/09/20 at 1500, Routine [facility] metroNIDAZO LE 500 mg tablet 2019-06 00:00: 00 04-09 04:59 :00 No [id number] 500mg Take 1 tablet by mouth 2 (two) times daily for 7 days. [facility] Levothyroxi ne 150 mcg capsule 2018-06 19:43: 31 Yes Take by mouth. [facility] furosemide 20 mg tablet 2018-06 19:41: 50 Yes 20mg Take 20 mg by mouth daily. [facility] Levothyroxi ne 150 mcg capsule 2018-06 14:43: 31 Yes Take by mouth. [facility] furosemide 20 mg tablet 2018-06 14:41: 50 Yes 20mg Take 20 mg by mouth daily. [facility] proMETHazin e 25 mg tablet 2018-06 00:00: 00 Yes [id number] 25mg Take 1 tablet by mouth every 6 (six) hours as needed for Nausea and Vomiting (N/V). [facility] methadone 10 mg/5 mL solution 120 mg 02-25 12:00: 00 Yes 120mg 120 mg, Oral, Q24H, First dose on Sat02/25/19 at 0700, Until Discontinu ed, Routine [facility] vitamin w/FA tablet 02-25 00:00: 00 Yes [id number] 1{tbl} Take 1 tablet by mouth daily. [facility] docusate calcium 240 mg capsule 02-25 00:00: 00 Yes [id number] 240mg Take 1 capsule by mouth once daily as needed for Constipati on. [facility] ferrous sulfate 325 mg (65 mg iron) tablet 02-25 00:00: 00 Yes [id number] 325mg Take 1 tablet by mouth 2 (two) times daily. [facility] ibuprofen 600 mg tablet 02-25 00:00: 00 Yes [id number] 600mg Take 1 tablet by mouth every 6 (six) hours as needed for Pain (scale 1-3) or Pain (scale 4-6) (Pain). Take with food or milk. [facility] vitamin w/FA tablet 02-25 00:00: 00 Yes [id number] 1{tbl} Take 1 tablet by mouth daily. [facility] levothyroxi ne 150 mcg tablet 02-25 00:00: 00 03-28 04:59 :00 No [id number] 150ug Take 1 tablet by mouth every morning for 30 days. [facility] SERTraline 50 mg tablet 02-25 00:00: 00 03-28 04:59 :00 No [id number] 50mg Take 1 tablet by mouth daily for 30 days. [facility] ibuprofen (IBU) tablet 600 mg 02-24 19:00: 00 Yes 600mg 600 mg, Oral, Q8H, First dose on Sat02/24/19 at 1400, Until Discontinu ed, Routine [facility] acetaminoph en (TYLENOL) tablet 650 mg 02-24 17:00: 00 Yes 650mg 650 mg, Oral, Q6H, First dose on Sat02/24/19 at 1200, Until Discontinu ed, Routine [facility] magnesium hydroxide (MILK OF MAGNESIA) 400 mg/5 mL suspension 30 mL 02-24 14:00: 00 Yes 30mL 30 mL, Oral, DAILY, First dose on Sat02/24/19 at 0900, Until Discontinu ed, Routine [facility] simethicone (GAS RELIEF) chewable tablet 160 mg 02-24 14:00: 00 Yes 160mg 160 mg, Oral, PC+HS, First dose on Sat02/24/19 at 0900, Until Discontinu ed, Routine [facility] docusate calcium (SURFAK) capsule 240 mg 02-24 14:00: 00 Yes 240mg 240 mg, Oral, DAILY, First dose on Sat02/24/19 at 0900, Until Discontinu ed, Routine [facility] ketorolac (TORADOL) injection 30 mg 02-24 02:58: 18 02-24 03:39 :00 No 30mg 30 mg, Slow IV Push, PRN, 1 dose, Starting Sat02/23/19 at 2158, Until Sat02/23/19 at 223, Routine, Pain (scale 7-10)
F aculty member approving Restricted medication : ЮЛИЯ EDWARDS [facility] nalbuphine (NUBAIN) injection 5 mg 02-24 02:57: 39 Yes 5mg 5 mg, Intravenou s, PRN, 1 dose, Starting Sat02/23/19 at 2157, Until Discontinu ed, Routine, Itching [facility] naloxone (NARCAN) injection 0.4 mg 02-24 02:57: 39 02-25 23:14 :19 No .4mg 0.4 mg, Slow IV Push, PRN - SEE ARCELIA NS, Starting Sat02/23/19 at 2157, Until Sat02/25/19 at 1814, Routine, Analgesia Recovery [facility] rho(D) immune globulin (RHOGAM) syringe 300 mcg 02-24 00:00: 24 Yes 300ug 300 mcg, Intramuscu lar, ONCE, For 1 dose, Conditiona l, Routine [facility] diphenhydrA MINE (BENADRYL) tablet 25 mg 02-24 00:00: 20 Yes 25mg 25 mg, Oral, Q6HPRN, Starting Sat02/23/19 at 1900, Until Discontinu ed, Routine, Sleep, Itching [facility] ondansetron (ZOFRAN (PF)) injection 4 mg 02-24 00:00: 20 Yes 4mg 4 mg, Slow IV Push, Q8HPRN, Starting Sat02/23/19 at 1900, Until Discontinu ed, Routine, Nausea and Vomiting (N/V) [facility] benzocaine- menthol (DERMOPLAST ) 20-0.5 % topical spray 02-24 00:00: 20 Yes Topical, PRN, Starting Sat02/23/19 at 1900, Until Discontinu ed, Routine, Perineum discomfort [facility] ibuprofen (IBU) tablet 600 mg 02-24 00:00: 20 02-24 16:10 :16 No 600mg 600 mg, Oral, Q6HPRN, Starting Sat02/23/19 at 1900, Until Sat02/24/19 at 1110, Routine, Pain (scale 4-6) [facility] LR 1000 mL + oxytocin 20 units IV Solution 02-23 22:00: 00 02-23 22:30 :00 No at 999 mL/hr, IV Infusion, ONCE, 1 dose, Sat02/23/19 at 1700, Routine [facility] LR 1000 mL + oxytocin 20 units IV Solution 02-23 18:29: 47 02-24 00:00 :25 No 2mU/min 2 marcelo-unit s/min (6 mL/hr), at 6 mL/hr, IV Infusion, TITRATE, Starting Sat02/23/19 at 1329, Until Sat02/23/19 at 1900, SIL, Oxytocin Induction / Augmentati on of Labor. [facility] lactated ringers IV infusion 500 mL 02-23 17:45: 00 02-23 17:44 :00 No 500mL at 999 mL/hr, 500 mL, IV Infusion, ONCE, 1 dose, Sat02/23/19 at 1245, Routine [facility] sodium citrate-cit jaime acid (BICITRA) 500-334 mg/5 mL solution 30 mL 02-23 16:31: 32 02-23 17:21 :00 No 30mL 30 mL, Oral, PRE-PROCED URE ONCE, 1 dose, Starting Sat02/23/19 at 1131, Until Sat02/23/19 at 1221, Routine, Surgery/Pr ocedure [facility] acetaminoph en (TYLENOL) tablet 650 mg 02-23 13:49: 53 02-24 00:00 :25 No 650mg 650 mg, Oral, Q6HPRN, Starting Sat02/23/19 at 0849, Until Sat02/23/19 at 1900, Routine, Pain (scale 1-3), Pain (scale 4-6) [facility] terbutaline (BRETHINE) injection 0.25 mg 02-23 06:15: 00 02-23 05:08 :00 No .25mg 0.25 mg, Subcutaneo us, ONCE, 1 dose, Sat02/23/19 at 0115, Routine [facility] acetaminoph en (TYLENOL) tablet 650 mg 02-23 05:15: 00 02-23 04:09 :00 No 650mg 650 mg, Oral, ONCE, 1 dose, Sat02/23/19 at 0015, Routine [facility] terbutaline (BRETHINE) injection 0.25 mg 02-22 23:15: 00 02-22 22:26 :00 No .25mg 0.25 mg, Subcutaneo us, ONCE, 1 dose, 02/22/19 at 1815, Routine [facility] acetaminoph en (TYLENOL) tablet 650 mg 02-22 22:15: 00 02-22 21:19 :00 No 650mg 650 mg, Oral, ONCE, 1 dose, [place] 02/22/19 at 1715, Routine [facility] SERTraline (ZOLOFT) tablet 50 mg 02-22 14:00: 00 Yes 50mg 50 mg, Oral, DAILY, First dose on 02/22/19 at 0900, Until Discontinu ed, Routine [facility] azithromyci n (ZITHROMAX) tablet 1,000 mg 02-22 00:45: 00 02-22 03:44 :00 No 1000mg 1,000 mg, Oral, ONCE, 1 dose, 02/21/19 at 1945, Routine
Reason for Anti-Infec tive: Empiric Non-Surgic al Prophylaxi s
Durat ion of therapy: 72 hours [facility] acetaminoph en (TYLENOL) tablet 650 mg 02-21 20:56: 00 02-21 23:26 :00 No 650mg 650 mg, Oral, ONCE, 1 dose, 02/21/19 at 1600, Routine [facility] famotidine (PEPCID AC) tablet 20 mg 02-21 17:45: 00 Yes 20mg 20 mg, Oral, BID, First dose on 02/21/19 at 1245, Until Discontinu ed, Routine [facility] ferrous sulfate tablet 325 mg 02-21 13:00: 00 Yes 325mg 325 mg, Oral, TID MEALS, First dose on 02/21/19 at 0800, Until Discontinu ed, Routine [facility] diphenhydrA MINE (BENADRYL) tablet 25 mg 02-21 10:15: 00 02-21 10:17 :00 No 25mg 25 mg, Oral, ONCE NOW, 1 dose, 02/21/19 at 0515, Routine [facility] proMETHazin e (PHENERGAN) tablet 25 mg 02-20 14:22: 00 Yes 25mg 25 mg, Oral, Q6HPRN, Starting Sat02/20/19 at 0922, Until Discontinu ed, Routine, Nausea and Vomiting (N/V) [facility] foLIC acid (FOLATE) tablet 1 mg 02-20 14:00: 00 Yes 1mg 1 mg, Oral, DAILY, First dose on Sat02/20/19 at 0900, Until Discontinu ed, Routine [facility] docusate calcium (SURFAK) capsule 240 mg 02-20 14:00: 00 02-24 00:00 :25 No 240mg 240 mg, Oral, DAILY, First dose on Sat02/20/19 at 0900, Until Discontinu ed, Routine [facility] iron dextran (INFED) 25 mg in NaCl 0.9% (NS) 100 mL IV piggyback 02-20 13:30: 00 02-20 14:36 :00 No 25mg 25 mg, IV Piggyback, ONCE, 1 dose, Sat02/20/19 at 0830, 100 mL [facility] iron dextran (INFED) 1,000 mg in NaCl 0.9% (NS) 500 mL IV infusion 02-20 13:30: 00 02-20 17:03 :00 No 1000mg 1,000 mg, IV Infusion, ONCE, 1 dose, Sat02/20/19 at 0830, 500 mL [facility] nicotine (NICODERM) 7 mg/24 hr patch 1 Patch 02-20 12:00: 00 Yes 1{patch } 1 Patch, Topical, Administer over 24 Hours, Q24H, First dose on Sat02/20/19 at 0700, Until Discontinu ed, Routine [facility] proMETHazin e (PHENERGAN) tablet 25 mg 02-20 01:30: 00 02-20 01:35 :00 No 25mg 25 mg, Oral, ONCE, 1 dose, Yadi 02/19/19 at 2030, Routine [facility] bisacodyl (DULCOLAX) suppository 10 mg 02-19 21:02: 01 02-24 00:00 :25 No 10mg 10 mg, Rectal, QHSPRN, Starting Yadi 02/19/19 at 1602, Until 02/23/19 at 1900, Routine, Constipati on [facility] albuterol (PROVENTIL) 2.5 mg /3 mL (0.083 %) nebulizer solution 2.5 mg 02-19 21:00: 02 Yes 2.5mg 2.5 mg, Inhalation , Q6HPRN, Starting Yadi 02/19/19 at 1600, Until Discontinu ed, Routine, Shortness of Breath, Wheezing [facility] nicotine (NICODERM) 14 mg/24 hr patch 1 Patch 02-19 19:15: 00 02-20 01:04 :42 No 1{patch } 1 Patch, Topical, Administer over 24 Hours, Q24H, First dose on Yadi 02/19/19 at 1415, Until Discontinu ed, Routine [facility] albuterol (VENTOLIN) inhaler 2 Puff 02-19 18:07: 22 02-19 21:00 :33 No 2{puff} 2 Puff, Inhalation , Q6HPRN, Starting [facility] 02/19/19 at 1307, Until Yadi 02/19/19 at 1600, Routine, Wheezing, Shortness of Breath [facility] nicotine (NICODERM) 14 mg/24 hr patch 1 Patch 02-19 15:15: 00 02-19 14:57 :35 No 1{patch } 1 Patch, Topical, Administer over 24 Hours, Q24H, First dose on Yadi 02/19/19 at 1015, Until Discontinu ed, Routine [facility] glucose tolerance test 100 g/300 mL (LIMEONDEX 100) liquid 50 g 02-19 14:00: 00 02-19 16:35 :00 No 50g 50 g, Oral, ONCE, 1 dose, [facility] [facility]19 at 0900, Routine [facility] albuterol (PROVENTIL) 2.5 mg /3 mL (0.083 %) nebulizer solution 2.5 mg 02-19 12:18: 50 02-19 18:07 :53 No 2.5mg 2.5 mg, Inhalation , Q6HPRN, Starting Sat02/19/19 at 0718, Until Sat02/19/19 at 1307, Routine, Shortness of Breath, Wheezing [facility] levothyroxi ne (SYNTHROID) tablet 150 mcg 02-19 11:00: 00 Yes 150ug 150 mcg, Oral, QAM-0600, First dose on Sat02/19/19 at 0600, Until Discontinu ed, Routine [facility] alum-mag hydroxide-s imeth (MAALOX PLUS / MAG-AL PLUS) 200-200-20 mg/5 mL suspension 30 mL 02-19 07:08: 43 02-24 00:00 :25 No 30mL 30 mL, Oral, Q6HPRN, Starting Sat02/19/19 at 0208, Until Sat02/23/19 at 1900, Routine, Indigestio n [facility] docusate calcium (SURFAK) capsule 240 mg 02-19 07:08: 42 02-20 12:27 :43 No 240mg 240 mg, Oral, QHSPRN, Starting Sat02/19/19 at 0208, Until Sat02/20/19 at 0727, Routine, Constipati on [facility] SERTraline (ZOLOFT) tablet 25 mg 02-18 20:30: 00 02-21 14:13 :22 No 25mg 25 mg, Oral, DAILY, First dose on Sat02/18/19 at 1530, Until Discontinu ed, Routine [facility] clonazePAM (KLONOPIN) tablet 2 mg 02-18 20:15: 20 Yes 2mg 2 mg, Oral, BIDPRN, Starting Sat02/18/19 at 1515, Until Discontinu ed, Routine, PTSD [facility] nicotine (NICODERM) 7 mg/24 hr patch 1 Patch 02-18 19:15: 00 02-19 14:14 :14 No 1{patch } 1 Patch, Topical, Administer over 24 Hours, Q24H, First dose on Sat02/18/19 at 1415, Until Discontinu ed, Routine [facility] acyclovir (ZOVIRAX) tablet 400 mg 02-18 19:00: 00 02-24 00:00 :25 No 400mg 400 mg, Oral, TID, First dose on Sat02/18/19 at 1400, Until Discontinu ed, SIL [facility] methadone 10 mg/5 mL solution 120 mg 02-18 18:15: 00 02-25 11:33 :20 No 120mg 120 mg, Oral, Q24H, First dose on Sat02/18/19 at 1315, Until Discontinu ed, Routine [facility] guaiFENesin 100 mg/5 mL solution 100 mg 02-18 17:20: 56 Yes 100mg 100 mg, Oral, Q4HPRN, Starting Sat02/18/19 at 1220, Until Discontinu ed, Routine, Cough [facility] magnesium sulfate in LR 40 gram/500 mL IV Solution 02-18 17:15: 00 02-19 05:14 :00 No 2g/h 2 g/hr (25 mL/hr), at 25 mL/hr, IV Infusion, CONTINUOUS , Starting Sat02/18/19 at 1215, Until Sat02/19/19 at 0014, Routine [facility] betamethaso ne acet,sod phos (CELESTONE SOLUSPAN) 6 mg/mL injection 12 mg 02-18 17:15: 00 02-19 17:24 :00 No 12mg 12 mg, Intramuscu lar, Q24H, 2 doses, First dose on Sat02/18/19 at 1215, Last dose on Sat02/19/19 at 1215, [facility] 1,000 mL 02-18 17:15: 00 02-19 07:09 :51 No 1000mL at 125 mL/hr, IV Infusion, CONTINUOUS , Starting Sat02/18/19 at 1215, Until Sat02/19/19 at 0209, Routine [facility] lactated ringers IV infusion 500 mL 02-18 16:54: 45 02-19 07:09 :51 No 500mL at 999 mL/hr, 500 mL, IV Infusion, PRN - SEE ARCELIA BARBA, Starting 02/18/19 at 1154, Until Yadi 02/19/19 at 0209, Routine [facility] proMETHazin e 25 mg tablet 01-27 00:00: 00 Yes [id number] 25mg Take 1 tablet by mouth every 4 (four) hours as needed for Nausea and Vomiting (N/V). [facility] tramadol HCl (ULTRAM ORAL) 01-25 04:15: 52 01-24 00:00 :00 No Take by mouth. [facility] methadone HCl (METHADONE ORAL) 01-25 04:15: 52 01-24 00:00 :00 No Take by mouth. [facility] levothyroxi ne (SYNTHROID) tablet 150 mcg 01-24 16:15: 00 Yes 150ug 150 mcg, Oral, QAM-0600, First dose on 01/24/19 at 1115, Until Discontinu ed, Routine [facility] vitamin w/FA (PRENATABS RX) tablet 1 tablet 01-24 14:00: 00 Yes 1{tbl} 1 tablet, Oral, DAILY, First dose on 01/24/19 at 0900, Until Discontinu ed, Routine [facility] methadone (DOLOPHINE HCL) tablet 110 mg 01-24 14:00: 00 Yes 110mg 110 mg, Oral, QAM, First dose on 01/24/19 at 0900, Until Discontinu ed, Routine [facility] clonazePAM (KLONOPIN) tablet 2 mg 01-24 13:00: 00 Yes 2mg 2 mg, Oral, BID, First dose on 01/24/19 at 0800, Until Discontinu ed, [facility] S[facility] (ZOLOFT) tablet 25 mg 01-24 11:45: 00 Yes 25mg 25 mg, Oral, DAILY, First dose on 01/24/19 at 0645, Until Discontinu ed, Routine [facility] lactated ringers IV infusion 1,000 mL 01-24 11:45: 00 01-24 14:14 :00 No 1000mL at 999 mL/hr, 1,000 mL, Intravenou s, ONCE, 1 dose, 01/24/19 at 0645, Routine [facility] acetaminoph en (TYLENOL) tablet 650 mg 01-24 09:47: 00 01-24 10:34 :00 No 650mg 650 mg, Oral, ONCE, 1 dose, 01/24/19 at 0500, Routine [facility] clonazePAM 2 mg tablet 01-07 00:00: 00 Yes [facility] SERTraline 25 mg tablet 12-31 00:00: 00 Yes [facility] levothyroxi ne 150 mcg tablet 12-12 00:00: 00 Yes [facility] methadone HCl (METHADONE ORAL) 11-17 13:45: 07 Yes Take by mouth. [facility] traMADOL 50 mg tablet 11-08 00:00: 00 01-24 00:00 :00 No [facility] tramadol HCl (ULTRAM ORAL) 10-28 19:34: 32 Yes Take by mouth. [facility] PNV 67-iron ps-folate no.1-dha (VITAFOL ULTRA) 29 mg iron- 1 mg-200 mg Cap 10-28 00:00: 00 01-24 00:00 :00 No [id number] 1{capsu le} Take 1 capsule by mouth daily. [facility] clonazePAM 2 mg tablet 10-23 00:00: 00 01-24 00:00 :00 No [facility] Euthyrox 150 mcg tablet Take 1 tablet every day by oral route. Euthyrox 150 mcg tablet Take 1 tablet every day by oral route. No 1 Q1D Euthyrox 150 mcg tablet Take 1 tablet every day by oral route. Myles Serrano [facility] gabapentin 400 mg capsule TAKE 1 CAPSULE BY MOUTH TWICE A DAY gabapentin 400 mg capsule TAKE 1 CAPSULE BY MOUTH TWICE A DAY No gabapentin 400 mg capsule TAKE 1 CAPSULE BY MOUTH TWICE A DAY [facility] hydrochloro thiazide 12.5 mg tablet Take 1 tablet every day by oral route. hydrochloro thiazide 12.5 mg tablet Take 1 tablet every day by oral route. No 1 Q1D hydrochlor othiazide 12.5 mg tablet Take 1 tablet every day by oral route. [facility] hydrocodone 5 mg-acetamin ophen 325 mg tablet Take 1 tablet every 8 hours by oral route. hydrocodone 5 mg-acetamin ophen 325 mg tablet Take 1 tablet every 8 hours by oral route. No 1 Q8H hydrocodon e 5 mg-acetami nophen 325 mg tablet Take 1 tablet every 8 hours by oral route. [facility] methadone (bulk) 110 mg po q day methadone (bulk) 110 mg po q day No methadone (bulk) 110 mg po q day [facility] trazodone 50 mg tablet Take 1 tablet every day by oral route. trazodone 50 mg tablet Take 1 tablet every day by oral route. No 1 Q1D trazodone 50 mg tablet Take 1 tablet every day by oral route. [facility] Adderall 10 mg tablet Take 1 tablet every day by oral route. Adderall 10 mg tablet Take 1 tablet every day by oral route. No 1 Q1D Adderall 10 mg tablet Take 1 tablet every day by oral route. [facility] amitriptyli ne 50 mg tablet TAKE 1 TABLET BY MOUTH EVERYDAY AT BEDTIME amitriptyli ne 50 mg tablet TAKE 1 TABLET BY MOUTH EVERYDAY AT BEDTIME No amitriptyl ine 50 mg tablet TAKE 1 TABLET BY MOUTH EVERYDAY AT BEDTIME [facility] clonazepam 1 mg tablet Take 2 tablets twice a day by oral route. clonazepam 1 mg tablet Take 2 tablets twice a day by oral route. No 2 BID clonazepam 1 mg tablet Take 2 tablets twice a day by oral route. [facility] dextroamphe tamine-amph etamine 20 mg tablet TAKE 2 TABLETS (40 MG) BY MOUTH DAILY dextroamphe tamine-amph etamine 20 mg tablet TAKE 2 TABLETS (40 MG) BY MOUTH DAILY No dextroamph etamine-am phetamine 20 mg tablet TAKE 2 TABLETS (40 MG) BY MOUTH DAILY [facility] doxepin 50 mg capsule TAKE 1 CAPSULE BY MOUTH AT BEDTIME doxepin 50 mg capsule TAKE 1 CAPSULE BY MOUTH AT BEDTIME No doxepin 50 mg capsule TAKE 1 CAPSULE BY MOUTH AT BEDTIME [facility] acetaminoph en 300 mg-codeine 30 mg tablet TAKE 1 TABLET EVERY 8 HOURS BY ORAL ROUTE. acetaminoph en 300 mg-codeine 30 mg tablet TAKE 1 TABLET EVERY 8 HOURS BY ORAL ROUTE. No acetaminop hen 300 mg-codeine 30 mg tablet TAKE 1 TABLET EVERY 8 HOURS BY ORAL ROUTE. [facility] escitalopra m 10 mg tablet TAKE 1 TABLET BY MOUTH EVERY DAY escitalopra m 10 mg tablet TAKE 1 TABLET BY MOUTH EVERY DAY No escitalopr am 10 mg tablet TAKE 1 TABLET BY MOUTH EVERY DAY [facility] Immunizations Ordered Immunization Name Filled Immunization Name Date Status Comments Source TDAP (ADACEL) VACCINE 2019-01-27 00:00:[address] [facility] TDAP (ADACEL) VACCINE 2019-01-27 00:00:[address] [facility] TDAP (ADACEL) VACCINE 2019-01-27 00:00:[address] [facility] TDAP (ADACEL) VACCINE 2019-01-27 00:00:[address] [facility] TDAP (ADACEL) VACCINE 2019-01-27 00:00:[address] [facility] TDAP (ADACEL) VACCINE 2019-01-27 00:00:[address] [facility] TDAP (ADACEL) VACCINE 2019-01-27 00:00:[address] [facility] TDAP (ADACEL) VACCINE 2019-01-27 00:00:[address] [facility] TDAP (ADACEL) VACCINE 2019-01-27 00:00:[address] [facility] TDAP (ADACEL) VACCINE 2019-01-27 00:00:[address] [facility] TDAP (ADACEL) VACCINE 2019-01-27 00:00:[address] [facility] TDAP (ADACEL) VACCINE 2019-01-27 00:00:[address] [facility] TDAP (ADACEL) VACCINE 2019-01-27 00:00:[address] [facility] TDAP (ADACEL) VACCINE 2019-01-27 00:00:[address] [facility] TDAP (ADACEL) VACCINE 2019-01-27 00:00:[address] [facility] TDAP (ADACEL) VACCINE 2019-01-27 00:00:[address] [facility] TDAP (ADACEL) VACCINE 2019-01-27 00:00:[address] [facility] TDAP (ADACEL) VACCINE 2019-01-27 00:00:[address] [facility] TDAP (ADACEL) VACCINE 2019-01-27 00:00:[address] [facility] TDAP (ADACEL) VACCINE 2019-01-27 00:00:[address] [facility] TDAP (ADACEL) VACCINE 2019-01-27 00:00:[address] [facility] TDAP (ADACEL) VACCINE Unknown Completed [facility] TDAP (ADACEL) VACCINE Unknown Completed [facility] Vital Signs Vital Name Observation Time Observation Value Comments S ource Systolic blood pressure 2024-01-15 01:10:00 128 mm[Hg] [facility] Diastolic blood pressure 2024-01-15 01:10:00 98 mm[Hg] [facility] Heart rate 2024-01-15 01:10:00 77 /min [facility] Body temperature 2024-01-15 01:10:[address] [facility] Respiratory rate 2024-01-15 01:10:00 18 /min [facility] Oxygen saturation in Arterial blood by Pulse oximetry 2024-01-15 01:10:00 100 /min [facility] Body height 2024-01-14 22:20:00 152.4 cm [facility] Body weight 2024-01-14 22:20:00 77.111 kg [facility] BMI 2024-01-14 22:20:00 33.20 kg/m2 [facility] Systolic blood pressure 2023-09-14 19:02:00 107 mm[Hg] [facility] Diastolic blood pressure 2023-09-14 19:02:00 73 mm[Hg] [facility] Heart rate 2023-09-14 19:02:00 84 /min Unive [facility] Oxygen saturation in Arterial blood by Pulse oximetry 2023-09-14 19:02:00 95 /min [facility] Body temperature 2023-09-14 18:11:[address] [facility] Respiratory rate 2023-09-14 18:11:00 18 /min [facility] Body height 2023-09-14 18:11:00 152.4 cm [facility] Body weight 2023-09-14 18:11:00 82.555 kg [facility] BMI 2023-09-14 18:11:00 35.54 kg/m2 [facility] Systolic blood pressure 2021-12-02 07:46:00 130 mm[Hg] [facility] Diastolic blood pressure 2021-12-02 07:46:00 85 mm[Hg] [facility] Heart rate 2021-12-02 07:46:00 79 /min [facility] 2021-12-02 07:46:00 20 /min [facility] Oxygen saturation in Arterial blood by Pulse oximetry 2021-12-02 07:46:00 99 /min [facility] Body temperature 2021-12-01 20:53:[address] [facility] Body weight 2021-12-01 20:53:00 102.059 kg [facility] BMI 2021-12-01 20:53:00 43.94 kg/m2 [facility] Height 2021-03-09 00:00:00 60 [in_i] [facility] BMI (Body Mass Index) 2021-03-09 00:00:00 43 kg/m2 [facility] Body Weight 2021-03-09 00:00:00 3520 [oz_av] [facility] BP Diastolic 2020-12-08 00:00:00 88 mm[Hg] [facility] Height 2020-12-08 00:00:00 60 [in_i] Martín crouch [facility] BMI (Body Mass Index) 2020-12-08 00:00:00 39.5 kg/m2 [facility] BP Systolic 2020-12-08 00:00:00 122 mm[Hg] Leigh smith [facility] Body Weight 2020-12-08 00:00:00 3232 [oz_av] Ke zafar [facility] Systolic blood pressure 2020-08-20 02:00:00 133 mm[Hg] [facility] Diastolic blood pressure 2020-08-20 02:00:00 98 mm[Hg] [facility] Heart rate 2020-08-20 02:00:00 80 /min Unive [facility] Respiratory rate 2020-08-20 02:00:00 17 /min [facility] Oxygen saturation in Arterial blood by Pulse oximetry 2020-08-20 02:00:00 96 /min [facility] Body weight 2020-08-19 22:02:00 90.719 kg [facility] BMI 2020-08-19 22:02:00 39.06 kg/m2 [facility] Body temperature 2020-08-19 21:57:[address] [facility] Systolic blood pressure 2020-05-25 13:45:00 146 mm[Hg] [facility] Diastolic blood pressure 2020-05-25 13:45:00 96 mm[Hg] [facility] Heart rate 2020-05-25 13:45:00 89 /min Unive [facility] Body temperature 2020-05-25 13:45:[address] [facility] Respiratory rate 2020-05-25 13:45:00 18 /min [facility] Body weight 2020-05-25 13:45:00 81.647 kg [facility] BMI 2020-05-25 13:45:00 35.15 kg/m2 [facility] Oxygen saturation in Arterial blood by Pulse oximetry 2020-05-25 13:45:00 97 /min [facility] Systolic blood pressure 2020-04-09 21:48:00 119 mm[Hg] [facility] Diastolic blood pressure 2020-04-09 21:48:00 94 mm[Hg] [facility] Heart rate 2020-04-09 21:48:00 77 /min Unive [facility] Respiratory rate 2020-04-09 21:48:00 16 /min [facility] Oxygen saturation in Arterial blood by Pulse oximetry 2020-04-09 21:48:00 96 /min [facility] Body temperature 2020-04-09 19:02:[address] [facility] Body weight 2020-04-09 19:02:10 81.647 kg [facility] Systolic blood pressure 2020-03-30 14:27:00 127 mm[Hg] [facility] Diastolic blood pressure 2020-03-30 14:27:00 83 mm[Hg] [facility] Heart rate 2020-03-30 14:27:00 77 /min Unive [facility] Body temperature 2020-03-30 14:27:[address] [facility] Respiratory rate 2020-03-30 14:27:00 16 /min [facility] Body height 2020-03-30 14:27:00 152.4 cm [facility] Body weight 2020-03-30 14:27:00 85.186 kg [facility] BMI 2020-03-30 14:27:00 36.68 kg/m2 [facility] Systolic blood pressure 2019-02-25 13:00:00 138 mm[Hg] [facility] Diastolic blood pressure 2019-02-25 13:00:00 73 mm[Hg] [facility] Heart rate 2019-02-25 13:00:00 70 /min Unive [facility] Body temperature 2019-02-25 13:00:[address] [facility] Respiratory rate 2019-02-25 13:00:00 20 /min [facility] Oxygen saturation in Arterial blood by Pulse oximetry 2019-02-25 13:00:00 98 /min [facility] Body height 2019-02-18 15:51:00 152.4 cm [facility] Body weight 2019-02-18 15:51:00 92.534 kg [facility] BMI 2019-02-18 15:51:00 39.84 kg/m2 [facility] Systolic blood pressure 2019-01-27 20:21:00 122 mm[Hg] [facility] Diastolic blood pressure 2019-01-27 20:21:00 68 mm[Hg] [facility] Heart rate 2019-01-27 20:21:00 62 /min [facility] Body temperature 2019-01-27 20:21:[address] [facility] Respiratory rate 2019-01-27 20:21:00 16 /min [facility] Body height 2019-01-27 20:21:00 152.4 cm [facility] Body weight 2019-01-27 20:21:00 89.812 kg [facility] BMI 2019-01-27 20:21:00 38.67 kg/m2 [facility] Oxygen saturation in Arterial blood by Pulse oximetry 2019-01-25 02:00:00 100 /min [facility] Systolic blood pressure 2019-01-25 02:00:00 122 mm[Hg] [facility] Diastolic blood pressure 2019-01-25 02:00:00 81 mm[Hg] [facility] Heart rate 2019-01-25 02:00:00 92 /min [facility] Body temperature 2019-01-25 02:00:[address] [facility] Respiratory rate 2019-01-25 02:00:00 18 /min [facility] Body height 2019-01-24 09:34:00 152.4 cm [facility] Body weight 2019-01-24 09:34:00 81.647 kg [facility] BMI 2019-01-24 09:34:00 35.15 kg/m2 [facility] Procedures Procedure Date / Time Performed Performing Clinician Source CT ABDOMEN PELVIS W CONTRAST 2024-01-14 23:42:[address] [facility] POCT TEST 2024-01-14 23:13:[address] [facility] LIPASE 2024-01-14 23:10:00 Elmer Guerra [facility] COMP. METABOLIC PANEL ([id number]) 2024-01-14 23:10:[address] [facility] CBC WITH DIFF 2024-01-14 23:10:00 Elmer Guerra [facility] URINALYSIS 2024-01-14 23:10:00 [facility] TEST, SERUM 2023-09-14 18:35:[address] [facility] COMP. METABOLIC PANEL ([id number]) 2023-09-14 18:35:[address] [facility] URINE DRUG (IMMUNOASSAY) - COMPREHENSIVE DRUG SCREEN 2023-09-14 18:35:[address] [facility] CBC WITH DIFF 2023-09-14 18:35:00 Jeannie Carver [facility] URINALYSIS 2023-09-14 18:35:00 Jeannie Carver [facility] CT ANGIOGRAM ABDOMEN/PELVIS 2021-12-02 04:58:[address] [facility] URINALYSIS 2021-12-02 04:28:00 Amanda Camilo [facility] LIPASE 2021-12-02 01:51:00 Amanda Camilo [facility] TEST, SERUM 2021-12-02 01:51:[address] [facility] COMP. METABOLIC PANEL ([id number]) 2021-12-02 01:51:[address] [facility] CBC WITH DIFF 2021-12-02 01:50:00 Amanda Camilo [facility] CONSENT/REFUSAL FOR DIAGNOSIS AND TREATMENT 2021-12-01 20:48:21 Doctor Unassigned, [place] [facility] Laparoscopic Umbilical Hernia Repair (Surg) 2021-05-30 00:00:00 [facility] CT, abdomen + pelvis, w/o contrast 2021-04-25 00:00:00 [facility] US, abdomen 2020-12-08 00:00:00 [facility] US, gallbladder 2020-12-08 00:00:[address] [facility] [address] ABDOMEN PELVIS W CONTRAST 2020-08-19 23:43:[address] [facility] LIPASE 2020-08-19 22:59:00 Diana [facility] TROPONIN I 2020-08-19 22:59:00 Diana [facility] COMP. METABOLIC PANEL ([id number]) 2020-08-19 22:59:[address] [facility] CBC WITH DIFF 2020-08-19 22:59:00 Diana Husain [facility] URINALYSIS 2020-08-19 22:59:00 Diana [facility] POCT TEST 2020-08-19 22:59:[address] [facility] CT ABDOMEN PELVIS W CONTRAST 2020-05-25 15:16:[address] [facility] LIPASE 2020-05-25 14:21:00 Veronica Sanchez [facility] TEST, SERUM 2020-05-25 14:21:[address] [facility] HEPATIC FUNCTION PANEL ([id number]) (ALB,T.PRO,BILI T,BU/BC,ALT,AST,ALK PHOS) 2020-05-25 14:21:[address] [facility] BASIC METABOLIC PANEL (NA, K, CL, CO2, GLUCOSE, BUN, CREATININE, CA) 2020-05-25 14:21:[address] [facility] CBC WITH DIFF 2020-05-25 14:21:00 [facility] 2020-05-25 14:21:00 Veronica Sanchez Uni [facility] CT ABDOMEN PELVIS W CONTRAST 2020-04-09 19:47:[address] [facility] XR CHEST 1 VW 2020-04-09 19:40:35 Lay Montelongo [facility] CT CERVICAL SPINE WO CONTRAST 2020-04-09 19:40:[address] [facility] CT HEAD WO CONTRAST 2020-04-09 19:40:[address] [facility] BASIC METABOLIC PANEL (NA, K, CL, CO2, GLUCOSE, BUN, CREATININE, CA) 2020-04-09 19:11:[address] [facility] CBC WITH DIFF 2020-04-09 19:11:00 Lay Montelongo U [facility] CONSENT/REFUSAL FOR DIAGNOSIS AND TREATMENT 2020-03-30 14:07:13 Doctor Unassigned, [place] [facility] STERILIZATION CONSENT FORM 2019-03-04 05:01:00 Doctor Unassigned, [place] [facility] CBC WITH DIFFERENTIAL 2019-02-25 10:58:[address] [facility] PREPARE PACKED RBC 2019-02-24 17:02:[address] [facility] CBC WITH DIFFERENTIAL 2019-02-24 10:42:[address] [facility] TUBAL LIGATION 2019-02-24 02:07:[address] [facility] VENOUS CORD GAS 2019-02-23 20:44:[address] [facility] CBC WITH DIFFERENTIAL 2019-02-23 16:47:[address] [facility] PROTHROMBIN TIME / INR 2019-02-23 16:47:[address] [facility] D-DIMER 2019-02-23 16:47:00 Ludy De La Cruz [facility] ACTIVATED PARTIAL THRMPLAS ASHELY 2019-02-23 16:47:[address] [facility] FIBRINOGEN 2019-02-23 16:47:00 Ludy De La Cruz [facility] URINALYSIS 2019-02-23 07:09:[address] [facility] PROTEIN CREAT RATIO URINE RANDOM 2019-02-23 07:09:00 Shyann Aguilar [facility] PROFILE / HEMOGRAM 2019-02-23 06:37:00 Maria L Aguilar [facility] PROTHROMBIN TIME / INR 2019-02-23 06:37:[address] [facility] ACTIVATED PARTIAL THRMPLAS ASHELY 2019-02-23 06:37:00 Shyann Aguilar [facility] FIBRINOGEN 2019-02-23 06:37:[address] [facility] SGOT (ASPARTATE AMINO TRANSFER) 2019-02-23 05:06:00 Shyann Aguilar September [facility] CREATININE 2019-02-23 05:06:[address] [facility] ALANINE AMINO TRANSFERASE(SGPT 2019-02-23 05:06:00 Shyann Aguilar September [facility] LACTATE DEHYDROGENASE 2019-02-23 05:06:[address] [facility] URIC ACID 2019-02-23 05:06:[address] [facility] CBC WITH DIFFERENTIAL 2019-02-23 05:06:[address] [facility] TYPE AND SCREEN 2019-02-22 02:09[facility] GLOBULIN 2019-02-22 02:09:[address] [facility] NON-STRESS TEST 2019-02-21 22:58:[address] [facility] SECOND AND THIRD TRIMESTER ULTRASOUND 2019-02-20 21:03:[address] [facility] NON-STRESS TEST 2019-02-20 13:07:[address] [facility] RADIOLOGY DOCUMENTATION 2019-02-20 05:01:00 Doct or Unassigned, [place] [facility] GLUCOSE 1 HOUR POST PRANDIAL 2019-02-19 17:47:00 Shyann Aguilar [facility] FERRITIN SERUM 2019-02-19 17:46:[address] [facility] IRON 2019-02-19 17:46:[address] [facility] TRANSFERRIN 2019-02-19 17:46:[address] [facility] TOTAL IRON BINDING CAPACITY 2019-02-19 17:46:00 Shyann Aguilar [facility] NON-STRESS TEST 2019-02-19 16:40:[address] [facility] HEPATITIS B SURFACE ANTIGEN 2019-02-18 17:35:[address] [facility] HIV 1/2 AG-AB WITH REFLEX 2019-02-18 17:35:[address] [facility] GALV ONLY - SYPHILIS IGG/IGM 2019-02-18 17:35[facility] 2019-02-18 17:33:[address] [facility] GALV/CLC ONLY - URINE DRUG (IMMUNOASSAY) - COMPREHENSIVE DRUG SCREEN 2019-02-18 17:25:[address] [facility] CBC WITH DIFFERENTIAL 2019-02-18 17:25:[address] [facility] URINALYSIS 2019-02-18 17:25:00 [facility]-02-18 17:25:00 [facility] GC & CHLAMYDIA AMPLIFIED ASSAY 2019-02-18 17:25:[address] [facility] GROUP B STREPTOCOCCUS BY PCR 2019-02-18 17:25:[address] [facility] URINE DRUG (LCMSMS) - SYNTHETIC OPIATES PANEL 2019-02-18 17:25:[address] [facility] URINE DRUG (LCMSMS) - BENZODIAZEPINES PANEL 2019-02-18 17:25:00 Jose Armstrongzie [facility] EXTERNAL PROVIDER RECORDS 2019-01-29 05:01:00 Do ctor Unassigned, [place] [facility] TDAP (ADACEL) IMMUNIZATION 2019-01-27 20:30:[address] [facility] POCT URINALYSIS W/O SPECIFIC GRAVITY 2019-01-27 20:21:[address] [facility] STERILIZATION CONSENT FORM 2019-01-27 05:01:00 Doctor Unassigned, [place] [facility] THYROID STIMULATING HORMONE 2019-01-25 02:42:[address] [facility] PROFILE / HEMOGRAM 2019-01-25 02:42:[address] [facility] CBC WITH DIFFERENTIAL 2019-01-24 11:38:[address] [facility] TYPE AND SCREEN 2019-01-24 11:34:[address] [facility] Plan of Care Planned Activity Planned Date Details Comments Source Diagnostic Test Pending 2020-12-08 00:00:00 CBC [code = CBC] [facility] Diagnostic Test Pending 2020-12-08 00:00:00 CMP, serum or plasma [code = CMP, serum or plasma] [facility] Encounters Start Date/Time End Date/Time Encounter Type Admission Type Attending Clinicians Care Facility Care Department Encounter ID Source 2021-11-29 04:44:10 Outpatient KALINA DANIALPriscilla [facility] [id number] [facility] 2021-11-28 12:12:41 Outpatient [facility] [id number] [facility] 2021-04-16 03:41:23 Emergency [facility] [id number] [facility] 2021-04-15 10:05:45 Emergency [facility] [id number] [facility] 2024-01-14 17:21:00 2024-01-14 20:20:00 Emergency X ELMER GUERRA DONNELL [facility] ERT [id number] [facility] 2024-01-14 17:21:00 2024-01-14 20:20:00 Emergency Elmer Guerra [facility] 1.2.840.114 350.1.13.10 4.2.7.2.686 [id number] [facility] 2023-09-14 13:15:00 2023-09-14 15:18:00 Emergency X JEANNIE CARVER WHITNEY [facility] ERT [id number] [facility] 2023-09-14 13:15:00 2023-09-14 15:18:[address] Carver [facility] 1.2.840.114 350.1.13.10 4.2.7.2.686 [id number] [facility] 2021-12-01 15:55:00 2021-12-02 02:53:00 Emergency X TENA MONTEZ [facility] ERT [id number] [facility] 2021-12-01 15:55:00 2021-12-02 02:53:00 Emergency Amanda Camilo [facility] 1.2.840.114 350.1.13.10 4.2.7.2.686 [id number] [facility] 2021-09-07 02:14:00 2021-09-07 02:14:00 Outpatient KOVACEV_T [facility] [id number] [facility] 2021-06-12 09:40:00 2021-06-12 09:40:00 Outpatient KOVACEV_T [id number] 2021-06-01 02:56:00 2021-06-01 02:56:00 Outpatient KOVACEV_T [id number] [facility] 2021-05-30 00:00:00 2021-05-30 00:00:00 Alexandra Chavez MD: [place] [address] , Ph. [facility] - [facility] SURGERY [id number] [facility] 2021-05-30 00:00:00 2021-05-30 00:00:00 Outpatient Alexandra Chavez [facility] [id number] 2021-05-18 09:12:00 2021-05-18 09:12:00 Outpatient KOVACEV[facility]T [facility] [id number] [facility] 2021-05-18 00:00:00 2021-05-18 00:00:00 Alexandra Chavez MD: Erma White [facility] [place] [address] , Ph. [facility] [id number] [facility] 2021-05-18 00:00:00 2021-05-18 00:00:00 Outpatient DulceshannenAlexandra Schimtz [facility] [id number] 2021-05-15 10:23:00 2021-05-15 10:23:00 Outpatient KOVACEV_T [facility] [id number] [facility] 2021-03-24 05:34:00 2021-03-24 05:34:00 Outpatient K[facility]ACEV[facility]T [facility] [id number] [facility] 2021-03-23 00:00:00 2021-03-23 00:00:00 Letter (Out) Nurse, [facility] 1..920.114 350.1.13.10 4.2.7.2.686 [id number] [facility] 2021-03-22 00:00:00 2021-03-22 00:00:00 Telephone Yeny Garza [facility] 1.840.114 350.1.13.10 4.2.7.2.686 [id number] [facility] 2021-03-21 15:00:00 2021-03-21 15:00:00 Outpatient R [facility] [id number] [facility] 2021-03-21 14:37:09 2021-03-21 14:52:09 Laboratory Only Only, Ang Db Test Shay, [facility] Yoana Lopez?Samia ramirez [facility] 1.2.840.114 350.1.13.10 4.2.7.2.686 [id number] [facility] 2021-03-21 00:00:00 2021-03-21 00:00:00 Letter (Out) Doctor Unassigned, [place] [id number] 350.1.13.10 4.2.7.2.686 [id number] [facility] 2021-03-21 00:00:00 2021-03-21 00:00:00 Letter (Out) Doctor Unassigned, [place] [id number] 350.1.13.10 4.2.7.2.686 [id number] [facility] 2021-03-09 12:42:00 2021-03-09 12:42:00 Outpatient KATHY_T [facility] [id number] [facility] 2021-03-09 00:00:00 2021-03-09 00:00:00 Outpatient Alexandra Chavez [facility] [id number] 2021-03-09 00:00:00 2021-03-09 00:00:00 Outpatient Alexandra Chavez [facility] [id number] 2021-03-09 00:00:00 2021-03-09 00:00:00 Alexandra Chavez MD: [place] [address] , Ph. [facility] [id number] [facility] 2021-03-06 03:31:00 2021-03-06 03:31:00 Outpatient KOVACEV_T [facility] [id number] [facility] 2021-02-21 05:58:00 2021-02-21 05:58:00 Outpatient KOVACEV_T [facility] [id number] 2021-02-16 09:19:00 2021-02-16 09:19:00 Outpatient KOVACEV_T [facility] [id number] [facility] 2021-02-16 00:00:00 2021-02-16 00:00:00 Outpatient Katyh [facility] [id number] 2021-02-16 00:00:00 2021-02-16 00:00:00 Alexandra Chavez MD: [place] [address] , Ph. [facility] [id number] [facility] 2021-01-14 06:56:00 2021-01-14 06:56:00 Outpatient KOVACEV_T [facility] [id number] [facility] 2021-01-03 00:00:00 2021-01-03 00:00:00 Outpatient Kathy Alexandra [facility] [id number] 2021-01-03 00:00:00 2021-01-03 00:00:00 Alexandra Chavez MD: [place] [address] , Ph. [facility] SURGERY [id number] [facility] 2020-12-28 06:12:00 2020-12-28 06:12:00 Outpatient KOVACEV_T [facility] 14 [facility] 2020-12-20 10:47:00 2020-12-20 10:47:00 Outpatient KOVACEV_T [facility] [id number] [facility] 2020-12-20 00:00:00 2020-12-20 00:00:00 Outpatient Alexandra Chavez [facility] [id number] 2020-12-20 00:00:00 2020-12-20 00:00:00 Alexandra Chavez MD: [place] [address] , Ph. [facility] [id number] [facility] 2020-12-08 11:03:00 2020-12-08 11:03:00 Outpatient KOVACEV_T [facility] [id number] [facility] 2020-12-08 00:00:00 2020-12-08 00:00:00 Outpatient Kathy Alexandra LeonSchmitz [facility] [id number] 2020-12-08 00:00:00 2020-12-08 00:00:00 Alexandra Chavez MD: [place] [address] , Ph. [facility] [id number] [facility] 2020-11-18 05:05:00 2020-11-18 05:05:00 Outpatient ELIANA [facility] [id number] [facility] 2020-08-19 15:52:00 2020-08-19 20:28:00 Emergency Diana Husain [facility] 1..840.114 350.1.13.10 4.2.7.2.686 [id number] [facility] 2020-05-25 07:46:00 2020-05-25 10:56:00 Emergency LauraVeronica negron S [facility] 1.840.114 350.1.13.10 4.2.7.2.686 [id number] [facility] 2020-04-19 10:00:00 2020-04-19 10:00:00 Outpatient R KELSEY LR [facility] [id number] [facility] 2020-04-14 07:45:00 2020-04-14 07:45:00 Outpatient R HERMILO PARHAM [facility] [id number] [facility] 2020-04-09 13:58:00 2020-04-09 16:50:00 Emergency Lay Montelongo [facility] 1.840.114 350.1.13.10 4.2.7.2.686 [id number] [facility] 2020-04-09 13:58:00 2020-04-09 16:50:00 Emergency X LAY MONTELONOG [facility] ERT [id number] [facility] 2020-04-09 13:58:00 2020-04-09 13:58:00 Emergency X LAY MONTELONGO [facility] ERT [id number] [facility] 2020-04-01 00:00:00 2020-04-01 00:00:00 Telephone Hermilo Parham [facility] CORPORATE EVENTS DIRECTOR [facility]ILD [facility] 1.2.840.114 350.1.13.10 4.2.7.2.686 [id number] [facility] 2020-03-30 09:09:43 2020-03-30 09:44:16 Office Visit Hermilo Parham [facility] CORPORATE EVENTS DIRECTOR [facility] & CHILD [facility] 1.2.840.114 350.1.13.10 4.2.7.2.686 [id number] [facility] 2020-03-30 09:15:00 2020-03-30 09:15:00 Outpatient R YOLIS PARHAMMARIO [facility] [id number] [facility] 2020-03-30 00:00:00 2020-03-30 00:00:00 Orders Only Doctor Unassigned, [place] [facility] 1.2.840.114 350.1.13.10 4.2.7.2.686 [id number] [facility] 2019-03-04 00:00:00 2019-03-04 00:00:00 Orders Only Doctor Unassigned, [place] [facility] 1.2.840.114 350.1.13.10 4.2.7.2.686 [id number] [facility] 2019-02-18 10:17:00 2019-02-25 13:11:00 Hospital Encounter Chiquis Nuno [facility] 1.2.840.114 350.1.13.10 4.2.7.2.686 [id number] [facility] 2019-02-24 00:00:00 2019-02-24 00:00:00 Telephone Maggie Montelongo [facility] CORPORATE EVENTS DIRECTOR [facility] CHILD [facility] 1.2.840.114 350.1.13.10 4.2.7.2.686 [id number] [facility] 2019-02-20 13:54:50 2019-02-20 16:16:25 Beauty Director Visit 2, [facility] Room Bradley Hayden [facility] 1..114 350.1.13.10 4.2.7.2.686 [id number] [facility] 2019-02-17 00:00:00 2019-02-17 00:00:00 Telephone Faculty, Obi Rodriguez [facility] CORPORATE EVENTS DIRECTOR [facility] & CHILD [facility] 1..114 350.1.13.10 4.2.7.2.686 [id number] [facility] 2019-02-15 00:00:00 2019-02-15 00:00:00 Maggie Boo [facility] CORPORATE EVENTS DIRECTOR [facility] CHILD [facility] 1..114 350.1.13.10 4.2.7.2.686 [id number] [facility] 2019-02-05 00:00:00 2019-02-05 00:00:00 Telephone Faculty, Obi Rothroddy [facility] CORPORATE EVENTS DIRECTOR [facility] CHILD [facility] 1..114 350.1.13.10 4.2.7.2.686 [id number] [facility] 2019-01-29 00:00:00 2019-01-29 00:00:00 Orders Only Doctor Unassigned, [place] [facility] 1..114 350.1.13.10 4.2.7.2.686 [id number] [facility] 2019-01-27 14:59:47 2019-01-27 16:01:58 Routine Visit Maggie Montelongo [facility] CORPORATE [facility] 1..114 350.1.13.10 4.2.7.2.686 [id number] [facility] 2019-01-27 00:00:00 2019-01-27 00:00:00 Orders Only Doctor Unassigned, [place] [facility] 1.2.840.114 350.1.13.10 4.2.7.2.686 [id number] [facility] 2019-01-23 23:55:59 2019-01-24 23:15:00 Hospital Encounter Aracely Knight [facility] 1.2.840.114 350.1.13.10 4.2.7.2.686 [id number] [facility] 2019-01-16 00:00:00 2019-01-16 00:00:00 Telephone Jadyn, Obi Rodriguez [facility] CORPORATE EVENTS DIRECTOR [facility] & CHILD [facility] 1.2.840.114 350.1.13.10 4.2.7.2.686 [id number] [facility] 2019-01-12 00:00:00 2019-01-12 00:00:00 Telephone Hermilo Parham [facility] CORPORATE EVENTS DIRECTOR [facility] & CHILD [facility] 1.2.840.114 350.1.13.10 4.2.7.2.686 [id number] [facility] Results Test Description Test Time Test Comments Results Result Comments Source CT ABDOMEN PELVIS W CONTRAST 00:38:42 CT ABDOMEN PELVIS W CONTRAST Indication: Bowel obstruction suspected ? Comparison: August 19, 2020 RL: Ordering Clinician: ELMER GUERRA Technique: Axial CT images of the abdomen and pelvis were performed with ivcontrast. Sagittal and coronal reformats were created. Dose reductiontechniques were used (ALARA). Technical Quality: Adequate Discussion:Lines/Device s: None. Chest/Vessels: No acute abnormalities within the lung bases. ?The aorta isacutely normal. Organs: No acute liver pathology. ?No gallbladder abnormalities. ?Theportal vein is patent. ?The pancreas is normal. ?No splenic masses. ?Theadrenal glands are normal. : No hydronephrosis. No renal stones. The ureters are normal. ?Thebladder is normal. ?Anteverted uterus. GI: No inflammation of the colon. ?No small bowel obstruction. ?Normalappendix. Misc.: Subcentimeter lymph nodes are below size criteria. ?No free air orfree fluid. Skeleton: No acute osseous pathology. [facility] METABOLIC PANEL ([id number])2024-01-14 23:54:31* Test Item Value Reference Range Interpretation Comme nts NA (test code = 6388324746) 141 mmol/L 135-145 K (test code = 2267615098) 4.0 mmol/L 3.5-5.0 CL (test code = 4844850018) 106 mmol/L 98-108 CO2 TOTAL (test code = 3211162633) 21 mmol/L 23-31 L AGAP (test code = 2449770330) 14 2-16 BUN (test code = 0479347773) 9 mg/dL 7-23 GLUCOSE (test code = 4902624714) 104 mg/dL 70-110 CREATININE (test code = 2160-0) 0.81 mg/dL 0.50-1.04 TOTAL BILI (test code = 1631441757) 0.7 mg/dL 0.1-1.1 CALCIUM (test code = 9219419715) 9.7 mg/dL 8.6-10.6 T PROTEIN (test code = 5383243348) 9.3 g/dL 6.3-8.2 H ALBUMIN (test code = 5684739367) 5.1 g/dL 3.5-5.0 H ALK PHOS (test code = 3757036581) 88 U/L 34-122 ALTv (test code = 1742-6) 31 U/L 5-35 AST(SGOT) (test code = 5239086250) 49 U/L 13-40 H eGFR (test code = 52147-2) 91.9 mL/min/1.73m2 CKD-EPI eGFR (2020). Assuming creatinine has been stable day-to-day for at least three months, the eGFR indicates Category G1 (>= 90 mL/min/1.73 m2) Lab Interpretation (test code = 67975-1) [facility]normal [facility] 23:53:50* Test Item Value Reference Range Interpretation Comme nts LIPASE (test code = 4209585994) 97 U/L 0-220 Lab Interpretation (test cod e = 79297-5) Normal [facility] [id number] 23:13:00* Test Item Value Reference Range Interpretation Comme nts POCT PREG (test code = 1605) Negative On board controls acceptable with C Line (test code = 3574) Yes POCT PREG LOT # (test code = 3575) HCG [id number] POCT PREG TEST DATE (test code = 3576) 10/24/2024 Lab Interpretation (test cod e = 27777-9) Normal [facility] Met[facility] Panel (08389)2023-09-14 19:37:32* Test Item Value Reference Range Interpretation Comme nts NA (test code = 6223549851) 139 mmol/L 135-145 K (test code = 3336309736) 3.5 mmol/L 3.5-5.0 CL (test code = 2166425782) 106 mmol/L 98-108 CO2 TOTAL (test code = 5814436724) 26 mmol/L 23-31 AGAP (test code = 3471001926) 7 2-16 BUN (test code = 1097471171) 10 mg/dL 7-23 GLUCOSE (test code = 1802406142) 114 mg/dL 70-110 H CREATININE (test code = 2160-0) 0.59 mg/dL 0.50-1.04 TOTAL BILI (test code = 5956071979) 0.7 mg/dL 0.1-1.1 CALCIUM (test code = 6043504856) 9.2 mg/dL 8.6-10.6 T PROTEIN (test code = 1894483014) 7.9 g/dL 6.3-8.2 ALBUMIN (test code = 4859601759) 3.9 g/dL 3.5-5.0 ALK PHOS (test code = 4159541825) 88 U/L 34-122 ALTv (test code = 1742-6) 38 U/L 5-35 H AST(SGOT) (test code = 1626655412) 47 U/L 13-40 H eGFR (test code = 80242-7) 114.8 mL/min/1.73m2 CKD-EPI eGFR (2020). Assuming creatinine has been stable day-to-day for at least three months, the eGFR indicates Category G1 (>= 90 mL/min/1.73 m2) Lab Interpretation (test code = 83400-9) Abnormal [facility]regnancy Test, [id number] 19:10:05* Test Item Value Reference Range Interpretation Comme nts PREG SERUM (test code = 0795431032) Negative BRODY (test code = BRODY) Less than 10 IU/L. ?If low titer or ectopic is suspected, resubmit specimen in 48-[address] [facility] CenterCb with [id number] 18:57:11* Test Item Value Reference Range Interpretation Comme nts WBC (test code = 6690-2) 5.61 4.30-11.10 RBC (test code = 789-8) 3.86 3.93-5.25 L HGB (test code = 718-7) 10.9 g/dL 11.6-15.0 L HCT (test code = 4544-3) 32.5 % 35.7-45.2 L MCV (test code = 787-2) 84.2 fL 80.6-95.5 MCH (test code = 785-6) 28.2 pg 25.9-32.8 MCHC (test code = 786-4) 33.5 g/dL 31.6-35.1 RDW-SD (test code = 96646-7) 42.4 fL 39.0-49.9 RDW-CV (test code = 788-0) 13.9 % 12.0-15.5 PLT (test code = 777-3) 316 166-358 MPV (test code = 07331-9) 10.0 fL 9.5-12.9 NRBC/100 WBC (test code = 5262303388) 0.0 0.0-10.0 NRBC x10^3 (test code = 1617015060) See_Comment [Automated messa ge] The system which generated this result transmitted reference range: 10*3/?L. The reference range was not used to interpret this result as normal/abnormal. GRAN MAT (NEUT) % (test code = 770-8) 52.8 % IMM GRAN % (test code = 8672571305) 0.20 % LYMPH % (test code = 736-9) 35.7 % MONO % (test code = 5905-5) 6.8 % EOS % (test code = 713-8) 3.6 % BASO % (test code = 706-2) 0.9 % GRAN MAT x10^3(ANC) (test code = 2491678407) 2.97 10*3/uL 1.88-7.09 IMM GRAN x10^3 (test code = 0832035501) 0.00-0.06 LYMPH x10^3 (test code = 731-0) 2.00 10*3/uL 1.32-3.29 MONO x10^3 (test code = 742-7) 0.38 10*3/uL 0.33-0.92 EOS x10^3 (test code = 711-2) 0.20 10*3/uL 0.03-0.39 BASO x10^3 (test code = 704-7) 0.05 10*3/uL 0.01-0.07 Lab Interpretation (test code = 05246-2) [facility] (59992)2021-12-02 02:12:09* Test Item Value Reference Range Interpretation Comme nts NA (test code = 0445695525) 136 mmol/L 135-145 K (test code = 7028789601) 4.4 mmol/L 3.5-5.0 Slight hemolysis CL (test code = 5560248177) 103 mmol/L 98-108 CO2 TOTAL (test code = 5614075040) 27 mmol/L 23-31 AGAP (test code = 1468653300) 2-16 BUN (test code = 9759109037) 12 mg/dL 7-23 Slight hemolysis GLUCOSE (test code = 4163810940) 128 mg/dL 70-110 H CREATININE (test code = 9376743725) 0.59 mg/dL 0.50-1.04 TOTAL BILI (test code = 6446184230) 0.4 mg/dL 0.1-1.1 CALCIUM (test code = 3639083771) 8.9 mg/dL 8.6-10.6 T PROTEIN (test code = 7255634634) 7.1 g/dL 6.3-8.2 ALBUMIN (test code = 9170812393) 4.3 g/dL 3.5-5.0 ALK PHOS (test code = 8938936871) 101 U/L 34-122 Slight hemolysis ALTv (test code = 1742-6) 90 U/L 5-35 H AST(SGOT) (test code = 4225735394) 90 U/L 13-40 H Slight hemolysis eGFR (test code = 5572613410) mL/min/1.73m2 BRODY (test code = BRODY) Association of Glomerular Filtration Rate (GFR) and Staging of Kidney Disease* + -----+ --------+ +| GFR (mL/min/1.73 m2) ?| With Kidney Damage ?| ?Without Kidney Damage+ +------- +---- --+| ?>90 ?| ?Stage one ?| ? Normal ?+ ------+ ---------+--------- +| ?60-89 ?| ?Stage two ?| ? Decreased GFR ? + -----+ --------+ +| ?30-59 ?| ?Stage three ?| ? Stage three ? + -----+ --------+ +| ?15-29 ?| ?Stage four ? | ? Stage four ?+ ------+ ---------+--------- +| ?<15 (or dialysis) ? ?| ?Stage five ? | ? Stage five ?+ ------+ ---------+--------- + *Each stage assumes the associated GFR [...] abnormalities in imaging tests). Lab Interpretation (test code = 98101-4) [facility] Test Item Value Reference Range Interpretation Comme [facility] LIPASE (test code = 6784432101) 136 U/L 0-220 Lab Interpretation (test cod e = 48485-1) Normal [facility] [id number] 02:06:38* Test Item Value Reference Range Interpretation Comme nts PREG SERUM (test code = 5501318902) Negative BRODY (test code = BRODY) Less than 10 IU/L. ?If low titer or ectopic is suspected, resubmit specimen in 48-72 hours. [facility] WITH [id number] 02:00:30* Test Item Value Reference Range Interpretation Comme nts WBC (test code = 6690-2) See_Comment [Automated messa ge] The system which generated this result transmitted reference range: 4.30 - 11.10 10*3/?L. The reference range was not used to interpret this result as normal/abnormal. RBC (test code = 789-8) See_Comment L [Automated messa ge] The system which generated this result transmitted reference range: 3.93 - 5.25 10*6/?L. The reference range was not used to interpret this result as normal/abnormal. HGB (test code = 718-7) 9.4 g/dL 11.6-15.0 L HCT (test code = 4544-3) 30.1 % 35.7-45.2 L MCV (test code = 787-2) 85.8 fL 80.6-95.5 MCH (test code = 785-6) 26.8 pg 25.9-32.8 MCHC (test code = 786-4) 31.2 g/dL 31.6-35.1 L RDW-SD (test code = 81697-1) 49.8 fL 39.0-49.9 RDW-CV (test code = 788-0) 15.9 % 12.0-15.5 H PLT (test code = 777-3) See_Comment [Automated messa ge] The system which generated this result transmitted reference range: 166 - 358 10*3/?L. The reference range was not used to interpret this result as normal/abnormal. MPV (test code = 21411-6) 11.2 fL 9.5-12.9 NRBC/100 WBC (test code = 9983198990) See_Comment [Automated [employer] ssage] The system which generated this result transmitted reference range: 0.0 - 10.0 /100 WBCs. The reference range was not used to interpret this result as normal/abnormal. NRBC x10^3 (test code = 6183256995) <0.01 See_Comment [Automated messa ge] The system which generated this result transmitted reference range: 10*3/?L. The reference range was not used to interpret this result as normal/abnormal. GRAN MAT (NEUT) % (test code = 770-8) 55.5 % IMM GRAN % (test code = 1738426548) 0.40 % LYMPH % (test code = 736-9) 34.6 % MONO % (test code = 5905-5) 6.9 % EOS % (test code = 713-8) 1.9 % BASO % (test code = 706-2) 0.7 % GRAN MAT x10^3(ANC) (test code = 4790001434) 2.98 10*3/uL 1.88-7.09 IMM GRAN x10^3 (test code = 8854102192) <0.03 0.00-0.06 LYMPH x10^3 (test code = 731-0) 1.86 10*3/uL 1.32-3.29 MONO x10^3 (test code = 742-7) 0.37 10*3/uL 0.33-0.92 EOS x10^3 (test code = 711-2) 0.10 10*3/uL 0.03-0.39 BASO x10^3 (test code = 704-7) 0.04 10*3/uL 0.01-0.07 Lab Interpretation (test code = 15752-5) Abnormal [facility] [id number] 02:18:251. No acute intra-abdominal or intrapelvic abnormality per2. Hepatosplenomegaly and diffuse hepaticsteatosis.3. Suspected punctate gallstone versus adenomyomatosis at the gallbladderneck. 4. 1 cm fat-containing umbilical hernia. Preliminary Report Dictated by Resident: Ke Martin I, Corby ?Ricki benitez MD., have reviewed this study and agree with theabove report.EXAM: CT ABDOMEN AND PELVIS WITHCONTRAST HISTORY: 39-year-old female with hernia and abdominal pain COMPARISON: CT abdomen 05/25/2020. DOSE: Total exam DLP 850 mGy-cm TECHNIQUE AND FINDINGS: Contiguous axial imaging was performed from thelung bases to the proximal femurs after the administration of intravenousOmnipaque contrast inthe portal venous phase. Coronal and sagittalreconstructions were obtained. FINDINGS: LOWER THORAX:The lung bases clear. LIVER: Diffusely hypoattenuating liver [...] RETROPERITONEUM: No free air or fluid. Small fat- containingumbilical hernia. LYMPH NODES: No lymphadenopathy. GI TRACT: No dilation or abnormal wall thickening. Appendix is normal. PELVIS/BLADDER: Urinary bladder is partially distended. No wallthickening..Partially retroflexed uterus. A hypodense structure with a surroundinghyperattenuating rim in the right adnexal region measures up to 1.6 cmconsistent with a corpus luteum. VE SSELS: Patent abdominal vasculature. BONES AND SOFT TISSUES: [...] portal venous phase. Coronal and sagittalreconstructions were obtained.FIN DINGS:LOWER THORAX: The lung bases clear.LIVER: Diffusely hypoattenuating [...] lesions.Unchanged minimal superior endplate depression of L1.Multileveldegenerative changesin the spine, mostnotably at the L5-S1 level.IMPRESSION1. No acute intra-abdominal or intrapelvic abnormality per2. Hepatosplenomegaly and diffuse hepatic steatosis.3. Suspected punctate gallstone versus adenomyomatosis at the gallbladderneck. 4. 1 cm fat-containing umbilical hernia.Preliminary Report Dictated by Resident: Ke Elder, Corby Dela Cruz MD., have reviewed this study and agree with theabove report.[facility] HospitalSHAKIRA [id number] 23:29:00* Test Item Value Reference Range Interpretation Comme nts TROPONIN I (test code = 6001038691) 0.002 ng/mL See_Comment [Automated message] The system which generated this result transmitted reference range: <=0.034. The reference range was not used to interpret this result as normal/abnormal. BRODY (test code = BRODY) Equal or [...] use of biotin. ? Lab Interpretation (test code = 01892-6) Normal [facility] (96572)2020-08-19 23:16:00* Test Item Value Reference Range Interpretation Comme nts NA (test code = 3183433159) 139 mmol/L 135-145 K (test code = 1454289937) 3.9 mmol/L 3.5-5 CL (test code = 0519991622) 100 mmol/L 98-108 CO2 TOTAL (test code = 1228847688) 30 mmol/L 23-31 AGAP (test code = 1447679831) 2-16 BUN (test code = 4777455445) 13 mg/dL 7-23 GLUCOSE (test code = 2318281473) 118 mg/dL 70-110 H CREATININE (test code = 2857468622) 0.72 mg/dL 0.5-1.04 TOTAL BILI (test code = 8851163064) 0.5 mg/dL 0.1-1.1 CALCIUM (test code = 1438636098) 9.2 mg/dL 8.6-10.6 T PROTEIN (test code = 3826355659) 8.0 g/dL 6.3-8.2 ALBUMIN (test code = 9602743021) 4.8 g/dL 3.5-5 ALK PHOS (test code = 2425187515) 84 U/L 34-122 ALTv (test code = 1742-6) 152 U/L 5-35 H AST(SGOT) (test code = 1565238375) 122 U/L 13-40 H eGFR Calculation (Non-) (test code = 8964449777) mL/min/1.73m2 eGFR Calculation () (test code = 8878531790) mL/min/1.73m2 BRODY (test code = BRODY) Association of [...] abnormalities in imaging tests). Lab Interpretation (test code = 72864-4) Abnormal [facility]21[facility] 23:16:00* Test Item Value Reference Range Interpretation Comme nts LIPASE (test code = 7056812056) 145 U/L 0-220 Lab Interpretation (test cod e = 09978-5) Normal [facility]IS2021-03-05 23:15:00* Test Item Value Reference Range Interpretation Comme nts APPEARANCE (test code = 3299147733) Cloudy Clear A COLOR (test code = 5768520720) Yellow Yellow PH (test code = 5404220565) 4.8-8.0 SP GRAVITY (test code = 1493906404) 1.003-1.030 GLU U QUAL (test code = 0303257705) Normal Normal BLOOD (test code = 2560823245) Negative Negative KETONES (test code = 1994170921) Negative Negative PROTEIN (test code = 2887-8) Negative Negative UROBILIN (test code = 4040349311) Normal Normal BILIRUBIN (test code = 0231309195) Negative Negative NITRITE (test code = 5539152658) Negative Negative LEUK MO (test code = 1036455355) 25/uL Negative A RBC/HPF (test code = 3590612777) See_Comment [Automated messa ge] The system which generated this result transmitted reference range: 0 - 3 HPF. The reference range was not used to interpret this result as normal/abnormal. WBC/HPF (test code = 4223550464) See_Comment [Automated messa ge] The system which generated this result transmitted reference range: 0 - 5 HPF. The reference range was not used to interpret this result as normal/abnormal. BACTERIA (test code = 2586031145) Few Negative A SQ EPITH (test code = 0407608560) HPF Lab Interpretation (test code = 80634-6) Abnormal [facility] WITH [id number] 23:08:00* Test Item Value Reference Range Interpretation Comme nts WBC (test code = 6690-2) See_Comment [Automated messa ge] The system which generated this result transmitted reference range: 4.30 - 11.10 10*3/?L. The reference range was not used to interpret this result as normal/abnormal. RBC (test code = 789-8) See_Comment L [Automated messa ge] The system which generated this result transmitted reference range: 3.93 - 5.25 10*6/?L. The reference range was not used to interpret this result as normal/abnormal. HGB (test code = 718-7) 11.3 g/dL 11.6-15 L HCT (test code = 4544-3) 33.2 % 35.7-45.2 L MCV (test code = 787-2) 91.0 fL 80.6-95.5 MCH (test code = 785-6) 31.0 pg 25.9-32.8 MCHC (test code = 786-4) 34.0 g/dL 31.6-35.1 RDW-SD (test code = 52135-5) 46.6 fL 39-49.9 RDW-CV (test code = 788-0) 13.8 % 12-15.5 PLT (test code = 777-3) See_Comment [Automated messa ge] The system which generated this result transmitted reference range: 166 - 358 10*3/?L. The reference range was not used to interpret this result as normal/abnormal. MPV (test code = 93679-6) 11.6 fL 9.5-12.9 NRBC/100 WBC (test code = 2454254755) See_Comment [Automated [employer] ssage] The system which generated this result transmitted reference range: 0.0 - 10.0 /100 WBCs. The reference range was not used to interpret this result as normal/abnormal. NRBC x10^3 (test code = 4741679556) <0.01 See_Comment [Automated messa ge] The system which generated this result transmitted reference range: 10*3/?L. The reference range was not used to interpret this result as normal/abnormal. GRAN MAT (NEUT) % (test code = 770-8) 56.3 % IMM GRAN % (test code = 8219069229) 0.80 % LYMPH % (test code = 736-9) 34.4 % MONO % (test code = 5905-5) 5.8 % EOS % (test code = 713-8) 2.2 % BASO % (test code = 706-2) 0.5 % GRAN MAT x10^3(ANC) (test code = 4430793993) 3.61 10*3/uL 1.88-7.09 IMM GRAN x10^3 (test code = 5369588531) 0.05 10*3/uL 0-0.06 LYMPH x10^3 (test code = 731-0) 2.20 10*3/uL 1.32-3.29 MONO x10^3 (test code = 742-7) 0.37 10*3/uL 0.33-0.92 EOS x10^3 (test code = 711-2) 0.14 10*3/uL 0.03-0.39 BASO x10^3 (test code = 704-7) 0.03 10*3/uL 0.01-0.07 Lab Interpretation (test code = 48081-4) Abnormal [facility] CenterPOCT [id number] 22:59:00* Test Item Value Reference Range Interpretation Comme nts POCT PREG (test code = 1605) negative On board controls acceptable with C Line (test code = 3574) present POCT PREG LOT # (test code = 3575) [id number] POCT PREG TEST DATE ( test code = 3576) Lab Interpretation (test cod e = 41707-1) Normal [facility] ABDOMEN PELVIS W [id number] 16:52:051. ?No acute intra-abdominal or intrapelvic process.2. ?Age [...] the proximal thighs was performed after the adm inistration of100 cc of intravenous Omnipaque contrast. Coronal and sagittalreconstructions were obtained. Auto mA and/or iterative reconstruction wereused to reduce radiation dose. FINDINGS: LOWER THORAX: Mild dependent bibasilar atelectasis. LIVER: Diffusely hypoattenuating liver parenchyma. ?Norm al contour.Enlarged liver measures 23 cm in craniocaudal dimension. Fatty sparing ofthe gallbladder. GALLBLADDER AND BILIARY TREE: No biliary ductal dilatation. Physiologicallydistended gallbladder containing questionable punctate calculus at thegallbladder neck (3:40). No pericholecystic free fluid or inflammatorychange. SPLEEN: Enlarged spleen measuring 14.2 cm in AP diameter. Few smallperihilar splenules. PANCREAS: No ductal dilation or masses. ADRENAL GLANDS: No adrenal nodules. KIDNEYS: Nohydronephrosis, stones, or masses. PERITONEUM AND RETROPERITONEUM: No free air or fluid. Small fat-c ontainingumbilical hernia is noted. LYMPH NODES: No lymphadenopathy. [...] was performed after the administration of100 cc ofintravenous Omnipaque contrast. Coronal and sagittalreconstructions were obtained. [...] RETROPERITONEUM: No free air or fluid. Small fat- containingumbilical hernia is noted. LYMPH NODES: No lymphadenopathy.GI TRACT: No dilation or abnormal wall thickening. Appendix is not clearlyvisualized. However, there is no right lower quadrant inflammatory changeor stranding.PELVIS /BLADDER: Urinary bladder is normal for the degree of distention.Partially retroflexed uterus (in neutral position). Heterogeneousendometrial region is not well-defined on CT.VESSELS: Patent abdominal vasculature.BONES AND SOFT TISSUES: No suspicious lytic or sclerotic bony lesions. Ageindeterminate compressive deformity of L1 with approximately 10-20%anterior height loss. Multilevel degenerativechanges in the spine, mostnotably at the L5-S1 [...] reviewed this study and agree with theabove report.[facility] CenterUrinalysis2020-12-09 15:12:00 * Test Item Value Reference Range Interpretation Comme nts APPEARANCE (test code = 8834804649) Clear Clear COLOR (test code = 3963347902) Yellow Yellow PH (test code = 0720874316) 4.8-8.0 SP GRAVITY (test code = 9253948347) 1.003-1.030 GLU U QUAL (test code = 2778481622) Normal Normal BLOOD (test code = 1113157909) Negative Negative KETONES (test code = 0509767451) Negative Negative PROTEIN (test code = 2887-8) Negative Negative UROBILIN (test code = 1329583766) Normal Normal BILIRUBIN (test code = 8159696270) Negative Negative NITRITE (test code = 7545876371) Negative Negative LEUK MO (test code = 3668440597) 25/uL Negative A RBC/HPF (test code = 8011780764) See_Comment [Automated Kanmua ge] The system which generated this result transmitted reference range: 0 - 3 HPF. The reference range was not used to interpret this result as normal/abnormal. WBC/HPF (test code = 7383572022) See_Comment [Automated Kanmua ge] The system which generated this result transmitted reference range: 0 -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 (test code = 37105-0) Abnormal [facility] CenterProtein CREAT Ratio Urine [id number] 07:35:00* Test Item Value Reference Range Interpretation Comme nts T. PROT U (test code = 2888-6) 17 mg/dL CREAT U (test code = 5434133162) 16.6 mg/dL Protein/Creatinine Ratio Uri ne (test code = 7820024733) 0.0-2.0 [facility] CenterPROTHROMBIN TIME / [id number] 07:04:00* Test Item Value Reference Range Interpretation Comme nts PROTIME PATIENT (test code = 5964-2) See_Comment [Automated messa ge] The system which generated this result transmitted reference range: 10.1 - 12.6 Seconds. The reference range was not used to interpret this result as normal/abnormal. INR (test code = 6301-6) Normal INR <1.1; Warfarin Therapeutic range 2.0 to 3.0 or 2.5 to 3.5, depending upon the indications. Lab Interpretation (test code = 40332-6) Normal [facility] CenteraPTT2019-09-09 07:04:00* Test Item Value Reference Range Interpretation Comme [facility] APTT Patient (test code = 3173-2) See_Comment L [Automated Kanmua ge] The system which generated this result transmitted reference range: 26 - 36 Seconds. The reference range was not used to interpret this result as normal/abnormal. Lab Interpretation (test code = 69921-0) Abnormal [facility] CenterFIBRINOGEN2019-09-09 07:04:00* Test Item Value Reference Range Interpretation Comme [facility] Fibrinogen (test code = 7031118798) 740 mg/dL 167-453 H Lab Interpretation (test cod e = 04381-1) Abnormal [facility] CenterPROFILE / [id number] 06:56:00* Test Item Value Reference Range Interpretation Comme [facility] WBC (test code = 6690-2) See_Comment H [Automated message] The system which generated this result transmitted reference range: 4.30 - 11.10 10*3/?L. The reference range was not used to interpret this result as normal/abnormal. RBC (test code = 789-8) See_Comment L [Automated message] The system which generated this result transmitted reference range: 3.93 - 5.25 10*6/?L. The reference range was not used to interpret this result as normal/abnormal. HGB (test code = 718-7) 6.0 g/dL 11.6-15 L HCT (test code = 4544-3) 20.8 % 35.7-45.2 L MCH (test code = 785-6) 23.3 pg 25.9-32.8 L MCV (test code = 787-2) 80.6 fL 80.6-95.5 MCHC (test code = 786-4) 28.8 g/dL 31.6-35.1 L PLT (test code = 777-3) See_Comment [Automated message] The system which generated this result transmitted reference range: 166 - 358 10*3/?L. The reference range was not used to interpret this result as normal/abnormal. MPV (test code = 90399-4) 9.7 fL 9.5-12.9 RDW-CV (test code = 788-0) 17.4 % 12-15.5 H RDW-SD (test code = 29884-2) 49.7 fL 39-49.9 NRBC x10^3 (test code = 6427674018) See_Comment [Automated messa ge] The system which generated this result transmitted reference range: 10*3/?L. The reference range was not used to interpret this result as normal/abnormal. NRBC/100 WBC (test code = 3768464836) See_Comment [Automated messa ge] The system which generated this result transmitted reference range: 0.0 - 10.0 /100 WBCs. The reference range was not used to interpret this result as normal/abnormal. IPF % (test code = 8691974762) 1.3-7.7 Lab Interpretation (test code = 12990-1) Abnormal [facility] WITH [id number] 06:11:00* Test Item Value Reference Range Interpretation Comme nts WBC (test code = 6690-2) See_Comment H [Automated message] The system which generated this result transmitted reference range: 4.30 - 11.10 10*3/?L. The reference range was not used to interpret this result as normal/abnormal. RBC (test code = 789-8) See_Comment L [Automated message] The system which generated this result transmitted reference range: 3.93 - 5.25 10*6/?L. The reference range was not used to interpret this result as normal/abnormal. HGB (test code = 718-7) 5.8 g/dL 11.6-15 L HCT (test code = 4544-3) 20.3 % 35.7-45.2 L MCV (test code = 787-2) 79.9 fL 80.6-95.5 L MCH (test code = 785-6) 22.8 pg 25.9-32.8 L MCHC (test code = 786-4) 28.6 g/dL 31.6-35.1 L RDW-SD (test code = 19698-2) 49.1 fL 39-49.9 RDW-CV (test code = 788-0) 17.4 % 12-15.5 H PLT (test code = 777-3) See_Comment [Automated message] The system which generated this result transmitted reference range: 166 - 358 10*3/?L. The reference range was not used to interpret this result as normal/abnormal. MPV (test code = 83839-7) 9.7 fL 9.5-12.9 NRBC/100 WBC (test code = 7494779309) See_Comment [Automated message] The system which generated this result transmitted reference range: 0.0 - 10.0 /100 WBCs. The reference range was not used to interpret this result as normal/abnormal. NRBC x10^3 (test code = 9470486375) See_Comment [Automated message] The system which generated this result transmitted reference range: 10*3/?L. The reference range was not used to interpret this result as normal/abnormal. GRAN MAT (NEUT) % (test code = 770-8) 79.9 % IMM GRAN % (test code = 2191097141) 4.60 % LYMPH % (test code = 736-9) 8.6 % MONO % (test code = 5905-5) 6.3 % EOS % (test code = 713-8) 0.4 % BASO % (test code = 706-2) 0.2 % GRAN MAT x10^3(ANC) (test code = 3096702615) 10.95 10*3/uL 1.88-7.09 H IMM GRAN x10^3 (test code = 4466119722) 0.63 10*3/uL 0-0.06 H LYMPH x10^3 (test code = 731-0) 1.18 10*3/uL 1.32-3.29 L MONO x10^3 (test code = 742-7) 0.86 10*3/uL 0.33-0.92 EOS x10^3 (test code = 711-2) 0.06 10*3/uL 0.03-0.39 BASO x10^3 (test code = 704-7) 0.03 10*3/uL 0.01-0.07 BANDS (test code = 2100623807) Increased A GIANT PLATELETS (test code = 5908-9) Present See_Comment A [Automated message] The system which generated this result transmitted reference range: (none). The reference range was not used to interpret this result as normal/abnormal. Lab Interpretation (test code = 34240-0) Abnormal [facility] CenterUric Acid Pndmc0357-03-42 05:54:00* Test Item Value Reference Range Interpretation Comme [facility] URIC ACID (test code = 0210674799) 5.5 mg/dL 2.9-6 Lab Interpretation (test cod e = 81256-8) Normal [facility] Shghahfmmm5704-54-39 05:54:00* Test Item Value Reference Range Interpretation Comme nts CREATININE (test code = 5110575951) 0.45 mg/dL 0.5-1.04 L eGFR Calculation (Non-) (test code = 3548437438) mL/min/1.73m2 eGFR Calculation () (test code = 3211143844) mL/min/1.73m2 BRODY (test code = BRODY) Association of [...] abnormalities in imaging tests). Lab Interpretation (test code = 13345-4) Abnormal [facility] CenterSGOT (Asparate Amino Transfer)2019-02-23 05:54:00* Test Item Value Reference Range Interpretation Comme nts AST(SGOT) (test code = 8718715508) 16 U/L 13-40 Lab Interpretation (test cod e = 46856-6) Normal [facility] CenterLactate Cdxcjlkapxlyo1807-18-83 05:54:00* Test Item Value Reference Range Interpretation Comme nts LDH (test code = 2003393237) 488 U/L 300-600 Lab Interpretation (test cod e = 23155-6) Normal [facility] CenterAlanine Amino Transferase (SGPT)2019-02-23 05:53:00* Test Item Value Reference Range Interpretation Comme nts ALT(SGPT) (test code = 6711659757) 7 U/L 9-51 L Lab Interpretation (test cod e = 88413-7) Abnormal [facility] CenterFETAL NON-STRESS [id number] 19:36:31Daily NST: Mayra Curran is a 38 year old female 31w5d admitted for vaginal bleeding most likely from chronic abruption. Moderate variability, baseline 120s, Accels present, no decelsToco: irritabilityPatient denies contractions/pelvic pressure/abdominal pain Interpretation: FLAVIO Aguilar MD02/20/20198:09 AMSt. [facility]'s Medical CenterFETAL NON-STRESS [id number] 04:18:35GA: 31w6d?Baseline: 130 bpmVariability: ModerateAccels: +Decels: NoneToco: Quiescent Interpretation: Reactive NST Nikunj Payan MD?[facility] CenterType and Screen - ONCE [id number] 03:18:03* Test Item Value Reference Range Interpretation Comme nts ABO & RH (test code = 20) A POSITIVE Performed at [facility] B Laboratory Services - [facility] Blood [address] [address]Yvoj Free: [phone] No. [id number] IAT (test code = 1185) Negative Performed at [facility] B Laboratory Services - [facility] Blood [address] [place] [address]Sczh Free: [phone] No. [id number] [facility] CenterURINE DRUG (LCMSMS) - BENZODIAZEPINES PANEL 2019-02-21 13:33:00* Test Item Value Reference Range Interpretation Comme nts GIBGQ-AU-BLJRV-INTERPR ETATION (test code = 4533799056) Negative Negative 5-BMVGP-TT-LCMS (test code = 3351098327) 1784 ng/mL <50 H 7-KZFKG-KP-CREATININE NORMALIZED (test code = 7616104755) 4188 ng/mg 8-CSPIS-RK-INTERPRETAT ION (test code = 4595482947) Positive Negative A LORAZEPAM-INTERPRETATI ON (test code = 1645060410) Negative Negative NORDIAZEP-INTERPRETATI ON (test code = 7504968626) Negative Negative TEMAZEPAM-INTERPRETATI ON (test code = 3440519788) Negative Negative OXAZEPAM-INTERPRETATIO N (test code = 2222890965) Negative Negative CREAT U (test code = 4107843581) 42.6 mg/dL PH (test code = 6591018941) 4.8-8.0 BRODY (test code = BRODY) Test developed and characteristics determined by [facility] Laboratory Services. Lab Interpretation (test code = 77513-4) Abnormal [facility] CenterTRANSFERRIN2019-09-06 15:41:00* Test Item Value Reference Range Interpretation Comme nts TRANSFERRN (test code = 8475182527) 430 mg/dL 168-336 H Lab Interpretation (test cod e = 47347-2) Abnormal [facility] CenterGROUP B STREPTOCOCCUS BY [id number] 15:05:00* Test Item Value Reference Range Interpretation Comme nts Group B Streptococcus by PCR (test code = 35593-7) Negative Negative Lab Interpretation (test cod e = 03434-5) Normal [facility] CenterFETAL NON-STRESS QCLJ7342-02-83 14:29:08Daily NST: Mayra Curran is a 38 year old female 31w4d admitted for vaginal bleeding.Moderate variability, baseline: 130s, + accels, no decels [place]: irritability Interpretation: FLAVIO Aguilar MD02/19/201911:[address] [facility] CenterURINE TBQGEAY5644-57-07 20:44:00* Test Item Value Reference Range Interpretation Comme nts URINE CULTURE (test code = 630-4) 10,000 - 100,000 CFU/mL mixed aerobic organisms - suggests endogenous microbial contamination [facility] CenterFERRITIN [id number] 19:10:00* Test Item Value Reference Range Interpretation Comme nts FERRITIN (test code = 0105875158) 5.9 ng/mL 6-137 L BRODY (test code = BRODY) Biotin has been reported to cause a negative bias, interpret results relative to patient's use of biotin. Lab Interpretation (test code = 33173-4) Abnormal [facility] CenterTOTAL IRON BINDING [id number] 18:43:00 * Test Item Value Reference Range Interpretation Comme nts TIBC (test code = 3411416180) 516 ug/dL 250-410 H % FE SAT (test code = 0426777205) 8 % 20-50 L Lab Interpretation (test cod e = 26261-6) Abnormal [facility] [facility]33[facility]00* Test Item Value Reference Range Interpretation Comme nts IRON (test code = 7946269998) 42 ug/dL 50-160 L Lab Interpretation (test cod e = 83931-0) Abnormal [facility] CenterGLUCOSE 1 HOUR POST [id number] 18:09:00* Test Item Value Reference Range Interpretation Comme nts GLUC 1 HR (test code = 1066148572) 117 mg/dL 120-170 L Lab Interpretation (test cod e = 20437-1) Abnormal [facility] CenterGC & CHLAMYDIA AMPLIFIED [id number] 17:08:00* Test Item Value Reference Range Interpretation Comme nts Lab Interpretation (test cod e = 36791-4) Normal [facility] CenterGALV ONLY - SYPHILIS [id number] 14:35:00* Test Item Value Reference Range Interpretation Comme nts Syphilis IgG/IgM (test code = 94471-1) Non-reactive Non-reactive BRODY (test code = BRODY) Non-reactive - No serologic evidence of T. pallidum infection. Cannot exclude incubating or early syphilis. Submit a second specimen in 2-4 weeks if syphilis is clinically suspected.Equivocal - Further testing to follow.Reactive - Further testing to follow. Lab Interpretation (test code = 24031-2) Normal [facility] CenterHIV 1/2 AG-AB WITH [id number] 19:23:00* Test Item Value Reference Range Interpretation Comme nts HIV Semi-quantitative (test code = 36402-0) Negative Negative BRODY (test code = BRODY) Non-reactive for HIV-1 antigen and HIV-1/HIV-2 antibodies.?No laboratory evidence of HIV infection.?Repeat in 2-4 weeks if acute HIV infection is suspected. [facility] CenterURINALYSIS2019-09-04 19:15:00* Test Item Value Reference Range Interpretation Comme nts APPEARANCE (test code = 0112957804) Clear Clear COLOR (test code = 6732616065) Yellow Yellow PH (test code = 9251036727) 4.8-8.0 SP GRAVITY (test code = 7475086441) 1.003-1.030 GLU U QUAL (test code = 7047713749) Normal Normal BLOOD (test code = 2210643253) 2+ Negative A KETONES (test code = 7490203199) Negative Negative PROTEIN (test code = 2887-8) Negative Negative UROBILIN (test code = 8553473628) Normal Normal BILIRUBIN (test code = 7017931456) Negative Negative NITRITE (test code = 4786539598) Negative Negative LEUK MO (test code = 7941849290) 500/uL Negative A RBC/HPF (test code = 1614704437) See_Comment [Automated Kanmua ge] The system which generated this result transmitted reference range: 0 - 3 HPF. The reference range was not used to interpret this result as normal/abnormal. WBC/HPF (test code = 1051928392) See_Comment H [Automated Kanmua ge] The system which generated this result transmitted reference range: 0 - 5 HPF. The reference range was not used to interpret this result as normal/abnormal. BACTERIA (test code = 9090743269) Few Negative A SQ EPITH (test code = 0254408923) See_Comment [Automated Kanmua ge] The system which generated this result transmitted reference range: <=2 HPF. The reference range was not used to interpret this result as normal/abnormal. Lab Interpretation (test code = 78601-8) Abnormal [facility] CenterHepatitis B Surface [id number] 19:13:00 * Test Item Value Reference Range Interpretation Comme nts HBsAg Semi-Quantitative (brennon t code = 5195-3) [facility] CenterDRUG PANEL 2 [id number] 19:01:00* Test Item Value Reference Range Interpretation Comme nts AMPHET (test code = 0348420303) Negative Negative NADYA U (test code = 2516890215) Negative Negative BENZO U (test code = 4746380399) Presumptive Positive Negative A Cocaine Metabolite (test code = 0781436695) Negative Negative METHADONE (test code = 5067746502) Presumptive Positive Negative A OPIATES (test code = 8114550677) Negative Negative PCP (test code = 7952919057) Negative Negative THC (test code = 9839823515) Negative Negative BRODY (test code = BRODY) Urine Drug Cutoff RangesCocaine:? 150 ng/mLBenzodiazepines: ? 200 ng/mLMethadone:? 300 ng/mLAmphetamine:? 1,000 ng/mLOpiates:? 300 ng/mLCannabinoids:?50 ng/mLPhencyclidine:?? 25 ng/mLBarbiturates:?20 0 ng/mLThe results are to be used only for medical (i.e., treatment) purposes. Unconfirmed screening results must not be used for non-medical purposes (e.g., employment testing, legal testing). Lab Interpretation (test code = 15161-5) Abnormal [facility] CenterCBC WITH [id number] 18:42:00* Test Item Value Reference Range Interpretation Comme nts WBC (test code = 6690-2) See_Comment H [Automated message] The system which generated this result transmitted reference range: 4.30 - 11.10 10*3/?L. The reference range was not used to interpret this result as normal/abnormal. RBC (test code = 789-8) See_Comment L [Automated message] The system which generated this result transmitted reference range: 3.93 - 5.25 10*6/?L. The reference range was not used to interpret this result as normal/abnormal. HGB (test code = 718-7) 7.0 g/dL 11.6-15 L HCT (test code = 4544-3) 23.5 % 35.7-45.2 L MCV (test code = 787-2) 78.1 fL 80.6-95.5 L MCH (test code = 785-6) 23.3 pg 25.9-32.8 L MCHC (test code = 786-4) 29.8 g/dL 31.6-35.1 L RDW-SD (test code = 10302-2) 48.0 fL 39-49.9 RDW-CV (test code = 788-0) 16.8 % 12-15.5 H PLT (test code = 777-3) See_Comment [Automated message] The system which generated this result transmitted reference range: 166 - 358 10*3/?L. The reference range was not used to interpret this result as normal/abnormal. MPV (test code = 09255-7) 10.1 fL 9.5-12.9 NRBC/100 WBC (test code = 1777228117) See_Comment [Automated message] The system which generated this result transmitted reference range: 0.0 - 10.0 /100 WBCs. The reference range was not used to interpret this result as normal/abnormal. NRBC x10^3 (test code = 8717977251) See_Comment [Automated message] The system which generated this result transmitted reference range: 10*3/?L. The reference range was not used to interpret this result as normal/abnormal. GRAN MAT (NEUT) % (test code = 770-8) 76.1 % IMM GRAN % (test code = 5833401420) 2.50 % LYMPH % (test code = 736-9) 12.9 % MONO % (test code = 5905-5) 6.4 % EOS % (test code = 713-8) 1.8 % BASO % (test code = 706-2) 0.3 % GRAN MAT x10^3(ANC) (test code = 8114355644) 11.24 10*3/uL 1.88-7.09 H IMM GRAN x10^3 (test code = 1008984692) 0.37 10*3/uL 0-0.06 H LYMPH x10^3 (test code = 731-0) 1.90 10*3/uL 1.32-3.29 MONO x10^3 (test code = 742-7) 0.95 10*3/uL 0.33-0.92 H EOS x10^3 (test code = 711-2) 0.26 10*3/uL 0.03-0.39 BASO x10^3 (test code = 704-7) 0.05 10*3/uL 0.01-0.07 POLYCHROMASIA (test code = 04695-1) 2+ See_Comment [Automated message] The system which generated this result transmitted reference range: 2+. The reference range was not used to interpret this result as normal/abnormal. TEARDROP CELLS (test code = 7791-7) 2+ See_Comment A [Automated message] The system which generated this result transmitted reference range: (none). The reference range was not used to interpret this result as normal/abnormal. HYPERSEG NEUTS (test code = 765-8) Present See_Comment A [Automated message] The system which generated this result transmitted reference range: (none). The reference range was not used to interpret this result as normal/abnormal. Lab Interpretation (test code = 33927-4) Abnormal [facility] CenterType and Screen - ONCE [id number] 18:17:53 * Test Item Value Reference Range Interpretation Comme nts ABO & RH (test code = 20) A POSITIVE Performed at [facility] Laboratory Services [facility] Blood [address] Free: [phone] No. [id number] IAT (test code = 1185) Negative Performed at [facility] Laboratory Services [facility] Blood [place] [address]Toll Free: [phone] No. [id number] [facility] CenterPOCT URINALYSIS W/O SPECIFIC [id number] 20:22:00* Test Item Value Reference Range Interpretation Comme nts POCT PH U (test code = 3254) . 5-8 POCT U LEUK EST (test code = 3263) . Negative - N egative POCT U NIT (test code = 3262) . Negative - Negati ve POCT U PROT (test code = 3259) neg Negative - Negat hollie POCT U GLU (test code = 3256) neg Negative - Negati ve POCT U KETONE (test code = 3258) . Negative - Neg ative POCT U BLD (test code = 3257) .. Negative - Negati ve [facility] CenterPOCT URINALYSIS W/O SPECIFIC [id number] 20:22:00* Test Item Value Reference Range Interpretation Comme nts POCT PH U (test code = 3254) . 5-8 POCT U LEUK EST (test code = 3263) . Negative - N egative POCT U NIT (test code = 3262) . Negative - Negati ve POCT U PROT (test code = 3259) neg Negative - Negat hollie POCT U GLU (test code = 3256) neg Negative - Negati ve POCT U KETONE (test code = 3258) . Negative - Neg ative POCT U BLD (test code = 3257) .. Negative - Negati ve [facility] CenterTHYROID STIMULATING [id number] 03:42:00 * Test Item Value Reference Range Interpretation Comme nts TSH (test code = 2641634480) See_Comment Biotin has been reported to cause a negative bias, interpret results relative to patient's use of biotin. [Automated message] The system which generated this result transmitted reference range: 0.45 - 4.70 mIU/L. The reference range was not used to interpret this result as normal/abnormal. Lab Interpretation (test code = 42567-2) Normal [facility] CenterPROFILE / [id number] 03:01:00* Test Item Value Reference Range Interpretation Comme nts WBC (test code = 6690-2) See_Comment [Automated message] The system which generated this result transmitted reference range: 4.30 - 11.10 10*3/?L. The reference range was not used to interpret this result as normal/abnormal. RBC (test code = 789-8) See_Comment L [Automated message] The system which generated this result transmitted reference range: 3.93 - 5.25 10*6/?L. The reference range was not used to interpret this result as normal/abnormal. HGB (test code = 718-7) 7.3 g/dL 11.6-15 L HCT (test code = 4544-3) 23.7 % 35.7-45.2 L MCH (test code = 785-6) 25.7 pg 25.9-32.8 L MCV (test code = 787-2) 83.5 fL 80.6-95.5 MCHC (test code = 786-4) 30.8 g/dL 31.6-35.1 L PLT (test code = 777-3) See_Comment [Automated message] The system which generated this result transmitted reference range: 166 - 358 10*3/?L. The reference range was not used to interpret this result as normal/abnormal. MPV (test code = 55525-0) 10.0 fL 9.5-12.9 RDW-CV (test code = 788-0) 15.9 % 12-15.5 H RDW-SD (test code = 50753-1) 48.1 fL 39-49.9 NRBC x10^3 (test code = 0192440664) See_Comment [Automated messa ge] The system which generated this result transmitted reference range: 10*3/?L. The reference range was not used to interpret this result as normal/abnormal. NRBC/100 WBC (test code = 2078520787) See_Comment [Automated messa ge] The system which generated this result transmitted reference range: 0.0 - 10.0 /100 WBCs. The reference range was not used to interpret this result as normal/abnormal. IPF % (test code = 5577296379) 1.3-7.7 Lab Interpretation (test code = 57856-1) Abnormal [facility] WITH [id number] 12:52:00* Test Item Value Reference Range Interpretation Comme nts WBC (test code = 6690-2) See_Comment H [Automated messa ge] The system which generated this result transmitted reference range: 4.30 - 11.10 10*3/?L. The reference range was not used to interpret this result as normal/abnormal. RBC (test code = 789-8) See_Comment L [Automated messa ge] The system which generated this result transmitted reference range: 3.93 - 5.25 10*6/?L. The reference range was not used to interpret this result as normal/abnormal. HGB (test code = 718-7) 7.7 g/dL 11.6-15 L HCT (test code = 4544-3) 25.4 % 35.7-45.2 L MCV (test code = 787-2) 81.9 fL 80.6-95.5 MCH (test code = 785-6) 24.8 pg 25.9-32.8 L MCHC (test code = 786-4) 30.3 g/dL 31.6-35.1 L RDW-SD (test code = 97911-1) 46.4 fL 39-49.9 RDW-CV (test code = 788-0) 15.6 % 12-15.5 H PLT (test code = 777-3) See_Comment [Automated messa ge] The system which generated this result transmitted reference range: 166 - 358 10*3/?L. The reference range was not used to interpret this result as normal/abnormal. MPV (test code = 89316-0) 10.2 fL 9.5-12.9 NRBC/100 WBC (test code = 0833535446) See_Comment [Automated Lionseek ssage] The system which generated this result transmitted reference range: 0.0 - 10.0 /100 WBCs. The reference range was not used to interpret this result as normal/abnormal. NRBC x10^3 (test code = 5411879442) See_Comment [Automated Kanmua ge] The system which generated this result transmitted reference range: 10*3/?L. The reference range was not used to interpret this result as normal/abnormal. GRAN MAT (NEUT) % (test code = 770-8) 72.5 % IMM GRAN % (test code = 5131452043) 4.80 % LYMPH % (test code = 736-9) 13.4 % MONO % (test code = 5905-5) 7.9 % EOS % (test code = 713-8) 1.1 % BASO % (test code = 706-2) 0.3 % GRAN MAT x10^3(ANC) (test code = 6642703093) 9.68 10*3/uL 1.88-7.09 H IMM GRAN x10^3 (test code = 3042563068) 0.64 10*3/uL 0-0.06 H LYMPH x10^3 (test code = 731-0) 1.78 10*3/uL 1.32-3.29 MONO x10^3 (test code = 742-7) 1.05 10*3/uL 0.33-0.92 H EOS x10^3 (test code = 711-2) 0.14 10*3/uL 0.03-0.39 BASO x10^3 (test code = 704-7) 0.04 10*3/uL 0.01-0.07 POLYCHROMASIA (test code = 83846-4) 2+ See_Comment [Automated messa ge] The system which generated this result transmitted reference range: 2+. The reference range was not used to interpret this result as normal/abnormal. HYPERSEG NEUTS (test code = 765-8) Present See_Comment A [Automated messa ge] The system which generated this result transmitted reference range: (none). The reference range was not used to interpret this result as normal/abnormal. Lab Interpretation (test code = 74699-2) Abnormal [facility] CenterType and Screen - ONCE [id number] 12:22:13* Test Item Value Reference Range Interpretation Comme nts ABO & RH (test code = 20) A POSITIVE Performed at [facility] Laboratory Services - [facility] Blood [address] Free: [phone] No. [id number] IAT (test code = 1185) Negative Performed at [facility] Laboratory Services - [facility] Blood [place] [address]Toll Free: [phone] No. [id number] [facility]"
--- NOTE | 2024-07-12 16:26 | RAD REPORT ---
EXAM: Knee Left 3 View INDICATION: PAIN COMPARISON: None FINDINGS: No acute fracture. No significant knee effusion. Mild lateral compartment spurring. Trace patellofemoral compartment spurring. Other: n/a IMPRESSION: No evidence of acute osseous abnormality involving the imaged knee.
--- NOTE | 2024-07-12 16:26 | RAD REPORT ---
EXAM: Knee Right 3 View INDICATION: PAIN COMPARISON: None FINDINGS: No acute fracture. No significant knee effusion. No significant focal degenerative changes. Other: n/a IMPRESSION: No evidence of acute osseous abnormality involving the imaged knee.
--- NOTE | 2024-07-12 16:26 | RAD REPORT ---
EXAMINATION: Clavicle Right CLINICAL INDICATION: Female, 43 years old. PAIN RIGHT COMPARISON: No prior exam. FINDINGS: No acute fracture. The right shoulder appears located. Other: n/a IMPRESSION: No acute osseous abnormality involving the right clavicle.
--- NOTE | 2024-07-12 16:27 | RAD REPORT ---
EXAMINATION: Shoulder Right 2+ Views CLINICAL INDICATION: Female, 43 years old. PAIN RIGHT COMPARISON: No prior exam. FINDINGS: No acute fracture. No malalignment/dislocation. No significant focal degenerative change. Other: n/a IMPRESSION: No acute osseous abnormality.
[2024-07-12] MEDS ORDERED: HYDROCODONE/APAP 5/325 MG TAB ONE (16:37)
--- NOTE | 2024-07-12 16:48 | ER ---
Nurse's Notes [facility] Name: Mayra Peterson Age: 43 yrs Sex: Female : 1980 Arrival Date: 07/12/2024 Time: 15:21 Bed 9 Private MD: Diagnosis: Pain in left knee;Pain in right knee;Pain in left shoulder;Pain in right shoulder;Fall on same level, unspecified Presentation: 07/12 15:38 Chief complaint: Patient states: BILATERAL KNEE AND SHOULDER PAIN AFTER FALLING ON db SATURDAY IN THE ICE. Coronavirus screen: Client denies travel out of the [place] in the last 14 days. At this time, the client does not indicate any symptoms associated with coronavirus-19. Ebola Screen: Patient negative for fever greater than or equal to 101.5 degrees Fahrenheit, and additional compatible Ebola Virus Disease symptoms Patient denies exposure to infectious person. Patient denies travel to an Ebola-affected area in the 21 days before illness onset. No symptoms or risks identified at this time. Initial Sepsis Screen: Does the patient meet any 2 criteria? No. Patient's initial sepsis screen is negative. Does the patient have a suspected source of infection? No. Patient's initial sepsis screen is negative. Risk Assessment: Do you want to hurt yourself or someone else? Patient reports no desire to harm self or others. Onset of symptoms was July 12, 2024. 15:38 Method Of Arrival: Ambulatory db 15:38 Acuity: AR 4 db Triage Assessment: 15:39 General: Appears in no apparent distress. comfortable, Behavior is calm, cooperative. db Pain: Complains of pain in posterior aspect of right shoulder, anterior aspect of left shoulder, right knee and left knee. Historical: - Allergies: 15:39 No Known Allergies; db - PMHx: 15:39 depressive disorder; PTSD; Opioid addiction; Thyroid problem; db - PSHx: 15:39 tubal; hernia repair x 2; db - Immunization history:: Adult Immunizations unknown. - Infectious Disease History:: Denies. - Social history:: Smoking status: Patient reports the use of cigarette tobacco products, smokes one-half pack cigarettes per day. Screenin:00 [facility] ED Fall Risk Assessment (Adult) History of falling in the last 3 months, ko1 including since admission Yes- single mechanical fall (1 pt) Confusion or Disorientation No (0 pts) Intoxicated or Sedated No (0 pts) Impaired Gait No (0 pts) Mobility Assist Device Used No (0 pt) Altered Elimination No (0 pt) Score/Fall Risk Level 0 - 2 = Low Risk Oriented to surroundings, Maintained a safe environment, Educated pt \T\ family on fall prevention, incl call for assistance when getting out of bed, Assessed \T\ reinforced patient's understanding of fall precautions, Hourly rounding (assess needs \T\ fall precautionary measures) done. Abuse screen: Denies threats or abuse. Denies injuries from another. Nutritional screening: No deficits noted. Tuberculosis screening: No symptoms or risk factors identified. Assessment: 16:00 Pain: Complains of pain in bilateral knees and shoulders. Musculoskeletal: Reports pain ko1 in bilateral knees and shoulders. Vital Signs: 15:38 BP 117 / 87; Pulse 91; Resp 16; Temp 98.6; Pulse Ox 95% ; Weight 90.72 kg; Height 5 ft. db 0 in. ; 16:00 BP 121 / 74; Pulse 81; Resp 15; Pulse Ox 97% ; ko1 15:38 Body Mass Index 39.06 (90.72 kg, 152.4 cm) db ED Course: 15:21 Patient arrived in ED. am2 15:28 Bonnie Gonzalez FNP-C [facility] kb 15:28 Sergio Chand MD is Attending Physician. kb 15:39 Triage completed. db 15:39 Arm band placed on Patient placed. db 16:00 Patient has correct armband on for positive identification. Bed in low position. Call ko1 light in reach. Provided Education on: meds. Warm blanket given. Pillow given. PO fluids given. 16:16 Noy Melton, SARITA is Primary Nurse. ko1 16:20 Knee Right 3 View XRAY In Process Unspecified. EDMS 16:20 Knee Left 3 View XRAY In Process Unspecified. EDMS 16:21 Shoulder Right (2 View) XRAY In Process Unspecified. EDMS 16:21 Clavicle Right XRAY In Process Unspecified. EDMS 16:40 Diet: Patient given ice chips. ko1 16:52 Patient requests liquids. ko1 16:52 No provider procedures requiring assistance completed. Patient did not have IV access ko1 during this emergency room visit. Administered Medications: 16:42 Drug: HYDROcodone-acetaminophen PO 5 mg-325 mg 1 tabs PO once Route: PO; ko1 17:00 Follow up: Response: No adverse reaction; Medication administered at discharge. ko1 Medication: 16:00 VIS not applicable for this client. ko1 Outcome: 16:47 Discharge ordered by . marily 17:00 Discharged to home ambulatory, ko1 17:00 Condition: stable 17:00 Discharge instructions given to patient, Instructed on discharge instructions, follow up and referral plans. medication usage, Demonstrated understanding of instructions, follow-up care, medications, Prescriptions given X 2, 17:01 Patient left the ED. ko1 Signatures: Dispatcher [employer] EDMS Bonnie Gonzalez, JLUISC PSYCHIATRIC REGISTERED NURSE-Virgen Medina am2 Noy Melton, RN RN ko1 Lashay Thurston RN RN db
--- NOTE | 2024-07-12 16:48 | EDPHYS ---
Physician Documentation [facility] Name: Mayra Peterson Age: 43 yrs Sex: Female : 1980 Arrival Date: 07/12/2024 Time: 15:21 Bed 9 Private MD: ED Physician Sergio Chand HPI: 07/12 17:33 This 43 yrs old Female presents to ER via Ambulatory with complaints of Knee Pain, kb Shoulder Pain. 17:33 Patient is a 43-year-old female who presents for pain to bilateral shoulders and kb bilateral knees that started 6 days ago after falling on the ice multiple times. Reports the pain has not gotten any better so that is what she came in for today. Denies any other injury or trauma. . Historical: - Allergies: 15:39 No Known Allergies; db - PMHx: 15:39 depressive disorder; PTSD; Opioid addiction; Thyroid problem; db - PSHx: 15:39 tubal; hernia repair x 2; db - Immunization history:: Adult Immunizations unknown. - Infectious Disease History:: Denies. - Social history:: Smoking status: Patient reports the use of cigarette tobacco products, smokes one-half pack cigarettes per day. ROS: 17:31 Constitutional: As per HPI kb Exam: 17:31 Constitutional: This is a well developed, well nourished patient who is awake, alert, kb and in no acute distress. Head/Face: Normocephalic, atraumatic. ENT: Moist Mucous membranes Cardiovascular: Regular rate Respiratory: Respirations even and unlabored. No increased work of breathing. Talking in full sentences Abdomen/GI: Soft, non-tender. No distention Skin: Warm, dry with normal turgor. Normal color. Neuro: Awake and alert, GCS 15, oriented to person, place, time, and situation. 17:31 Musculoskeletal/extremity: Extremities: grossly normal except: noted in the right clavicle, anterior aspect of right shoulder, right knee and left knee: pain, tenderness, ROM: intact in all extremities, Circulation is intact in all extremities. Sensation intact. Weight bearing: able to fully bear weight, Vital Signs: 15:38 BP 117 / 87; Pulse 91; Resp 16; Temp 98.6; Pulse Ox 95% ; Weight 90.72 kg; Height 5 ft. db 0 in. ; 16:00 BP 121 / 74; Pulse 81; Resp 15; Pulse Ox 97% ; ko1 15:38 Body Mass Index 39.06 (90.72 kg, 152.4 cm) db MDM: 15:28 Medical Screening Exam initiated kb 17:32 Differential diagnosis: contusion, fracture, sprain, strain. Data reviewed: vital kb signs, nurses notes. Counseling: I had a detailed discussion with the patient and/or guardian regarding the historical points, exam findings, and any diagnostic results supporting the discharge/admit diagnosis, the need for outpatient follow up, a orthopedic surgeon, to return to the emergency department if symptoms worsen or persist or if there are any questions or concerns that arise at home. 07/12 15:39 Order name: Knee Right 3 View XRAY; Complete Time: 16:34 kb 07/12 15:39 Order name: Knee Left 3 View XRAY; Complete Time: 16:34 kb 07/12 15:39 Order name: Shoulder Right (2 View) XRAY; Complete Time: 16:34 kb 07/12 15:39 Order name: Clavicle Right XRAY; Complete Time: 16:34 kb Administered Medications: 16:42 Drug: HYDROcodone-acetaminophen PO 5 mg-325 mg 1 tabs PO once Route: PO; ko1 17:00 Follow up: Response: No adverse reaction; Medication administered at discharge. ko1 Disposition Summary: 07/12/24 16:47 Discharge Ordered Notes: Location: Home kb Condition: Stable kb Diagnosis - Pain in left knee kb - Pain in right knee kb - Pain in left shoulder kb - Pain in right shoulder kb - Fall on same level, unspecified kb Followup: kb - With: Emergency Department - When: As needed - Reason: Worsening of condition Followup: kb - With: Private Physician - When: 2 - 3 days - Reason: Recheck today's complaints, Continuance of care, Re-evaluation by your physician Discharge Instructions: - Discharge Summary Sheet kb - Musculoskeletal Pain kb Forms: - Medication Reconciliation Form kb - Antibiotic Education kb - Prescription Opioid Use kb - Patient Portal Instructions kb - Leadership Thank You Letter kb Prescriptions: - Diclofenac Sodium 75 mg Oral tablet, delayed release (enteric coated) - take 1 tablet ORAL route 2 times per day As needed; 30 tablet; Refills: 0, kb Product Selection Permitted - orphenadrine citrate 100 mg Oral Tablet Sustained Release - take 1 tablet ORAL route 2 times per day As needed; 20 tablet; Refills: 0, kb Product Selection Permitted Addendum: 07/13/2024 17:20 Co-signature as Attending Physician, Sergio Chand MD I reviewed the patient's care r n provided by the Advanced Practice Provider and agree with the diagnosis and treatment plan. Signatures: Dispatcher [employer] Bonnie Keith, EXCELLENCE MANAGER-C EXCELLENCE MANAGER-Ckb Sergio Chand MD MD rn Oliver, Kathy, RN RN ko1 Lashay Thurston RN RN db
[2024-07-12 20:13] VITALS: TEMP 98.6
[2024-07-12 20:15] VITALS: BP 121/74; O2SAT 97
== END 2024-07-12 17:01 | disposition home or self-care (01) ==
LOC: ER 15:21
DX: M25.562 Pain in left knee (principal); M25.561 Pain in right knee; M25.512 Pain in left shoulder; M25.511 Pain in right shoulder; W18.30XA Fall on same level, unspecified, initial encounter
CPT/HCPCS: 99283